=== PATIENT | male | born 1970 | race Caucasian/White ===

== ENCOUNTER 2020-09-20 12:38 | Outpatient (REF) | payer MEDICARE, MEDICAID, SELFPAY ==
[2020-09-20 13:06] LABS: MANUAL DIFF FLAG NO
[2020-09-20 13:14] LABS: Basophils Absolute Auto 0.1 X10*3/uL (0.0-0.2); Basophils Percent Auto 0.7 % (0-2); Eosinophils Absolute Auto 0.2 X10*3/uL (0.0-0.4); Eosinophils Percent Auto 1.8 % (0-4); Hematocrit 40.9 % (42-52); Hemoglobin 13.2 g/dl (14.0-18.0); Imm Gran Abs Auto 0.03 X10*3/uL (0.00-0.03); Imm Gran Pct Auto 0.3 % (0.0-0.4); Lymphocytes Absolute Auto 4.2 X10*3/uL (1.2-4.9); Lymphocytes Percent Auto 46.8 % (20-40); Mean Corpuscular HGB Conc 32.3 g/dl (31.0-36.0); Mean Corpuscular Hemoglobin 29.8 pg (27.0-33.0); Mean Corpuscular Volume 92.3 fL (80-98); Mean Platelet Volume 10.2 fL (9.4-12.4); Monocytes Absolute Auto 0.5 X10*3/uL (0.1-1.2); Monocytes Percent Auto 5.3 % (2-11); Neutrophils Percent Auto 45.1 % (45-73); Platelet Count 208 X10*3/uL (160-400); Red Blood Count 4.43 X10*6/uL (4.60-5.80); Red Cell Distribution Width 14.3 % (11.0-16.0); White Blood Count 8.9 X10*3/uL (4.8-10.8)
[2020-09-20 13:39] LABS: Alanine Aminotransferase 16 U/L (0-40); Albumin Level 4.3 g/dL (3.5-5.0); Alkaline Phosphatase 47 U/L (39-117); Anion Gap 13 (12-20); Aspartate Amino Transferase 15 U/L (5-37); Bilirubin Total 0.5 mg/dL (0.0-1.0); Blood Urea Nitrogen 11 mg/dL (9-16); Calcium 8.9 mg/dL (8.4-10.2); Carbon Dioxide 33 mmol/L (22-29); Chloride 98 mmol/L (96-108); Estimated Glomerular Filt Rate > 60; Glucose Random 124 mg/dL (60-115); Potassium 4.6 mmol/l (3.3-5.1); Sodium 139 mmol/L (135-145)
[2020-09-20 14:01] LABS: TSH reflex Free T4 2.51 mIU/mL (0.32-4.0)
[2020-09-20 14:24] LABS: Glucose Urine UA NEG (NEG); Leukocyte Esterase Urine TRACE (NEG); Nitrite Urine NEG (NEG); Specific Gravity - Urine 1.025 (1.005-1.025); Urine Blood NEG (NEG); Urine Ketones NEG (NEG); Urine Protein NEG (NEG-TRACE)
[2020-09-20 14:45] LABS: Appearance Urine CLEAR; Color Urine YELLOW
[2020-09-20 15:08] LABS: RBC Urine 0 /HPF (0)
[2020-09-20 15:09] LABS: Bacteria Urine TRACE /LPF; Mucus Urine TRACE /LPF; Squamous Epithelial Cell Urine TRACE /LPF
== END 2020-09-20 12:39 | disposition home or self-care (01) ==
LOC: HO.LAB 12:38
PROVIDERS: PCP Internal Medicine; Visit Provider Internal Medicine
DX: I89.0 Lymphedema, not elsewhere classified (principal)
CPT/HCPCS: 36415; 80053; 81001; 84443; 85025; 87086

== ENCOUNTER 2021-03-21 12:46 | Outpatient (REF) | payer MEDICARE, MEDICAID, SELFPAY ==
[2021-03-21 14:00] LABS: MANUAL DIFF FLAG NO
[2021-03-21 14:03] LABS: Basophils Absolute Auto 0.1 X10*3/uL (0.0-0.2); Basophils Percent Auto 0.5 % (0-2); Eosinophils Absolute Auto 0.2 X10*3/uL (0.0-0.4); Eosinophils Percent Auto 2.2 % (0-4); Hematocrit 40.6 % (42-52); Hemoglobin 13.3 g/dl (14.0-18.0); Imm Gran Abs Auto 0.03 X10*3/uL (0.00-0.03); Imm Gran Pct Auto 0.3 % (0.0-0.4); Lymphocytes Absolute Auto 4.3 X10*3/uL (1.2-4.9); Lymphocytes Percent Auto 47.4 % (20-40); Mean Corpuscular HGB Conc 32.8 g/dl (31.0-36.0); Mean Corpuscular Volume 91.4 fL (80-98); Mean Platelet Volume 10.1 fL (9.4-12.4); Monocytes Absolute Auto 0.6 X10*3/uL (0.1-1.2); Monocytes Percent Auto 6.2 % (2-11); Neutrophils Percent Auto 43.4 % (45-73); Platelet Count 222 X10*3/uL (160-400); Red Blood Count 4.44 X10*6/uL (4.60-5.80); Red Cell Distribution Width 14.2 % (11.0-16.0); White Blood Count 9.1 X10*3/uL (4.8-10.8)
[2021-03-21 14:29] LABS: Alanine Aminotransferase 13 U/L (0-40); Albumin Level 4.2 g/dL (3.5-5.0); Alkaline Phosphatase 45 U/L (39-117); Anion Gap 13 (12-20); Aspartate Amino Transferase 16 U/L (5-37); Bilirubin Total 0.5 mg/dL (0.0-1.0); Blood Urea Nitrogen 10 mg/dL (9-16); Calcium 9.4 mg/dL (8.4-10.2); Carbon Dioxide 30 mmol/L (22-29); Chloride 102 mmol/L (96-108); Cholesterol 190 mg/dL; Estimated Glomerular Filt Rate > 60; Glucose Fasting 124 mg/dL (60-99); HDL Cholesterol 33 mg/dL; LDL Cholesterol Calculated 111 mg/dl; Potassium 4.3 mmol/L (3.3-5.1); Sodium 141 mmol/L (135-145); Total Protein 6.9 g/dL (6.5-8.0); Triglycerides 232 mg/dL
[2021-03-21 14:52] LABS: TSH reflex Free T4 1.78 uIU/mL (0.32-4.0)
[2021-03-21 15:50] LABS: Microalbum/Creatinine Ratio Ur 17.6 ug/mg cr
[2021-03-21 15:54] LABS: Glucose Urine UA NEG (NEG); Leukocyte Esterase Urine NEG (NEG); Nitrite Urine NEG (NEG); PH 5.5 (5.0-8.0); Specific Gravity - Urine >= 1.030 (1.005-1.025); Urine Blood 1+ (NEG); Urine Ketones NEG (NEG); Urine Protein NEG (NEG-TRACE)
[2021-03-21 16:07] LABS: Appearance Urine CLEAR; Color Urine YELLOW
[2021-03-21 16:49] LABS: Squamous Epithelial Cell Urine 2+ /LPF; UACC CULT YES
== END 2021-03-21 12:47 | disposition home or self-care (01) ==
LOC: HO.LAB 12:46
PROVIDERS: PCP Internal Medicine; Visit Provider Internal Medicine
DX: E78.1 Pure hyperglyceridemia (principal); E11.9 Type 2 diabetes mellitus without complications; E66.01 Morbid (severe) obesity due to excess calories; Z68.42 Body mass index [BMI] 45.0-49.9, adult; I89.0 Lymphedema, not elsewhere classified; G47.33 Obstructive sleep apnea (adult) (pediatric)
CPT/HCPCS: 36415; 80053; 80061; 81001; 81003; 82043; 84443; 85025; 87086

== ENCOUNTER 2021-10-17 12:52 | Outpatient (REF) | payer MEDICARE, MEDICAID, SELFPAY ==
[2021-10-17 13:22] LABS: MANUAL DIFF FLAG NO
[2021-10-17 13:38] LABS: Basophils Percent Auto 0.3 % (0-2); Eosinophils Absolute Auto 0.1 X10*3/uL (0.0-0.4); Eosinophils Percent Auto 1.7 % (0-4); Hematocrit 41.8 % (42.0-52.0); Hemoglobin 13.8 g/dl (14.0-18.0); Imm Gran Abs Auto 0.02 X10*3/uL (0.00-0.03); Imm Gran Pct Auto 0.3 % (0.0-0.4); Lymphocytes Absolute Auto 3.8 X10*3/uL (1.2-4.9); Lymphocytes Percent Auto 47.6 % (20-40); Mean Corpuscular Hemoglobin 29.6 pg (27.0-33.0); Mean Corpuscular Volume 89.7 fL (80.0-98.0); Mean Platelet Volume 9.5 fL (9.4-12.4); Monocytes Absolute Auto 0.5 X10*3/uL (0.1-1.2); Monocytes Percent Auto 6.2 % (2-11); Neutrophils Absolute Auto 3.5 x10*3/uL (2.0-8.3); Neutrophils Percent Auto 43.9 % (45-73); Platelet Count 197 X10*3/uL (160-400); Red Blood Count 4.66 X10*6/uL (4.60-5.80); White Blood Count 7.9 X10*3/uL (4.8-10.8)
[2021-10-17 13:52] LABS: Alanine Aminotransferase 21 U/L (0-40); Albumin Level 4.2 g/dL (3.5-5.0); Alkaline Phosphatase 42 U/L (39-117); Anion Gap 16 (12-20); Aspartate Amino Transferase 17 U/L (5-37); Bilirubin Total 0.7 mg/dL (0.0-1.0); Blood Urea Nitrogen 8 mg/dL (9-16); Calcium 9.6 mg/dL (8.4-10.2); Carbon Dioxide 30 mmol/L (22-29); Chloride 98 mmol/L (96-108); Cholesterol 168 mg/dL; Estimated Glomerular Filt Rate > 60; Glucose Fasting 138 mg/dL (60-99); HDL Cholesterol 29 mg/dL; LDL Cholesterol Calculated 88 mg/dl; Sodium 140 mmol/L (135-145); Total Protein 7.1 g/dL (6.5-8.0); Triglycerides 256 mg/dL
[2021-10-17 14:04] LABS: Estimated Average Glucose 180 mg/dL; Hemoglobin A1c % 7.9 %
[2021-10-17 14:12] LABS: TSH reflex Free T4 2.28 uIU/mL (0.32-4.0)
[2021-10-17 14:43] LABS: Creatinine Urine 112.77 mg/dL; Microalbum/Creatinine Ratio Ur 17.7 ug/mg cr
[2021-10-17 18:01] LABS: Appearance Urine CLEAR; Color Urine YELLOW; Glucose Urine UA NEG (NEG); Leukocyte Esterase Urine TRACE (NEG); Nitrite Urine NEG (NEG); UACC Culture Trigger YES; Urine Blood NEG (NEG); Urine Ketones NEG (NEG); Urine Protein NEG (NEG-TRACE)
[2021-10-17 18:02] LABS: Bacteria Urine 1+ /LPF; Squamous Epithelial Cell Urine 3+ /LPF
== END 2021-10-17 12:53 | disposition home or self-care (01) ==
LOC: HO.LAB 12:52
PROVIDERS: PCP Internal Medicine; Visit Provider Internal Medicine
DX: E11.9 Type 2 diabetes mellitus without complications (principal); I89.0 Lymphedema, not elsewhere classified; E66.01 Morbid (severe) obesity due to excess calories; Z68.42 Body mass index [BMI] 45.0-49.9, adult; G47.33 Obstructive sleep apnea (adult) (pediatric); L03.115 Cellulitis of right lower limb; L03.116 Cellulitis of left lower limb; E78.1 Pure hyperglyceridemia
CPT/HCPCS: 36415; 80053; 80061; 81001; 81003; 82043; 83036; 84443; 85025; 87086

== ENCOUNTER 2022-01-06 11:40 | Outpatient (REF) | payer MEDICARE, MEDICAID, SELFPAY ==
[2022-01-06 11:54] LABS: MANUAL DIFF FLAG NO
[2022-01-06 12:17] LABS: Basophils Absolute Auto 0.1 X10*3/uL (0.0-0.2); Basophils Percent Auto 0.5 % (0-2); Eosinophils Absolute Auto 0.2 X10*3/uL (0.0-0.4); Eosinophils Percent Auto 1.9 % (0-4); Hematocrit 39.8 % (42.0-52.0); Hemoglobin 12.9 g/dl (14.0-18.0); Imm Gran Abs Auto 0.04 X10*3/uL (0.00-0.03); Imm Gran Pct Auto 0.4 % (0.0-0.4); Lymphocytes Absolute Auto 4.5 X10*3/uL (1.2-4.9); Lymphocytes Percent Auto 40.6 % (20-40); Mean Corpuscular HGB Conc 32.4 g/dl (31.0-36.0); Mean Corpuscular Hemoglobin 29.3 pg (27.0-33.0); Mean Corpuscular Volume 90.5 fL (80.0-98.0); Mean Platelet Volume 10.1 fL (9.4-12.4); Monocytes Absolute Auto 0.6 X10*3/uL (0.1-1.2); Monocytes Percent Auto 5.2 % (2-11); Neutrophils Absolute Auto 5.7 x10*3/uL (2.0-8.3); Neutrophils Percent Auto 51.4 % (45-73); Platelet Count 222 X10*3/uL (160-400); Red Cell Distribution Width 14.8 % (11.0-16.0)
[2022-01-06 12:30] LABS: Estimated Average Glucose 151 mg/dL; Hemoglobin A1c % 6.9 %
[2022-01-06 12:49] LABS: Alanine Aminotransferase 14 U/L (0-40); Alkaline Phosphatase 46 U/L (39-117); Anion Gap 13 (12-20); Aspartate Amino Transferase 14 U/L (5-37); Bilirubin Total 0.5 mg/dL (0.0-1.0); Blood Urea Nitrogen 9 mg/dL (9-16); Calcium 9.6 mg/dL (8.4-10.2); Carbon Dioxide 34 mmol/L (22-29); Chloride 94 mmol/L (96-108); Cholesterol 199 mg/dL; Estimated Glomerular Filt Rate > 60; Glucose Fasting 131 mg/dL (60-99); HDL Cholesterol 34 mg/dL; LDL Cholesterol Calculated 113 mg/dl; Potassium 4.1 mmol/L (3.3-5.1); Sodium 137 mmol/L (135-145); Total Protein 6.9 g/dL (6.5-8.0); Triglycerides 260 mg/dL
[2022-01-06 13:14] LABS: Appearance Urine CLOUDY; Color Urine YELLOW; Glucose Urine UA NEG (NEG); Leukocyte Esterase Urine 1+ (NEG); Nitrite Urine NEG (NEG); PH 6.5 (5.0-8.0); Specific Gravity - Urine 1.015 (1.005-1.025); TSH reflex Free T4 2.49 uIU/mL (0.32-4.0); UACC Culture Trigger YES; Urine Blood TRACE (NEG); Urine Ketones NEG (NEG); Urine Protein NEG (NEG-TRACE); Vitamin D 25-OH Total 37.7 ng/mL (>30)
[2022-01-06 13:31] LABS: Squamous Epithelial Cell Urine TRACE /LPF
[2022-01-06 13:32] LABS: Amorphous Sediment Urine 3+ /LPF; Bacteria Urine 2+ /LPF
[2022-01-06 13:33] LABS: Creatinine Urine 109.09 mg/dL; Microalbum/Creatinine Ratio Ur 17.4 ug/mg cr
== END 2022-01-06 11:41 | disposition home or self-care (01) ==
LOC: HO.LAB 11:40
PROVIDERS: PCP Internal Medicine; Visit Provider Internal Medicine
DX: E78.00 Pure hypercholesterolemia, unspecified (principal); E11.9 Type 2 diabetes mellitus without complications; E55.9 Vitamin D deficiency, unspecified; I10 Essential (primary) hypertension
CPT/HCPCS: 36415; 80053; 80061; 81001; 82043; 82306; 83036; 84443; 85025; 87086

== ENCOUNTER 2022-08-05 10:44 | Outpatient (REF) | payer MEDICARE, MEDICAID, SELFPAY ==
[2022-08-05 11:18] LABS: Appearance Urine Cloudy; Color Urine Yellow; Glucose Urine UA Negative (Negative); Leukocyte Esterase Urine Moderate (2+) (Negative); Nitrite Urine Positive (Negative); UMIC TRIGGER UACC YES; Urine Blood Negative (Negative); Urine Ketones Negative (Negative); Urine Protein Negative (Neg-Trace)
[2022-08-05 11:36] LABS: Bacteria Urine 4+ (None Seen); Hyaline Casts Urine 0-2 /LPF (0-2); RBC Urine 0-2 /HPF (0-2); Squamous Epithelial Cell Urine 0-2 /HPF (0-2); UACC Culture Trigger YES; WBC Urine >50 /HPF (0-5)
== END 2022-08-05 10:45 | disposition home or self-care (01) ==
LOC: HO.LAB 10:44
PROVIDERS: PCP Internal Medicine; Visit Provider Internal Medicine
DX: E11.9 Type 2 diabetes mellitus without complications (principal)
CPT/HCPCS: 81001; 87086

== ENCOUNTER 2022-08-08 12:17 | Outpatient (REF) | payer MEDICARE, MEDICAID, SELFPAY ==
[2022-08-08 12:36] LABS: MANUAL DIFF FLAG NO
[2022-08-08 13:29] LABS: Basophils Absolute Auto 0.1 X10*3/uL (0.0-0.2); Basophils Percent Auto 0.7 % (0-2); Eosinophils Absolute Auto 0.2 X10*3/uL (0.0-0.4); Eosinophils Percent Auto 2.2 % (0-4); Hematocrit 41.7 % (42.0-52.0); Hemoglobin 13.6 g/dl (14.0-18.0); Imm Gran Abs Auto 0.03 X10*3/uL (0.00-0.03); Imm Gran Pct Auto 0.3 % (0.0-0.4); Lymphocytes Absolute Auto 4.4 X10*3/uL (1.2-4.9); Lymphocytes Percent Auto 45.2 % (20-40); Mean Corpuscular HGB Conc 32.6 g/dl (31.0-36.0); Mean Corpuscular Hemoglobin 29.6 pg (27.0-33.0); Mean Corpuscular Volume 90.8 fL (80.0-98.0); Mean Platelet Volume 10.2 fL (9.4-12.4); Monocytes Absolute Auto 0.5 X10*3/uL (0.1-1.2); Monocytes Percent Auto 5.4 % (2-11); Neutrophils Absolute Auto 4.5 x10*3/uL (2.0-8.3); Neutrophils Percent Auto 46.2 % (45-73); Platelet Count 245 X10*3/uL (160-400); Red Blood Count 4.59 X10*6/uL (4.60-5.80); Red Cell Distribution Width 14.5 % (11.0-16.0); White Blood Count 9.7 X10*3/uL (4.8-10.8)
[2022-08-08 14:00] LABS: Estimated Average Glucose 143 mg/dL; Hemoglobin A1c % 6.6 %
[2022-08-08 14:22] LABS: Alanine Aminotransferase 15 U/L (0-40); Alkaline Phosphatase 47 U/L (39-117); Anion Gap 16 (12-20); Aspartate Amino Transferase 14 U/L (5-37); Bilirubin Total 0.6 mg/dL (0.0-1.0); Blood Urea Nitrogen 9 mg/dL (9-16); Calcium 9.4 mg/dL (8.4-10.2); Carbon Dioxide 32 mmol/L (22-29); Chloride 97 mmol/L (96-108); Cholesterol 194 mg/dL; Estimated Glomerular Filt Rate > 60; Glucose Fasting 119 mg/dL (60-99); HDL Cholesterol 34 mg/dL; LDL Cholesterol Calculated 113 mg/dl; Potassium 4.3 mmol/L (3.3-5.1); Sodium 141 mmol/L (135-145); TSH reflex Free T4 1.94 uIU/mL (0.32-4.0); Total Protein 6.8 g/dL (6.5-8.0); Triglycerides 235 mg/dL; Vitamin D 25-OH Total 40.5 ng/mL (>30)
== END 2022-08-08 12:18 | disposition home or self-care (01) ==
LOC: HO.LAB 12:17
PROVIDERS: PCP Internal Medicine; Visit Provider Internal Medicine
DX: E78.00 Pure hypercholesterolemia, unspecified (principal); E11.9 Type 2 diabetes mellitus without complications; E55.9 Vitamin D deficiency, unspecified; I10 Essential (primary) hypertension
CPT/HCPCS: 36415; 80053; 80061; 82306; 83036; 84443; 85025

== ENCOUNTER 2022-12-07 11:55 | Outpatient (REF) | payer MEDICARE, MEDICAID, SELFPAY ==
[2022-12-07 12:15] LABS: MANUAL DIFF FLAG NO
[2022-12-07 13:28] LABS: Basophils Absolute Auto 0.1 X10*3/uL (0.0-0.2); Basophils Percent Auto 0.6 % (0-2); Eosinophils Absolute Auto 0.2 X10*3/uL (0.0-0.4); Hematocrit 41.6 % (42.0-52.0); Hemoglobin 13.5 g/dl (14.0-18.0); Imm Gran Abs Auto 0.02 X10*3/uL (0.00-0.03); Imm Gran Pct Auto 0.2 % (0.0-0.4); Lymphocytes Absolute Auto 4.9 X10*3/uL (1.2-4.9); Lymphocytes Percent Auto 43.7 % (20-40); Mean Corpuscular HGB Conc 32.5 g/dl (31.0-36.0); Mean Corpuscular Hemoglobin 29.2 pg (27.0-33.0); Mean Corpuscular Volume 89.8 fL (80.0-98.0); Mean Platelet Volume 10.2 fL (9.4-12.4); Monocytes Absolute Auto 0.6 X10*3/uL (0.1-1.2); Monocytes Percent Auto 5.4 % (2-11); Neutrophils Absolute Auto 5.4 x10*3/uL (2.0-8.3); Neutrophils Percent Auto 48.1 % (45-73); Platelet Count 254 X10*3/uL (160-400); Red Blood Count 4.63 X10*6/uL (4.60-5.80); Red Cell Distribution Width 14.2 % (11.0-16.0); White Blood Count 11.3 X10*3/uL (4.8-10.8)
[2022-12-07 13:40] LABS: Appearance Urine Cloudy; Color Urine Yellow; Glucose Urine UA Negative (Negative); Leukocyte Esterase Urine Moderate (2+) (Negative); Nitrite Urine Negative (Negative); PH 5.5 (5.0-9.0); UMIC TRIGGER UACC YES; Urine Blood Negative (Negative); Urine Ketones Negative (Negative); Urine Protein Negative (Neg-Trace)
[2022-12-07 13:53] LABS: Estimated Average Glucose 128 mg/dL; Hemoglobin A1c % 6.1 %
[2022-12-07 14:02] LABS: Bacteria Urine 4+ (None Seen); Hyaline Casts Urine 0-2 /LPF (0-2); RBC Urine >20 /HPF (0-2); Squamous Epithelial Cell Urine 0-2 /HPF (0-2); UACC Culture Trigger YES; WBC Urine >50 /HPF (0-5)
[2022-12-07 14:17] LABS: Alanine Aminotransferase 14 U/L (0-40); Albumin Level 4.3 g/dL (3.5-5.0); Alkaline Phosphatase 53 U/L (39-117); Anion Gap 16 (12-20); Aspartate Amino Transferase 14 U/L (5-37); Bilirubin Total 0.8 mg/dL (0.0-1.0); Blood Urea Nitrogen 13 mg/dL (9-16); Calcium 9.3 mg/dL (8.4-10.2); Carbon Dioxide 31 mmol/L (22-29); Chloride 96 mmol/L (96-108); Cholesterol 206 mg/dL; Estimated Glomerular Filt Rate > 60; Glucose Fasting 120 mg/dL (60-99); HDL Cholesterol 36 mg/dL; LDL Cholesterol Calculated 121 mg/dl; Potassium 4.1 mmol/L (3.3-5.1); Sodium 139 mmol/L (135-145); Total Protein 7.3 g/dL (6.5-8.0); Triglycerides 247 mg/dL
[2022-12-07 14:30] LABS: Creatinine Urine 154.56 mg/dL; Microalbum/Creatinine Ratio Ur 15.5 ug/mg cr
[2022-12-07 14:33] LABS: TSH reflex Free T4 2.06 uIU/mL (0.32-4.0); Vitamin D 25-OH Total 41.8 ng/mL (>30)
== END 2022-12-07 11:56 | disposition home or self-care (01) ==
LOC: HO.LAB 11:55
PROVIDERS: PCP Internal Medicine; Visit Provider Internal Medicine
DX: E11.9 Type 2 diabetes mellitus without complications (principal); I10 Essential (primary) hypertension; E55.9 Vitamin D deficiency, unspecified; E78.00 Pure hypercholesterolemia, unspecified; R82.90 Unspecified abnormal findings in urine
CPT/HCPCS: 36415; 80053; 80061; 81001; 82043; 82306; 83036; 84443; 85025; 87086

== ENCOUNTER 2023-09-07 11:08 | Outpatient (REF) | payer MEDICARE, MEDICAID, SELFPAY ==
[2023-09-07 11:21] LABS: MANUAL DIFF FLAG NO
[2023-09-07 11:36] LABS: Basophils Absolute Auto 0.1 X10*3/uL (0.0-0.2); Basophils Percent Auto 0.7 % (0-2); Eosinophils Absolute Auto 0.2 X10*3/uL (0.0-0.4); Eosinophils Percent Auto 2.2 % (0-4); Hemoglobin 13.7 g/dl (14.0-18.0); Imm Gran Abs Auto 0.02 X10*3/uL (0.00-0.03); Imm Gran Pct Auto 0.2 % (0.0-0.4); Lymphocytes Absolute Auto 4.8 X10*3/uL (1.2-4.9); Lymphocytes Percent Auto 51.1 % (20-40); Mean Corpuscular HGB Conc 33.4 g/dl (31.0-36.0); Mean Corpuscular Hemoglobin 30.2 pg (27.0-33.0); Mean Corpuscular Volume 90.5 fL (80.0-98.0); Mean Platelet Volume 9.9 fL (9.4-12.4); Monocytes Absolute Auto 0.6 X10*3/uL (0.1-1.2); Neutrophils Absolute Auto 3.7 x10*3/uL (2.0-8.3); Neutrophils Percent Auto 39.8 % (45-73); Platelet Count 251 X10*3/uL (160-400); Red Blood Count 4.53 X10*6/uL (4.60-5.80); Red Cell Distribution Width 13.4 % (11.0-16.0); White Blood Count 9.4 X10*3/uL (4.8-10.8)
[2023-09-07 11:46] LABS: Estimated Average Glucose 114 mg/dL; Hemoglobin A1c % 5.6 % (<6.0)
[2023-09-07 12:29] LABS: Alanine Aminotransferase 10 U/L (0-40); Albumin Level 4.2 g/dL (3.5-5.0); Alkaline Phosphatase 52 U/L (39-117); Anion Gap 12 (12-20); Aspartate Amino Transferase 13 U/L (5-37); Bilirubin Total 0.5 mg/dL (0.0-1.0); Blood Urea Nitrogen 12 mg/dL (9-16); Calcium 9.5 mg/dL (8.4-10.2); Carbon Dioxide 31 mmol/L (22-29); Chloride 98 mmol/L (96-108); Cholesterol 188 mg/dL (<200); Estimated Glomerular Filt Rate > 60; Glucose Fasting 118 mg/dL (60-99); HDL Cholesterol 36 mg/dL (>40); LDL Cholesterol Calculated 109 mg/dL (<100); Sodium 137 mmol/L (135-145); Total Protein 7.7 g/dL (6.5-8.0); Triglycerides 218 mg/dL (<150)
[2023-09-07 12:44] LABS: TSH reflex Free T4 2.18 uIU/mL (0.32-4.0); Vitamin D 25-OH Total 44.7 ng/mL (>30)
[2023-09-07 14:48] LABS: Appearance Urine Cloudy; Color Urine Yellow; Glucose Urine UA Negative (Negative); Leukocyte Esterase Urine Moderate (2+) (Negative); Nitrite Urine Negative (Negative); PH 5.5 (5.0-9.0); UMIC TRIGGER UACC YES; Urine Blood Negative (Negative); Urine Ketones Negative (Negative); Urine Protein Negative (Neg-Trace)
[2023-09-07 14:59] LABS: Bacteria Urine 4+ (None Seen); Hyaline Casts Urine 0-2 /LPF (0-2); UACC Culture Trigger YES; WBC Urine >50 /HPF (0-5)
[2023-09-07 15:25] LABS: Creatinine Urine 138.17 mg/dL; Microalbum/Creatinine Ratio Ur 10.1 ug/mg cr (<30)
== END 2023-09-07 11:09 | disposition home or self-care (01) ==
LOC: HO.LAB 11:08
PROVIDERS: PCP Internal Medicine; Visit Provider Internal Medicine
DX: E11.9 Type 2 diabetes mellitus without complications (principal); R30.0 Dysuria; I10 Essential (primary) hypertension; E78.00 Pure hypercholesterolemia, unspecified; E55.9 Vitamin D deficiency, unspecified
CPT/HCPCS: 36415; 80053; 80061; 81001; 82043; 82306; 82570; 83036; 84443; 85025; 87086

== ENCOUNTER 2023-09-10 17:13 | Outpatient (AMB) | payer MEDICARE, MEDICAID, SELFPAY ==
[2023-09-10 17:16] VITALS: BP 138/80; PULSE 86; O2SAT 98; BMI 44.0
--- NOTE | 2023-09-10 17:16 | MHC.PC.OV ---
Vital Signs 09/10/23 17:16 Height 5 ft 7.5 in Weight 285 lb 6 oz BMI 44.0 BP 138/80 Blood Pressure Location Lt brachial Position Sitting Pulse 86 Pulse Source Pulse Oximeter Pulse Oximetry (%) 98 Oxygen Delivery Method Room Air Intake Visit Reasons: follow up [employer] Required: No Accompanied by: Self / Same As Patient Allergies No Known Allergies Allergy (Verified 09/10/23 17:37) Medication List - Last Reconciled 09/10/23 by Sree Padilla MD cholecalciferol (vitamin D3) 25 mcg PO DAILY furosemide 40 mg PO DAILY 90 days glimepiride 2 mg PO QAM 30 days metolazone 5 mg PO Q2D 90 days multivitamin 1 tab PO DAILY potassium chloride ER 60 mEq (3 x 20 mEq) PO TID spironolactone 50 mg PO BID Tobacco use date assessed: 09/10/23 Dental Screening Dental Screen Date: 09/10/23 Did you have a dental visit in the last 12 months?: No Did you have a dental problem in the last 6 months where you did not have access to dental care?: No Was dental information given to patient?: No HPI follow up HPI Details Patient comes in today for his follow up visit - is accompanied as usual by his sister today, who helps with his visit as patient has some cognitive issues Patient states that he feels okay He appears to have lost over 25 pounds since his last visit and his sister states that this is mostly from the fluid and swelling that they were able to help him get rid of lately as he has not been walking and on his feet as much lately due to the colder weather in the winter Patient denies any headaches or dizziness Denies any chest pains, no SOB No nausea/vomiting, no abdominal pain No change in bowel habits noted Had his follow up labs done a few days ago - to discuss his results Would also like to get his flu shot today [facility] Medical History Morbid obesity with BMI of 45.0-49.9, adult Mood disorder Obstructive sleep apnea Type 2 diabetes mellitus without complication, without long-term current use of insulin Hypertriglyceridemia Lymphedema of both lower extremities Lymphedema Surgical History History of myringotomy History of tonsillectomy Family History Father Medical history unknown Mother Diabetes Other Mental health problem Social History Housing: House Alcohol intake: never Patient Tobacco Use Status: Never used Tobacco e-Cigarette/Vaping Use: Never Used Second Hand Smoke Exposure: No service: No Current occupational status: disabled Cognitive needs: No Hearing needs: No Vision needs: No Questionnaire PHQ-9 Over the last 2 weeks, how often have you been bothered by any of the following problems? 1. Little interest or pleasure in doing things: several days 2. Feeling down, depressed, or hopeless: several days 3. Trouble falling or staying asleep, or sleeping too much: not at all 4. Feeling tired or having little energy: not at all 5. Poor appetite or overeating: not at all 6. Feeling bad about yourself - or that you are a failure or have let yourself or your family down: not at all 7. Trouble concentrating on things, such as reading the newspaper or watching television: not at all 8. Moving or speaking so slowly that other people could have noticed. Or the opposite - being so fidgety or restless that you have been moving around a lot more than usual: several days 9. Thoughts that you would be better off or of hurting yourself in some way: not at all Total score: 3 Depression Screening Interpretation: Negative Depression Screening Done: Yes [id number] - PHQ-9 Billing: Yes Source: Developed by Drs. Catrachito Blackwell, Lizbeth Levine, Eliot Rush and colleagues, with an educational ignacio from [employer]. Thrive Questionnaire Date Thrive assessed: 09/10/23 I am a: Patient What is your living situation today?: I have a steady place to live Within the past 12 months, did the food you bought not last and you didn't have the money to get more?: Never true Within the past 12 months, did you worry whether your food would run out before you got money to buy more?: Never true Do you have trouble paying for medicines?: No Do you have trouble getting transportation to medical appointments?: No Do you have trouble paying your heating and electricity bill?: No Do you have trouble taking care of your child, family member or friend?: No Do you have trouble with day-to-day activities such as bathing, preparing meals, shopping, managing finances, etc.?: No Are you currently unemployed and looking for a job?: No Are you interested in more education?: No Please select the resources that you would like help with: None Currently or been in a relationship where the following occur: no concerns reported AUDIT C Alcohol Use Questionnaire (AUDIT-C) 1. How often do you have a drink containing alcohol?: Never 3. How often do you have six or more drinks on one occasion?: Never Total Score: 0 Score Reviewed/Action Taken: Yes MADELINE-7 AMB Questionnaire MADELINE-7 Date MADELINE - 7 assessed: 12/28/22 Feeling nervous, anxious, or on edge: 0 = Not at all Not being able to stop or control worryin = Not at all Worrying too much about different things: 0 = Not at all Trouble relaxin = Not at all Being so restless that it is hard to sit still: 0 = Not at all Becoming easily annoyed or irritable: 0 = Not at all Feeling afraid as if something awful might happen: 0 = Not at all Total MADELINE-7 score (0-4 normal; 5-9 mild; 10-14 moderate; 15-21 severe): 0 Source: Developed by Drs. Catrachito Blackwell, Lizbeth Levine, Eliot Rush and colleagues, with an educational ignacio from [employer]. Review of Systems Const Denies chills, Denies fatigue, Denies fever(s) and Denies headache(s) ENT Denies dysphagia, Denies dizziness, Denies otalgia, Denies headache(s), Denies odynophagia, Denies sinus pain and Denies sore throat Card Denies chest pain, Denies palpitations and Denies dyspnea Resp Denies cough, Denies dyspnea and Denies wheezing GI Denies abdominal pain, Denies constipation, Denies dysphagia, Denies heartburn, Denies diarrhea, Denies nausea, Denies odynophagia and Denies vomiting Denies dysuria, Denies nocturia and Reports urinary frequency (is on diuretics) Skin/Breast Details: (+) chronic skin changes over both lower legs, ankles and feet Neuro Denies dizziness and Denies headache(s) Endo Denies fatigue and Denies palpitations Geraldo/Lymph Details: increased swelling (chronic) of both lower extremities, worse on the right side Aller/Immun Denies wheezing Physical exam (Primary Care) Vital Signs: Last Vital Signs Pulse 86 09/10/23 17:16 BP 138/80 09/10/23 17:16 Pulse Ox 98 09/10/23 17:16 Oxygen Delivery Method Room Air 09/10/23 17:16 BMI result Body Mass Index 44.0 Tobacco/Smoking Status: Tobacco use Status Tobacco use date assessed 09/10/23 09/10/23 17:22 Patient Tobacco Use Status Never used Tobacco 09/10/23 17:22 e-Cigarette/Vaping Use Never Used 09/10/23 17:22 PHQ-9: PHQ-9 Score PHQ-9: Total score 3 09/10/23 17:53 Depression Screening Interpretation: Negative Thrive Assessment: Date of Thrive Assessment Date Thrive assessed 09/10/23 09/10/23 17:22 Currently or been in a relationship where the following occur: no concerns reported Const General: no acute distress and alert HENMT Ears: TM's normal bilaterally and EAC's normal Throat: Yes posterior oropharynx normal and Yes tonsils normal (no TP congestion noted) Neck Neck: Yes no lymphadenopathy and Yes supple Resp Auscultation: clear to auscultation bilaterally, no rales and no wheezes Cardio Rate: regular rate Rhythm: regular rhythm Heart sounds: no murmurs GI Palpation (GI): Soft to palpation and nontender Auscultation: normal bowel sounds Skin Other: (+) chronic scaling and skin changes over the lower legs bilaterally, worse on the right leg Extrem Other: (+) chronic erythema and skin changes on the lower legs bilaterally, worse on the right side General: No clubbing, No cyanosis and Yes edema (3+ bipedal edema, with increased erythema & chronic skin changes bilat.) Office Procedures Flu Questionnaire Does the patient have a severe egg allergy?: No Does the patient have severe life threatening allergies?: No Does the patient have a fever or illness today?: No Has the patient ever had Guillain-[place] Syndrome?: No Has the patient ever had any past reaction to a flu shot?: No Immunizations flu vacc [id number] 6mos up(PF) 60 mcg(15 mcgx4)/0.5 mL IM syringe Performing Provider: Sree Padilla MD [facility] Administered by: JUAN Diaz on 09/10/23 17:54 Dose Route Admin Location Dispensed Lot Number Expiration Date NDC [employer] 0.5 mL IM Left Deltoid 0.5 mL [id number] 03/23/24 [id number] [employer] VIS Given Date VIS Provided VIS Publication Date 09/10/23 Single Vaccine 21 Eligibility Eligibility Date Funding Source Not VFC Eligible 09/10/23 Private Results Reviewed Results Reviewed: Laboratory Tests 09/07/23 09/07/23 09/07/23 11:19 11:19 11:20 WBC 9.4 Hgb 13.7 L Hct 41.0 L Plt Count 251 Sodium 137 Potassium 4.0 Creatinine 0.80 Estimated GFR > 60 Fasting Glucose 118 H Hemoglobin A1c % 5.6 Calcium 9.5 AST 13 ALT 10 Triglycerides 218 H Cholesterol 188 LDL Cholesterol, Calc 109 H HDL Cholesterol 36 L 25-OH Vitamin D Total 44.7 TSH 2.18 Ur Specific [place] 1.020 Urine Protein Negative Urine Glucose (UA) Negative Urine Blood Negative Microalb/Creat Ratio 10.1 Assessment and Plan Assessment & Plan (1) Lymphedema of both lower extremities: Code(s): I89.0 - Lymphedema, not elsewhere classified Plan: Continue Furosemide 40 mg QD, Aldactone 50 mg BID and Metolazone 5 mg QOD Continue KCl ER 20 meq 3 tablets 3 times a day Patient is encouraged again to continue to elevate his legs as often as he can and to wear support stockings to help manage his lower extremity swelling Was referred back to vascular surgery for further evaluation and management in the past but patient's sister did not keep his appointment - feels that his condition at this time is too far gone for vascular surgery to have any benefit; states that patient has seen vascular surgery a few times in the past but they have not been able to help him much back then (2) Hypertriglyceridemia: Code(s): E78.1 - Pure hyperglyceridemia Plan: Results of his labs done a few days ago reviewed and discussed with patient - advised that his cholesterol levels have improved slightly from previous Reinforced low cholesterol diet Will recheck his labs and fasting lipids in 4 months for follow up (3) Type 2 diabetes mellitus without complication, without long-term current use of insulin: Code(s): E11.9 - Type 2 diabetes mellitus without complications Plan: HgbA1c was at 5.6% on his labs done a few days ago (was at 6.1% a few months ago) - goal is < 7.0% Reinforced diabetic diet Continue Glimepiride 2 mg QD Will recheck his HgbA1c in 4 months for follow up (4) Obstructive sleep apnea: Code(s): G47.33 - Obstructive sleep apnea (adult) (pediatric) Plan: Patient's sister admits that he has not been using his CPAP device when sleeping at night for a while now as he finds it difficult to sleep with the mask on Discussed option of referring him back to sleep medicine to get this reassessed but patient declined referral at the time and still does not wish to address this issue at present - feels that he is doing well as things are at this time (5) Mood disorder: Code(s): F39 - Unspecified mood [affective] disorder Plan: Have recommended again that he should be seeing a psychiatrist for further evaluation and management but patient's sister (who is his HCP) declined, as she feels that patient has been doing well currently without any Rx or intervention (6) Morbid obesity with BMI of 45.0-49.9, adult: Code(s): E66.01 - Morbid (severe) obesity due to excess calories; Z68.42 - Body mass index [BMI] 45.0-49.9, adult Plan: Reinforced diet; exercise and weight loss are not realistic due to his comorbidiies and physical issues although he was able to lose a lot of weight since his last visit and his weight loss appear to be mostly due to a decrease in his lymphedema Patient is nonetheless encouraged to continue to stay as active as he can Plan Flu vaccine given today Follow up in 4 months Orders: Orders Complete Blood Count Auto Diff 4 Months I10 - Essential (primary) hypertension Comprehensive [place]. Panel Fast 4 Months E78.00 - Pure hypercholesterolemia, unspecified TSH reflex Free T4 4 Months E78.00 - Pure hypercholesterolemia, unspecified UA CC w/rflx Micro + Cult 4 Months R30.0 - Dysuria Microalbumin, Random (w Creat) 4 Months E11.9 - Type 2 diabetes mellitus without complications Lipid Panel 4 Months E78.00 - Pure hypercholesterolemia, unspecified Hemoglobin A1c 4 Months E11.9 - Type 2 diabetes mellitus without complications Vitamin D 25-OH Total 4 Months E55.9 - Vitamin D deficiency, unspecified Influenza [id number] Immunization 09/10/23 Z23 - Encounter for immunization Coding Level of Care Code Est Pt Level 4 (62896) Diagnoses Lymphedema of both lower extremities I89.0 Hypertriglyceridemia E78.1 Type 2 diabetes mellitus without complication, without long-term current use of insulin E11.9 Obstructive sleep apnea G47.33 Mood disorder F39 Morbid obesity with BMI of 45.0-49.9, adult E66.01; Z68.42
== END 2023-09-10 17:53 | disposition home or self-care (01) ==
LOC: HO.HMGH 17:13
PROVIDERS: PCP Internal Medicine; Visit Provider Internal Medicine
DX: Z23 Encounter for immunization (principal)
CPT/HCPCS: 90471; 90686; 99214

== ENCOUNTER 2024-01-12 10:35 | Outpatient (REF) | payer MEDICARE, MEDICAID, SELFPAY ==
[2024-01-12 11:47] LABS: Appearance Urine Clear; Color Urine Yellow; Glucose Urine UA Negative (Negative); Leukocyte Esterase Urine Moderate (2+) (Negative); Nitrite Urine Negative (Negative); UMIC TRIGGER UACC YES; Urine Blood Negative (Negative); Urine Ketones Negative (Negative); Urine Protein Negative (Neg-Trace)
[2024-01-12 11:51] LABS: Basophils Absolute Auto 0.1 X10*3/uL (0.0-0.2); Basophils Percent Auto 0.7 % (0-2); Eosinophils Absolute Auto 0.3 X10*3/uL (0.0-0.4); Eosinophils Percent Auto 2.4 % (0-4); Hematocrit 38.9 % (42.0-52.0); Hemoglobin 12.8 g/dl (14.0-18.0); Imm Gran Abs Auto 0.03 X10*3/uL (0.00-0.03); Imm Gran Pct Auto 0.3 % (0.0-0.4); Lymphocytes Absolute Auto 5.2 X10*3/uL (1.2-4.9); Lymphocytes Percent Auto 44.8 % (20-40); MANUAL DIFF FLAG SCAN; Mean Corpuscular HGB Conc 32.9 g/dl (31.0-36.0); Mean Corpuscular Hemoglobin 29.8 pg (27.0-33.0); Mean Corpuscular Volume 90.5 fL (80.0-98.0); Mean Platelet Volume 9.4 fL (9.4-12.4); Monocytes Absolute Auto 0.6 X10*3/uL (0.1-1.2); Neutrophils Absolute Auto 5.5 x10*3/uL (2.0-8.3); Neutrophils Percent Auto 46.8 % (45-73); Platelet Count 276 X10*3/uL (160-400); Red Cell Distribution Width 14.2 % (11.0-16.0); SCAN SMEAR FLAG 1; White Blood Count 11.6 X10*3/uL (4.8-10.8)
[2024-01-12 12:01] LABS: Bacteria Urine Trace (None Seen); Hyaline Casts Urine 0-2 /LPF (0-2); RBC Urine 0-2 /HPF (0-2); Squamous Epithelial Cell Urine 0-2 /HPF (0-2); UACC Culture Trigger YES; WBC Urine 21-50 /HPF (0-5)
[2024-01-12 12:10] LABS: SLIDE REVIEW VERIFIED
[2024-01-12 12:11] LABS: Estimated Average Glucose 117 mg/dL; Hemoglobin A1c % 5.7 % (<6.0)
[2024-01-12 12:46] LABS: Creatinine Urine 108.21 mg/dL
[2024-01-12 12:54] LABS: Alanine Aminotransferase 18 U/L (0-40); Albumin Level 4.1 g/dL (3.5-5.0); Alkaline Phosphatase 56 U/L (39-117); Anion Gap 14 (12-20); Aspartate Amino Transferase 16 U/L (5-37); Bilirubin Total 0.5 mg/dL (0.0-1.0); Blood Urea Nitrogen 10 mg/dL (9-16); Calcium 9.6 mg/dL (8.4-10.2); Carbon Dioxide 31 mmol/L (22-29); Chloride 98 mmol/L (96-108); Cholesterol 166 mg/dL (<200); Estimated Glomerular Filt Rate > 60; Glucose Fasting 103 mg/dL (60-99); HDL Cholesterol 33 mg/dL (>40); LDL Cholesterol Calculated 92 mg/dL (<100); Potassium 4.3 mmol/L (3.3-5.1); Sodium 139 mmol/L (135-145); Total Protein 7.5 g/dL (6.5-8.0); Triglycerides 206 mg/dL (<150)
[2024-01-12 13:10] LABS: TSH reflex Free T4 1.96 uIU/mL (0.32-4.0); Vitamin D 25-OH Total 44.2 ng/mL (>30)
== END 2024-01-12 10:36 | disposition home or self-care (01) ==
LOC: HO.LAB 10:35
PROVIDERS: PCP Internal Medicine; Visit Provider Internal Medicine
DX: E11.9 Type 2 diabetes mellitus without complications (principal); E55.9 Vitamin D deficiency, unspecified; E78.00 Pure hypercholesterolemia, unspecified; I10 Essential (primary) hypertension; R30.0 Dysuria
CPT/HCPCS: 36415; 80053; 80061; 81001; 82043; 82306; 82570; 83036; 84443; 85025; 87086

== ENCOUNTER 2024-01-14 16:41 | Outpatient (AMB) | payer MEDICARE, MEDICAID, SELFPAY ==
--- NOTE | 2024-01-14 16:44 | A.OFFPC_ITS ---
Vital Signs 01/14/24 16:46 Height 5 ft 7.5 in Weight 288 lb 2 oz BMI 44.5 BP 118/70 Blood Pressure Location Lt brachial Position Sitting Pulse 83 Pulse Source Pulse Oximeter Pulse Oximetry (%) 95 Oxygen Delivery Method Room Air Intake Visit Reasons: DM, hyperlipidemia, lymphedema Intake Note: Patient is here to follow up on DM, HLD, Lymphedema. 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 Accompanied by: Aunt Allergies No Known Allergies Allergy (Verified 01/14/24 17:05) Medication List - Last Reconciled 01/14/24 by Sree Padilla MD cholecalciferol (vitamin D3) 25 mcg PO DAILY furosemide 40 mg PO DAILY 90 days glimepiride 2 mg PO QAM 30 days metolazone 5 mg PO Q2D 90 days multivitamin 1 tab PO DAILY potassium chloride ER 60 mEq (3 x 20 mEq) PO TID spironolactone 50 mg PO BID Tobacco use date assessed: 01/14/24 Dental Screening Dental Screen Date: 01/14/24 Did you have a dental visit in the last 12 months?: No Did you have a dental problem in the last 6 months where you did not have access to dental care?: No Was dental information given to patient?: No HPI DM, hyperlipidemia, lymphedema HPI Details Patient comes in today for his follow up visit States that he feels okay He denies any headaches or dizziness Denies any chest pains, no SOB No nausea/vomiting, no abdominal pain No change in bowel habits noted He continues to have chronic swelling of his legs and feet but he appears to have it controlled better currently than previous Had his follow up labs done a couple of days ago - to discuss his results [facility] Medical History Morbid obesity with BMI of 45.0-49.9, adult Mood disorder Obstructive sleep apnea Type 2 diabetes mellitus without complication, without long-term current use of insulin Hypertriglyceridemia Lymphedema of both lower extremities Lymphedema Surgical History History of myringotomy History of tonsillectomy Family History Father Medical history unknown Mother Diabetes Other Mental health problem Social History Housing: House Alcohol intake: never Patient Tobacco Use Status: Never used Tobacco e-Cigarette/Vaping Use: Never Used Second Hand Smoke Exposure: No service: No Current occupational status: disabled Cognitive needs: No Hearing needs: No Vision needs: Yes (Glasses) Questionnaire PHQ-9 Over the last 2 weeks, how often have you been bothered by any of the following problems? 1. Little interest or pleasure in doing things: not at all 2. Feeling down, depressed, or hopeless: not at all 3. Trouble falling or staying asleep, or sleeping too much: not at all 4. Feeling tired or having little energy: not at all 5. Poor appetite or overeating: not at all 6. Feeling bad about yourself - or that you are a failure or have let yourself or your family down: not at all 7. Trouble concentrating on things, such as reading the newspaper or watching television: not at all 8. Moving or speaking so slowly that other people could have noticed. Or the opposite - being so fidgety or restless that you have been moving around a lot more than usual: not at all 9. Thoughts that you would be better off or of hurting yourself in some way: not at all Total score: 0 Depression Screening Interpretation: Negative Depression Screening Done: Yes 40476 - PHQ-9 Billing: Yes Source: Developed by Drs. Catrachito Blackwell, Lizbeth Levine, Eliot Rush and colleagues, with an educational ignacio from [employer]. Thrive Questionnaire Date Thrive assessed: 01/14/24 I am a: Patient What is your living situation today?: I have a steady place to live Within the past 12 months, did the food you bought not last and you didn't have the money to get more?: Never true Within the past 12 months, did you worry whether your food would run out before you got money to buy more?: Never true Do you have trouble paying for medicines?: No Do you have trouble getting transportation to medical appointments?: No Do you have trouble paying your heating and electricity bill?: No Do you have trouble taking care of your child, family member or friend?: No Do you have trouble with day-to-day activities such as bathing, preparing meals, shopping, managing finances, etc.?: No Are you currently unemployed and looking for a job?: No Are you interested in more education?: No Currently or been in a relationship where the following occur: no concerns reported THRIVE Score: 0 AUDIT C Alcohol Use Questionnaire (AUDIT-C) 1. How often do you have a drink containing alcohol?: Never 3. How often do you have six or more drinks on one occasion?: Never Total Score: 0 Score Reviewed/Action Taken: Yes MADELINE-7 AMB Questionnaire MADELINE-7 Date MADELINE - 7 assessed: 01/14/24 Feeling nervous, anxious, or on edge: 0 = Not at all Not being able to stop or control worryin = Not at all Worrying too much about different things: 0 = Not at all Trouble relaxin = Not at all Being so restless that it is hard to sit still: 0 = Not at all Becoming easily annoyed or irritable: 0 = Not at all Feeling afraid as if something awful might happen: 0 = Not at all Total MADELINE-7 score (0-4 normal; 5-9 mild; 10-14 moderate; 15-21 severe): 0 Source: Developed by Drs. Catrachito Blackwell, Lizbeth Levine, Eliot Rush and colleagues, with an educational ignacio from [employer]. Review of Systems Const Denies chills, Denies fatigue, Denies fever(s) and Denies headache(s) ENT Denies dysphagia, Denies dizziness, Denies otalgia, Denies headache(s), Denies odynophagia and Denies sore throat Card Denies chest pain, Denies palpitations and Denies dyspnea Resp Denies cough, Denies dyspnea and Denies wheezing GI Denies abdominal pain, Denies constipation, Denies dysphagia, Denies heartburn, Denies diarrhea, Denies nausea, Denies odynophagia and Denies vomiting Denies dysuria, Denies nocturia and Reports urinary frequency (is on diuretics) Skin/Breast Details: (+) chronic skin changes over both lower legs, ankles and feet Neuro Denies dizziness and Denies headache(s) Endo Denies fatigue and Denies palpitations Geraldo/Lymph Details: (+) swelling (chronic) of both lower extremities, worse on the right side Aller/Immun Denies wheezing Physical exam (Primary Care) Vital Signs: Last Vital Signs Pulse 83 01/14/24 16:46 BP 118/70 01/14/24 16:46 Pulse Ox 95 01/14/24 16:46 Oxygen Delivery Method Room Air 01/14/24 16:46 BMI result Body Mass Index 44.5 Tobacco/Smoking Status: Tobacco use Status Tobacco use date assessed 01/14/24 01/14/24 16:51 Patient Tobacco Use Status Never used Tobacco 01/14/24 16:51 e-Cigarette/Vaping Use Never Used 01/14/24 16:51 PHQ-9: PHQ-9 Score PHQ-9: Total score 0 01/14/24 16:51 Depression Screening Interpretation: Negative Thrive Assessment: Date of Thrive Assessment Date Thrive assessed 01/14/24 01/14/24 16:51 Currently or been in a relationship where the following occur: no concerns reported Const General: no acute distress and alert HENMT Ears: TM's normal bilaterally and EAC's normal Throat: Yes posterior oropharynx normal and Yes tonsils normal (no TP congestion noted) Neck Neck: Yes no lymphadenopathy and Yes supple Resp Auscultation: clear to auscultation bilaterally, no rales and no wheezes Cardio Rate: regular rate Rhythm: regular rhythm Heart sounds: no murmurs GI Palpation (GI): Soft to palpation and nontender Auscultation: normal bowel sounds Skin Other: (+) chronic scaling and skin changes over the lower legs bilaterally, worse on the right leg Extrem Other: (+) chronic erythema and skin changes on the lower legs bilaterally, worse on the right side General: No clubbing, No cyanosis and Yes edema (3+ bipedal edema, with increased erythema & chronic skin changes bilat.) Results Reviewed Results Reviewed: Laboratory Tests 01/12/24 01/12/24 10:45 10:46 WBC 11.6 H Hgb 12.8 L Hct 38.9 L Plt Count 276 Sodium 139 Potassium 4.3 Creatinine 0.71 Estimated GFR > 60 Fasting Glucose 103 H Hemoglobin A1c % 5.7 Calcium 9.6 AST 16 ALT 18 Triglycerides 206 H Cholesterol 166 LDL Cholesterol, Calc 92 HDL Cholesterol 33 L 25-OH Vitamin D Total 44.2 TSH 1.96 Ur Specific [place] 1.020 Urine Protein Negative Urine Glucose (UA) Negative Urine Blood Negative Urine Nitrite Negative Ur Leukocyte Esterase Moderate (2+) H Microalb/Creat Ratio 11.0 Assessment and Plan Assessment & Plan (1) Lymphedema of both lower extremities: Code(s): I89.0 - Lymphedema, not elsewhere classified Plan: Continue Furosemide 40 mg QD, Aldactone 50 mg BID and Metolazone 5 mg QOD Continue KCl ER 20 meq 3 tablets 3 times a day Patient is encouraged again to continue to elevate his legs as often as he can and to wear support stockings to help manage his lower extremity swelling He was referred back to vascular surgery for further evaluation and management in the past but patient's sister did not keep his appointment as she felt that his condition at this time is too far gone for vascular surgery to be able to help; states that patient has seen vascular surgery a few times in the past but they have not been able to help him much back then (2) Hypertriglyceridemia: Code(s): E78.1 - Pure hyperglyceridemia Plan: Results of his labs done a few days ago reviewed and discussed with patient Reinforced low cholesterol diet Will recheck his labs and fasting lipids in 4 months for follow up (3) Type 2 diabetes mellitus without complication, without long-term current use of insulin: Code(s): E11.9 - Type 2 diabetes mellitus without complications Plan: HgbA1c was at 5.7% on his labs done a few days ago (was at 5.7% a few months ago) - goal is < 7.0% Reinforced diabetic diet Continue Glimepiride 2 mg QD Will recheck his HgbA1c in 4 months for follow up (4) Obstructive sleep apnea: Code(s): G47.33 - Obstructive sleep apnea (adult) (pediatric) Plan: Patient's sister admits that he has not been using his CPAP device when sleeping at night for a while now as he finds it difficult to sleep with the mask on Have discussed with them the option of referring him back to sleep medicine to get this reassessed but patient declined referral and still does not wish to add ress this issue at present - feels that he is doing well as things are at this time (5) Mood disorder: Code(s): F39 - Unspecified mood [affective] disorder Plan: Have recommended again that he should be seeing a psychiatrist for further evaluation and management but patient's sister (who is his HCP) declined, as she feels that patient has been doing well currently without any Rx or intervention (6) Morbid obesity with BMI of 45.0-49.9, adult: Code(s): E66.01 - Morbid (severe) obesity due to excess calories; Z68.42 - Body mass index [BMI] 45.0-49.9, adult Plan: Reinforced diet; exercise and weight loss are not realistic due to his comorbidiies and physical issues Patient is nonetheless encouraged to continue to stay as active as he can Plan Follow up in 4 months Orders: Orders Complete Blood Count Auto Diff 4 Months D64.9 - Anemia, unspecified Comprehensive [place]. Panel Fast 4 Months E78.00 - Pure hypercholesterolemia, unspecified Lipid Panel 4 Months E78.00 - Pure hypercholesterolemia, unspecified Hemoglobin A1c 4 Months E11.9 - Type 2 diabetes mellitus without complications TSH reflex Free T4 4 Months E78.00 - Pure hypercholesterolemia, unspecified Microalbumin, Random (w Creat) 4 Months E11.9 - Type 2 diabetes mellitus without complications UA CC w/rflx Micro + Cult 4 Months R30.0 - Dysuria Vitamin D 25-OH Total 4 Months E55.9 - Vitamin D deficiency, unspecified Coding Level of Care Code Est Pt Level 4 (38197) Diagnoses Lymphedema of both lower extremities I89.0 Hypertriglyceridemia E78.1 Type 2 diabetes mellitus without complication, without long-term current use of insulin E11.9 Obstructive sleep apnea G47.33 Mood disorder F39 Morbid obesity with BMI of 45.0-49.9, adult E66.01; Z68.42
[2024-01-14 16:46] VITALS: BP 118/70; PULSE 83; O2SAT 95; BMI 44.5
== END 2024-01-14 17:23 | disposition home or self-care (01) ==
PROVIDERS: PCP Internal Medicine; Visit Provider Internal Medicine
DX: E11.9 Type 2 diabetes mellitus without complications (principal); F39 Unspecified mood [affective] disorder; E66.01 Morbid (severe) obesity due to excess calories; Z68.42 Body mass index [BMI] 45.0-49.9, adult; I89.0 Lymphedema, not elsewhere classified; E78.1 Pure hyperglyceridemia; G47.33 Obstructive sleep apnea (adult) (pediatric)
CPT/HCPCS: 99214

== ENCOUNTER 2024-12-15 12:28 | Outpatient (REF) | payer MEDICARE, MEDICAID, SELFPAY ==
[2024-12-15 12:41] LABS: MANUAL DIFF FLAG NO
[2024-12-15 14:31] LABS: Basophils Absolute Auto 0.1 X10*3/uL (0.0-0.2); Basophils Percent Auto 0.8 % (0-2); Eosinophils Absolute Auto 0.3 X10*3/uL (0.0-0.4); Eosinophils Percent Auto 2.7 % (0-4); Hematocrit 40.2 % (42.0-52.0); Hemoglobin 13.2 g/dl (14.0-18.0); Imm Gran Abs Auto 0.02 X10*3/uL (0.00-0.03); Imm Gran Pct Auto 0.2 % (0.0-0.4); Lymphocytes Absolute Auto 4.3 X10*3/uL (1.2-4.9); Lymphocytes Percent Auto 44.6 % (20-40); Mean Corpuscular HGB Conc 32.8 g/dl (31.0-36.0); Mean Corpuscular Volume 91.4 fL (80.0-98.0); Monocytes Absolute Auto 0.6 X10*3/uL (0.1-1.2); Monocytes Percent Auto 6.1 % (2-11); Neutrophils Absolute Auto 4.4 x10*3/uL (2.0-8.3); Neutrophils Percent Auto 45.6 % (45-73); Platelet Count 249 X10*3/uL (160-400); Red Cell Distribution Width 13.9 % (11.0-16.0); White Blood Count 9.7 X10*3/uL (4.8-10.8)
[2024-12-15 14:41] LABS: Estimated Average Glucose 108 mg/dL; Hemoglobin A1c % 5.4 % (<6.0); Total Hemoglobin (HGBA1C) 3479.3648 umol/L
[2024-12-15 14:55] LABS: Appearance Urine Turbid; Color Urine Yellow; Glucose Urine UA Negative (Negative); Leukocyte Esterase Urine Large (3+) (Negative); Nitrite Urine Positive (Negative); PH 7.5 (5.0-9.0); Specific Gravity - Urine 1.015 (1.005-1.025); UMIC TRIGGER UACC YES; Urine Blood Small (1+) (Negative); Urine Ketones Negative (Negative); Urine Protein Trace mg/dL (Neg-Trace)
[2024-12-15 15:02] LABS: Bacteria Urine 4+ (None Seen); Hyaline Casts Urine 0-2 /LPF (0-2); Squamous Epithelial Cell Urine 0-2 /HPF (0-2); UACC Culture Trigger YES; WBC Urine >50 /HPF (0-5)
[2024-12-15 15:19] LABS: Creatinine Urine 120.97 mg/dL; Microalbum/Creatinine Ratio Ur 15.7 ug/mg cr (<30)
[2024-12-15 15:21] LABS: Alanine Aminotransferase 11 U/L (0-40); Alkaline Phosphatase 51 U/L (39-117); Anion Gap 12 (12-20); Aspartate Amino Transferase 17 U/L (5-37); Bilirubin Total 0.6 mg/dL (0.0-1.0); Blood Urea Nitrogen 10 mg/dL (9-16); Calcium 9.1 mg/dL (8.4-10.2); Carbon Dioxide 30 mmol/L (22-29); Chloride 103 mmol/L (96-108); Cholesterol 180 mg/dL (<200); Estimated Glomerular Filt Rate > 60; Glucose Fasting 100 mg/dL (60-99); HDL Cholesterol 39 mg/dL (>40); LDL Cholesterol Calculated 106 mg/dL (<100); Potassium 4.1 mmol/L (3.3-5.1); Sodium 141 mmol/L (135-145); Total Protein 7.1 g/dL (6.5-8.0); Triglycerides 175 mg/dL (<150)
[2024-12-15 15:39] LABS: TSH reflex Free T4 1.82 uIU/mL (0.32-4.0); Vitamin D 25-OH Total 45.8 ng/mL (>30)
== END 2024-12-15 12:29 | disposition home or self-care (01) ==
LOC: HO.LAB 12:28
PROVIDERS: PCP Internal Medicine; Visit Provider Internal Medicine
DX: D64.9 Anemia, unspecified (principal); E78.00 Pure hypercholesterolemia, unspecified; E11.9 Type 2 diabetes mellitus without complications; E55.9 Vitamin D deficiency, unspecified; R30.0 Dysuria
CPT/HCPCS: 36415; 80053; 80061; 81001; 82043; 82306; 82570; 83036; 84443; 85025; 87086; 87088

== ENCOUNTER 2024-12-16 16:37 | Outpatient (AMB) | payer MEDICARE, MEDICAID, SELFPAY ==
[2024-12-16 16:41] VITALS: BP 110/72; PULSE 80; O2SAT 96; BMI 42.2
--- NOTE | 2024-12-16 16:41 | A.OFFVIS_ITS ---
Intake Vital Signs 12/16/24 16:41 Height 5 ft 7.5 in Weight 273 lb 4 oz BMI 42.2 BP 110/72 Blood Pressure Location Lt brachial Position Sitting Pulse 80 Pulse Source Pulse Oximeter Pulse Oximetry (%) 96 Oxygen Delivery Method Room Air Intake Visit Reasons: AWV Well Logger Required: No Accompanied by: Self / Same As Patient Allergies No Known Allergies Allergy (Verified 12/16/24 17:22) Medication List - Last Reconciled 12/16/24 by Sree Padilla MD cholecalciferol (vitamin D3) 25 mcg PO DAILY furosemide 40 mg PO DAILY glimepiride 2 mg PO QAM 30 days metolazone 5 mg PO Q2D 90 days multivitamin 1 tab PO DAILY potassium chloride ER 60 mEq (3 x 20 mEq) PO TID spironolactone 50 mg PO BID Do you need a note to return to daycare/school/sports/work: No HPI AWV HPI Details Patient comes in today for his Annual Medicare Wellness Exam AND follow up visit - he has not been back for his follow up visit since 12/2023 States that he feels okay He denies any headaches or dizziness Denies any chest pains, no increased SOB No nausea/vomiting, no abdominal pain No change in bowel habits noted His sister, who is with him today, states that he is still often wetting his pants without being aware of it and is wondering if cutting back on some of his diuretics will help keep this from occurring Patient denies any dysuria and appears to be completely unaware that he is incontinent He had his follow up labs done yesterday - to discuss his results --------- [place] of care was reviewed and updated today Patient does NOT have a healthcare proxy in place As he is developmentally handicapped and his sister has been the one who has take charge of his care over the years, have discussed with his sister that he should have these papers, particularly his HCP and MOLST forms, in the event that something unexpected were to happen His sister states that she will keep this in mind but does not feel that they are ready yet to be talking about things like this with patient although she thinks that he has an HCP form at home as she is listed as his HCP - states that she is going to check into this Have advised them that they can call and ask for the forms any time they are ready to start getting these done IPPE/AWV: c/o of Annual Wellness Visit, subsequent visit. Medical / Social History Reviewed Past Medical History Yes . [place] of Care / Care Team list updated Yes . Surgical/Hospitalization History Yes . Current Medications (including OTC and supplements) Yes . Family History Yes . Tobacco Control form Yes . AUDIT-C (Alcohol use) form Yes . Illicit drug use in Social History Yes - has NO Hx of illicit drug use. Current diagnosis of depression? Yes - mood disorder Appropriate PHQ2/PHQ9 completed Yes . Data entered by Asset Availability Leader and reviewed by provider Home Safety Throw rugs? No Grab bars? No Raised toilet seats? No Working smoke detectors? Yes Working carbon monoxide detectors? Yes Data entered by Asset Availability Leader and reviewed by provider Activities of Daily Living (ADLs) Difficulty bathing or showering? Yes Difficulty dressing? No Difficulty using the toilet? No Difficulty getting in and out of bed? No Difficulty walking? Yes Receives help from another person with any of the above tasks? Yes Instrumental Activities of Daily Living (IADLs) Uses the telephone with help Gets to places out of walking distance with help Goes shopping for groceries with help Prepares own meals with help Does own minor home maintenance with help Does own laundry with help Does own housework with help Manages own money with help Currently takes medications? Yes Takes medication with help End-of-Life Planning Discussed advance directive Yes Advance directive not on file Discussed wishes expressed in advance directive agreed to following patient's wishes - N/A at this time Fall Risk: Fall History Have you had any falls with injury in the past year? No . Have you had two or more falls in the past year? No . Fall Risk Assessment: No falls in the past year . HRA filled out by the patient, reviewed by Provider and scanned. [facility] Medical History (Updated 12/17/24 @ 03:03 by Sree Padilla MD) Morbid obesity with BMI of 40.0-44.9, adult Morbid obesity with BMI of 45.0-49.9, adult Mood disorder Obstructive sleep apnea Type 2 diabetes mellitus without complication, without long-term current use of insulin Hypertriglyceridemia Lymphedema of both lower extremities Lymphedema Surgical History History of myringotomy History of tonsillectomy Family History Father Medical history unknown Mother Diabetes Other Mental health problem Social History Housing: House Alcohol intake: never Patient Tobacco Use Status: Never used Tobacco e-Cigarette/Vaping Use: Never Used Second Hand Smoke Exposure: No service: No Current occupational status: disabled Cognitive needs: No Hearing needs: No Vision needs: Yes (Glasses) Questionnaire Medicare Wellness Checkup What gender do you identify with?: male During the past 4 weeks, how much have you been bothered by emotional problems such as feeling anxious, depressed, irritable, sad or downhearted, and blue?: moderately During the past 4 weeks, has your physical & emotional health limited your social activities with family, friends, neighbors, or groups?: slightly During the past 4 weeks, how much bodily pain have you generally had?: no pain During the past 4 weeks, was someone available to help you if you needed & wanted help?: yes, as much as I wanted During the past 4 weeks, what was the hardest physical activity you could do for at least 2 minutes?: very light Can you get to places out of walking distance without help? (For eg., can you travel alone on buses, taxis or drive your car?): No Can you go shopping for groceries or clothes without someone's help?: No Can you prepare your own meals?: No Can you do your housework without help?: No Because of any health problems, do you need the help of another person with your personal care needs such as eating, bathing, dressing or getting around the house?: No Can you handle your own money without help?: No During the past 4 weeks, how would you rate your health in general?: fair During the past 4 weeks how have things been going for you?: pretty well Are you having difficulties driving your car?: not applicable, I don't use a car Do you always fasten your seat belt when you are in a car?: yes, usually During past 4 weeks, have you been bothered by the following: never: Sexual problems?, Trouble eating well?, Teeth or denture problems? and Problems using the telephone?, seldom: Falling or dizzy when standing up and sometimes: Tiredness or fatigue? Have you fallen 2 or more times in the past year?: No Are you afraid of falling?: No Are you a smoker?: no During the past 4 weeks, how many drinks of wine, beer, or other alcoholic beverages did you have?: no alcohol at all Do you exercise for about 20 minutes 3 or more times a week?: no, I usually do not exercise this much How often do you have trouble taking medicines the way you have been told to take them?: I always take medicine as prescribed How confident are you that you can control & manage most of your health problems?: very confident (with help from sister) What is your race?: White Mini Mental State Exam (MMSE) Orientation What is the (year) (season) (date) (day) (month)?: year, season, date, day and month Where are we (state) (county) (town or city) (hospital) (floor)?: state, county, town or city, hospital/clinic and floor Score Score: 10 Activity of Daily Living Bathing - sponge bath, tub bath or shower: receives help in bathing more than one body part (or not bathed) Dressing - getting clothes from closets & drawers, including inner/outer garments & fasteners.: gets clothes & gets completely dressed without help Toileting - going to the 'toilet room' for urine/bowel elimination & cleaning self/arranging clothes: goes to toilet room, cleans self, arranges clothes without help Transfer: moves in & out of bed and chair without help (may use support object) Continence: has occasional 'accidents' Feeding: feeds self without help Total Score: 1 Information obtained from: patient Using telephone: needs assistance Traveling: needs assistance Shopping: dependent Preparing meals: dependent Housework: dependent Taking medicine: needs assistance Managing money: dependent PHQ-9 Over the last 2 weeks, how often have you been bothered by any of the following problems? 1. Little interest or pleasure in doing things: not at all 2. Feeling down, depressed, or hopeless: not at all 3. Trouble falling or staying asleep, or sleeping too much: not at all 4. Feeling tired or having little energy: not at all 5. Poor appetite or overeating: not at all 6. Feeling bad about yourself - or that you are a failure or have let yourself or your family down: not at all 7. Trouble concentrating on things, such as reading the newspaper or watching television: not at all 8. Moving or speaking so slowly that other people could have noticed. Or the opposite - being so fidgety or restless that you have been moving around a lot more than usual: not at all 9. Thoughts that you would be better off or of hurting yourself in some way: not at all Total score: 0 Depression Screening Interpretation: Negative Depression Screening Done: Yes [id number] - PHQ-9 Billing: Yes Source: Developed by Drs. Catrachito Blackwell, Lizbeth Levine, Eliot Rush and colleagues, with an educational ignacio from [employer]. PHQ-2/PHQ-9 PHQ-2 Over the last 2 weeks, how often have you been bothered by any of the following problems? 1. Little interest or pleasure in doing things: not at all 2. Feeling down, depressed, or hopeless: not at all Total score: 0 If score is 3 or greater, continue 3. Trouble falling or staying asleep, or sleeping too much: not at all 4. Feeling tired or having little energy: not at all 5. Poor appetite or overeating: not at all 6. Feeling bad about yourself - or that you are a failure or have let yourself or your family down: not at all 7. Trouble concentrating on things, such as reading the newspaper or watching television: not at all 8. Moving or speaking so slowly that other people could have noticed. Or the opposite - being so fidgety or restless that you have been moving around a lot more than usual: not at all 9. Thoughts that you would be better off or of hurting yourself in some way: not at all Total score: 0 0-4 None-Minimal, 5-9 Mild, 10-14 Moderate, 15-19 Moderately Severe, 20-27 S evere Source: Developed by Drs. Catrachito Blackwell, Lizbeth Levine, Eliot Rush and colleagues, with an educational ignacio from [employer]. Thrive Questionnaire Date Thrive assessed: 12/16/24 I am a: Patient What is your living situation today?: I have a steady place to live Within the past 12 months, did the food you bought not last and you didn't have the money to get more?: Never true Within the past 12 months, did you worry whether your food would run out before you got money to buy more?: Never true Do you have trouble paying for medicines?: No Do you have trouble getting transportation to medical appointments?: No Do you have trouble paying your heating and electricity bill?: No Do you have trouble taking care of your child, family member or friend?: No Do you have trouble with day-to-day activities such as bathing, preparing meals, shopping, managing finances, etc.?: No Are you currently unemployed and looking for a job?: No Are you interested in more education?: No Please select the resources that you would like help with: None Currently or been in a relationship where the following occur: No concerns reported THRIVE Score: 0 MADELINE-7 AMB Questionnaire MADELINE-7 Date MADELINE - 7 assessed: 12/16/24 Feeling nervous, anxious, or on edge: 0 = Not at all Not being able to stop or control worryin = Not at all Worrying too much about different things: 0 = Not at all Trouble relaxin = Not at all Being so restless that it is hard to sit still: 0 = Not at all Becoming easily annoyed or irritable: 0 = Not at all Feeling afraid as if something awful might happen: 0 = Not at all Total MADELINE-7 score (0-4 normal; 5-9 mild; 10-14 moderate; 15-21 severe): 0 Source: Developed by Drs. Catrachito Blackwell, Lizbeth Levine, Eliot Rush and colleagues, with an educational ignacio from [employer]. Review of Systems Const Denies chills, Denies fatigue, Denies fever(s) and Denies headache(s) ENT Denies dysphagia, Denies dizziness, Denies otalgia, Denies headache(s), Denies neck pain, Denies odynophagia and Denies sore throat Card Denies chest pain, Denies palpitations and Denies dyspnea Resp Denies chest congestion, Denies cough and Denies dyspnea GI Denies abdominal pain, Denies constipation, Denies dysphagia, Denies heartburn, Denies diarrhea, Denies nausea, Denies odynophagia and Denies vomiting Denies dysuria, Denies nocturia, Reports urinary frequency (is on diuretics) and Reports urinary incontinence Musc Denies neck pain Skin/Breast Details: (+) chronic skin changes over both lower legs, ankles and feet Neuro Denies dizziness and Denies headache(s) Endo Denies fatigue and Denies palpitations Geraldo/Lymph Details: (+) swelling (chronic) of both lower extremities, worse on the right side Physical Exam Vital Signs: Last Vital Signs Pulse 80 12/16/24 16:41 BP 110/72 12/16/24 16:41 Pulse Ox 96 12/16/24 16:41 Oxygen Delivery Method Room Air 12/16/24 16:41 BMI result Body Mass Index 42.2 IPPE/AWV: Balance Romberg Yes . Tandem walk Yes . Walk and Turn Yes . Rise from sit to stand Yes . Vision Corrective lens Yes Vision screen pass Hearing Whisper test pass . Urinary incont. Yes EKG Not clinically necessary. Const General: no acute distress and alert Orientation/consciousness: patient oriented x3 HEENT Ears: TM's normal bilaterally and EAC's normal Throat: Yes posterior oropharynx normal and Yes tonsils normal (no TP congestion) Neck Neck: Yes supple and No lymphadenopathy Thyroid: Thyroid normal Resp Auscultation: clear to auscultation bilaterally, no rales and no wheezes Cardio Rate: regular rate Rhythm: regular rhythm Heart sounds: no murmurs GI Palpation (GI): Soft to palpation and nontender Auscultation: normal bowel sounds General: Yes no CVA tenderness Back/Spine/Pelvis Back: no CVA tenderness Thoracic/Lumbar Spine: No lumbar spinal tenderness Skin Other: (+) chronic skin changes/scaling rash over both lower legs, ankles and feet Neuro General: patient oriented x3 Extrem General: Yes pedal edema (3+ bilateral lower extremity edema - chronic) Psych Thought process: Normal thought process present Results Reviewed Results Reviewed: Laboratory Tests 12/15/24 12/15/24 12:33 12:35 WBC 9.7 Hgb 13.2 L Hct 40.2 L Plt Count 249 Sodium 141 Potassium 4.1 Creatinine 0.75 Estimated GFR > 60 Fasting Glucose 100 H Hemoglobin A1c % 5.4 Calcium 9.1 AST 17 ALT 11 Triglycerides 175 H Cholesterol 180 LDL Cholesterol, Calc 106 H HDL Cholesterol 39 L 25-OH Vitamin D Total 45.8 TSH 1.82 Ur Specific [place] 1.015 Urine Protein Trace Urine Glucose (UA) Negative Urine Blood Small (1+) H Urine Nitrite Positive H Ur Leukocyte Esterase Large (3+) H Microalb/Creat Ratio 15.7 Assessment & Plan Assessment & Plan (1) Medicare annual wellness visit, subsequent: Code(s): Z00.00 - Encounter for general adult medical examination without abnormal findings Plan: HRA form discussed with patient and his sister and completed; forms will be scanned into patient's chart DC updated and medication list reviewed (2) Lymphedema of both lower extremities: Code(s): I89.0 - Lymphedema, not elsewhere classified Plan: Continue Furosemide 40 mg QD, Aldactone 50 mg BID and Metolazone 5 mg QOD Continue KCl ER 20 meq 3 tablets 3 times a day Patient is again encouraged to continue to keep his legs elevated as often as he can and to wear his support stockings to help manage his lower extremity swelling but his sister states that she has not been able to get his compression stockings on due to his severe edema He was referred back to vascular surgery for further evaluation and management in the past but patient's sister did not keep his appointment as she felt that his condition at this time is too far gone for vascular surgery to be able to help - states that patient has seen vascular surgery a few times in the past but they have not been able to help him much back then (3) Hypertriglyceridemia: Code(s): E78.1 - Pure hyperglyceridemia Plan: Results of his labs done yesterday reviewed and discussed with patient and his sister - they are advised that his cholesterol levels have improved slightly from previous Reinforced low cholesterol diet Will have him recheck his labs and fasting lipids in 4 months for follow up (4) Type 2 diabetes mellitus without complication, without long-term current use of insulin: Code(s): E11.9 - Type 2 diabetes mellitus without complications Plan: His HgbA1c was at 5.4% on his labs done yesterday (was previously at 5.7% back in December 2023) - goal is <6.5% Reinforced diabetic diet Continue Glimepiride 2 mg Q AM for now but can consider discontinuing this if patient starts experiencing any hypoglycemic symptoms at any time Will recheck his FBS and HgbA1c in 4 months for follow up (5) Obstructive sleep apnea: Code(s): G47.33 - Obstructive sleep apnea (adult) (pediatric) Plan: Patient's sister states that he has not been using his CPAP device when sleeping at night for a while now as he finds it difficult to sleep with the mask on Have discussed with them the option of referring him back to sleep medicine to get this reassessed but patient declined referral and still does not wish to address this issue at present - feels that he is doing well as things are at this time (6) Urinary incontinence: Code(s): R32 - Unspecified urinary incontinence Qualifiers: Urinary Incontinence type: urinary incontinence without sensory awareness Qualified Code(s): N39.42 - Incontinence without sensory awareness Plan: Have advised patient's sister that at this time, cutting back on his oral diuretics, as she was proposing that we try, is not going to likely help patient with his wetting as he seems to be completely unaware that he is incontinent Will refer him to urology for further evaluation and management (7) Mood disorder: Code(s): F39 - Unspecified mood [affective] disorder Plan: Have again recommended that he should be seeing a psychiatrist for further evaluation and management but patient's sister (who is his HCP) declined, as she feels that patient has been doing well currently without any Rx or intervention States that he just gets ferreira at times but is otherwise doing okay mostly (8) Morbid obesity with BMI of 40.0-44.9, adult: Code(s): E66.01 - Morbid (severe) obesity due to excess calories; Z68.41 - Body mass index [BMI] 40.0-44.9, adult Plan: Reinforced diet; exercise and weight loss are not realistic due to his comorbidiies and physical and cognitive issues Patient is nonetheless encouraged to continue to stay as active as he can Plan Follow up in 4 months Orders: Orders Microalbumin, Random (w Creat) 4 Months E11.9 - Type 2 diabetes mellitus without complications UA CC w/rflx Micro + Cult 4 Months R30.0 - Dysuria Hemoglobin A1c 4 Months E11.9 - Type 2 diabetes mellitus without complications B Type Natriuretic Peptide 4 Months I50.9 - Heart failure, unspecified Complete Blood Count Auto Diff 4 Months D64.9 - Anemia, unspecified Comprehensive [place]. Panel Fast 4 Months E78.00 - Pure hypercholesterolemia, unspecified Lipid Panel 4 Months E78.00 - Pure hypercholesterolemia, unspecified TSH reflex Free T4 4 Months E78.00 - Pure hypercholesterolemia, unspecified Vitamin D 25-OH Total 4 Months E55.9 - Vitamin D deficiency, unspecified Referrals Urology Referral R32 - Unspecified urinary incontinence Quality Reporting (2019) Depression/Bipolar (159/160/161/177) PHQ-9: Total score: 0 Coding Level of Care Code Medicare Subsequent (G0439) Est Pt Level 4 (27616) Diagnoses Medicare annual wellness visit, subsequent Z00.00 Lymphedema of both lower extremities I89.0 Hypertriglyceridemia E78.1 Type 2 diabetes mellitus without complication, without long-term current use of insulin E11.9 Obstructive sleep apnea G47.33 Urinary incontinence without sensory awareness N39.42 Urinary Incontinence type: urinary incontinence without sensory awareness Mood disorder F39 Morbid obesity with BMI of 40.0-44.9, adult E66.01; Z68.41 CPT Codes Advance Care Planning - Time spent: 1-15 minutes, not on file ([id number]) Additional Codes PHQ-9 - 50321 - PHQ-9 Billing: Yes ([id number]) Advance Care Planning Advance Care Planning discussion: Exists, not on file (sister states that she will look into this and call for forms otherwise 'when they are ready') Date of discussion: 12/16/24 Who was present: patient, sister, PCP Time spent: 1-15 minutes, not on file
== END 2024-12-16 17:39 | disposition home or self-care (01) ==
LOC: HO.HMCH 16:38
PROVIDERS: PCP Internal Medicine; Visit Provider Internal Medicine
DX: Z00.00 Encounter for general adult medical examination without abnormal findings (principal); E11.9 Type 2 diabetes mellitus without complications; F39 Unspecified mood [affective] disorder; E66.01 Morbid (severe) obesity due to excess calories; Z68.41 Body mass index [BMI] 40.0-44.9, adult; I89.0 Lymphedema, not elsewhere classified; N39.42 Incontinence without sensory awareness; E78.1 Pure hyperglyceridemia; G47.33 Obstructive sleep apnea (adult) (pediatric)

== ENCOUNTER → 2024-12-16 16:37 | Outpatient (BNVA) | payer MEDICARE, MEDICAID, SELFPAY | PROVIDERS: PCP Internal Medicine; Visit Provider Internal Medicine | DX: Z00.00 Encounter for general adult medical examination without abnormal findings (principal); I89.0 Lymphedema, not elsewhere classified; E78.1 Pure hyperglyceridemia; E11.9 Type 2 diabetes mellitus without complications; G47.33 Obstructive sleep apnea (adult) (pediatric); N39.42 Incontinence without sensory awareness; F39 Unspecified mood [affective] disorder; E66.01 Morbid (severe) obesity due to excess calories; Z68.41 Body mass index [BMI] 40.0-44.9, adult; Z71.3 Dietary counseling and surveillance | CPT/HCPCS: 96127; 99212 ==

== ENCOUNTER 2025-06-02 10:25 | Inpatient (IN) | payer MEDICARE, MEDICAID, SELFPAY ==
--- NOTE | ~2025-06-02 | US_ITS ---
CLINICAL HISTORY: leg swelling Venous duplex ultrasound bilateral lower extremity Comparison: None provided Findings: The visualized deep veins are fully compressible with normal Doppler color flow and spectral tracings. No popliteal cyst. IMPRESSION: 1. Negative for bilateral lower extremity deep vein thrombosis. This document has been electronically signed by: Oswaldo Ko MD on 06/02/2025 21:47:19
[2025-06-02 10:50] VITALS: BP 199/86; PULSE 93; RESP 18; TEMP 36.7; O2SAT 98; BMI 42.6
--- NOTE | 2025-06-02 10:52 | ED.GENADULT ---
HPI - General Adult General Chief complaint: General Medical Stated complaint: Abnormal labs? Sent by Time Seen by Provider: 06/02/25 18:00 Related Data Home Medications ?Medication ?Instructions ?Recorded ?Confirmed cholecalciferol (vitamin D3) 25 25 mcg PO DAILY 09/21/20 12/16/24 mcg (1,000 unit) tablet multivitamin 1 tab PO DAILY 09/21/20 12/16/24 Previous Rx's ?Medication ?Instructions ?Recorded potassium chloride 20 mEq 60 meq (3 x 20 mEq) PO TID #810 12/19/24 tablet,extended release(part/cryst) tabs furosemide 40 mg tablet 40 mg PO DAILY #90 tabs 02/14/25 glimepiride 2 mg tablet 2 mg PO QAM 30 days #30 tabs 02/22/25 metolazone 5 mg tablet 5 mg PO Q2D 90 days #45 tabs 03/28/25 spironolactone 50 mg tablet 50 mg PO BID #180 tabs 05/23/25 Allergies Allergy/AdvReac Type Severity Reaction Status Date / Time No Known Allergies Allergy Verified 06/02/25 10:52 [facility] Past Medical History Medical History Morbid obesity with BMI of 40.0-44.9, adult Morbid obesity with BMI of 45.0-49.9, adult Mood disorder Obstructive sleep apnea Type 2 diabetes mellitus without complication, without long-term current use of insulin Hypertriglyceridemia Lymphedema of both lower extremities Lymphedema Surgical History History of myringotomy History of tonsillectomy Family History Family History Father Medical history unknown Mother Diabetes Other Mental health problem Social History Social History Housing: House Alcohol intake: never Patient Tobacco Use Status: Never used Tobacco e-Cigarette/Vaping Use: Never Used Second Hand Smoke Exposure: No Advance Directives: No Advance Directives Information Provided: No service: No Current occupational status: disabled Cognitive needs: No Hearing needs: No Vision needs: Yes (Glasses) Physical Exam ED Vital Signs: Vital Signs - 24 hr 06/02/25 10:50 06/02/25 19:53 Temperature 98.0 F 98.1 F Pulse Rate 93 82 Respiratory Rate 18 16 Blood Pressure 199/86 H 130/66 Pulse Oximetry 98 98 Oxygen Delivery Method Room Air Room Air BMI result Body Mass Index 42.6 Course Course Course Narrative: This is an RME: Additional HPI, ROS, PE not included below will be deferred to primary provider. RME assessment and note performed by: Fide Edge PA-C This is a 55-year-old male, with a past medical history of diabetes, lymphedema, hyperglyceridemia, ASHLEY, he is accompanied by his aunt, who presents emergency department with not feeling well . Reporting leaking urine. Family member reports that he is freaking out and not acting his normal self. Pt is a poor historian. Plan: Labs, UA, Medications Administered Discontinued Medications Generic Name Dose Route Start Last Admin Trade Name Freq PRN Reason Stop Dose Admin Ceftriaxone Sodium 1 gm 06/02/25 19:02 06/02/25 19:27 Ceftriaxone Sodium 1 Gm Vial IVPUSH 06/02/25 19:03 1 gm ONCE ONE Administration Cefuroxime Axetil 500 mg 06/02/25 15:57 06/02/25 18:54 Cefuroxime Axetil 500 Mg Tablet PO 06/02/25 15:58 500 mg ONCE ONE Administration Sodium Chloride 1,000 mls @ 999 mls/hr 06/02/25 19:00 06/02/25 19:28 Ns IV 06/02/25 20:00 999 mls/hr .Q1H1M EMILEE Administration Medical Decision Making Lab Data 06/02/25 11:13 06/02/25 11:13 Labs: Lab Results 06/02/25 06/02/25 Range/Units 11:13 19:19 WBC 10.1 (4.8-10.8) X10*3/uL RBC 4.64 (4.60-5.80) X10*6/uL Hgb 14.1 (14.0-18.0) g/dl Hct 40.7 L (42.0-52.0) % MCV 87.7 (80.0-98.0) fL MCH 30.4 (27.0-33.0) pg MCHC 34.6 (31.0-36.0) g/dl RDW 13.9 (11.0-16.0) % Plt Count 242 (160-400) X10*3/uL MPV 9.3 L (9.4-12.4) fL Immature Gran % (Auto) 0.1 (0.0-0.4) % Neut % (Auto) 59.1 (45-73) % Lymph % (Auto) 34.0 (20-40) % [place] % (Auto) 5.2 (2-11) % Eos % (Auto) 1.1 (0-4) % Baso % (Auto) 0.5 (0-2) % Lymph # (Auto) 3.5 (1.2-4.9) X10*3/uL [place] # (Auto) 0.5 (0.1-1.2) X10*3/uL Eos # (Auto) 0.1 (0.0-0.4) X10*3/uL Baso # (Auto) 0.1 (0.0-0.2) X10*3/uL Abs Immat Gran (auto) 0.01 (0.00-0.03) X10*3/uL Absolute Neuts (auto) 6.0 (2.0-8.3) x10*3/uL Absolute Nucleated RBC 0.000 (0.0-0.012) X10*3/uL Nucleated RBC % (auto) 0.0 (0.0-0.2) /100WBC Sodium 139 (135-145) mmol/L Potassium 3.7 (3.3-5.1) mmol/L Chloride 103 (96-108) mmol/L Carbon Dioxide 27 (22-29) mmol/L Anion Gap 13 (12-20) BUN 9 (9-16) mg/dL Creatinine 0.68 (0.5-1.4) mg/dL Estim Creat Clear Calc 139.9 Estimated GFR > 60 Random Glucose 109 (60-115) mg/dL Lactic Acid 1.1 (0.5-2.0) mmol/L Calcium 9.3 (8.4-10.2) mg/dL Magnesium 2.0 (1.6-2.6) mg/dL Total Bilirubin 0.6 (0.0-1.0) mg/dL Direct Bilirubin 0.1 (0.0-0.5) mg/dL AST 17 (5-37) U/L ALT 14 (0-40) U/L Alkaline Phosphatase 54 (39-117) U/L Troponin I High Sens 10.0 10.7 (<3.5-35.0) ng/L B-Natriuretic Peptide 45 (<100) pg/mL Total Protein 7.3 (6.5-8.0) g/dL Albumin 4.4 (3.5-5.0) g/dL Lipase 27 (8-78) U/L TSH 1.59 (0.32-4.0) uIU/mL Urine Color Yellow Urine Appearance Clear Urine pH 5.0 (5.0-9.0) Ur Specific [place] 1.010 (1.005-1.025) Urine Protein Negative (Neg-Trace) mg/dL Urine Glucose (UA) Negative (Negative) mg/dL Urine Ketones Negative (Negative) mg/dL Urine Blood Negative (Negative) Urine Nitrite Negative (Negative) Ur Leukocyte Esterase Moderate (2+) H (Negative) Urine RBC 0-2 (0-2) /HPF Urine WBC 6-10 H (0-5) /HPF Ur Squamous Epith Cells 0-2 (0-2) /HPF Urine Bacteria 2+ (None Seen) Hyaline Casts 0-2 (0-2) /LPF COVID-19 (JEREL) Negative (Negative) COVID-19 Clin Com See Note Influenza Type A (DEVIN) Negative (Negative) Influenza Type B (DEVIN) Negative (Negative) Influenza A & B Note See Note Discharge Plan Discharge Clinical Impression: Acute electrocardiogram changes, Lymphedema, Urinary incontinence, Urinary tract infection Patient Disposition: Admitted As Inpatient Print Language: Algerian
--- NOTE | 2025-06-02 10:59 | ECG_ITS ---
Test Reason : AMS Blood Pressure : */* mmHG Vent. Rate : 90 BPM Atrial Rate : 90 BPM P-R Int : 208 ms QRS Dur : 122 ms QT Int : 360 ms P-R-T Axes : -9 119 18 degrees QTcB Int : 440 ms Normal sinus rhythm Right bundle branch block Left posterior fascicular block Bifascicular block Abnormal ECG When compared with ECG of 05-May-2004 06:38, (RBBB and left posterior fascicular block) is now Present Referred By: Fide Edge Electronically Signed By: JANIE CRUMP MD
[2025-06-02 11:19] LABS: MANUAL DIFF FLAG NO
[2025-06-02 11:21] LABS: Hematocrit 40.7 % (42.0-52.0); Hemoglobin 14.1 g/dl (14.0-18.0); Imm Gran Abs Auto 0.01 X10*3/uL (0.00-0.03); Imm Gran Pct Auto 0.1 % (0.0-0.4); Lymphocytes Absolute Auto 3.5 X10*3/uL (1.2-4.9); Mean Corpuscular HGB Conc 34.6 g/dl (31.0-36.0); Mean Corpuscular Hemoglobin 30.4 pg (27.0-33.0); Mean Corpuscular Volume 87.7 fL (80.0-98.0); NRBC Abs Auto 0.000 X10*3/uL (0.0-0.012); NRBC Pct Auto 0.0 /100WBC (0.0-0.2); Platelet Count 242 X10*3/uL (160-400); Red Blood Count 4.64 X10*6/uL (4.60-5.80); White Blood Count 10.1 X10*3/uL (4.8-10.8)
[2025-06-02 11:34] LABS: Appearance Urine Clear; Glucose Urine UA Negative (Negative); PH 5.0 (5.0-9.0); Specific Gravity - Urine 1.010 (1.005-1.025); UMIC TRIGGER UACC YES
[2025-06-02 11:35] LABS: Alanine Aminotransferase 14 U/L (0-40); Albumin Level 4.4 g/dL (3.5-5.0); Alkaline Phosphatase 54 U/L (39-117); Anion Gap 13 (12-20); Aspartate Amino Transferase 17 U/L (5-37); Blood Urea Nitrogen 9 mg/dL (9-16); Calcium 9.3 mg/dL (8.4-10.2); Carbon Dioxide 27 mmol/L (22-29); Chloride 103 mmol/L (96-108); Creatinine Clr Calc Pharmacy 139.9; Estimated Glomerular Filt Rate > 60; Lipase 27 U/L (8-78); Magnesium 2.0 mg/dL (1.6-2.6); Potassium 3.7 mmol/L (3.3-5.1); Sodium 139 mmol/L (135-145); Total Protein 7.3 g/dL (6.5-8.0)
[2025-06-02 11:38] LABS: COVID-19 Test Negative (Negative); IDNOW Serial# 55D5AD1C; IDNOW Serial# 58CA691E; Influenza B2 Negative (Negative)
[2025-06-02 11:39] LABS: UACC Culture Trigger YES
[2025-06-02 11:40] LABS: B Type Natriuretic Peptide 45 pg/mL (<100)
[2025-06-02 11:43] LABS: Troponin-I High Sensitivity 10.0 ng/L (<3.5-35.0)
--- NOTE | 2025-06-02 18:48 | ED.GENADULT ---
HPI - General Adult General Chief complaint: General Medical Stated complaint: Abnormal labs? Sent by Time Seen by Provider: 06/02/25 18:00 History of Present Illness HPI narrative: Patient is a 55-year-old male morbidly obese. History of urinary incontinence. History of diabetes currently not on insulin. History of hypercholesterolemia. History of lymphedema. Lost to the system. Presents today with total body ache generalized malaise. Patient is from home. Lives with family. Patient is sent in for further evaluation. Has a history of lymphedema but it seems like it has actually improved. Positive decreased appetite Related Data Home Medications ?Medication ?Instructions ?Recorded ?Confirmed cholecalciferol (vitamin D3) 25 25 mcg PO DAILY 09/21/20 12/16/24 mcg (1,000 unit) tablet multivitamin 1 tab PO DAILY 09/21/20 12/16/24 Previous Rx's ?Medication ?Instructions ?Recorded potassium chloride 20 mEq 60 meq (3 x 20 mEq) PO TID #810 12/19/24 tablet,extended release(part/cryst) tabs furosemide 40 mg tablet 40 mg PO DAILY #90 tabs 02/14/25 glimepiride 2 mg tablet 2 mg PO QAM 30 days #30 tabs 02/22/25 metolazone 5 mg tablet 5 mg PO Q2D 90 days #45 tabs 03/28/25 spironolactone 50 mg tablet 50 mg PO BID #180 tabs 05/23/25 Allergies Allergy/AdvReac Type Severity Reaction Status Date / Time No Known Allergies Allergy Verified 06/02/25 10:52 Review of Systems Review of Systems: No chest pain no diaphoresis positive malaise PMFSH Past Medical History Attestation statement: The following information was validated with the patient. Medical History Morbid obesity with BMI of 40.0-44.9, adult Morbid obesity with BMI of 45.0-49.9, adult Mood disorder Obstructive sleep apnea Type 2 diabetes mellitus without complication, without long-term current use of insulin Hypertriglyceridemia Lymphedema of both lower extremities Lymphedema Surgical History History of myringotomy History of tonsillectomy Family History Family History Father Medical history unknown Mother Diabetes Other Mental health problem Social History Social History Housing: House Alcohol intake: never Patient Tobacco Use Status: Never used Tobacco e-Cigarette/Vaping Use: Never Used Second Hand Smoke Exposure: No Advance Directives: No Advance Directives Information Provided: No service: No Current occupational status: disabled Cognitive needs: No Hearing needs: No Vision needs: Yes (Glasses) Physical Exam ED Exam Exam: Appearance: Alert. Oriented X3. No acute distress. Eyes: Pupils equal, round and reactive to light. ENT: Pharynx normal. Neck: Normal inspection. Neck supple. No lymph nodes noted. No crepitus CVS: Normal heart rate and rhythm. Pulses normal. Normal S1 and S2 Respiratory: No respiratory distress. Breath sounds normal. No Wheezing. No rales Abdomen: Soft and nontender. No rigidity. No distention. good BS x4 Skin: Skin warm and dry. Normal skin color. Normal skin turgor. Extremities: Bilateral lower extremity lymphedema. Positive chronic venous stasis noted there is good distal pulses. The right lower extremity seems larger than the left. Neuro: Oriented X 3. No motor deficit. No sensory deficit. Moving all extermities. No slurred speech Vital Signs: Vital Signs - 24 hr 06/02/25 10:50 06/02/25 19:53 Temperature 98.0 F 98.1 F Pulse Rate 93 82 Respiratory Rate 18 16 Blood Pressure 199/86 H 130/66 Pulse Oximetry 98 98 Oxygen Delivery Method Room Air Room Air BMI result Body Mass Index 42.6 Medications Administered Discontinued Medications Generic Name Dose Route Start Last Admin Trade Name Oscarq PRN Reason Stop Dose Admin Ceftriaxone Sodium 1 gm 06/02/25 19:02 06/02/25 19:27 Ceftriaxone Sodium 1 Gm Vial IVPUSH 06/02/25 19:03 1 gm ONCE ONE Administration Cefuroxime Axetil 500 mg 06/02/25 15:57 06/02/25 18:54 Cefuroxime Axetil 500 Mg Tablet PO 06/02/25 15:58 500 mg ONCE ONE Administration Sodium Chloride 1,000 mls @ 999 mls/hr 06/02/25 19:00 06/02/25 19:28 Ns IV 06/02/25 20:00 999 mls/hr .Q1H1M EMILEE Administration Medical Decision Making Medical Decision Making MDM Narrative: Positive generalized malaise weakness. Has a history of diabetes. Patient's white count is 10. Electrolytes showed a normal creatinine. Patient's urine did show evidence for urinary tract infection. My interpretation patient's EKG showed a sinus rhythm heart rate was approximately 80 there is a right bundle-branch block and a left anterior fascicular block noted. Both of these are new. Patient's COVID flu RSV are negative. Will get Doppler of the lower extremity ruled out the possibility of DVT. Doppler ultrasound of the lower extremity was negative for DVT. Patient has a UTI. Larger in size. White count was 10. There is no significant signs of sepsis patient's lactate is normal given IV fluids. Antibiotics started after previous culture was reviewed. BNP is 45 there is no signs of congestive heart failure TSH is 1.59 is no evidence of hypo or hyperthyroid. Hospitalist team was contacted. Will admit for IV antibiotics. Monitoring. Patient's COVID flu RSV these were all negative. Differential Diagnosis Differential Diagnoses: The differential diagnosis associated with the presentation includes EKG changes, urinary tract infection, hypothyroid, electrolyte disturbance, anemia Admission/Observation Consideration of admission/observation: Escalation of care including admission/observation considered Consult Healthcare Provider Management of the patient was discussed with: Hospitalist Lab Data [facility] Lab Attestation statement: I reviewed the patient's lab results. 06/02/25 11:13 06/02/25 11:13 Labs: Lab Results 06/02/25 06/02/25 Range/Units 11:13 19:19 WBC 10.1 (4.8-10.8) X10*3/uL RBC 4.64 (4.60-5.80) X10*6/uL Hgb 14.1 (14.0-18.0) g/dl Hct 40.7 L (42.0-52.0) % MCV 87.7 (80.0-98.0) fL MCH 30.4 (27.0-33.0) pg MCHC 34.6 (31.0-36.0) g/dl RDW 13.9 (11.0-16.0) % Plt Count 242 (160-400) X10*3/uL MPV 9.3 L (9.4-12.4) fL Immature Gran % (Auto) 0.1 (0.0-0.4) % Neut % (Auto) 59.1 (45-73) % Lymph % (Auto) 34.0 (20-40) % [place] % (Auto) 5.2 (2-11) % Eos % (Auto) 1.1 (0-4) % Baso % (Auto) 0.5 (0-2) % Lymph # (Auto) 3.5 (1.2-4.9) X10*3/uL [place] # (Auto) 0.5 (0.1-1.2) X10*3/uL Eos # (Auto) 0.1 (0.0-0.4) X10*3/uL Baso # (Auto) 0.1 (0.0-0.2) X10*3/uL Abs Immat Gran (auto) 0.01 (0.00-0.03) X10*3/uL Absolute Neuts (auto) 6.0 (2.0-8.3) x10*3/uL Absolute Nucleated RBC 0.000 (0.0-0.012) X10*3/uL Nucleated RBC % (auto) 0.0 (0.0-0.2) /100WBC Sodium 139 (135-145) mmol/L Potassium 3.7 (3.3-5.1) mmol/L Chloride 103 (96-108) mmol/L Carbon Dioxide 27 (22-29) mmol/L Anion Gap 13 (12-20) BUN 9 (9-16) mg/dL Creatinine 0.68 (0.5-1.4) mg/dL Estim Creat Clear Calc 139.9 Estimated GFR > 60 Random Glucose 109 (60-115) mg/dL Lactic Acid 1.1 (0.5-2.0) mmol/L Calcium 9.3 (8.4-10.2) mg/dL Magnesium 2.0 (1.6-2.6) mg/dL Total Bilirubin 0.6 (0.0-1.0) mg/dL Direct Bilirubin 0.1 (0.0-0.5) mg/dL AST 17 (5-37) U/L ALT 14 (0-40) U/L Alkaline Phosphatase 54 (39-117) U/L Troponin I High Sens 10.0 10.7 (<3.5-35.0) ng/L B-Natriuretic Peptide 45 (<100) pg/mL Total Protein 7.3 (6.5-8.0) g/dL Albumin 4.4 (3.5-5.0) g/dL Lipase 27 (8-78) U/L TSH 1.59 (0.32-4.0) uIU/mL Urine Color Yellow Urine Appearance Clear Urine pH 5.0 (5.0-9.0) Ur Specific [place] 1.010 (1.005-1.025) Urine Protein Negative (Neg-Trace) mg/dL Urine Glucose (UA) Negative (Negative) mg/dL Urine Ketones Negative (Negative) mg/dL Urine Blood Negative (Negative) Urine Nitrite Negative (Negative) Ur Leukocyte Esterase Moderate (2+) H (Negative) Urine RBC 0-2 (0-2) /HPF Urine WBC 6-10 H (0-5) /HPF Ur Squamous Epith Cells 0-2 (0-2) /HPF Urine Bacteria 2+ (None Seen) Hyaline Casts 0-2 (0-2) /LPF COVID-19 (JEREL) Negative (Negative) COVID-19 Clin Com See Note Influenza Type A (DEVIN) Negative (Negative) Influenza Type B (DEVIN) Negative (Negative) Influenza A & B Note See Note Independent Interpretation I performed an independent interpretation of an: EKG (Sinus heart rate is 75 there is a right bundle-branch block along with a left anterior fascicular block.) Radiology Impression Discussion of test interpretation with radiology: I have reviewed the radiologist's reading. Independent Historian Clinical information obtained from an independent historian. History obtained from or confirmed by: Other (Additional history obtained through patient's aunt.) External Record Review External record reviewed: Inpatient record Chronic Conditions Patient?s care impacted by: Diabetes and Hypertension Social Determinants Patient?s care significantly limited by Social Determinants of Health including: Problems related to primary support group and Other Social Determinant of Health Discharge Plan Discharge Clinical Impression: Acute electrocardiogram changes, Lymphedema, Urinary incontinence, Urinary tract infection Patient Disposition: Admitted As Inpatient Print Language: Vietnamese
[2025-06-02 19:40] LABS: Thyroid Stimulating Hormone 1.59 uIU/mL (0.32-4.0)
[2025-06-02 19:46] LABS: Troponin-I High Sensitivity 10.7 ng/L (<3.5-35.0)
[2025-06-02 19:53] VITALS: BP 130/66; PULSE 82; RESP 16; TEMP 36.7; O2SAT 98
--- NOTE | 2025-06-02 20:35 | PC.NURSE ---
pt IV started. medicated per MAR, friend at bedside, pt sitting at edge of bed, used urinal with no help.
--- NOTE | 2025-06-02 21:52 | PHA.MEDREC ---
Pharmacy Consult ? Medication Reconciliation Pharmacy has completed the medication reconciliation.Med rec complete, spoke to patient and compared with pharmacy claim history
--- NOTE | 2025-06-02 22:12 | PC.NURSE ---
pt fluids still running, pt reminded to open his arm to allow fluids to flush in. Pt medicated per NOV, lights dimmed, turkey sandwich and sugar free maida brigette given to pt.
--- NOTE | 2025-06-02 23:33 | PC.NURSE ---
pt unable to keep R arm straight delaying infusion of fluids. New IV started on L forearm. fluids running in now. pt tolerated well.
[2025-06-03 00:24] VITALS: BP 131/68; PULSE 91; RESP 13; TEMP 36.8; O2SAT 99
--- NOTE | 2025-06-03 01:03 | PC.NURSE ---
pt got up and pushed passed his certified caregiver to exit the room, pt made his way to main ED, RN and security behind him, we were able to redirect into the room. Pt made comments about wanting to leave and wanting to go to skilled nursing. provider advised, awaiting new orders.
--- NOTE | 2025-06-03 01:22 | PC.NURSE ---
pt medicated per MAR, aunt/ research intern at bedside.
--- NOTE | 2025-06-03 03:15 | PC.NURSE ---
pt increasingly agitated, this RN and RN Jessica at bedside with security. Pt redirected into bed, Advised provider of behavior and awaited new orders. Pt ripped out IV in L forearm. Site wrapped.
--- NOTE | 2025-06-03 03:31 | PM.IMHP ---
History of Present Illness Date of Service: 06/03/25 Chief Complaint: Gen weaKNESS 55-year-old male with a past medical history of morbid obesity, urinary incontinence, diabetes, hyperlipidemia, bilateral leg lymphedema; cognitive delay; presented to the hospital with a chief complaint of generalized weakness. Denies any chest pain palpitations. Denies any numbness tingling or focal weakness. Denies any neck pain or back pain. Review of all other systems is negative. ER course: Per ER team, patient reportedly generally weak and tired; has had decreased appetite; within normal limits; urinalysis abnormal consistent with UTI. Respiratory viral panel negative. EKG showed sinus rhythm with right bundle branch block and left anterior fascicular block which is new compared to prior EKG of 2003. Venous duplex for the bilateral legs were negative. Given ceftriaxone.1 [facility] Medical History Morbid obesity with BMI of 40.0-44.9, adult Morbid obesity with BMI of 45.0-49.9, adult Mood disorder Obstructive sleep apnea Type 2 diabetes mellitus without complication, without long-term current use of insulin Hypertriglyceridemia Lymphedema of both lower extremities Lymphedema Family History Father Medical history unknown Mother Diabetes Other Mental health problem Surgical History History of myringotomy History of tonsillectomy Social History Housing: House Alcohol intake: never Patient Tobacco Use Status: Never used Tobacco e-Cigarette/Vaping Use: Never Used Second Hand Smoke Exposure: No Advance Directives: No Advance Directives Information Provided: No Nutrition Risks: No Nutritional Risk service: No Current occupational status: disabled Cognitive needs: No Hearing needs: No Vision needs: Yes (Glasses) Meds Allergies Allergy/AdvReac Type Severity Reaction Status Date / Time No Known Allergies Allergy Verified 06/02/25 10:52 Active Medications: Current Medications Acetaminophen (Acetaminophen 325 Mg Tablet) 650 mg PO Q6H PRN PRN Reason: Pain, Mild 1-3,fever,headache Calcium Carbonate (Calcium Carbonate 750 Mg Tab.Chew) 750 mg PO Q4H PRN PRN Reason: Heartburn Ceftriaxone Sodium (Ceftriaxone Sodium 1 Gm Vial) 1 gm IVPUSH Q24H [facility] Diphenhydramine HCl (Diphenhydramine Hcl 50 Mg/Ml Vial) 25 mg IM ONCE ONE Stop: 06/03/25 03:31 Enoxaparin Sodium (Enoxaparin Sodium 40 Mg/0.4 Ml Syringe) 40 mg SUBCUT Q24H [facility] Last Admin: 06/02/25 22:09 Dose: 40 mg Magnesium Hydroxide (Milk Of Magnesia 30 Ml Oral.Susp) 30 ml PO DAILY PRN PRN Reason: Constipation Melatonin (Melatonin 3 Mg Tablet) 6 mg PO BEDTIME PRN PRN Reason: Insomnia Sodium Chloride (0.9 % Sodium Chloride Flush 3 Ml Syringe) 3 ml IVFLUSH QSHIFT [facility] Last Admin: 06/03/25 00:30 Dose: Not Given Home Medications ?Medication ?Instructions ?Recorded ?Confirmed ?Last Taken ?Type cholecalciferol (vitamin D3) 25 25 mcg PO DAILY 09/21/20 06/02/25 06/02/25 History mcg (1,000 unit) tablet multivitamin 1 tab PO DAILY 09/21/20 06/02/25 06/02/25 History Physical Exam Vital Signs and Narrative: Vital Signs: Last Vital Signs Temp 98.2 F 06/03/25 00:24 Pulse 91 06/03/25 00:24 Resp 13 06/03/25 00:24 BP 131/68 06/03/25 00:24 Pulse Ox 99 06/03/25 00:24 O2 Del Method Room Air 06/03/25 00:24 BMI result Body Mass Index 42.6 Gen: Appears be in no acute distress HEENT: NCAT, Moist mucosa. Pulmonary: Vesicular breath sounds, fair air entry CVS: Normal S1-S2 Abdomen: BS+, Soft, Nontender Extremities: Warm well perfused; bilateral leg lymphedema; no erythema or tenderness. Neuro: Alert and awake. Results Labs 06/02/25 11:13 06/02/25 11:13 Labs: Laboratory Results - last 24 hr 06/02/25 06/02/25 11:13 19:19 MCV 87.7 MCH 30.4 MCHC 34.6 RDW 13.9 Plt Count 242 MPV 9.3 L Immature Gran % (Auto) 0.1 Neut % (Auto) 59.1 Lymph % (Auto) 34.0 [place] % (Auto) 5.2 Eos % (Auto) 1.1 Baso % (Auto) 0.5 Lymph # (Auto) 3.5 [place] # (Auto) 0.5 Eos # (Auto) 0.1 Baso # (Auto) 0.1 Abs Immat Gran (auto) 0.01 Absolute Neuts (auto) 6.0 Absolute Nucleated RBC 0.000 Nucleated RBC % (auto) 0.0 Anion Gap 13 Estim Creat Clear Calc 139.9 Estimated GFR > 60 Random Glucose 109 Lactic Acid 1.1 Calcium 9.3 Magnesium 2.0 Total Bilirubin 0.6 Direct Bilirubin 0.1 AST 17 ALT 14 Alkaline Phosphatase 54 B-Natriuretic Peptide 45 Total Protein 7.3 Albumin 4.4 Lipase 27 TSH 1.59 Urine Color Yellow Urine Appearance Clear Urine pH 5.0 Ur Specific [place] 1.010 Urine Protein Negative Urine Glucose (UA) Negative Urine Ketones Negative Urine Blood Negative Urine Nitrite Negative Ur Leukocyte Esterase Moderate (2+) H Urine RBC 0-2 Urine WBC 6-10 H Ur Squamous Epith Cells 0-2 Urine Bacteria 2+ Hyaline Casts 0-2 COVID-19 (JEREL) Negative COVID-19 Clin Com See Note Influenza Type A (DEVIN) Negative Influenza Type B (DEVIN) Negative Influenza A & B Note See Note Assessment and Plan (1) Urinary tract infection: Qualifiers: Hematuria presence: without hematuria Urinary tract infection type: site unspecified Qualified Code(s): N39.0 - Urinary tract infection, site not specified Status: Acute Plan 55-year-old male with a past medical history of morbid obesity, urinary incontinence, diabetes, hyperlipidemia, bilateral leg lymphedema; cognitive delay; presented to the hospital with a chief complaint of generalized weakness. Admitted for following UTI: Continue ceftriaxone Follow-up cultures Generalized weakness: Fall precautions. PT/OT when ready for discharge Cognitive delay: Patient is sundowning. Confused and mentioning to the nurse that he wants to leave the hospital. Patient received Benadryl for sleep. Frequent reorientation. Delirium precautions. Diabetes: Insulin sliding scale Abnormal EKG: Patient denies chest pain. Troponin negative. EKG showed RBBB, left anterior fascicular block. Cardiology follow-up. Bilateral leg lymphedema: Patient on diuretics. Will continue. Venous duplex negative. DVT prophylaxis: Lovenox Code status: Full code Quality Stroke Does the patient have a stroke diagnosis?: No VTE Prior VTE?: No VTE Risk Level:: Medical - moderate - high VTE Device Contraindication: Treatment Not Indicated VTE Drug Contraindication: N/A - Med Ordered
--- NOTE | 2025-06-03 03:55 | PC.NURSE ---
Addendum entered by Wendy Hernandez RN 06/03/25 03:55: medicat was taken prior to verification as pt was very agitated, Benadryl override in Pyxus. Original Note: pt medicated per NOV.
[2025-06-03 05:06] LABS: MANUAL DIFF FLAG NO
[2025-06-03 05:14] LABS: Hematocrit 40.5 % (42.0-52.0); Hemoglobin 13.5 g/dl (14.0-18.0); Imm Gran Abs Auto 0.03 X10*3/uL (0.00-0.03); Imm Gran Pct Auto 0.3 % (0.0-0.4); Lymphocytes Absolute Auto 4.3 X10*3/uL (1.2-4.9); Mean Corpuscular HGB Conc 33.3 g/dl (31.0-36.0); Mean Corpuscular Hemoglobin 29.6 pg (27.0-33.0); Mean Corpuscular Volume 88.8 fL (80.0-98.0); NRBC Abs Auto 0.000 X10*3/uL (0.0-0.012); NRBC Pct Auto 0.0 /100WBC (0.0-0.2); Platelet Count 225 X10*3/uL (160-400); Red Blood Count 4.56 X10*6/uL (4.60-5.80); White Blood Count 12.0 X10*3/uL (4.8-10.8)
[2025-06-03 05:30] LABS: Alanine Aminotransferase 8 U/L (0-40); Albumin Level 4.0 g/dL (3.5-5.0); Alkaline Phosphatase 47 U/L (39-117); Anion Gap 16 (12-20); Aspartate Amino Transferase 16 U/L (5-37); Blood Urea Nitrogen 10 mg/dL (9-16); Calcium 8.8 mg/dL (8.4-10.2); Carbon Dioxide 24 mmol/L (22-29); Chloride 102 mmol/L (96-108); Creatinine Clr Calc Pharmacy 137.9; Estimated Glomerular Filt Rate > 60; Potassium 3.3 mmol/L (3.3-5.1); Sodium 139 mmol/L (135-145); Total Protein 6.7 g/dL (6.5-8.0)
[2025-06-03 06:20] VITALS: BP 139/70; PULSE 79; RESP 18; TEMP 36.4; O2SAT 98
[2025-06-03 07:07] LABS: Glucose, Whole Blood 126 mg/dL (60-115)
[2025-06-03 07:19] VITALS: BP 133/75; PULSE 102; RESP 16; O2SAT 98
[2025-06-03] MEDS: Potassium Chloride ER 20 MEQ TAB.ER.PRT 60 MEQ PO (08:57)
[2025-06-03 08:58] VITALS: BP 133/75
[2025-06-03] MEDS: 0.9 % Sodium Chloride Flush 3 ML SYRINGE IVFLUSH (09:01)
--- NOTE | 2025-06-03 10:18 | P.DS_ITS ---
DS: Providers Provider Date of Service: 06/03/25 Date of admission: 06/02/25 21:39 Date of discharge: 06/03/25 Primary care physician: Sree Padilla MD Consults: 06/03/25 03:36 Consult to Cardiology Routine Consulting Provider: [facility] Reason for consultation: Abnormal EKG DS: Diagnosis Discharge Diagnosis (1) Urinary tract infection: Status: Acute DS: Summary Hospital Course Hospital Course: 55-year-old male with a past medical history of morbid obesity, urinary incontinence, diabetes, hyperlipidemia, bilateral leg lymphedema; cognitive delay; presented to the hospital with a chief complaint of generalized weakness. Initial urine in ED consistent with active sediment suggestive of UTI. Patient received 1 dose of ceftriaxone; when visited this morning his mother is requesting his discharge home on oral antibiotics. At this point in time this is medically acceptable and he will be discharge to complete course of Ceftin pending cultures Time Attestation Discharge Coordination Time (in mins): 35 Quality: Safe Use of Opioids Does Pt have an Active Cancer Diagnosis on the Problem List?: No Quality: Stroke Does the patient have a stroke diagnosis?: No Physical Exam Vital Signs: Vital Signs: Last Vital Signs Temp 97.6 F 06/03/25 06:20 Pulse 102 H 06/03/25 07:19 Resp 16 06/03/25 07:19 BP 133/75 06/03/25 08:58 Pulse Ox 98 06/03/25 07:19 O2 Del Method Room Air 06/03/25 07:19 BMI result Body Mass Index 42.6 Const: Other: Awake alert no acute distress Resp: Other: Clear to auscultation bilaterally no rales rhonchi or wheezes Cardio: Other: No S4; positive S1-S2; no S3 murmurs rubs or gallops GI: Other: Obese positive bowel sounds Extrem: Other: Bilateral lower extremity lymphedema DS: Data Data Completed and Pending Labs on day of discharge: Laboratory Results - last 24 hr 06/02/25 06/02/25 06/03/25 11:13 19:19 03:42 WBC 10.1 12.0 H RBC 4.64 4.56 L Hgb 14.1 13.5 L Hct 40.7 L 40.5 L MCV 87.7 88.8 MCH 30.4 29.6 MCHC 34.6 33.3 RDW 13.9 13.7 Plt Count 242 225 MPV 9.3 L 9.8 Immature Gran % (Auto) 0.1 0.3 Neut % (Auto) 59.1 55.8 Lymph % (Auto) 34.0 36.3 Woodson % (Auto) 5.2 5.6 Eos % (Auto) 1.1 1.4 Baso % (Auto) 0.5 0.6 Lymph # (Auto) 3.5 4.3 Woodson # (Auto) 0.5 0.7 Eos # (Auto) 0.1 0.2 Baso # (Auto) 0.1 0.1 Abs Immat Gran (auto) 0.01 0.03 Absolute Neuts (auto) 6.0 6.7 Absolute Nucleated RBC 0.000 0.000 Nucleated RBC % (auto) 0.0 0.0 Sodium 139 139 Potassium 3.7 3.3 Chloride 103 102 Carbon Dioxide 27 24 Anion Gap 13 16 BUN 9 10 Creatinine 0.68 0.69 Estim Creat Clear Calc 139.9 137.9 Estimated GFR > 60 > 60 POC Glucose Random Glucose 109 91 Lactic Acid 1.1 Calcium 9.3 8.8 Magnesium 2.0 Total Bilirubin 0.6 0.7 Direct Bilirubin 0.1 AST 17 16 ALT 14 8 Alkaline Phosphatase 54 47 Troponin I High Sens 10.0 10.7 B-Natriuretic Peptide 45 Total Protein 7.3 6.7 Albumin 4.4 4.0 Lipase 27 TSH 1.59 Urine Color Yellow Urine Appearance Clear Urine pH 5.0 Ur Specific [place] 1.010 Urine Protein Negative Urine Glucose (UA) Negative Urine Ketones Negative Urine Blood Negative Urine Nitrite Negative Ur Leukocyte Esterase Moderate (2+) H Urine RBC 0-2 Urine WBC 6-10 H Ur Squamous Epith Cells 0-2 Urine Bacteria 2+ Hyaline Casts 0-2 COVID-19 (JEREL) Negative COVID-19 Clin Com See Note Influenza Type A (DEVIN) Negative Influenza Type B (DEVIN) Negative Influenza A & B Note See Note 06/03/25 07:02 WBC RBC Hgb Hct MCV MCH MCHC RDW Plt Count MPV Immature Gran % (Auto) Neut % (Auto) Lymph % (Auto) Woodson % (Auto) Eos % (Auto) Baso % (Auto) Lymph # (Auto) Woodson # (Auto) Eos # (Auto) Baso # (Auto) Abs Immat Gran (auto) Absolute Neuts (auto) Absolute Nucleated RBC Nucleated RBC % (auto) Sodium Potassium Chloride Carbon Dioxide Anion Gap BUN Creatinine Estim Creat Clear Calc Estimated GFR POC Glucose 126 H Random Glucose Lactic Acid Calcium Magnesium Total Bilirubin Direct Bilirubin AST ALT Alkaline Phosphatase Troponin I High Sens B-Natriuretic Peptide Total Protein Albumin Lipase TSH Urine Color Urine Appearance Urine pH Ur Specific [place] Urine Protein Urine Glucose (UA) Urine Ketones Urine Blood Urine Nitrite Ur Leukocyte Esterase Urine RBC Urine WBC Ur Squamous Epith Cells Urine Bacteria Hyaline Casts COVID-19 (JEREL) COVID-19 Clin Com Influenza Type A (DEVIN) Influenza Type B (DEVIN) Influenza A & B Note Discharge Plan Discharge Anticipated Discharge Date/Time: 06/03/25 10:12 Patient Disposition: Home, Self-Care Discharge Diagnosis: UTI Referrals: Sree Padilla MD [Primary Care Provider, Internal Medicine] - 1 Week Discharge Medications: New cefuroxime axetil 500 mg tablet 500 mg PO BID 7 Days Qty: 14 0RF Continued potassium chloride 20 mEq tablet,ER particles/crystals 60 meq PO TID Qty: 810 1RF furosemide 40 mg tablet 40 mg PO DAILY Qty: 90 0RF glimepiride 2 mg tablet 2 mg PO QAM 30 Days Qty: 30 3RF Rx Instructions: administer with breakfast metolazone 5 mg tablet 5 mg PO Q2D 90 Days Qty: 45 1RF spironolactone 50 mg tablet 50 mg PO BID Qty: 180 1RF multivitamin Tablet 1 tab PO DAILY cholecalciferol (vitamin D3) 25 mcg (1,000 unit) tablet 25 mcg PO DAILY Discharge Orders: Discharge Order (Routine); Ordered 06/03/25 Ordered By: Diego Drake Diet: Advance to usual diet Activity on Discharge: As tolerated Stand Alone Forms: Patient Portal Discharge page Print Language: German Care Plan Goals: Resume all medicines as taken prior to hospital Health Concerns: Ceftin 500 mg twice daily for 7 days has been added to your regimen Plan of Treatment: Follow up with your PCP next available Assessment: See discharge summary
--- NOTE | 2025-06-03 10:33 | PC.NURSE ---
Pt A&O X4 became belligerant and wanted to be DC's, hospitalist saw pt and agreed he could go home on PO abx. Caregiver (aunt) concurred with plan for DC on oral abx. Pt VSS, Dary Po bkfts well. ambulates independently- just before DC pt roamed vela trying to get out locked doors. Pt reassured and redirected by ED provider. DC papers written and reviewed with aunt. IV removed. Pt DC stable with family. Aunt verbalizes understanding of instructions and has no questions.
--- NOTE | 2025-06-03 10:43 | PM.EVENT ---
Event Note Date of Service: 06/03/25 Event Note: Patient was discharged prior to me able to consult for him Time Spent With Patient Time: Total time managing care of this patient today ____ minutes.
--- NOTE | 2025-06-03 10:48 | MHC.CM.PN ---
Met with patient, mother Brandi and father Mitul in regards to discharge planning. Patient has a developmental delay. Per Brandi, patient is 55 but has the mentally/ability of a child. Attempted to address patient. Patient declined to engage with T/W. Patient lives with parents, ambulates independently and had no services prior to coming to the hospital. PCP verified. Brandi states patient was active with [facility] during school years but no longer. Patient is also not active with [facility]. 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 Since Covid, patient has been scared to go into the community. IMM explained and signed. Brandi is hoping to get patient d/c'd home. Dr Drake made aware and will meet with patient and parents. Continue to monitor for d/c needs.
== END 2025-06-03 16:45 | disposition home or self-care (01) | DRG 690 ==
LOC: HO.ED 21:23 → HO.EDOVER 21:45
PROVIDERS: Physician Assistant Medical; Admitting Provider Hospitalist; Emergency Provider Emergency Medicine Emergency Medical Services; PCP Internal Medicine; Visit Provider Hospitalist
DX: N39.0 Urinary tract infection, site not specified (principal); Z68.41 Body mass index [BMI] 40.0-44.9, adult; F05 Delirium due to known physiological condition; I45.2 Bifascicular block; R53.81 Other malaise; E66.01 Morbid (severe) obesity due to excess calories; I89.0 Lymphedema, not elsewhere classified; Z20.822 Contact with and (suspected) exposure to COVID-19; Z71.3 Dietary counseling and surveillance; Z79.84 Long term (current) use of oral hypoglycemic drugs; Z79.899 Other long term (current) drug therapy
CPT/HCPCS: 36415; 80048; 80053; 80076; 81001; 82947; 83605; 83690; 83735; 83880; 84443; 84484; 85025; 87040; 87086; 87502; 87635; 93005; 93970; 99285; J0696; J1200; J1650

== ENCOUNTER → 2025-06-02 10:59 | Outpatient (BNV) | payer MEDICARE, MEDICAID, SELFPAY | PROVIDERS: PCP Internal Medicine; Visit Provider Internal Medicine Cardiovascular Disease | DX: I45.10 Unspecified right bundle-branch block (principal) | CPT/HCPCS: 93010 ==

== ENCOUNTER → 2025-06-02 20:03 | Outpatient (BNV) | payer MEDICARE, MEDICAID, SELFPAY | PROVIDERS: Admitting Provider Hospitalist; Emergency Provider Emergency Medicine Emergency Medical Services; PCP Internal Medicine; Visit Provider Radiology Diagnostic Radiology | DX: R22.43 Localized swelling, mass and lump, lower limb, bilateral (principal) | CPT/HCPCS: 93970 ==

== ENCOUNTER → 2025-06-02 21:39 | Outpatient (BNV) | payer MEDICARE, MEDICAID, SELFPAY | PROVIDERS: Admitting Provider Hospitalist; Emergency Provider Emergency Medicine Emergency Medical Services; PCP Internal Medicine; Visit Provider Hospitalist | DX: N39.0 Urinary tract infection, site not specified (principal) | CPT/HCPCS: 99222; 99499 ==

== ENCOUNTER 2025-06-11 15:52 | Outpatient (AMB) | payer MEDICARE, MEDICAID, SELFPAY ==
[2025-06-11 16:07] VITALS: BP 120/60; PULSE 79; O2SAT 97; BMI 41.7
--- NOTE | 2025-06-11 16:07 | MHC.PC.OV ---
Vital Signs 06/11/25 16:07 Height 5 ft 4 in Weight 243 lb BMI 41.7 BP 120/60 Blood Pressure Location Lt brachial Position Sitting Pulse 79 Pulse Oximetry (%) 97 Oxygen Delivery Method Room Air Intake Visit Reasons: [place] [facility] [place]inary tract infection Humid System Operator Required: No Accompanied by: Uncle Allergies No Known Allergies Allergy (Verified 06/11/25 16:12) Medication List - Last Reconciled 06/11/25 by Kike Mora MD cefuroxime axetil 500 mg PO BID 7 days cholecalciferol (vitamin D3) 25 mcg PO DAILY furosemide 40 mg PO DAILY glimepiride 2 mg PO QAM 30 days metolazone 5 mg PO Q2D 90 days multivitamin 1 tab PO DAILY potassium chloride ER 60 mEq (3 x 20 mEq) PO TID spironolactone 50 mg PO BID Tobacco use date assessed: 01/14/24 Dental Screening Dental Screen Date: 06/11/25 Did you have a dental visit in the last 12 months?: No Did you have a dental problem in the last 6 months where you did not have access to dental care?: No Was dental information given to patient?: No HPI TCM TCM Information Date of Discharge 06/07/25 Discharged From [facility] Interactive Contact Date (Reference documentation from this date) 06/11/25 HPI Comments History of Present Illness Details The patient is a 55-year-old male presenting for TCM. He was admitted to the hospital for agitaiton and was treated with Abx for suspected UTI. Patient was discharged on PO ABx that he completed. His urinary symptoms resolved but his caregiver reported the patient continues to be agitated and has insomnia. He developed severe itching since his admission that OTC cream has been helping. Date of admission: 06/02/25 21:39 Date of discharge: 06/03/25 [facility] Medical History Urinary incontinence Morbid obesity with BMI of 40.0-44.9, adult Morbid obesity with BMI of 45.0-49.9, adult Mood disorder Obstructive sleep apnea Type 2 diabetes mellitus without complication, without long-term current use of insulin Hypertriglyceridemia Lymphedema of both lower extremities Lymphedema Surgical History History of myringotomy History of tonsillectomy Family History Father Medical history unknown Mother Diabetes Other Mental health problem Social History Housing: House Alcohol intake: never Patient Tobacco Use Status: Never used Tobacco e-Cigarette/Vaping Use: Never Used Second Hand Smoke Exposure: No service: No Current occupational status: disabled Cognitive needs: No Hearing needs: No Vision needs: Yes (Glasses) Questionnaire Thrive Questionnaire Date Thrive assessed: 06/03/25 MADELINE-7 AMB Questionnaire MADELINE-7 Date MADELINE - 7 assessed: 12/16/24 Source: Developed by Drs. Catrachito Blackwell, Lizbeth Levine, Eliot Rush and colleagues, with an educational ignacio from [employer]. Review of Systems Const Details: Positives besides what was mentioned in HPI are in BOLD Constitutional: No Weight Change, No Fever, No Chills, No Night Sweats, No Fatigue, No Malaise ENT/Mouth: No Hearing Changes, No Ear Pain, No Nasal Congestion, No Sinus Pain, No Hoarseness, No sore throat, No Rhinorrhea, No Swallowing Difficulty Eyes: No Eye Pain, No Swelling, No Redness, No Foreign Body, No Discharge, No Vision Changes Cardiovascular: No Chest Pain, No SOB, No PND, No Dyspnea on Exertion, No Orthopnea, No Claudication, No Edema, No Palpitations Respiratory: No Cough, No Sputum, No Wheezing, No Smoke Exposure, No Dyspnea Gastrointestinal: No Nausea, No Vomiting, No Diarrhea, No Constipation, No Pain, No Heartburn, No Anorexia, No Dysphagia, No Hematochezia, No Melena, No Flatulence, No Jaundice Genitourinary: No Dysmenorrhea, No DUB, No Dyspareunia, No Dysuria, No Urinary Frequency, No Hematuria, No Urinary Incontinence, No Urgency, No Flank Pain, No Urinary Flow Changes, No Hesitancy Musculoskeletal: No Arthralgias, No Myalgias, No Joint Swelling, No Joint Stiffness, No Back Pain, No Neck Pain, No Injury History Skin: No Skin Lesions, No Pruritis, No Hair Changes, No Breast/Skin Changes, No Nipple Discharge Neuro: No Weakness, No Numbness, No Paresthesias, No Loss of Consciousness, No Syncope, No Dizziness, No Headache, No Coordination Changes, No Recent Falls Psych: No Anxiety/Panic, No Depression, No Insomnia, No Personality Changes, No Delusions, No Rumination, No SI/HI/AH/VH, No Social Issues, No Memory Changes, No Violence/Abuse Hx., No Eating Concerns Heme/Lymph: No Bruising, No Bleeding, No Transfusions History, No Lymphadenopathy Endocrine: No Polyuria, No Polydipsia, No Temperature Intolerance Physical exam (Primary Care) Vital Signs: Last Vital Signs Pulse 79 06/11/25 16:07 BP 120/60 06/11/25 16:07 Pulse Ox 97 06/11/25 16:07 Oxygen Delivery Method Room Air 06/11/25 16:07 BMI result Body Mass Index 41.7 Tobacco/Smoking Status: Tobacco use Status Tobacco use date assessed 01/14/24 06/11/25 16:13 Patient Tobacco Use Status Never used Tobacco 06/11/25 16:13 e-Cigarette/Vaping Use Never Used 06/11/25 16:13 Thrive Assessment: Date of Thrive Assessment Date Thrive assessed 06/03/25 06/11/25 16:13 Const Other: Pertinent findings are in BOLD GENERAL APPEARANCE NAD, activity normal for age, well developed/ well nourished, no cyanosis, pallor, or diaphoresis. EYES lids/conjunctiva normal. EARS/NOSE/THROAT Mucous membranes moist, nares normal, lips/teeth normal uvula midline without oral pharyngeal erythema, exudate or swelling TMs normal bilaterally. No lymphangitis/lymphedema. HEAD/NECK normocephalic atraumatic, no facial trauma, neck is supple. RESPIRATORY respiratory effort normal, speaks in full sentences, no tripod position, no accessory muscle use. Lungs clear to auscultation without rhonchi, wheezes, rales CARDIAC Regular rate and rhythm, no edema. ABDOMINAL Soft, ND/NT. No evidence of fluid wave. No pulsatile masses on exam, rebound tenderness, Radford sign or pain over Mcburney's point. MUSCLES/EXTREMITIES No abnormal range of motion, no swelling. SKIN Severe bilateral lymphedema with no signs of infection. NEUROLOGICAL Speech is clear and appropriate. Normal level of consciousness. Gait and coordination are normal. 5/5 strength in all extremities. PSYCH Normal mood and affect. Judgement/competence is appropriate Coding Level of Care Code TCM Mod MDM <= 14 Days Diagnoses Primary insomnia F51.01 Insomnia type: primary Urinary tract infection without hematuria, site unspecified N39.0 Hematuria presence: without hematuria Urinary tract infection type: site unspecified Itching L29.9 Time Spent (min) 30 Assessment & Plan Assessment & Plan (1) Insomnia: Code(s): G47.00 - Insomnia, unspecified Category: Medical Qualifiers: Insomnia type: primary Qualified Code(s): F51.01 - Primary insomnia Plan: Hydroxyzine at night to help with itching and insomnia. (2) Urinary tract infection: Code(s): N39.0 - Urinary tract infection, site not specified Category: Medical Qualifiers: Hematuria presence: without hematuria Urinary tract infection type: site unspecified Qualified Code(s): N39.0 - Urinary tract infection, site not specified Plan: Completed course of Abx. Patient has [facility] refrral but never went there. Told patient's caregiver to call [facility] in case they need further assesment of Urinary incontinence. (3) Itching: Code(s): L29.9 - Pruritus, unspecified Category: Medical Plan: Hydroxyzine to help with itching. Plan I discussed with the patient the use of hydroxyzine to manage insomnia and anxiety, explaining its benefits in improving sleep and reducing daytime agitation. We also talked about the potential need for a behavioral health referral if anxiety symptoms persist. The importance of continuing diuretic therapy for leg edema was emphasized, with a plan to adjust as needed. Medications: New hydroxyzine HCl 10 mg PO BEDTIME PRN 30 tabs 2RF itching 30 days
== END 2025-06-11 16:43 | disposition home or self-care (01) ==
LOC: HO.HMCH 15:52
PROVIDERS: PCP Internal Medicine; Visit Provider Internal Medicine
DX: N39.0 Urinary tract infection, site not specified (principal); F51.01 Primary insomnia; L29.9 Pruritus, unspecified

== ENCOUNTER → 2025-06-11 15:52 | Outpatient (BNVA) | payer MEDICARE, MEDICAID, SELFPAY | PROVIDERS: PCP Internal Medicine; Visit Provider Internal Medicine | DX: F51.01 Primary insomnia (principal); N39.0 Urinary tract infection, site not specified; L29.9 Pruritus, unspecified | CPT/HCPCS: 99495 ==

== ENCOUNTER 2025-07-01 16:17 | Inpatient (IN) | payer MEDICARE, MEDICAID, SELFPAY ==
--- NOTE | ~2025-07-01 | XR_ITS ---
CLINICAL HISTORY: sob 1 view chest x-ray Comparison: None provided Findings: The lungs are clear. Heart size at the upper limits. No acute fracture. IMPRESSION: 1. No acute findings. This document has been electronically signed by: Jazmyne Ronquillo MD on 07/03/2025 03:07:44
--- NOTE | ~2025-07-01 | CT_ITS ---
CLINICAL HISTORY: Change in mental status, off balance, incontinence --- Additional Notes or Special Instructions: R O mass effect, hydrocephalus, stroke, intracranial bleed CT head without contrast Comparison: None provided Findings: BRAIN: No acute infarct, hemorrhage, or mass effect. No abnormal atrophy. CSF SPACES: No hydrocephalus or effacement of basal cisterns. SKULL: No calvarial fracture. SINUSES: Moderate left maxillary sinus mucosal thickening. ORBITS: Limited views are unremarkable. OTHER: Negative. IMPRESSION: 1. No acute intracranial findings. This document has been electronically signed by: Elaine Davis MD on 07/01/2025 23:17:01
--- NOTE | ~2025-07-01 | US_ITS ---
CLINICAL HISTORY: swelling Venous duplex ultrasound right lower extremity Comparison: US - US VENOUS DUPLEX LE - 06/02/25 20:43 EDT Findings: The visualized deep veins are fully compressible with normal Doppler color flow and spectral tracings. Peroneal vein is not visualized. No popliteal cyst. Two right inguinal lymph nodes measuring up to 1 cm in the short axis, favored to be reactive. IMPRESSION: 1. Negative for right lower extremity deep vein thrombosis in the visualized veins. This document has been electronically signed by: Tatiana Finney MD on 07/06/2025 18:23:00
[2025-07-01 16:21] VITALS: BP 134/65; PULSE 90; RESP 16; TEMP 36.4; O2SAT 95; BMI 37.2
--- NOTE | 2025-07-01 16:25 | ED_ITS ---
HPI - Psych General Chief Complaint: Psychiatric Symptoms Stated Complaint: SI Time Seen by Provider: 07/01/25 17:32 Source: patient and family (Aunt) Mode of arrival: ambulatory Limitations: altered mental status History of Present Illness ED Provider: Dr. Flakito Varela HPI Narrative: 55-year-old male with a past medical history of morbid obesity, urinary incontinence, diabetes, hyperlipidemia, bilateral leg lymphedema; cognitive delay who was brought to the emergency department for evaluation of multiple falls, weakness, change in behavior. According to his aunt, since the patient was treated for urinary tract infection and discharged from the hospital on 06/03/2025 he has not been acting normally. He has had episodes where he becomes upset and irritable. She states that he he has had episodes where he has been off balance and he has fallen several times. Over the last 2-3 days the patient has been confused, irritable and not acting normally. His aunt states that he has a prostate problem and has problems with incontinence. He has been more incontinent over the last several days as well. Prior to coming to the emergency department, he was acting erratically, stating that ?the world is ending?. He was also making statements that things were ?fading away?. He also ran out into the street and was on a control. He has been picking at the skin on his arms and on his legs. Related Data Home Medications ?Medication ?Instructions ?Recorded ?Confirmed cholecalciferol (vitamin D3) 25 25 mcg PO DAILY 06/11/25 mcg (1,000 unit) tablet multivitamin 1 tab PO DAILY 09/21/2005/25 Previous Rx's ?Medication ?Instructions ?Recorded metolazone 5 mg tablet 5 mg PO Q2D 90 days #45 tabs 03/28/25 hydroxyzine HCl 10 mg tablet 10 mg PO BEDTIME PRN itch ing 30 06/11/25 days #30 tabs furosemide 40 mg tablet 40 mg PO DAILY #90 tabs 05/25 06/18 spironolactone 50 mg tablet 50 mg PO BID #180 tabs potassium chloride 20 mEq 60 meq (3 x 20 mEq) PO TID # 810 06/19/25 tablet,extended release(part/cryst) tabs glimepiride 2 mg tablet 2 mg PO QAM 30 days #30 tabs 06/22/25 Allergies Allergy/AdvReac Type Severity Reaction Status Date / Time No Known Allergies Allergy Verified 07/01/25 16:25 Review of Systems 2 Review of Systems: Yes Unobtainable due to mental status PMFSH Past Medical History Medical History Urinary incontinence Morbid obesity with BMI of 40.0-44.9, adult Morbid obesity with BMI of 45.0-49.9, adult Mood disorder Obstructive sleep apnea Type 2 diabetes mellitus without complication, without long-term current use of insulin Hypertriglyceridemia Lymphedema of both lower extremities Lymphedema Surgical History History of myringotomy History of tonsillectomy Family History Family History Father Medical history unknown Mother Diabetes Other Mental health problem Social History Social History Housing: House Alcohol intake: never Patient Tobacco Use Status: Never used Tobacco Smoked in Last 30 Days: No e-Cigarette/Vaping Use: Never Used Second Hand Smoke Exposure: No Use of substances other than those prescribed or required for medical reasons: No Advance Directives: No Advance Directives Information Provided: Yes Do you have a plan to hurt others: No Plan service: No Current occupational status: disabled Cognitive needs: No Hearing needs: No Vision needs: Yes (Glasses) Physical Exam 2 Vital Signs: Vital Signs: Last Vital Signs Temp 97.6 F 07/02/25 08:08 Pulse 99 07/02/25 08:08 Resp 18 07/02/25 08:08 BP 134/51 L 07/02/25 08:08 Pulse Ox 95 07/02/25 08:08 O2 Del Method Room Air 07/02/25 08:08 BMI result Body Mass Index 37.2 Vital signs were normal Exam: General: Awake, agitated, yelling, not answering questions appropriately, keeps repeating that the world is ending Head: Normocephalic, atraumatic EENT: PERRL, sclera and conjunctiva are normal, mouth with no erythema or exudates Neck: Supple, no adenopathy Lung: breath sounds symmetric, no wheezing, no rales and no rhonchi Chest: symmetric movement, nontender Heart: regular rate and rhythm, normal S1, S2 no murmurs or rubs Abdomen: soft, mild to moderate diffuse abdominal tenderness, moderate suprapubic tenderness, nondistended, normal bowel sounds Back: no vertebral tenderness, no CVAT Extremities: no deformities, moves all extremities symmetrically, right lower extremities large in the left lower extremity secondary to lymphedema Skin: Excoriated lesions on both upper and lower extremities consistent with skin picking Neuro: Awake, alert, oriented to person, cranial nerves appear to be intact Course Course Course Narrative: This is a rapid medical exam performed by Andrew Yung NP: Additional HPI, ROS, PE not included below will be deferred to primary provider. Patient is a 55y/o male with pmhx T2DM, ASHLEY, mood disorder presenting to the ED with aunt who he lives with. She reports that since his last ED visit he has been having erratic behavior, multiple falls, urine incontinence. She notes that he is covered and scabs which he compulsively scratches and picks out and is bleeding from these areas. She reports having difficulty managing his care at home. Patient reporting SI, stating I'm not ok. Aunt reports developmental delay. Plan: labs, UA, 1:1 observation, care team eval Medications Administered Generic Name Dose Route Start Last Admin Trade Name Freq PRN Reason Stop Dose Admin Ceftriaxone Sodium 1 gm 07/01/25 23:45 07/02/25 00:09 Ceftriaxone Sodium 1 Gm Vial IVPUSH 1 gm DAILY@2200 EMILEE Administration Enoxaparin Sodium 40 mg 07/02/25 00:00 07/02/25 00:12 Enoxaparin Sodium 40 Mg/0.4 Ml Syringe SUBCUT Not Given Q24H EMILEE Sodium Chloride 3 ml 07/02/25 00:00 07/02/25 07:02 0.9 % Sodium Chloride Flush 3 Ml Syringe IVFLUSH Not Given QSHIFT EMILEE Discontinued Medications Generic Name Dose Route Start Last Admin Trade Name Freq PRN Reason Stop Dose Admin Diphenhydramine HCl 50 mg 07/01/25 17:43 07/01/25 17:53 Diphenhydramine Hcl 50 Mg/Ml Vial IM 07/01/25 17:44 50 mg ONCE ONE Administration Diphenhydramine HCl 25 mg 07/02/25 07:10 07/02/25 07:23 Diphenhydramine Hcl 50 Mg/Ml Vial IVPUSH 07/02/25 07:11 Not Given ONCE ONE Haloperidol 10 mg 07/01/25 19:29 07/01/25 19:44 Haloperidol 5 Mg Tablet PO 07/01/25 19:30 10 mg ONCE ONE Administration Haloperidol 10 mg 07/01/25 20:43 07/01/25 21:07 Haloperidol 5 Mg Tablet PO 07/01/25 20:44 10 mg ONCE ONE Administration Haloperidol Lactate 10 mg 07/01/25 17:43 07/01/25 17:53 Haloperidol Lactate 5 Mg/Ml Vial IM 07/01/25 17:44 10 mg ONCE ONE Administration Lactated Ringer's 1,000 mls @ 999 mls/hr 07/01/25 23:45 07/02/25 00:46 Lr IV 07/02/25 00:45 Infused .Q1H1M EMILEE Infusion Lorazepam 2 mg 07/01/25 19:29 07/01/25 19:44 Lorazepam 1 Mg Tablet PO 07/01/25 19:30 2 mg ONCE STA Administration Midazolam HCl 2 mg 07/01/25 17:47 07/01/25 17:53 Midazolam Hcl 2 Mg/2 Ml Vial IM 07/01/25 17:48 2 mg ONCE ONE Administration Olanzapine 10 mg 07/02/25 07:10 07/02/25 07:20 Olanzapine 10 Mg Vial IM 07/02/25 07:11 10 mg ONCE ONE Administration Medical Decision Making Medical Decision Making MDM Narrative: 55-year-old male with a past medical history of morbid obesity, urinary incontinence, diabetes, hyperlipidemia, bilateral leg lymphedema; cognitive delay who was brought to the emergency department for evaluation of multiple falls, weakness, change in behavior. Information was obtained from the patient's aunt. According to his aunt, since the patient was treated for urinary tract infection and discharged from the hospital on 06/03/2025 he has not been acting normally. He has had episodes where he becomes upset and irritable. She states that he he has had episodes where he has been off balance and he has fallen several times. Over the last 2-3 days the patient has been confused, irritable and not acting normally. His aunt states that he has a prostate problem and has problems with incontinence. He has been more incontinent over the last several days as well. Prior to coming to the emergency department, he was acting erratically, stating that ?the world is ending?. He was also making statements that things were ?fading away?. He also ran out into the street and was out of control. He has been picking at the skin on his arms and on his legs. Vital signs were normal. Exam revealed that the patient was agitated, repeating that the world is ending, Skin did reveal excoriated lesions consistent with skin picking and the patient does have lymphedema in his lower extremities which is chronic. Differential diagnosis: ?Includes but is not limited to acute delirium, acute psychosis, normal pressure hydrocephalus, skull fracture, intracranial bleed, tumor with mass effect, urinary tract infection, anemia, electrolyte abnormalities Course: 21:22 My interpretation patient's laboratory evaluation is as follows: WBC normal 9600. Normocytic anemia with an H&H of 10.6 and 31.5. Platelet count was normal 281,000. Glucose elevated 181. Lactic acid normal 1.6. AST elevated 53. TSH normal 1.28. Urinalysis was positive for protein, blood, nitrates, leukocyte esterase. Microscopic revealed 3-5 RBCs, greater than 50 WBCs, 6-10 squamous cells, 4+ bacteria. Ethanol was below detectable limits. Urine tox screen was negative. COVID-19 was negative. Patient's laboratory urinalysis is concerning for possible urinary tract infection therefore he was treated with ceftriaxone 1 g IV. The patient was extremely agitated on presentation and order to do a medical workup and get a CT scan of the head, the patient was medicated with Haldol 50 mg IM, Benadryl 50 mg IM and Versed 2 mg IM. Patient did calm down after receiving this medication however we are unable to get CT scan of the brain due to continued agitation. Patient was given Haldol 10 mg orally x2 and lorazepam 2 mg orally x1. 23:35 CT scan of the patient's brain revealed no acute findings. I did discuss the patient's presentation over tiger text with the covering hospitalist, Dr. Sanches the patient was admitted to the hospital service for further treatment. Differential Diagnosis Differential Diagnoses: The differential diagnosis associated with the presentation includes ( See above) Admission/Observation Consideration of admission/observation: Escalation of care including admission/observation considered ( yes) Consult Healthcare Provider Management of the patient was discussed with: Hospitalist Lab Data MDM Lab Attestation statement: I reviewed the patient's lab results. 07/02/25 04:16 07/02/25 04:16 Labs: Lab Results 07/01/25 07/01/25 07/01/25 Range/Units 16:40 17:09 18:28 WBC 9.6 (4.8-10.8) X10*3/uL RBC 3.48 L D (4.60-5.80) X10*6/uL Hgb 10.6 L D (14.0-18.0) g/dl Hct 31.5 L D (42.0-52.0) % MCV 90.5 (80.0-98.0) fL MCH 30.5 (27.0-33.0) pg MCHC 33.7 (31.0-36.0) g/dl RDW 14.8 (11.0-16.0) % Plt Count 281 (160-400) X10*3/uL MPV 8.9 L (9.4-12.4) fL Immature Gran % (Auto) 0.2 (0.0-0.4) % Neut % (Auto) 53.8 (45-73) % Lymph % (Auto) 36.2 (20-40) % [place] % (Auto) 7.9 (2-11) % Eos % (Auto) 1.2 (0-4) % Baso % (Auto) 0.7 (0-2) % Lymph # (Auto) 3.5 (1.2-4.9) X10*3/uL [place] # (Auto) 0.8 (0.1-1.2) X10*3/uL Eos # (Auto) 0.1 (0.0-0.4) X10*3/uL Baso # (Auto) 0.1 (0.0-0.2) X10*3/uL Abs Immat Gran (auto) 0.02 (0.00-0.03) X10*3/uL Absolute Neuts (auto) 5.1 (2.0-8.3) x10*3/uL Absolute Nucleated RBC 0.000 (0.0-0.012) X10*3/uL Nucleated RBC % (auto) 0.0 (0.0-0.2) /100WBC PT 11.7 (10.9-12.4) SEC INR 1.0 (0.9-1.1) Sodium 136 (135-145) mmol/L Potassium 4.4 D (3.3-5.1) mmol/L Chloride 108 (96-108) mmol/L Carbon Dioxide 23 (22-29) mmol/L Anion Gap 9 L (12-20) BUN 9 (9-16) mg/dL Creatinine 0.70 (0.5-1.4) mg/dL Estim Creat Clear Calc 144.0 Estimated GFR > 60 Random Glucose 181 H (60-115) mg/dL Lactic Acid 1.6 (0.5-2.0) mmol/L Calcium 8.5 (8.4-10.2) mg/dL Total Bilirubin 0.4 (0.0-1.0) mg/dL AST 53 H (5-37) U/L ALT 37 (0-40) U/L Alkaline Phosphatase 51 (39-117) U/L Total Protein 6.2 L (6.5-8.0) g/dL Albumin 3.7 (3.5-5.0) g/dL TSH 1.28 (0.32-4.0) uIU/mL Urine Color Yellow Urine Appearance Turbid Urine pH 5.0 (5.0-9.0) Ur Specific [place] 1.015 (1.005-1.025) Urine Protein 30 (1+) H (Neg-Trace) mg/dL Urine Glucose (UA) Negative (Negative) mg/dL Urine Ketones Negative (Negative) mg/dL Urine Blood Moderate (2+) H (Negative) Urine Nitrite Positive H (Negative) Ur Leukocyte Esterase Large (3+) H (Negative) Urine RBC 3-5 H (0-2) /HPF Urine WBC >50 H (0-5) /HPF Ur Squamous Epith Cells 6-10 (0-2) /HPF Urine Bacteria 4+ (None Seen) Hyaline Casts 0-2 (0-2) /LPF Urine Opiates Screen Not Detected (Not Detect) Ur Buprenorphine Scrn Not Detected (Not Detect) ng/mL Ur Oxycodone Screen Not Detected (Not Detect) ng/mL Urine Methadone Screen Not Detected (Not Detect) ng/mL Urine Fentanyl Screen Not Detected (Not Detect) Ur Barbiturates Screen Not Detected (Not Detect) Ur Phencyclidine Scrn Not Detected (Not Detect) Ur Amphetamines Screen Not Detected (Not Detect) U Benzodiazepines Scrn Not Detected (Not Detect) Urine Cocaine Screen Not Detected (Not Detect) U Marijuana (THC) Screen Not Detected (Not Detect) Ethyl Alcohol < 10 mg/dL COVID-19 (JEREL) Negative (Negative) COVID-19 Clin Com See Note Independent Interpretation I performed an independent interpretation of an: EKG Interpretation: my independent interpretation patient's 12 EKG done on 07/01/2025 at 18:07 hours is as follows: Normal sinus rhythm with rate of 89, normal AR interval, QRS duration QTC interval, no ST segment elevation, no ST segment depression, no significant T-wave abnormalities, no PACs, no PVCs my independent interpretation patient's CT scan of the brain without IV contrast is as follows: No acute fracture, intracranial bleed or large stroke seen by me. No significant hydrocephalus Radiology Impression Radiologist Impression: CT head without contrast Comparison: None provided Findings: BRAIN: No acute infarct, hemorrhage, or mass effect. No abnormal atrophy. CSF SPACES: No hydrocephalus or effacement of basal cisterns. SKULL: No calvarial fracture. SINUSES: Moderate left maxillary sinus mucosal thickening. ORBITS: Limited views are unremarkable. OTHER: Negative. IMPRESSION: 1. No acute intracranial findings. This document has been electronically signed by: Elaine Davis MD on 07/01/2025 23:17:01 Independent Historian Clinical information obtained from an independent historian. History obtained from or confirmed by: Other ( aunt) External Record Review External record reviewed: Inpatient record Chronic Conditions Patient?s care impacted by: Diabetes and Other ( hyperlipidemia) Critical Care Time Critical Care Time Critical Care Time: Yes Total Critical Care Time: 60 Attestation: Critical Care: The patient was critically ill with a high probability of imminent or life threatening deterioration. I spent greater than 30 minutes of discontinuous time evaluating the patient,delivering critical care at the bedside, discussing and evaluating pertinent data with consultants. Critical care time does not include time spent performing separately billable procedures or teaching. Total time spent performing critical care was 60 minutes. Discharge Plan Discharge Clinical Impression: Altered mental status, Urinary tract infection Patient Disposition: Admitted As Inpatient [facility] Last Done: 07/01/25 18:25
[2025-07-01 16:53] LABS: MANUAL DIFF FLAG NO
[2025-07-01 16:54] LABS: Hematocrit 31.5 % (42.0-52.0); Hemoglobin 10.6 g/dl (14.0-18.0); Imm Gran Abs Auto 0.02 X10*3/uL (0.00-0.03); Imm Gran Pct Auto 0.2 % (0.0-0.4); Lymphocytes Absolute Auto 3.5 X10*3/uL (1.2-4.9); Mean Corpuscular HGB Conc 33.7 g/dl (31.0-36.0); Mean Corpuscular Hemoglobin 30.5 pg (27.0-33.0); Mean Corpuscular Volume 90.5 fL (80.0-98.0); NRBC Abs Auto 0.000 X10*3/uL (0.0-0.012); NRBC Pct Auto 0.0 /100WBC (0.0-0.2); Platelet Count 281 X10*3/uL (160-400); Red Blood Count 3.48 X10*6/uL (4.60-5.80); White Blood Count 9.6 X10*3/uL (4.8-10.8)
[2025-07-01 17:05] VITALS: BP 152/79; PULSE 93; RESP 16; TEMP 36.8; O2SAT 94
[2025-07-01 17:08] LABS: Alanine Aminotransferase 37 U/L (0-40); Albumin Level 3.7 g/dL (3.5-5.0); Alkaline Phosphatase 51 U/L (39-117); Anion Gap 9 (12-20); Aspartate Amino Transferase 53 U/L (5-37); Blood Urea Nitrogen 9 mg/dL (9-16); Calcium 8.5 mg/dL (8.4-10.2); Carbon Dioxide 23 mmol/L (22-29); Chloride 108 mmol/L (96-108); Creatinine Clr Calc Pharmacy 144.0; Estimated Glomerular Filt Rate > 60; INTERNATIONAL NORM RATIO 1.0 (0.9-1.1); Potassium 4.4 mmol/L (3.3-5.1); Prothrombin Time 11.7 SEC (10.9-12.4); Sodium 136 mmol/L (135-145); Total Protein 6.2 g/dL (6.5-8.0)
--- NOTE | 2025-07-01 17:11 | PC.NURSE ---
Pt came from , resistive but agreeable to let staff clean and pt and barrier cream applied per tech Aruna. Overall general rash/itchy. Scabs noted. Pt picking at them.
--- NOTE | 2025-07-01 17:13 | ECG_ITS ---
Test Reason : CP Blood Pressure : */* mmHG Vent. Rate : 89 BPM Atrial Rate : 89 BPM P-R Int : 188 ms QRS Dur : 92 ms QT Int : 362 ms P-R-T Axes : * 69 38 degrees QTcB Int : 440 ms Poor data quality, interpretation may be adversely affected Normal sinus rhythm Low voltage QRS Incomplete right bundle branch block Borderline ECG When compared with ECG of 02-Jun-2025 11:07, Incomplete right bundle branch block has replaced (RBBB and left posterior fascicular block) Referred By: Generic ED Physician Electronically Signed By: JANIE CRUMP MD
--- NOTE | 2025-07-01 17:13 | PC.NURSE ---
Pt aunt at bedside, reports pt is developmentally delayed. She reports he has been having difficulty urinating and forcing himself to pee. He has been urinating in his bed and refusing to get cleaned. Pt does have a red, itchy rash all over body.
[2025-07-01 17:16] LABS: Appearance Urine Turbid; Glucose Urine UA Negative (Negative); PH 5.0 (5.0-9.0); Specific Gravity - Urine 1.015 (1.005-1.025); UMIC TRIGGER UACC YES
[2025-07-01 17:19] LABS: COVID-19 Test Negative (Negative); IDNOW Serial# 55D5AD1C
[2025-07-01 17:25] LABS: Cannabinoid Screen Urine Not Detected (Not Detect)
[2025-07-01 17:28] LABS: UACC Culture Trigger YES
--- NOTE | 2025-07-01 18:00 | PC.NURSE ---
Pt removed walking boot, lateral ankle skin noted to be macerated. Pt reports not removing prior dressing or boot very often since placed. Pt is more cooperative and no longer with aggressive speech. Needs redirection with volume but easily redirected.
--- NOTE | 2025-07-01 18:04 | PC.NURSE ---
Pt becoming agitated intermittently, yelling and swearing. Impulsive behaviors, sat up and got OOB and grabbed sandwich on counter, continued to eat sandwich with wrapper still on despite attempting to remove from pts hands and verbally redirect. Pt also noted biting at wrist band and fall risk band. Bands removed and all other items mobile removed from room for safety. 1:1 also placed. Aunt remains at bedside. IM medications given as reflected on EMAR.
[2025-07-01 18:24] VITALS: BP 111/47; PULSE 86; RESP 20; O2SAT 98
--- NOTE | 2025-07-01 19:16 | PC.NURSE ---
this rn assumed care of pt, pt resting in stretcher, family at bedside, no acute distress noted.
[2025-07-01 19:32] VITALS: BP 126/56; PULSE 91; TEMP 36.8; O2SAT 98
--- NOTE | 2025-07-01 19:44 | PC.NURSE ---
per CT, pt refused ct, MD Varela aware and pt medicated per mar
[2025-07-01 22:08] VITALS: BP 93/54; PULSE 81; RESP 16; TEMP 36.8; O2SAT 97
--- NOTE | 2025-07-01 23:38 | PM.IMHP ---
History of Present Illness Date of Service: 07/01/25 Attending physician on admission: Chris Sanches Chief Complaint: AMS Patient is a 55-year-old male with a past medical history significant for class 3 obesity, urinary incontinence, type 2 diabetes, hyperlipidemia, bilateral lower extremity edema and cognitive delay, who presented to the ED due to multiple recent falls with weakness and altered mental status. The patient's caregiver noticed erratic behavior including skin picking and running in the road for the past 2-3 days. She reports 3 recent falls, unsure if head strike. His caregiver is 77 years old and states that she is having a very hard time helping him at home due to his size and behavior. She reports he has been urinating all over the house and she is afraid that he is going to get seriously hurt. Recently he was admitted for urinary tract infection last month. The patient is unable to provide history at this time due to medication sedation for acute delirium. UA positive again. Head CT negative. Patient to be admitted for acute delirium in the setting of UTI. Review of Systems Review of Systems: Yes Unobtainable due to mental condition and Unobtainable due to mental status [facility] Medical History Urinary incontinence Morbid obesity with BMI of 40.0-44.9, adult Morbid obesity with BMI of 45.0-49.9, adult Mood disorder Obstructive sleep apnea Type 2 diabetes mellitus without complication, without long-term current use of insulin Hypertriglyceridemia Lymphedema of both lower extremities Lymphedema Family History Father Medical history unknown Mother Diabetes Other Mental health problem Surgical History History of myringotomy History of tonsillectomy Social History Housing: House Alcohol intake: never Patient Tobacco Use Status: Never used Tobacco Smoked in Last 30 Days: No e-Cigarette/Vaping Use: Never Used Second Hand Smoke Exposure: No Use of substances other than those prescribed or required for medical reasons: No Advance Directives: No Advance Directives Information Provided: Yes Do you have a plan to hurt others: No Plan service: No Current occupational status: disabled Cognitive needs: No Hearing needs: No Vision needs: Yes (Glasses) Meds Allergies Allergy/AdvReac Type Severity Reaction Status Date / Time No Known Allergies Allergy Verified 07/01/25 16:25 Active Medications: Current Medications Acetaminophen (Acetaminophen 325 Mg Tablet) 975 mg PO Q6H PRN PRN Reason: Pain, Mild 1-3,fever,headache Calcium Carbonate (Calcium Carbonate 750 Mg Tab.Chew) 750 mg PO Q4H PRN PRN Reason: Heartburn Enoxaparin Sodium (Enoxaparin Sodium 40 Mg/0.4 Ml Syringe) 40 mg SUBCUT Q24H [facility] Lactated Ringer's (Lr) 1,000 mls @ 999 mls/hr IV .Q1H1M [facility] Stop: 07/02/25 00:45 Magnesium Hydroxide (Milk Of Magnesia 30 Ml Oral.Susp) 30 ml PO DAILY PRN PRN Reason: Constipation Melatonin (Melatonin 3 Mg Tablet) 6 mg PO BEDTIME PRN PRN Reason: Insomnia Ondansetron HCl (Ondansetron Hcl 4 Mg/2 Ml Vial) 4 mg IVPUSH Q8H PRN PRN Reason: Nausea and Vomiting Sodium Chloride (0.9 % Sodium Chloride Flush 3 Ml Syringe) 3 ml IVFLUSH QSHIFT [facility] Home Medications ?Medication ?Instructions ?Recorded ?Confirmed ?Last Taken ?Type cholecalciferol (vitamin D3) 25 25 mcg PO DAILY 09/21/20 06/11/25 06/02/25 History mcg (1,000 unit) tablet multivitamin 1 tab PO DAILY 09/21/20 06/11/25 06/02/25 History Physical Exam Vital Signs and Narrative: Vital Signs: Last Vital Signs Temp 98.3 F 07/01/25 22:08 Pulse 81 07/01/25 22:08 Resp 16 07/01/25 22:08 BP 93/54 L 07/01/25 22:08 Pulse Ox 97 07/01/25 22:08 O2 Del Method Room Air 07/01/25 22:08 BMI result Body Mass Index 37.2 General: somnolent, no acute distress. History given by patient's sister Resp: CTA bilaterally CVS: S1, S2, RRR GI: +BS, NT, no distention Skin: Warm, dry, evidence on the skin picking on extremities, no active cellulitis Neuro: Motor grossly intact bilaterally Extremities: No pitting edema Psych: somnolent Results Labs 07/01/25 16:40 07/01/25 16:40 Labs: Laboratory Results - last 24 hr 07/01/25 07/01/25 07/01/25 16:40 17:09 18:28 MCV 90.5 MCH 30.5 MCHC 33.7 RDW 14.8 Plt Count 281 MPV 8.9 L Immature Gran % (Auto) 0.2 Neut % (Auto) 53.8 Lymph % (Auto) 36.2 [place] % (Auto) 7.9 Eos % (Auto) 1.2 Baso % (Auto) 0.7 Lymph # (Auto) 3.5 [place] # (Auto) 0.8 Eos # (Auto) 0.1 Baso # (Auto) 0.1 Abs Immat Gran (auto) 0.02 Absolute Neuts (auto) 5.1 Absolute Nucleated RBC 0.000 Nucleated RBC % (auto) 0.0 PT 11.7 INR 1.0 Anion Gap 9 L Estim Creat Clear Calc 144.0 Estimated GFR > 60 Random Glucose 181 H Lactic Acid 1.6 Calcium 8.5 Total Bilirubin 0.4 AST 53 H ALT 37 Alkaline Phosphatase 51 Total Protein 6.2 L Albumin 3.7 TSH 1.28 Urine Color Yellow Urine Appearance Turbid Urine pH 5.0 Ur Specific [place] 1.015 Urine Protein 30 (1+) H Urine Glucose (UA) Negative Urine Ketones Negative Urine Blood Moderate (2+) H Urine Nitrite Positive H Ur Leukocyte Esterase Large (3+) H Urine RBC 3-5 H Urine WBC >50 H Ur Squamous Epith Cells 6-10 Urine Bacteria 4+ Hyaline Casts 0-2 Urine Opiates Screen Not Detected Ur Buprenorphine Scrn Not Detected Ur Oxycodone Screen Not Detected Urine Methadone Screen Not Detected Urine Fentanyl Screen Not Detected Ur Barbiturates Screen Not Detected Ur Phencyclidine Scrn Not Detected Ur Amphetamines Screen Not Detected U Benzodiazepines Scrn Not Detected Urine Cocaine Screen Not Detected U Marijuana (THC) Screen Not Detected Ethyl Alcohol < 10 COVID-19 ([facility]EREL) Negative COVID-19 Clin Com See Note Assessment and Plan (1) Acute delirium: Status: Acute (2) Urinary tract infection: Qualifiers: Hematuria presence: without hematuria Urinary tract infection type: site unspecified Qualified Code(s): N39.0 - Urinary tract infection, site not specified Status: Acute (3) Class 3 obesity: Status: Acute Plan Patient is a 55-year-old male with a past medical history significant for class 3 obesity, urinary incontinence, type 2 diabetes, hyperlipidemia, bilateral lower extremity edema and cognitive delay, who presented to the ED due to multiple recent falls with weakness and altered mental status. UA + for UTI Acute delirium in the setting of urinary tract infection - ceftriaxone pending culture - zyprexa 5mg Q8H PRN agitation - IVF - monitor CBC and BMP - case management T2DM - sliding scale insulin cognitive delay - zyprexa as above - frequent reorientation HLD - statin BLE edema at baseline - continue diuretics class 3 obesity - weight loss encouraged med rec pending full code VTE prophy: lovenox Patient with acute delirium in the setting of UTI, requiring admission for at least 2 midnight stay for IV antibiotics and monitoring. Quality Stroke Does the patient have a stroke diagnosis?: No VTE Prior VTE?: No VTE Risk Level:: Medical - moderate - high VTE Device Contraindication: Treatment Not Indicated VTE Drug Contraindication: N/A - Med Ordered
[2025-07-01] MEDS: Lactated Ringers 1,000 ML 999 ML IV (23:45)
[2025-07-02] VITALS (9 sets, daily range): BP systolic 121–169; BP diastolic 51–77; PULSE 92–123; RESP 16–24; TEMP 35.8–37.1; O2SAT 93–98; BMI 37.2
[2025-07-02] MEDS: 0.9 % Sodium Chloride Flush 3 ML SYRINGE IVFLUSH ×2 (00:10→16:31)
--- NOTE | 2025-07-02 00:18 | HE.NUR.EV ---
Pt brought into ED for multiple falls and behavior changes. Pt lives with aunt and uncle. Pt recently treated for UTI and discharged on 06/03/25 however has not been acting himself according to family. Over the last 2-3 days the patient has been confused and irritable. His aunt has noticed increase in incontinence over the last several days. Pt has prostrate issues. Pt ran out into street earlier and was making statements about the world ending. He has been picking at the skin on his arms and on his legs. AST elevated at 53. Tox screen negative. Labwork shows +UTI. RH IV, pt received IVF bolus and IV abx PMH: morbid obesity, urinary incontinence, diabetes, hyperlipidemia, bilateral leg lymphedema; cognitive delay
[2025-07-02 05:18] LABS: MANUAL DIFF FLAG NO
[2025-07-02 05:21] LABS: Hematocrit 32.0 % (42.0-52.0); Hemoglobin 10.7 g/dl (14.0-18.0); Imm Gran Abs Auto 0.03 X10*3/uL (0.00-0.03); Imm Gran Pct Auto 0.4 % (0.0-0.4); Lymphocytes Absolute Auto 2.8 X10*3/uL (1.2-4.9); Mean Corpuscular HGB Conc 33.4 g/dl (31.0-36.0); Mean Corpuscular Hemoglobin 30.7 pg (27.0-33.0); Mean Corpuscular Volume 91.7 fL (80.0-98.0); NRBC Abs Auto 0.000 X10*3/uL (0.0-0.012); NRBC Pct Auto 0.0 /100WBC (0.0-0.2); Platelet Count 264 X10*3/uL (160-400); Red Blood Count 3.49 X10*6/uL (4.60-5.80); White Blood Count 8.4 X10*3/uL (4.8-10.8)
[2025-07-02 06:26] LABS: Anion Gap 12 (12-20); Blood Urea Nitrogen 8 mg/dL (9-16); Calcium 8.5 mg/dL (8.4-10.2); Carbon Dioxide 23 mmol/L (22-29); Chloride 108 mmol/L (96-108); Creatinine Clr Calc Pharmacy 157.5; Estimated Glomerular Filt Rate > 60; Potassium 4.1 mmol/L (3.3-5.1); Sodium 139 mmol/L (135-145)
--- NOTE | 2025-07-02 07:14 | PC.NURSE ---
Addendum entered by Gabriela East RN 07/02/25 07:34: Pt removed IV- aware. Original Note: Assumed care of pt approx 0700, pt up OOB and attempting to take breakfast trays from others. Pt agitated and throwing food. Pt assisted back to bed with security, MD Salas notified and new orders in pace.
[2025-07-02] MEDS: OLANZapine 10 MG VIAL IM ×2 (07:20→11:10)
--- NOTE | 2025-07-02 10:20 | P.PNIM_ITS ---
Subjective Subjective Date of Service: 07/02/25 Interval History: Itchy Physical Exam 2 Exam: Exam: alert, oriented to place and name, diffuse picking lesions on skin, lungs clear abdomen soft and nontender Vital Signs: Vital Signs: Last Vital Signs Temp 97.6 F 07/02/25 08:08 Pulse 99 07/02/25 08:08 Resp 18 07/02/25 08:08 BP 134/51 L 07/02/25 08:08 Pulse Ox 95 07/02/25 08:08 O2 Del Method Room Air 07/02/25 08:08 BMI result Body Mass Index 37.2 Objective Data Active Medications Acetaminophen (Acetaminophen 325 Mg Tablet) 975 mg PO Q6H PRN PRN Reason: Pain, Mild 1-3,fever,headache Calcium Carbonate (Calcium Carbonate 750 Mg Tab.Chew) 750 mg PO Q4H PRN PRN Reason: Heartburn Ceftriaxone Sodium (Ceftriaxone Sodium 1 Gm Vial) 1 gm IVPUSH DAILY@2200 [facility] Last Admin: 07/02/25 00:09 Dose: 1 gm Documented By: ROD Enoxaparin Sodium (Enoxaparin Sodium 40 Mg/0.4 Ml Syringe) 40 mg SUBCUT Q24H [facility] Last Admin: 07/02/25 00:12 Dose: Not Given Documented By: ROD Non-Admin Reason: Patient Asleep Magnesium Hydroxide (Milk Of Magnesia 30 Ml Oral.Susp) 30 ml PO DAILY PRN PRN Reason: Constipation Melatonin (Melatonin 3 Mg Tablet) 6 mg PO BEDTIME PRN PRN Reason: Insomnia Olanzapine (Olanzapine 5 Mg Tablet) 5 mg PO Q8H PRN PRN Reason: agitation Ondansetron HCl (Ondansetron Hcl 4 Mg/2 Ml Vial) 4 mg IVPUSH Q8H PRN PRN Reason: Nausea and Vomiting Sodium Chloride (0.9 % Sodium Chloride Flush 3 Ml Syringe) 3 ml IVFLUSH QSHIFT [facility] Last Admin: 07/02/25 07:02 Dose: Not Given Documented By: ROSANA Non-Admin Reason: Patient Refused Labs 07/02/25 04:16 07/02/25 04:16 Labs: Laboratory Results - last 24 hr 07/01/25 07/01/25 07/01/25 16:40 17:09 18:28 MCV 90.5 MCH 30.5 MCHC 33.7 RDW 14.8 Plt Count 281 MPV 8.9 L Immature Gran % (Auto) 0.2 Neut % (Auto) 53.8 Lymph % (Auto) 36.2 [place] % (Auto) 7.9 Eos % (Auto) 1.2 Baso % (Auto) 0.7 Lymph # (Auto) 3.5 [place] # (Auto) 0.8 Eos # (Auto) 0.1 Baso # (Auto) 0.1 Abs Immat Gran (auto) 0.02 Absolute Neuts (auto) 5.1 Absolute Nucleated RBC 0.000 Nucleated RBC % (auto) 0.0 PT 11.7 INR 1.0 Anion Gap 9 L Estim Creat Clear Calc 144.0 Estimated GFR > 60 Random Glucose 181 H Lactic Acid 1.6 Calcium 8.5 Total Bilirubin 0.4 AST 53 H ALT 37 Alkaline Phosphatase 51 Total Protein 6.2 L Albumin 3.7 TSH 1.28 Urine Color Yellow Urine Appearance Turbid Urine pH 5.0 Ur Specific [place] 1.015 Urine Protein 30 (1+) H Urine Glucose (UA) Negative Urine Ketones Negative Urine Blood Moderate (2+) H Urine Nitrite Positive H Ur Leukocyte Esterase Large (3+) H Urine RBC 3-5 H Urine WBC >50 H Ur Squamous Epith Cells 6-10 Urine Bacteria 4+ Hyaline Casts 0-2 Urine Opiates Screen Not Detected Ur Buprenorphine Scrn Not Detected Ur Oxycodone Screen Not Detected Urine Methadone Screen Not Detected Urine Fentanyl Screen Not Detected Ur Barbiturates Screen Not Detected Ur Phencyclidine Scrn Not Detected Ur Amphetamines Screen Not Detected U Benzodiazepines Scrn Not Detected Urine Cocaine Screen Not Detected U Marijuana (THC) Screen Not Detected Ethyl Alcohol < 10 COVID-19 ([facility]EREL) Negative COVID-19 Clin Com See Note 07/02/25 04:16 MCV 91.7 MCH 30.7 MCHC 33.4 RDW 14.9 Plt Count 264 MPV 9.1 L Immature Gran % (Auto) 0.4 Neut % (Auto) 55.5 Lymph % (Auto) 33.5 [place] % (Auto) 7.4 Eos % (Auto) 2.6 Baso % (Auto) 0.6 Lymph # (Auto) 2.8 [place] # (Auto) 0.6 Eos # (Auto) 0.2 Baso # (Auto) 0.1 Abs Immat Gran (auto) 0.03 Absolute Neuts (auto) 4.7 Absolute Nucleated RBC 0.000 Nucleated RBC % (auto) 0.0 PT INR Anion Gap 12 Estim Creat Clear Calc 157.5 Estimated GFR > 60 Random Glucose 90 Lactic Acid Calcium 8.5 Total Bilirubin AST ALT Alkaline Phosphatase Total Protein Albumin TSH Urine Color Urine Appearance Urine pH Ur Specific [place] Urine Protein Urine Glucose (UA) Urine Ketones Urine Blood Urine Nitrite Ur Leukocyte Esterase Urine RBC Urine WBC Ur Squamous Epith Cells Urine Bacteria Hyaline Casts Urine Opiates Screen Ur Buprenorphine Scrn Ur Oxycodone Screen Urine Methadone Screen Urine Fentanyl Screen Ur Barbiturates Screen Ur Phencyclidine Scrn Ur Amphetamines Screen U Benzodiazepines Scrn Urine Cocaine Screen U Marijuana (THC) Screen Ethyl Alcohol COVID-19 ([facility]ER[facility]) COVID-19 Clin Com Assessment and Plan (1) Mood disorder: Status: Acute Plan 55F PMH obesity, urinary incontinence, diabetes type 2, hyperlipidemia, cognitive delay presented with altered mental status Acute delirium due to urinary tract infection Continue ceftriaxone, follow up cultures Atypical antipsychotics as needed Diabetes Insulin sliding scale Obesity Weight loss recommended DVT prophylaxis with Lovenox Full code reason for continued hospitalization: Awaiting cultures Quality Stroke Does the patient have a stroke diagnosis?: No VTE Prior VTE?: No VTE Risk Level:: Medical - moderate - high VTE Device Contraindication: Treatment Not Indicated VTE Drug Contraindication: N/A - Med Ordered
--- NOTE | 2025-07-02 10:52 | PC.NURSE ---
Addendum entered by Gabriela East RN 07/02/25 12:13: + pulses and CMS to extremities x 4 Original Note: Pt became very agitated, 1:1 sitter calling for help as pt up OOB attempting to put self on floor and striking out at staff. Security present and assist pt back to stretcher. Pt continues to hit/kick staff, MD Salas notified and pt medicated per NOV. Pt continues to be aggressive despite medication admins. Security continues to be needed bedside and restraints applied per MD order.
[2025-07-02] MEDS: diazePAM 10 MG/2 ML CARTRIDGE IM (10:56)
--- NOTE | 2025-07-02 11:43 | PC.NURSE ---
Pt becoming increasingly agitated this morning, placed in mechanical 4 pt restraints by security, requiring additional dose of IM Zyprexa, Valium. Finger able to be placed under each restraint as per protocol, +distal pulses, skin intact. pt continuing to resist restraints, continues to be unable to be redirected, soothed or distracted.
--- NOTE | 2025-07-02 12:17 | PHA.MEDREC ---
Addendum entered by Rashid Masterson PharmD 07/02/25 12:25: reviewed Original Note: Pharmacy Consult ? Medication Reconciliation Pharmacy has completed the medication reconciliation. Pt unable to speak to and tried contacting family multiples times this Am with no luck. Pt discharged with us 06/03 and confirmed med list with that; Hydroxyzine 10mg no on 06/03 DC but filled 06/11 for 90. Looking in previous visits, pt was seen 06/11 by provider and provider started pt on Hydroxyzine 10mg as needed for itching/sleep.
--- NOTE | 2025-07-02 12:36 | MHC.CM.PN ---
Addendum entered by Ann Marie Dixon 07/02/25 14:06: CM met with Patient and his Aunt/Caregiver/Brandi at bedside, in the ED, and addressed IMM with them (original was given to Patient and a copy will be placed on the chart). Patient lives in a house with his Aunt/Caregiver/Brandi, who will transport to home at dc. Patient may benefit from a PT Eval to assist with disposition.CM has initiated and will follow for dc planning. PCP is Dr. Sree Padilla. Original Note: CM met with Patient at bedside, in the ED, at 10:39 AM. Patient appeared anxious and said that he did not want to answer questions. CM obtained Patient's permission to reach out to his Contacts, Brandi and Alisha. CM awaits a return call from one of Patient's contacts.
--- NOTE | 2025-07-02 13:26 | PC.NURSE ---
Restraints removed at 1305, family at bedside. Pt offered lunch and fluids, good appetite. Pt agreeable to be cooperative with care.
--- NOTE | 2025-07-02 13:43 | HO.NURTONUR ---
Pt brought into ED for multiple falls and behavior changes. Pt lives with aunt and uncle. Pt recently treated for UTI and discharged on 06/03/25 however has not been acting himself according to family. Over the last 2-3 days the patient has been confused and irritable. His aunt has noticed increase in incontinence over the last several days. Pt has prostrate issues. Pt ran out into street earlier and was making statements about the world ending. He has been picking at the skin on his arms and on his legs. AST elevated at 53. Tox screen negative. Labwork shows +UTI. RH IV, pt received IVF bolus and IV abx. #18 replaced to RAC, pt conintually attempts to remove wires/lines. A/O x 1-2, confused and agitated at times. Pt calm/cooperative with family bedside. PMH: morbid obesity, urinary incontinence, diabetes, hyperlipidemia, bilateral leg lymphedema; cognitive delay
--- NOTE | 2025-07-02 13:57 | P.CNPS_ITS ---
History of Present Illness Date of Service: 07/02/25 Chief Complaint: AMS, UTI Reason for Consult: agitation despite multiple antipsychotics and benzo Requesting physician: Ronnie Salas Discussed with referring provider: Yes Sources of Information: patient interviewed and chart reviewed HPI Narrative: Patient is a 55-year-old male with history of urinary incontinence, type 2 diabetes, hyperlipidemia, bilateral lower extremity edema and cognitive delay, who presented to the ED due to multiple recent falls with weakness and altered mental status. Patient to be admitted for acute delirium in the setting of UTI. Psychiatric consult placed for: agitation despite multiple antipsychotics and benzo During psychiatric assessment, pt oriented to self. Pt was in mechanical restraints when T/W arrived d/t agitation. Patient unable to provide history at this time due to acute delirium. Home medication hx does not show hx of psychiatric medications. Past Psychiatric History: Unable to obtain d/t patient mental status. Medical Evaluation Reviewed: Yes [facility] Medical History Urinary incontinence Morbid obesity with BMI of 40.0-44.9, adult Morbid obesity with BMI of 45.0-49.9, adult Mood disorder Obstructive sleep apnea Type 2 diabetes mellitus without complication, without long-term current use of insulin Hypertriglyceridemia Lymphedema of both lower extremities Lymphedema Surgical History History of myringotomy History of tonsillectomy Diagnostics Vital Signs (24Hr): Vital Signs - 24 hr 07/01/25 16:21 07/01/25 17:05 07/01/25 18:24 Temperature 97.5 F 98.3 F Pulse Rate 90 93 86 Respiratory Rate 16 16 20 Blood Pressure 134/65 152/79 H 111/47 L Pulse Oximetry 95 94 98 Oxygen Delivery Method Room Air Room Air Room Air 07/01/25 19:32 07/01/25 22:08 07/02/25 05:10 Temperature 98.2 F 98.3 F Pulse Rate 91 81 95 Respiratory Rate 16 18 Blood Pressure 126/56 L 93/54 L 128/58 L Pulse Oximetry 98 97 98 Oxygen Delivery Method Room Air Room Air Room Air 07/02/25 08:08 07/02/25 11:31 07/02/25 11:47 Temperature 97.6 F Pulse Rate 99 123 H 110 H Respiratory Rate 18 24 H 16 Blood Pressure 134/51 L 139/54 L 140/77 H Pulse Oximetry 95 93 96 Oxygen Delivery Method Room Air Room Air 07/02/25 12:55 Temperature Pulse Rate 119 H Respiratory Rate 18 Blood Pressure 121/51 L Pulse Oximetry 96 Oxygen Delivery Method Room Air BMI result Body Mass Index 37.2 Labs 07/02/25 04:16 07/02/25 04:16 Labs: Laboratory Results - last 48 hr 07/01/25 07/01/25 07/01/25 16:40 17:09 18:28 WBC 9.6 RBC 3.48 L D Hgb 10.6 L D Hct 31.5 L D MCV 90.5 MCH 30.5 MCHC 33.7 RDW 14.8 Plt Count 281 MPV 8.9 L Immature Gran % (Auto) 0.2 Neut % (Auto) 53.8 Lymph % (Auto) 36.2 [place] % (Auto) 7.9 Eos % (Auto) 1.2 Baso % (Auto) 0.7 Lymph # (Auto) 3.5 [place] # (Auto) 0.8 Eos # (Auto) 0.1 Baso # (Auto) 0.1 Abs Immat Gran (auto) 0.02 Absolute Neuts (auto) 5.1 Absolute Nucleated RBC 0.000 Nucleated RBC % (auto) 0.0 PT 11.7 INR 1.0 Sodium 136 Potassium 4.4 D Chloride 108 Carbon Dioxide 23 Anion Gap 9 L BUN 9 Creatinine 0.70 Estim Creat Clear Calc 144.0 Estimated GFR > 60 Random Glucose 181 H Lactic Acid 1.6 Calcium 8.5 Total Bilirubin 0.4 AST 53 H ALT 37 Alkaline Phosphatase 51 Total Protein 6.2 L Albumin 3.7 TSH 1.28 Urine Color Yellow Urine Appearance Turbid Urine pH 5.0 Ur Specific [place] 1.015 Urine Protein 30 (1+) H Urine Glucose (UA) Negative Urine Ketones Negative Urine Blood Moderate (2+) H Urine Nitrite Positive H Ur Leukocyte Esterase Large (3+) H Urine RBC 3-5 H Urine WBC >50 H Ur Squamous Epith Cells 6-10 Urine Bacteria 4+ Hyaline Casts 0-2 Urine Opiates Screen Not Detected Ur Buprenorphine Scrn Not Detected Ur Oxycodone Screen Not Detected Urine Methadone Screen Not Detected Urine Fentanyl Screen Not Detected Ur Barbiturates Screen Not Detected Ur Phencyclidine Scrn Not Detected Ur Amphetamines Screen Not Detected U Benzodiazepines Scrn Not Detected Urine Cocaine Screen Not Detected U Marijuana (THC) Screen Not Detected Ethyl Alcohol < 10 COVID-19 (JEREL) Negative COVID-19 Clin Com See Note 07/02/25 04:16 WBC 8.4 RBC 3.49 L Hgb 10.7 L Hct 32.0 L MCV 91.7 MCH 30.7 MCHC 33.4 RDW 14.9 Plt Count 264 MPV 9.1 L Immature Gran % (Auto) 0.4 Neut % (Auto) 55.5 Lymph % (Auto) 33.5 [place] % (Auto) 7.4 Eos % (Auto) 2.6 Baso % (Auto) 0.6 Lymph # (Auto) 2.8 [place] # (Auto) 0.6 Eos # (Auto) 0.2 Baso # (Auto) 0.1 Abs Immat Gran (auto) 0.03 Absolute Neuts (auto) 4.7 Absolute Nucleated RBC 0.000 Nucleated RBC % (auto) 0.0 PT INR Sodium 139 Potassium 4.1 Chloride 108 Carbon Dioxide 23 Anion Gap 12 BUN 8 L Creatinine 0.64 Estim Creat Clear Calc 157.5 Estimated GFR > 60 Random Glucose 90 Lactic Acid Calcium 8.5 Total Bilirubin AST ALT Alkaline Phosphatase Total Protein Albumin TSH Urine Color Urine Appearance Urine pH Ur Specific [place] Urine Protein Urine Glucose (UA) Urine Ketones Urine Blood Urine Nitrite Ur Leukocyte Esterase Urine RBC Urine WBC Ur Squamous Epith Cells Urine Bacteria Hyaline Casts Urine Opiates Screen Ur Buprenorphine Scrn Ur Oxycodone Screen Urine Methadone Screen Urine Fentanyl Screen Ur Barbiturates Screen Ur Phencyclidine Scrn Ur Amphetamines Screen U Benzodiazepines Scrn Urine Cocaine Screen U Marijuana (THC) Screen Ethyl Alcohol COVID-19 (JEREL) COVID-19 Clin Com Mental Status Exam Mental Status Exam Narrative: Unable to obtain full mental status. Patient Appearance: Disheveled Patient Orientation: Person Level of Consciousness: Drowsy Patient Behavior: Aggressive and Restless Mood Description: Angry Ability to Follow Directions: Poor Speech Pattern: Mumbled Medications Medications Current Medications Acetaminophen (Acetaminophen 325 Mg Tablet) 975 mg PO Q6H PRN PRN Reason: Pain, Mild 1-3,fever,headache Calcium Carbonate (Calcium Carbonate 750 Mg Tab.Chew) 750 mg PO Q4H PRN PRN Reason: Heartburn Ceftriaxone Sodium (Ceftriaxone Sodium 1 Gm Vial) 1 gm IVPUSH DAILY@2200 [facility] Last Admin: 07/02/25 00:09 Dose: 1 gm Chlorpromazine HCl (Chlorpromazine Hcl 25 Mg/Ml Ampul) 50 mg IM Q6H PRN PRN Reason: severe agitation Diazepam (Diazepam 10 Mg/2 Ml Cartridge) 10 mg IVPUSH Q8H PRN PRN Reason: agitation Diphenhydramine HCl (Diphenhydramine Hcl 50 Mg/Ml Vial) 25 mg IM Q6H PRN PRN Reason: agitation Enoxaparin Sodium (Enoxaparin Sodium 40 Mg/0.4 Ml Syringe) 40 mg SUBCUT Q24H [facility] Last Admin: 07/02/25 00:12 Dose: Not Given Magnesium Hydroxide (Milk Of Magnesia 30 Ml Oral.Susp) 30 ml PO DAILY PRN PRN Reason: Constipation Melatonin (Melatonin 3 Mg Tablet) 6 mg PO BEDTIME PRN PRN Reason: Insomnia Olanzapine (Olanzapine 5 Mg Tablet) 5 mg PO Q8H PRN PRN Reason: agitation Ondansetron HCl (Ondansetron Hcl 4 Mg/2 Ml Vial) 4 mg IVPUSH Q8H PRN PRN Reason: Nausea and Vomiting Sodium Chloride (0.9 % Sodium Chloride Flush 3 Ml Syringe) 3 ml IVFLUSH QSHIFT [facility] Last Admin: 07/02/25 07:02 Dose: Not Given Allergies Allergies Allergy/AdvReac Type Severity Reaction Status Date / Time No Known Allergies Allergy Verified 07/01/25 16:25 Assessment & Plan Assessment & Plan (1) Altered mental status: Status: Acute Code(s): R41.82 - Altered mental status, unspecified Plan Recommendations: -Treat underlying medical conditions -If pt becomes agitated can be offered: Zyprexa 10mg PO BID PRN and Ativan 1mg PO BID PRN. -If IM's are required, consider Zyprexa 10mg IM once, or Thorazine 50mg IM once, given with Valium 10mg IM once and Benadryl 50mg IM once. Montior EKG. Total time managing care of this patient today _30___ minutes. Patient educated on: other (Unable d/t patient mental status. )
--- NOTE | 2025-07-02 17:18 | P.CNUR_ITS ---
History of Present Illness Consult details Consult date: 07/02/25 Narrative: 55-year-old male with history of urinary incontinence, type 2 diabetes, hyperlipidemia, bilateral lower extremity edema and cognitive delay, who presented to the ED due to multiple recent falls with weakness and altered mental status. Patient to be admitted for acute delirium in the setting of UTI. Review of Systems 2 Review of Systems: Yes Unobtainable due to mental status PMFSH Past Medical History Medical History Urinary incontinence Morbid obesity with BMI of 40.0-44.9, adult Morbid obesity with BMI of 45.0-49.9, adult Mood disorder Obstructive sleep apnea Type 2 diabetes mellitus without complication, without long-term current use of insulin Hypertriglyceridemia Lymphedema of both lower extremities Lymphedema Family History Family History Father Medical history unknown Mother Diabetes Other Mental health problem Surgical History Surgical History History of myringotomy History of tonsillectomy Social History Social History Household Members: Family and Caregiver Household Members Other:: aunt/uncle Housing: House Do you presently have visiting nurse or other home services: No Alcohol intake: never Comment: 1:1 at bedside Patient Tobacco Use Status: Never used Tobacco e-Cigarette/Vaping Use: Never Used Second Hand Smoke Exposure: No service: No Current occupational status: disabled Cognitive needs: No Hearing needs: No Vision needs: Yes (Glasses) Meds Allergies Allergy/AdvReac Type Severity Reaction Status Date / Time No Known Allergies Allergy Verified 07/01/25 16:25 Active Medications: Current Medications Acetaminophen (Acetaminophen 325 Mg Tablet) 975 mg PO Q6H PRN PRN Reason: Pain, Mild 1-3,fever,headache Calcium Carbonate (Calcium Carbonate 750 Mg Tab.Chew) 750 mg PO Q4H PRN PRN Reason: Heartburn Ceftriaxone Sodium (Ceftriaxone Sodium 1 Gm Vial) 1 gm IVPUSH DAILY@2200 [facility] Last Admin: 07/02/25 00:09 Dose: 1 gm Chlorpromazine HCl (Chlorpromazine Hcl 25 Mg/Ml Ampul) 50 mg IM Q6H PRN PRN Reason: severe agitation Last Admin: 07/02/25 15:45 Dose: 50 mg Diazepam (Diazepam 10 Mg/2 Ml Cartridge) 10 mg IVPUSH Q8H PRN PRN Reason: agitation Diphenhydramine HCl (Diphenhydramine Hcl 50 Mg/Ml Vial) 25 mg IM Q6H PRN PRN Reason: agitation Last Admin: 07/02/25 16:56 Dose: 25 mg Enoxaparin Sodium (Enoxaparin Sodium 40 Mg/0.4 Ml Syringe) 40 mg SUBCUT Q24H [facility] Last Admin: 07/02/25 00:12 Dose: Not Given Magnesium Hydroxide (Milk Of Magnesia 30 Ml Oral.Susp) 30 ml PO DAILY PRN PRN Reason: Constipation Melatonin (Melatonin 3 Mg Tablet) 6 mg PO BEDTIME PRN PRN Reason: Insomnia Olanzapine (Olanzapine 5 Mg Tablet) 5 mg PO Q8H PRN PRN Reason: agitation Ondansetron HCl (Ondansetron Hcl 4 Mg/2 Ml Vial) 4 mg IVPUSH Q8H PRN PRN Reason: Nausea and Vomiting Sodium Chloride (0.9 % Sodium Chloride Flush 3 Ml Syringe) 3 ml IVFLUSH QSHIFT [facility] Last Admin: 07/02/25 16:31 Dose: 3 ml Spironolactone (Spironolactone 25 Mg Tablet) 50 mg PO BID [facility]; Protocol Vitamin D (Cholecalciferol (Vitamin D3) 25 Mcg Tablet) 25 mcg PO DAILY [facility] Home Medications ?Medication ?Instructions ?Recorded ?Confirmed ?Last Taken ?Type cholecalciferol (vitamin D3) 25 25 mcg PO DAILY 07/02/25 06/02/25 History mcg (1,000 unit) tablet multivitamin 1 tab PO DAILY 09/21/20 100 06/1806/02/25 History Physical Exam 2 Vital Signs: Vital Signs: Last Vital Signs Temp 97.7 F 07/02/25 14:59 Pulse 92 07/02/25 14:59 Resp 16 07/02/25 14:59 BP 140/63 H 07/02/25 14:59 Pulse Ox 96 07/02/25 14:59 O2 Del Method Room Air 07/02/25 14:59 BMI result Body Mass Index 37.2 Results Labs 07/03/25 05:20 07/03/25 05:20 Labs: Abnormal lab results 07/01/25 07/02/25 Range/Units 17:09 04:16 RBC 3.49 L (4.60-5.80) X10*6/uL Hgb 10.7 L (14.0-18.0) g/dl Hct 32.0 L (42.0-52.0) % MPV 9.1 L (9.4-12.4) fL BUN 8 L (9-16) mg/dL Urine Protein 30 (1+) H (Neg-Trace) mg/dL Urine Blood Moderate (2+) H (Negative) Urine Nitrite Positive H (Negative) Ur Leukocyte Esterase Large (3+) H (Negative) Urine RBC 3-5 H (0-2) /HPF Urine WBC >50 H (0-5) /HPF Short CBC 07/02/25 Range/Units 04:16 WBC 8.4 (4.8-10.8) X10*3/uL Hgb 10.7 L (14.0-18.0) g/dl Hct 32.0 L (42.0-52.0) % Plt Count 264 (160-400) X10*3/uL BMP 07/02/25 04:16 Sodium 139 Potassium 4.1 Chloride 108 Carbon Dioxide 23 BUN 8 L Creatinine 0.64 Calcium 8.5 Urine 07/01/25 Range/Units 17:09 Urine Color Yellow Urine Appearance Turbid Urine pH 5.0 (5.0-9.0) Ur Specific [place] 1.015 (1.005-1.025) Urine Protein 30 (1+) H (Neg-Trace) mg/dL Urine Glucose (UA) Negative (Negative) mg/dL Assessment and Plan (1) Urinary retention: Status: Acute (2) Acute UTI: Status: Acute Plan Bedside cystoscopy and urethral dialation at bedside unsuccessful, not able to get catheter in the bladder during manipulation of urethra the patient spontaneously voided 150 mL and 300 mL on two separate times but bladder scan still elevated. Monitor overnight for spontaneous voids NPO If remains in retention will add on to OR for tomorrow Procedures Date of Service Date of Service: 07/02/25 Catheter Insertion (Urinary) Reason for placing: Urinary obstruction Bladder scan/ultrasound used before catheterization: Yes Estimated amount of urine (mLs): 777 Antiseptic solution prep: Povidone-Iodine Topical anesthesia used: Yes Results: consulted Comment: unable to get catheter Additional comments: Claire sounds used, to dilate meatal stricture, 12 fr to 18 fr, attempted villafuerte, met with resistance, flexible cystoscopy at bedside, dense urethral stricture, attempted to place guide wire and dilate without success. During procedure, patient spontaneously voided some urine.
[2025-07-02] MEDS: Lidocaine HCl 2 % Urojet 10 ML JEL.PF.APP TOPICAL ×2 (17:20→17:54)
--- NOTE | 2025-07-02 19:40 | PC.NURSE ---
Pt arrived to unit AMS/ confused from baseline cognitive delay. Pt agitated/ restless attempting to get up oob to leave and push through sitter in room. Got pt back to bed and moved from room 487 to 479 to be away from elevator as elpoement risk. Pt bladder scanned due to restlessness noted 770cc. Notified Dr. Salas who ordered st cath for pt- unable to st cath due to urethral stricture. Uro consult- Dr. Ac to bedside- attempted urethral dilation without success, attempted bedside cystoscopy without success. Pt requiring bilateral soft wrist restraints in order to perform procedure and care for pt safely due to agitation/ combativeness/ impulsivity and restlessness. Required 7 staff members to help during procedure to safely care for pt including security. Pt to be NPO after midnight to go to OR with Urologist in am. Will continue to monitor closely. 1:1 sitter remains at bedside.
[2025-07-02] MEDS: diazePAM 10 MG/2 ML CARTRIDGE IVPUSH (20:07)
[2025-07-03] VITALS (43 sets, daily range): BP systolic 70–139; BP diastolic 40–72; PULSE 54–134; RESP 12–26; TEMP 35–36.9; O2SAT 88–100; BMI 35.2
--- NOTE | 2025-07-03 01:01 | ECG_ITS ---
Test Reason : CP Blood Pressure : */* mmHG Vent. Rate : 131 BPM Atrial Rate : 78 BPM P-R Int : * ms QRS Dur : 126 ms QT Int : 304 ms P-R-T Axes : * 111 22 degrees QTcB Int : 448 ms Normal sinus rhythm with burst of SVE Right bundle branch block Left posterior fascicular block Bifascicular block Abnormal ECG When compared with ECG of 01-Jul-2025 18:07, Vent. rate has increased SVEs are now present (RBBB and left posterior fascicular block) has replaced Incomplete right bundle branch block Referred By: Fabienne Henry Electronically Signed By: JANIE CRUMP MD
--- NOTE | 2025-07-03 01:17 | PM.EVENT ---
Event Note Date of Service: 07/03/25 Event Note: Acute hypoxic respiratory failure: Tachycardia: Patient became acutely hypoxic, saturating in 70s; placed on OxyMask at 15 L and subsequently transitioned to CPAP with improvement in oxygenation. Patient was also tachycardic as high as 160s. Patient is lethargic-status post sedatives for delirium. Unclear if patient aspirated Bladder scan showed 100 cc of urine (patient was planned for procedure for urethral stricture in a.m. by Urology) Ordered for stat labs, ABG, troponin, BNP, TSH. Echocardiogram Cardiology consult in a.m. Spoke to ICU attending Dr. Henry-accepted to the ICU. Call the patient's family over the phone-not reachable Time Spent With Patient Time: Total time managing care of this patient today ____ minutes.
[2025-07-03 01:28] LABS: Venous Blood Gas Refer to POC result
[2025-07-03 01:35] LABS: ABG HCO3 29 mmol/L (22-26); ABG O2 % Saturation 97.0 %
[2025-07-03 01:36] LABS: ABG Refer to POC result
[2025-07-03 01:39] LABS: Anion Gap 14 (12-20); Blood Urea Nitrogen 8 mg/dL (9-16); Calcium 8.8 mg/dL (8.4-10.2); Carbon Dioxide 25 mmol/L (22-29); Chloride 106 mmol/L (96-108); Creatinine Clr Calc Pharmacy 141.9; Estimated Glomerular Filt Rate > 60; Magnesium 2.0 mg/dL (1.6-2.6); Potassium 3.7 mmol/L (3.3-5.1); Sodium 141 mmol/L (135-145)
[2025-07-03 01:46] LABS: NT Pro B Type Natriuretic Pept 444.3 pg/mL (<300); Troponin-I High Sensitivity 18.9 ng/L (<3.5-35.0)
[2025-07-03] MEDS: Furosemide 20 MG/2 ML VIAL IVPUSH ×3 (02:08→18:24)
[2025-07-03] MEDS: 0.9 % Sodium Chloride Flush 3 ML SYRINGE IVFLUSH ×4 (02:09→19:21)
[2025-07-03 02:26] LABS: ABG HCO3 25 mmol/L (22-26); ABG O2 % Saturation 99.0 %
[2025-07-03] MEDS: dexmedeTOMIDine HCL/NS 400 MCG/100 ML PLAST..BAG 27.73 MCG IVCONT (02:45)
[2025-07-03 02:55] LABS: ABG Refer to POC result
--- NOTE | 2025-07-03 03:20 | PM.EVENT ---
Documented by User: Davina Lau NP 07/03/25 03:34 Event Note Date of Service: 07/03/25 Event Note: Patient evaluated for level of care secondary to hypoxia, tachycardia, obtunded d/t sedatives for delirium. Unclear if the pt aspirated. He was placed on CPAP/BIPAP while on the medical floor prior to transfer to ICU for respiratory acidosis/hypercapnia with improvement to O2 sat. On arrival to the ICU, Pt became arousable, moving extremities, responding to voice. Repeat ABG 7.41 39 109 25. HR 69. Time Spent With Patient Time: Total time managing care of this patient today ____ minutes. Documented by User: Fabienne Henry MD 07/03/25 06:25 Event Note Date of Service: 07/03/25
--- NOTE | 2025-07-03 03:29 | PC.NURSE ---
assumed care of patient at 1900, patient restless, yelling out, pulling at lines, severely agitated, sitter at bedside - medicated per NOV, ~0000 patient became lethargic O2 85% on RA applied oxymask 2L with improvement to 95%, ~0030 patient became more hypoxic RT to bedside, MD to bedside, patient placed on BIPAP, ICU POWER LINEWORKER to bedside for evaluation, see MD note - patient accepted and transferred to ICU
[2025-07-03 05:24] LABS: VBG HCO3 28 mmol/L (22-26); VBG O2 % Saturation 82.0 %; Venous Blood Gas Refer to POC result
[2025-07-03 05:31] LABS: MANUAL DIFF FLAG NO
[2025-07-03 05:32] LABS: Hematocrit 35.9 % (42.0-52.0); Hemoglobin 11.5 g/dl (14.0-18.0); Imm Gran Abs Auto 0.05 X10*3/uL (0.00-0.03); Imm Gran Pct Auto 0.4 % (0.0-0.4); Lymphocytes Absolute Auto 1.8 X10*3/uL (1.2-4.9); Mean Corpuscular HGB Conc 32.0 g/dl (31.0-36.0); Mean Corpuscular Hemoglobin 29.6 pg (27.0-33.0); Mean Corpuscular Volume 92.5 fL (80.0-98.0); NRBC Abs Auto 0.000 X10*3/uL (0.0-0.012); NRBC Pct Auto 0.0 /100WBC (0.0-0.2); Platelet Count 313 X10*3/uL (160-400); Red Blood Count 3.88 X10*6/uL (4.60-5.80); White Blood Count 12.5 X10*3/uL (4.8-10.8)
--- NOTE | 2025-07-03 05:35 | PC.NURSE ---
Patient transferred to ICU for higher level of care. Previously medicated for delirium , becoming hypoxic, tachycardic , and unresponsive. Patient currently increasingly awake. VANG. ABG's redrawn and have improved. VSS. LS coarse, resting at present with 1:1 sitter at bedside.
[2025-07-03 05:44] LABS: Ammonia 32 umol/L (13-55)
[2025-07-03 05:51] LABS: Albumin Level 3.8 g/dL (3.5-5.0); Anion Gap 15 (12-20); Blood Urea Nitrogen 8 mg/dL (9-16); Calcium 9.0 mg/dL (8.4-10.2); Carbon Dioxide 25 mmol/L (22-29); Chloride 104 mmol/L (96-108); Creatinine Clr Calc Pharmacy 138.1; Estimated Glomerular Filt Rate > 60; Magnesium 2.0 mg/dL (1.6-2.6); Potassium 4.4 mmol/L (3.3-5.1); Sodium 140 mmol/L (135-145)
[2025-07-03] MEDS: dexmedeTOMIDine HCL/NS 400 MCG/100 ML PLAST..BAG 24.95 MCG IVCONT (06:30)
--- NOTE | 2025-07-03 07:52 | PM.CCPN ---
Subjective Subjective Date of Service: 07/03/25 Interval History: admitted 07/02 PM d/t obtundation in setting of antipsychotic medications c/b acute hypercarbic respiratory failure, placed on BiPAP w/ interval improvement Critical Care Time (minutes): 60 Physical Exam Vital Signs: Vital Signs: Last Vital Signs Temp 98.5 F 07/03/25 04:00 Pulse 72 07/03/25 07:00 Resp 20 07/03/25 07:00 BP 98/50 L 07/03/25 07:00 Pulse Ox 93 07/03/25 07:00 O2 Del Method High Flow Nasal C annula, Oxymask 07/03/25 07:00 O2 Flow Rate 6 07/03/25 07:00 FiO2 24 07/03/25 05:00 BMI result Body Mass Index 35.2 Const: General: comfortable, no acute distress and well developed HEENT: Head: Yes normal to inspection, Yes normocephalic and Yes atraumatic Eyes: General: appearance normal, both eyes and all related structures Neck: Neck: Yes normal visual inspection, Yes full ROM, Yes no meningeal signs, Yes trachea midline and Yes supple Chest: Chest palpation & inspection: normal inspection of the chest Resp: Other: diminished breath sounds throughout; no appreciable overt rales, rhonchi, wheezing Effort & Inspection: normal respiratory effort Cardio: Rate: regular rate Rhythm: regular rhythm GI: Inspection: Yes normal to inspection, No Abdominal wall edema and No distended Palpation (GI): Soft to palpation, not firm, nontender, no guarding and not rigid Skin: Other: appreciable excoriations throughout Neuro: General: tone normal, moves all extremities and no meningeal signs Extrem: Other: appreciable non-pitting edema throughout General: Yes normal to inspection, Yes full ROM and Yes capillary refill normal Psych: Other: intermittent agitation Objective Data Labs 07/03/25 05:20 07/03/25 05:20 Labs: Laboratory Results - last 24 hr 07/03/25 07/03/25 07/03/25 01:21 01:30 02:22 WBC RBC Hgb Hct MCV MCH MCHC RDW Plt Count MPV Immature Gran % (Auto) Neut % (Auto) Lymph % (Auto) [place] % (Auto) Eos % (Auto) Baso % (Auto) Lymph # (Auto) [place] # (Auto) Eos # (Auto) Baso # (Auto) Abs Immat Gran (auto) Absolute Neuts (auto) Absolute Nucleated RBC Nucleated RBC % (auto) O2 Saturation 97.0 99.0 ABG pH at Pt Temp 7.19 L* 7.41 ABG pCO2 at Pt Temp 75 H* 39 ABG pO2 at Pt Temp 116 H 109 H ABG HCO3 29 H 25 ABG Base Excess (Actual) -0.6 1.0 VBG pH VBG pCO2 VBG pO2 VBG HCO3 VBG O2 Saturation VBG Base Excess Sodium 141 Potassium 3.7 Chloride 106 Carbon Dioxide 25 Anion Gap 14 BUN 8 L Creatinine 0.71 Estim Creat Clear Calc 141.9 Estimated GFR > 60 Random Glucose 231 H Lactic Acid 0.7 Calcium 8.8 Phosphorus 5.8 H Magnesium 2.0 Ammonia Troponin I High Sens 18.9 D NT-Pro-B Natriuret Pep 444.3 H Albumin 07/03/25 05:20 WBC 12.5 H RBC 3.88 L Hgb 11.5 L Hct 35.9 L MCV 92.5 MCH 29.6 MCHC 32.0 RDW 14.7 Plt Count 313 MPV 8.9 L Immature Gran % (Auto) 0.4 Neut % (Auto) 76.3 H Lymph % (Auto) 14.1 L [place] % (Auto) 7.9 Eos % (Auto) 0.7 Baso % (Auto) 0.6 Lymph # (Auto) 1.8 [place] # (Auto) 1.0 Eos # (Auto) 0.1 Baso # (Auto) 0.1 Abs Immat Gran (auto) 0.05 H Absolute Neuts (auto) 9.5 H Absolute Nucleated RBC 0.000 Nucleated RBC % (auto) 0.0 O2 Saturation ABG pH at Pt Temp ABG pCO2 at Pt Temp ABG pO2 at Pt Temp ABG HCO3 ABG Base Excess (Actual) VBG pH 7.38 VBG pCO2 47 VBG pO2 55 VBG HCO3 28 H VBG O2 Saturation 82.0 VBG Base Excess 2.4 Sodium 140 Potassium 4.4 Chloride 104 Carbon Dioxide 25 Anion Gap 15 BUN 8 L Creatinine 0.73 Estim Creat Clear Calc 138.1 Estimated GFR > 60 Random Glucose 186 H Lactic Acid Calcium 9.0 Phosphorus 4.9 H Magnesium 2.0 Ammonia 32 Troponin I High Sens NT-Pro-B Natriuret Pep Albumin 3.8 Microbiology Microbiology Results: Microbiology 07/01/25 18:33 Blood - Venous Blood Culture - Preliminary No growth after 24 hours. 07/01/25 18:28 Blood - Venous Blood Culture - Preliminary No growth after 24 hours. 07/01/25 Unknown Urine clean catch - Clean Catch Midstream Urine Culture - Preliminary Culture in progress. Progress Note: A&P Assessment and plan (1) Encephalopathy: Status: Acute (2) Urinary tract infection: Status: Acute Plan Patient is a 55 Y M w/ developmental delay, hyperlipidemia, diabetes mellitus, c/b morbid obesity, w/ prior urinary tract infections, presenting to ED on 07/01 w/ encephalopathy; ED work-up suggestive of urinary tract infection, admitted medicine; hospital course c/b persistent encephalopathy, necessitating sedating medications; on 07/02, patient obtunded c/b acute hypercarbic respiratory failure in setting of sedating medications, initiated on non-invasive ventilation N: encephalopathy, likely toxic-metabolic, to continue to monitor; encephalopathy, dexmedetomidine gtt, wean as tolerated, judicious use of sedating medications; developmental delay CV: hypotension w/o overt signs of shock, norepinephrine gtt, wean as tolerated R: acute hypercarbic respiratory failure d/t sedating medications, s/p non-invasive ventilation, improved; likely ASHLEY, non-invasive ventilation PM and naps GI: NPO while encephalopathic, otherwise advance as tolerated : urinary tract infection; to monitor renal indices/electrolytes H: no acute issues; chemical DVT prophylaxis ID: urinary tract infection, ceftriaxone E: diabetes mellitus, insulin sliding scale P: encephalopathy/agitation as described above Quality Stroke Does the patient have a stroke diagnosis?: No VTE Prior VTE?: No VTE Risk Level:: Medical - moderate - high VTE Device Contraindication: N/A - Device Ordered VTE Drug Contraindication: N/A - Med Ordered
--- NOTE | 2025-07-03 08:58 | HO.ANESPROP2 ---
Documented by User: Shanta Acharya NP 07/03/25 09:03 HPI - Anesthesia Eval Consult details Narrative: 55 yr old male with developmental delay for cystoscopy/urethral dilation, suprapubic tube exchange Admitted to ICU 2/2 patient obtunded c/b acute hypercarbic respiratory failure in setting of sedating medications No cardiac hx On Bipap, sats are low 90s, chest xray without acute findings PMFSH Active Problems Active Problems: All Active Problems Encephalopathy (Acute) Acute UTI (Acute) Urinary retention (Acute) Urinary tract infection (Acute) Altered mental status (Acute) Class 3 obesity (Acute) Acute delirium (Acute) Itching (Acute) Insomnia (Acute) Urinary tract infection (Acute) Morbid obesity with BMI of 40.0-44.9, adult (Acute) Medicare annual wellness visit, subsequent (Acute) Cellulitis of both lower extremities (Acute) Morbid obesity with BMI of 45.0-49.9, adult (Acute) Mood disorder (Acute) Obstructive sleep apnea (Acute) Type 2 diabetes mellitus without complication, without long-term current use of insulin (Acute) Hypertriglyceridemia (Acute) Lymphedema of both lower extremities (Acute) Past Medical History Medical History Urinary incontinence Morbid obesity with BMI of 40.0-44.9, adult Morbid obesity with BMI of 45.0-49.9, adult Mood disorder Obstructive sleep apnea Type 2 diabetes mellitus without complication, without long-term current use of insulin Hypertriglyceridemia Lymphedema of both lower extremities Lymphedema Family History Family History Father Medical history unknown Mother Diabetes Other Mental health problem Surgical History Surgical History History of myringotomy History of tonsillectomy Social History Social History Household Members: Family and Caregiver Household Members Other:: aunt/uncle Housing: House Do you presently have visiting nurse or other home services: No Alcohol intake: never Comment: 1:1 at bedside Patient Tobacco Use Status: Never used Tobacco e-Cigarette/Vaping Use: Never Used Second Hand Smoke Exposure: No service: No Current occupational status: disabled Cognitive needs: No Hearing needs: No Vision needs: Yes (Glasses) Meds Allergies Allergy/AdvReac Type Severity Reaction Status Date / Time No Known Allergies Allergy Verified 07/01/25 16:25 Active Medications: Current Medications Albuterol/Ipratropium (Albuterol/Iprat 2.5/0.5mg 3 Ml Ampul.Neb) 3 ml INHALE RQ4H WHILE AWAKE [facility] Ceftriaxone Sodium (Ceftriaxone Sodium 1 Gm Vial) 1 gm IVPUSH DAILY@2200 [facility] Last Admin: 07/02/25 21:40 Dose: 1 gm Dextrose (Dextrose 50 % 25 Gm/50 Ml Syringe) 25 gm IVPUSH Q15M PRN; Protocol PRN Reason: per Hypoglycemia Standing Ord. Diazepam (Diazepam 10 Mg/2 Ml Cartridge) 10 mg IVPUSH Q8H PRN PRN Reason: agitation Last Admin: 07/02/25 20:07 Dose: 10 mg Enoxaparin Sodium (Enoxaparin Sodium 40 Mg/0.4 Ml Syringe) 40 mg SUBCUT Q24H [facility] Last Admin: 07/03/25 02:09 Dose: 40 mg Furosemide (Furosemide 20 Mg/2 Ml Vial) 20 mg IVPUSH BID@0900,1800 [facility]; Protocol Glucose (Glucose Gel 15 Gm Gel..Gram.) 15 gm PO Q15M PRN; Protocol PRN Reason: per Hypoglycemia Standing Ord. Dexmedetomidine HCl (Precedex) 400 mcg in 100 mls @ 0 mls/hr IVCONT .Q0M [facility]; Protocol Last Admin: 07/03/25 06:30 Dose: 0.9 mcg/kg/hr, 24.95 mls/hr Norepinephrine Bitartrate (Levophed) 8 mg in 250 mls @ 0 mls/hr IVCONT .Q0M [facility]; Protocol Last Titration: 07/03/25 04:19 Dose: 0.07 mcg/kg/min, 14.56 mls/hr Insulin Human Lispro (Insulin Lispro 100 Unit/Ml 3 Ml Vial) 0 unit SUBCUT Q6H [facility]; Protocol Sodium Chloride (0.9 % Sodium Chloride Flush 3 Ml Syringe) 3 ml IVFLUSH QSHIFT [facility] Last Admin: 07/03/25 08:57 Dose: 3 ml Spironolactone (Spironolactone 25 Mg Tablet) 50 mg PO BID [facility]; Protocol Last Admin: 07/03/25 08:30 Dose: Not Given Vitamin D (Cholecalciferol (Vitamin D3) 25 Mcg Tablet) 25 mcg PO DAILY [facility] Last Admin: 07/03/25 08:30 Dose: Not Given Home Medications ?Medication ?Instructions ?Recorded ?Confirmed ?Last Taken ?Type cholecalciferol (vitamin D3) 25 25 mcg PO DAILY 09/21/20 07/02/25 06/02/25 History mcg (1,000 unit) tablet multivitamin 1 tab PO DAILY 09/21/20 07/02/25 06/02/25 History Exam Height,Weight and Vital Signs: Height 5 ft 8 in Weight 105 kg Last Vital Signs Temp 98.2 F 07/03/25 08:00 Pulse 65 07/03/25 08:00 Resp 19 07/03/25 08:00 BP 91/53 L 07/03/25 08:00 Pulse Ox 93 07/03/25 08:00 O2 Del Method Nasal Cannula, Oxymask 07/03/25 08:00 O2 Flow Rate 6 07/03/25 08:00 FiO2 24 07/03/25 05:00 Pertinent Lab Results Pertinent Lab Results: Laboratory Tests 07/01/25 07/01/25 07/01/25 16:40 17:09 18:28 WBC 9.6 RBC 3.48 L D Hgb 10.6 L D Hct 31.5 L D MCV 90.5 MCH 30.5 MCHC 33.7 RDW 14.8 Plt Count 281 MPV 8.9 L Immature Gran % (Auto) 0.2 Neut % (Auto) 53.8 Lymph % (Auto) 36.2 [place] % (Auto) 7.9 Eos % (Auto) 1.2 Baso % (Auto) 0.7 Lymph # (Auto) 3.5 [place] # (Auto) 0.8 Eos # (Auto) 0.1 Baso # (Auto) 0.1 Abs Immat Gran (auto) 0.02 Absolute Neuts (auto) 5.1 Absolute Nucleated RBC 0.000 Nucleated RBC % (auto) 0.0 PT 11.7 INR 1.0 O2 Saturation ABG pH at Pt Temp ABG pCO2 at Pt Temp ABG pO2 at Pt Temp ABG HCO3 ABG Base Excess (Actual) VBG pH VBG pCO2 VBG pO2 VBG HCO3 VBG O2 Saturation VBG Base Excess Sodium 136 Potassium 4.4 D Chloride 108 Carbon Dioxide 23 Anion Gap 9 L BUN 9 Creatinine 0.70 Estim Creat Clear Calc 144.0 Estimated GFR > 60 Random Glucose 181 H Lactic Acid 1.6 Calcium 8.5 Phosphorus Magnesium Total Bilirubin 0.4 AST 53 H ALT 37 Alkaline Phosphatase 51 Ammonia Troponin I High Sens NT-Pro-B Natriuret Pep Total Protein 6.2 L Albumin 3.7 TSH 1.28 Urine Color Yellow Urine Appearance Turbid Urine pH 5.0 Ur Specific [place] 1.015 Urine Protein 30 (1+) H Urine Glucose (UA) Negative Urine Ketones Negative Urine Blood Moderate (2+) H Urine Nitrite Positive H Ur Leukocyte Esterase Large (3+) H Urine RBC 3-5 H Urine WBC >50 H Ur Squamous Epith Cells 6-10 Urine Bacteria 4+ Hyaline Casts 0-2 Urine Opiates Screen Not Detected Ur Buprenorphine Scrn Not Detected Ur Oxycodone Screen Not Detected Urine Methadone Screen Not Detected Urine Fentanyl Screen Not Detected Ur Barbiturates Screen Not Detected Ur Phencyclidine Scrn Not Detected Ur Amphetamines Screen Not Detected U Benzodiazepines Scrn Not Detected Urine Cocaine Screen Not Detected U Marijuana (THC) Screen Not Detected Ethyl Alcohol < 10 COVID-19 (JEREL) Negative COVID-19 Clin Com See Note 07/02/25 07/03/25 07/03/25 04:16 01:21 01:30 WBC 8.4 RBC 3.49 L Hgb 10.7 L Hct 32.0 L MCV 91.7 MCH 30.7 MCHC 33.4 RDW 14.9 Plt Count 264 MPV 9.1 L Immature Gran % (Auto) 0.4 Neut % (Auto) 55.5 Lymph % (Auto) 33.5 [place] % (Auto) 7.4 Eos % (Auto) 2.6 Baso % (Auto) 0.6 Lymph # (Auto) 2.8 [place] # (Auto) 0.6 Eos # (Auto) 0.2 Baso # (Auto) 0.1 Abs Immat Gran (auto) 0.03 Absolute Neuts (auto) 4.7 Absolute Nucleated RBC 0.000 Nucleated RBC % (auto) 0.0 PT INR O2 Saturation 97.0 ABG pH at Pt Temp 7.19 L* ABG pCO2 at Pt Temp 75 H* ABG pO2 at Pt Temp 116 H ABG HCO3 29 H ABG Base Excess (Actual) -0.6 VBG pH VBG pCO2 VBG pO2 VBG HCO3 VBG O2 Saturation VBG Base Excess Sodium 139 141 Potassium 4.1 3.7 Chloride 108 106 Carbon Dioxide 23 25 Anion Gap 12 14 BUN 8 L 8 L Creatinine 0.64 0.71 Estim Creat Clear Calc 157.5 141.9 Estimated GFR > 60 > 60 Random Glucose 90 231 H Lactic Acid 0.7 Calcium 8.5 8.8 Phosphorus 5.8 H Magnesium 2.0 Total Bilirubin AST ALT Alkaline Phosphatase Ammonia Troponin I High Sens 18.9 D NT-Pro-B Natriuret Pep 444.3 H Total Protein Albumin TSH Urine Color Urine Appearance Urine pH Ur Specific [place] Urine Protein Urine Glucose (UA) Urine Ketones Urine Blood Urine Nitrite Ur Leukocyte Esterase Urine RBC Urine WBC Ur Squamous Epith Cells Urine Bacteria Hyaline Casts Urine Opiates Screen Ur Buprenorphine Scrn Ur Oxycodone Screen Urine Methadone Screen Urine Fentanyl Screen Ur Barbiturates Screen Ur Phencyclidine Scrn Ur Amphetamines Screen U Benzodiazepines Scrn Urine Cocaine Screen U Marijuana (THC) Screen Ethyl Alcohol COVID-19 ([facility]EL) COVID-19 Clin Com 07/03/25 07/03/25 02:22 05:20 WBC 12.5 H RBC 3.88 L Hgb 11.5 L Hct 35.9 L MCV 92.5 MCH 29.6 MCHC 32.0 RDW 14.7 Plt Count 313 MPV 8.9 L Immature Gran % (Auto) 0.4 Neut % (Auto) 76.3 H Lymph % (Auto) 14.1 L [place] % (Auto) 7.9 Eos % (Auto) 0.7 Baso % (Auto) 0.6 Lymph # (Auto) 1.8 [place] # (Auto) 1.0 Eos # (Auto) 0.1 Baso # (Auto) 0.1 Abs Immat Gran (auto) 0.05 H Absolute Neuts (auto) 9.5 H Absolute Nucleated RBC 0.000 Nucleated RBC % (auto) 0.0 PT INR O2 Saturation 99.0 ABG pH at Pt Temp 7.41 ABG pCO2 at Pt Temp 39 ABG pO2 at Pt Temp 109 H ABG HCO3 25 ABG Base Excess (Actual) 1.0 VBG pH 7.38 VBG pCO2 47 VBG pO2 55 VBG HCO3 28 H VBG O2 Saturation 82.0 VBG Base Excess 2.4 Sodium 140 Potassium 4.4 Chloride 104 Carbon Dioxide 25 Anion Gap 15 BUN 8 L Creatinine 0.73 Estim Creat Clear Calc 138.1 Estimated GFR > 60 Random Glucose 186 H Lactic Acid Calcium 9.0 Phosphorus 4.9 H Magnesium 2.0 Total Bilirubin AST ALT Alkaline Phosphatase Ammonia 32 Troponin I High Sens NT-Pro-B Natriuret Pep Total Protein Albumin 3.8 TSH Urine Color Urine Appearance Urine pH Ur Specific [place] Urine Protein Urine Glucose (UA) Urine Ketones Urine Blood Urine Nitrite Ur Leukocyte Esterase Urine RBC Urine WBC Ur Squamous Epith Cells Urine Bacteria Hyaline Casts Urine Opiates Screen Ur Buprenorphine Scrn Ur Oxycodone Screen Urine Methadone Screen Urine Fentanyl Screen Ur Barbiturates Screen Ur Phencyclidine Scrn Ur Amphetamines Screen U Benzodiazepines Scrn Urine Cocaine Screen U Marijuana (THC) Screen Ethyl Alcohol COVID-19 ([facility]) COVID-19 Clin Com Documented by User: Sarah Lopez MD 07/03/25 09:12 [facility] Past Medical History Medical History Urinary incontinence Morbid obesity with BMI of 40.0-44.9, adult Morbid obesity with BMI of 45.0-49.9, adult Mood disorder Obstructive sleep apnea Type 2 diabetes mellitus without complication, without long-term current use of insulin Hypertriglyceridemia Lymphedema of both lower extremities Lymphedema Family History Family History Father Medical history unknown Mother Diabetes Other Mental health problem Family history of problems with anesthesia: No Surgical History Surgical History History of myringotomy History of tonsillectomy History of Problems with Anesthesia: No Social History Social History Household Members: Family and Caregiver Household Members Other:: aunt/uncle Housing: House Do you presently have visiting nurse or other home services: No Alcohol intake: never Comment: 1:1 at bedside Patient Tobacco Use Status: Never used Tobacco e-Cigarette/Vaping Use: Never Used Second Hand Smoke Exposure: No service: No Current occupational status: disabled Cognitive needs: No Hearing needs: No Vision needs: Yes (Glasses) Meds Allergies Allergy/AdvReac Type Severity Reaction Status Date / Time No Known Allergies Allergy Verified 07/01/25 16:25 Home Medications ?Medication ?Instructions ?Recorded ?Confirmed ?Last Taken ?Type cholecalciferol (vitamin D3) 25 25 mcg PO DAILY 09/21/20 07/02/25 06/02/25 History mcg (1,000 unit) tablet multivitamin 1 tab PO DAILY 09/21/20 07/02/25 06/02/25 History Exam Airway Mallampati Class: III (not cooperative, difficult to access) Heart: rrr Lungs: clear shallow breaths, diminished at base Assessment and Plan Assessment Anesthesia Assessment: Anesthesia Plan Discussed and Chart Reviewed Final Anesthetic Review Family History of Problems with Anesthesia: No History of Problems with Anesthesia: No NPO: Yes ASA Class: III and Emergency Final Preanesthetic Review: No Changes in Pt Med Stat, Meds/Allgs Chart Reviewed and Consent Obtained/Reviewed Patient Risk: Intermediate Procedure Risk: Low Anesthetic Plan Anesthetic Plan: GA (plan to intubate, necessaty to secure airway concern for aspiration) Disposition: Standard PACU
--- NOTE | 2025-07-03 09:04 | MHC.SHP ---
Pre-Procedural Eval Section A - 24 Hr Update-Section A only Date of Service: 07/03/25 The patient is an INPATIENT: Yes The patient has been examined within 24 hours of the surgical procedure. The History & Physical has been completed within 30 days and I have reviewed it.: Yes Section B - Complete if H&P > 30 days Chief Complaint: AMS, UTI Details of Present Illness: Shawn is in the ICU on pressor support, unable to catheterize or cystoscopy, due to long tight ureteral stricture, urinary retention, greater than 650 mL. Allergies: Allergies Allergy/AdvReac Type Severity Reaction Status Date / Time No Known Allergies Allergy Verified 07/01/25 16:25 Plan I have reviewed the history and physical and performed a pertinent physical examination on my patient. No changes have occurred unless specified. Unable to reach Brandi Rahman, pt's proxy, tried several times, reached out to risk management. In discussion with ICU Attending, patient needs adequate urinary drainage, in UTI Sepsis. Pt is Obese. Plan Emergent Suprapubic tube. Time Spent With Patient Time: Total time managing care of this patient today ____ minutes.
[2025-07-03] MEDS: Gentamicin Sulfate 160 MG in 0.9 % Sodium Chloride 100 ML 100 MG IV (09:45)
--- NOTE | 2025-07-03 10:18 | P.OP_ITS ---
Operative Note Operative Note Date of Service: 07/03/25 Narrative: PREOP DIAGNOSIS: UTI Sepsis, Urethra Stricture POSTOP DIAGNOSIS: UTI Sepsis, Urethra Stricture PROCEDURE: Cystotomy, Suprapubic tube insertion, Bladder ultrasound SURGEON: Maurisio Mccormack MD ANESTHESIA: General Details of procedure: The patient was brought into the operating room placed on the OR table in supine position. 2 g of Ancef IV. Gentamicin 160 mg IV General anesthesia was administered. The patient was prepped and draped in the usual sterile fashion. Time-out was done. Attention was taken to the abdomen. Bladder Ultrasound was done, measuring greater than 400 mL. A spinal needle was placed 2 finger breaths above the pubic bone in the midline, and urine was verified, followed by a small incision was made through the skin, the Subcutaneous tissue was with Mets bluntly to the fascia the SP tube trochar was placed through the incision into the bladder the Villafuerte was placed into the bladder 10 cc in the balloon urine return was seen immediately. 3-0 chromic was used to secure the Villafuerte and approximate the subcutaneous tissue, 2- 0 nylon was used on the skin to secure the Villafuerte catheter. Complications: None EBL: minimal (<5 mL) Drains:16 fr villafuerte catheter
--- NOTE | 2025-07-03 10:38 | PC.RT ---
Pt returned to ICU from OR intubated w/ 8.0 ETT 25cm @lip. Pt placed on mechanical ventilation as documented and lm well. Will continue to monitor and wean as tolerated.
[2025-07-03] MEDS: Albuterol/Iprat 2.5/0.5MG 3 ML AMPUL.NEB INHALE ×3 (10:40→18:45)
--- NOTE | 2025-07-03 12:16 | HO.WOUND ---
Wound Consult: Initial 55yr [place] [facility] [place] - See progress notes and H&P for detailed history. Wound consult placed for arms, perineum. Patient agreeable to assessment and photo documentation. Patient seen in the ICU, intubated at sedated. left arm right arm left leg right leg Etiology: multiple intact dry stable scabs to bilateral arms and legs, likely due to picking Wound Bed: dry scabs Drainage / Odor: none [place] wound: ? No Induration, Fluctuance or Warmth noted - mild localized redness Pain: none Goals of Treatment: ? leave open to air Groin Etiology: MASD/IAD Wound Bed: intact moist pink Drainage / Odor: none [place] wound: ? No Induration, Fluctuance or Warmth noted Pain: none Goals of Treatment: ? moisture barrier Lip - appears herptic in nature, now crusted lesion. surrounding skin blanching not pressure related Recommendations: 1. Turn and Reposition every 2 hours and as needed for patient comfort. Use pillows or wedges to support off loading positions. 2. Off Load all bony prominences with use of pillows and heel boots if needed. Apply Preventative foams where needed. 3. Monitor for incontinence and moisture control, use barrier creams when needed for prevention and treatment. 4. Provide adequate and supplemental nutrition. 5. Order or Continue low air loss mattress. 6. When applicable maintain blood glucose levels per Providers order. Perineum/groin: Off Load Pressure with Q2 hr turns and use of pillows - Cleanse with PH balance spray or wipes, pat dry. ?Apply thin layer of barrier cream to affected area. Apply twice daily and Reapply thin layer PRN after each episode of incontinence. Bilateral arms/legs: routine hygiene, leave open to air Re-consult wound care Nurse for wound deterioration or wound changes.
--- NOTE | 2025-07-03 12:44 | MHC.CM.PN ---
Pt transferred to ICU for pressor and high flow O2 support: pt from home w/family: d/c planning ongoing and dependent on pt's functional ability following acute care. CM to follow
[2025-07-03] MEDS: dexmedeTOMIDine HCL/NS 400 MCG/100 ML PLAST..BAG 41.59 MCG IVCONT ×5 (13:20→23:19)
[2025-07-03 18:30] LABS: Glucose, Whole Blood 156 mg/dL (60-115)
--- NOTE | 2025-07-03 19:24 | PC.NURSE ---
Addendum entered by Elayne Pollock RN 07/04/25 06:24: Correction Pt. transported to OR at approx 0900 07/03 for suprapubic cath placement with Dr. Solomon in OR- see operative notes. Original Note: Assumed care at 0700- pt. on precedex initally. Urology at bedside, pt. transported to OR at approx 0900 for bedside cystoscopy. Pt. arrived back to ICU intubated at approx. 1030- precedex paused and propofol hung per NOV. pt. placed on PSV vent settings (see vent assessment) tracking and following commands. Propofol paused at 1200, pt. extubated per MD order at 1215. pt. with increasing agitation, precedex titrated back on per NOV. Currently pt. A&O to self and place, agitated and anxious, continues to pull at tubes/lines, occasionally responds to redirections. 1:1 sitter at bedside, avasys camera in place, B/L soft wrist restraints per MD order. SR/SB on tele, HR 50s-70s with 1st degree AVB. Levophed titrated per NOV. 6L oxymask to maintain O2 sat >88%. NPO pending nursing swallow, unable to perform this shift d/t drowsiness/labile behavior. Wound at bedside to assess skin- see wound note. Q2 repositioning performed. Family at bedside, updated by MD. Plan of care ongoing.
[2025-07-03 23:35] LABS: Glucose, Whole Blood 147 mg/dL (60-115)
[2025-07-04] VITALS (39 sets, daily range): BP systolic 89–137; BP diastolic 27–89; PULSE 51–82; RESP 12–28; TEMP 35.9–36.6; O2SAT 90–96; BMI 35.4
[2025-07-04] MEDS: dexmedeTOMIDine HCL/NS 400 MCG/100 ML PLAST..BAG 41.59 MCG IVCONT ×4 (01:26→16:12)
[2025-07-04 05:07] LABS: Venous Blood Gas Refer to POC result
[2025-07-04 05:09] LABS: VBG HCO3 31 mmol/L (22-26); VBG O2 % Saturation 91.0 %
[2025-07-04 05:33] LABS: Hematocrit 35.1 % (42.0-52.0); Hemoglobin 11.3 g/dl (14.0-18.0); Imm Gran Abs Auto 0.03 X10*3/uL (0.00-0.03); Imm Gran Pct Auto 0.3 % (0.0-0.4); Lymphocytes Absolute Auto 1.6 X10*3/uL (1.2-4.9); MANUAL DIFF FLAG NO; Mean Corpuscular HGB Conc 32.2 g/dl (31.0-36.0); Mean Corpuscular Hemoglobin 29.5 pg (27.0-33.0); Mean Corpuscular Volume 91.6 fL (80.0-98.0); NRBC Abs Auto 0.000 X10*3/uL (0.0-0.012); NRBC Pct Auto 0.0 /100WBC (0.0-0.2); Platelet Count 284 X10*3/uL (160-400); Red Blood Count 3.83 X10*6/uL (4.60-5.80); White Blood Count 9.4 X10*3/uL (4.8-10.8)
[2025-07-04 05:48] LABS: Albumin Level 3.6 g/dL (3.5-5.0); Anion Gap 12 (12-20); Blood Urea Nitrogen 8 mg/dL (9-16); Calcium 8.5 mg/dL (8.4-10.2); Carbon Dioxide 28 mmol/L (22-29); Chloride 105 mmol/L (96-108); Creatinine Clr Calc Pharmacy 178.7; Estimated Glomerular Filt Rate > 60; Magnesium 2.1 mg/dL (1.6-2.6); Potassium 3.8 mmol/L (3.3-5.1); Sodium 141 mmol/L (135-145)
[2025-07-04] MEDS: dexmedeTOMIDine HCL/NS 400 MCG/100 ML PLAST..BAG 30.5 MCG IVCONT ×2 (06:19→22:08)
--- NOTE | 2025-07-04 06:40 | PC.NURSE ---
Assumed care of this patient at ~19:00. Patient remains in the ICU on a precedex gtt and levophed, both titrated per MAR/LOCKSTITCH WAISTBAND SETTER verbal orders. Patient remains in bilateral soft wrist restraints for line/IV/medical record transcriber including oxymask integrity and patient safety, as unable to redirect. Patient attempting to quickly grab at tubes, lines, and suprapubic catheter when releasing restraints for ROM and care. 1:[address] 19:00-23:00; replaced 05:00 when patient was placed on bipap by RT for increased work of breathing per LOCKSTITCH WAISTBAND SETTER Sid verbal request. In-room VMT camera in place and confirmed functional on assuming care, continued overnight. +Effect, work of breathing improved.? Spo2 maintained per orders. Patient sinus celeste to NSR 50's to 60's on tele. Pt remains NPO per LOCKSTITCH WAISTBAND SETTER verbal orders due to drowsiness/difficulty following commands/ anticipated bipap needs. Suprapubic catheter remains in place, intact and patent of odorless clear yellow urine. Catheter care provided. Dressing remains c/d/i. Patient appears comfortable and in no distress. Assisted with q2hr turning and repositioning. Bed low/locked, safety measures and aspiration precautions in place. Please see shift assessments, tasks in worklist, and MAR for full details. Plan of care ongoing.?
[2025-07-04] MEDS: Albuterol/Iprat 2.5/0.5MG 3 ML AMPUL.NEB INHALE ×4 (07:51→18:38)
[2025-07-04] MEDS: 0.9 % Sodium Chloride Flush 3 ML SYRINGE IVFLUSH ×3 (07:55→23:59)
--- NOTE | 2025-07-04 08:34 | P.PNCC_ITS ---
Subjective Subjective Date of Service: 07/04/25 Interval History: no significant overnight events; persistent encephalopathy Critical Care Time (minutes): 60 Physical Exam 2 Vital Signs: Vital Signs: Last Vital Signs Temp 96.7 F L 07/04/25 08:00 Pulse 71 07/04/25 08:00 Resp 18 07/04/25 08:00 BP 124/62 07/04/25 08:00 Pulse Ox 91 L 07/04/25 08:00 O2 Del Method BiPAP 07/04/25 08:00 O2 Flow Rate 6 07/04/25 04:00 FiO2 21 07/04/25 08:00 BMI result Body Mass Index 35.4 Const: General: comfortable, no acute distress and well developed HEENT: Head: Yes normal to inspection, Yes normocephalic and Yes atraumatic Eyes: General: appearance normal, both eyes and all related structures Neck: Neck: Yes normal visual inspection, Yes full ROM, Yes no meningeal signs, Yes trachea midline and Yes supple Chest: Chest palpation & inspection: normal inspection of the chest Resp: Other: diminished breath sounds throughout; no appreciable overt rales, rhonchi, wheezing Effort & Inspection: normal respiratory effort Cardio: Rate: regular rate Rhythm: regular rhythm GI: Inspection: Yes normal to inspection, No Abdominal wall edema and No distended Palpation (GI): Soft to palpation, not firm, nontender, no guarding and not rigid : Other: appreciable suprapubic catheter; bandage clean, dry, intact Skin: Other: appreciable chronic venous stasis changes and ecchymoses bilateral lower extremities Neuro: General: tone normal, moves all extremities and no meningeal signs Extrem: Other: appreciable 1+ pitting edema to bilateral shins General: Yes normal to inspection, Yes full ROM and Yes capillary refill normal Psych: Other: intermittent agitation Objective Data Labs 07/04/25 05:00 07/04/25 05:00 Labs: Laboratory Results - last 24 hr 07/03/25 07/03/25 07/04/25 18:21 23:17 05:00 WBC 9.4 RBC 3.83 L Hgb 11.3 L Hct 35.1 L MCV 91.6 MCH 29.5 MCHC 32.2 RDW 14.4 Plt Count 284 MPV 9.0 L Immature Gran % (Auto) 0.3 Neut % (Auto) 71.5 Lymph % (Auto) 17.5 L [place] % (Auto) 7.2 Eos % (Auto) 2.9 Baso % (Auto) 0.6 Lymph # (Auto) 1.6 [place] # (Auto) 0.7 Eos # (Auto) 0.3 Baso # (Auto) 0.1 Abs Immat Gran (auto) 0.03 Absolute Neuts (auto) 6.7 Absolute Nucleated RBC 0.000 Nucleated RBC % (auto) 0.0 VBG pH VBG pCO2 VBG pO2 VBG HCO3 VBG O2 Saturation VBG Base Excess Sodium 141 Potassium 3.8 Chloride 105 Carbon Dioxide 28 Anion Gap 12 BUN 8 L Creatinine 0.55 Estim Creat Clear Calc 178.7 Estimated GFR > 60 POC Glucose 156 H 147 H Random Glucose 161 H Calcium 8.5 Phosphorus 3.1 Magnesium 2.1 Albumin 3.6 07/04/25 05:06 WBC RBC Hgb Hct MCV MCH MCHC RDW Plt Count MPV Immature Gran % (Auto) Neut % (Auto) Lymph % (Auto) [place] % (Auto) Eos % (Auto) Baso % (Auto) Lymph # (Auto) [place] # (Auto) Eos # (Auto) Baso # (Auto) Abs Immat Gran (auto) Absolute Neuts (auto) Absolute Nucleated RBC Nucleated RBC % (auto) VBG pH 7.49 H VBG pCO2 40 VBG pO2 63 VBG HCO3 31 H VBG O2 Saturation 91.0 VBG Base Excess 7.7 Sodium Potassium Chloride Carbon Dioxide Anion Gap BUN Creatinine Estim Creat Clear Calc Estimated GFR POC Glucose Random Glucose Calcium Phosphorus Magnesium Albumin Microbiology Microbiology Results: Microbiology 07/01/25 18:33 Blood - Venous Blood Culture - Preliminary No growth after 48 hours. 07/01/25 18:28 Blood - Venous Blood Culture - Preliminary No growth after 48 hours. 07/01/25 Unknown Urine clean catch - Clean Catch Midstream Urine Culture - Final Progress Note: A&P Assessment and plan (1) Encephalopathy: Status: Acute (2) Urinary tract infection: Status: Acute (3) Urinary retention: Status: Acute Plan Patient is a 55 Y M w/ developmental delay, hyperlipidemia, diabetes mellitus, c/b morbid obesity, w/ prior urinary tract infections, presenting to ED on 07/01 w/ encephalopathy; ED work-up suggestive of urinary tract infection, admitted medicine; hospital course c/b persistent encephalopathy, necessitating sedating medications; on 07/02, patient obtunded c/b acute hypercarbic respiratory failure in setting of sedating medications, initiated on non-invasive ventilation N: encephalopathy, likely toxic-metabolic, to continue to monitor; dexmedetomidine gtt, wean as tolerated, judicious use of sedating medications; developmental delay CV: hypotension w/o overt signs of shock, norepinephrine gtt, wean as tolerated R: acute hypercarbic respiratory failure d/t sedating medications, s/p non- invasive ventilation, improved; likely ASHLEY, non-invasive ventilation PM and naps GI: NPO while encephalopathic, otherwise advance as tolerated : urinary tract infection likely d/t urinary obstruction, s/p suprapubic catheter 07/03; to monitor renal indices/electrolytes H: no acute issues; chemical DVT prophylaxis ID: urinary tract infection, ceftriaxone E: diabetes mellitus, insulin sliding scale P: encephalopathy/agitation as described above Quality Stroke Does the patient have a stroke diagnosis?: No VTE Prior VTE?: No VTE Risk Level:: Medical - moderate - high VTE Device Contraindication: N/A - Device Ordered VTE Drug Contraindication: N/A - Med Ordered
[2025-07-04] MEDS: Furosemide 20 MG/2 ML VIAL IVPUSH ×2 (08:50→17:13)
[2025-07-04] MEDS: dexmedeTOMIDine HCL/NS 400 MCG/100 ML PLAST..BAG 19.41 MCG IVCONT (10:29)
[2025-07-04 11:08] LABS: Glucose, Whole Blood 151 mg/dL (60-115)
--- NOTE | 2025-07-04 12:19 | ECG_ITS ---
Test Reason : ekg changes Blood Pressure : */* mmHG Vent. Rate : 121 BPM Atrial Rate : 174 BPM P-R Int : * ms QRS Dur : 116 ms QT Int : 364 ms P-R-T Axes : * 103 17 degrees QTcB Int : 516 ms Poor data quality Undetermined rhythm Low voltage QRS Right bundle branch block Abnormal ECG When compared with ECG of 03-Jul-2025 01:01, Poor data quality in current ECG precludes serial comparison Referred By: Fabienne Henry Electronically Signed By: JANIE CRUMP MD
[2025-07-04 16:21] LABS: Glucose, Whole Blood 145 mg/dL (60-115)
--- NOTE | 2025-07-04 18:04 | PC.NURSE ---
Assumed care at 0700- pt. sedated with precedex, titrated per MAR. 1:[address], pt. restrained per paper documentation. At approx. 1030 pt. awake, A&O to self and place, calm and cooperative. pt. intermittently anxious but responding well to redirection. restraints released- see paper charting. Pt. requesting food- nursing bedside swallow eval performed, pt. passed. MD aware, diabetic diet ordered. lunch to bedside- pt. eating lunch extremely fast, excessively large bites, continuing to put food in mouth without swallowing previous bites- 1:1 feed recommended with sips of water in between. At approx. 1330, pt with increased agitation, pulling at tubes/lines, not responsive to redirection. Precedex gtt titrated per MAR with slight effect effect. at 1430 pt continues to pull at lines, attempting to get out of bed, pushing staff members- PRN versed given per MAR with good effect. at 1530 pt. again with increased agitation, pulling at lines- B/L wrist restrains reapplied per MD order. Currently- pt. resting comfortable with precedex gtt-arousable to vocal stimuli. SR/SB on tele with PVCs, HR 50s-70s. At approx. 1230 ECG changed noted on monitor, 12 lead obtained- see report. Levophed gtt continues per NOV. pt. on bipap 14/7 28% while resting, RA to 4L NC while awake. Suprapubic cath draining cyu. Q2 repositioning performed. Family at bedside and updated. Plan of care ongoing.
[2025-07-04] MEDS: dexmedeTOMIDine HCL/NS 400 MCG/100 ML PLAST..BAG 24.95 MCG IVCONT (18:45)
[2025-07-04 20:07] LABS: Glucose, Whole Blood 166 mg/dL (60-115)
[2025-07-05] VITALS (43 sets, daily range): BP systolic 72–153; BP diastolic 38–87; PULSE 47–141; RESP 11–40; TEMP 36.1–40; O2SAT 90–99; BMI 35.4
[2025-07-05] MEDS: dexmedeTOMIDine HCL/NS 400 MCG/100 ML PLAST..BAG 30.5 MCG IVCONT (01:02)
[2025-07-05] MEDS: dexmedeTOMIDine HCL/NS 400 MCG/100 ML PLAST..BAG 36.04 MCG IVCONT ×2 (04:01→06:00)
[2025-07-05 05:25] LABS: VBG HCO3 32 mmol/L (22-26); VBG O2 % Saturation 82.0 %
[2025-07-05 05:26] LABS: Venous Blood Gas Refer to POC result
[2025-07-05 05:31] LABS: MANUAL DIFF FLAG NO
[2025-07-05 05:34] LABS: Hematocrit 35.2 % (42.0-52.0); Hemoglobin 11.3 g/dl (14.0-18.0); Imm Gran Abs Auto 0.02 X10*3/uL (0.00-0.03); Imm Gran Pct Auto 0.2 % (0.0-0.4); Lymphocytes Absolute Auto 2.6 X10*3/uL (1.2-4.9); Mean Corpuscular HGB Conc 32.1 g/dl (31.0-36.0); Mean Corpuscular Hemoglobin 29.8 pg (27.0-33.0); Mean Corpuscular Volume 92.9 fL (80.0-98.0); NRBC Abs Auto 0.000 X10*3/uL (0.0-0.012); NRBC Pct Auto 0.0 /100WBC (0.0-0.2); Platelet Count 300 X10*3/uL (160-400); Red Blood Count 3.79 X10*6/uL (4.60-5.80); White Blood Count 8.3 X10*3/uL (4.8-10.8)
--- NOTE | 2025-07-05 05:41 | PC.NURSE ---
0540 Patient alert oriented x [address] Restless and agitated during night despite being on Precedix drip titrated, Versed prn and Hydroxyzine PO as documented in eMar. Medications providing short term effects of rest for approx 2-3 hours. Pt disregarding safety of Bipap, IV lines and SPT as restlessly moving in bed pulling at tubes in bed and pulling off Bipap intermittently . Patient speaking calmly but is confused to situation and time. Frequent redirection provied, minimize noise and lights dim to patient's preference and offering patient snack overnight in attempts to calm patient. Pt VS stable with Norepinephrine drip infusing per eMar. Bedbath and linens changed overnight. Davina Lau [employer]ING ENGINE[employer] updated throughout the night and care is ongoing.
[2025-07-05 05:44] LABS: Albumin Level 3.6 g/dL (3.5-5.0)
[2025-07-05 05:52] LABS: Anion Gap 13 (12-20); Blood Urea Nitrogen 11 mg/dL (9-16); Calcium 8.7 mg/dL (8.4-10.2); Carbon Dioxide 28 mmol/L (22-29); Chloride 101 mmol/L (96-108); Creatinine Clr Calc Pharmacy 153.6; Estimated Glomerular Filt Rate > 60; Magnesium 2.0 mg/dL (1.6-2.6); Potassium 3.3 mmol/L (3.3-5.1); Sodium 139 mmol/L (135-145)
[2025-07-05 07:38] LABS: Glucose, Whole Blood 161 mg/dL (60-115)
[2025-07-05] MEDS: Albuterol/Iprat 2.5/0.5MG 3 ML AMPUL.NEB INHALE ×4 (07:47→19:38)
[2025-07-05] MEDS: Furosemide 20 MG/2 ML VIAL IVPUSH ×2 (07:55→17:04)
[2025-07-05] MEDS: Potassium Chloride Packet 20 MEQ PACKET 40 MEQ PO (07:55)
[2025-07-05] MEDS: 0.9 % Sodium Chloride Flush 3 ML SYRINGE IVFLUSH ×3 (07:56→23:20)
--- NOTE | 2025-07-05 08:19 | PM.CCPN ---
Subjective Subjective Date of Service: 07/05/25 Interval History: no significant overnight events; intermittent agitation Critical Care Time (minutes): 60 Physical Exam Vital Signs: Vital Signs: Last Vital Signs Temp 97.3 F 07/05/25 05:00 Pulse 65 07/05/25 07:44 Resp 19 07/05/25 07:44 BP 125/54 L 07/05/25 07:14 Pulse Ox 92 07/05/25 07:00 O2 Del Method BiPAP 07/05/25 07:00 O2 Flow Rate 21 07/05/25 06:00 FiO2 21 07/05/25 07:36 BMI result Body Mass Index 35.4 Const: General: cooperative, healthy appearing, comfortable, no acute distress, well developed, alert, awake and Physically active Orientation/consciousness: oriented to person and oriented to place HEENT: Head: Yes normal to inspection, Yes normocephalic and Yes atraumatic Eyes: General: appearance normal, both eyes and all related structures Neck: Neck: Yes normal visual inspection, Yes full ROM, Yes no meningeal signs, Yes trachea midline and Yes supple Chest: Chest palpation & inspection: normal inspection of the chest Resp: Other: no appreciable overt rales, rhonchi, wheezing Effort & Inspection: normal respiratory effort Cardio: Rate: regular rate Rhythm: regular rhythm GI: Other: suprapubic catheter in place, bandage clean/dry/intact Inspection: Yes normal to inspection, No Abdominal wall edema and No distended Palpation (GI): Soft to palpation, not firm, nontender, no guarding and not rigid Skin: Other: appreciable bilateral chronic venous stasis changes; appreciable ecchymoses Neuro: General: oriented to person, oriented to place, tone normal, moves all extremities, no meningeal signs and no focal motor deficits Extrem: Other: appreciable 1+ pitting edema to bilateral shins General: Yes full ROM and Yes capillary refill normal Psych: Appearance: grossly normal Objective Data Labs 07/05/25 05:14 07/05/25 05:14 Labs: Laboratory Results - last 24 hr 07/04/25 07/04/25 07/04/25 11:04 16:18 20:02 WBC RBC Hgb Hct MCV MCH MCHC RDW Plt Count MPV Immature Gran % (Auto) Neut % (Auto) Lymph % (Auto) [place] % (Auto) Eos % (Auto) Baso % (Auto) Lymph # (Auto) [place] # (Auto) Eos # (Auto) Baso # (Auto) Abs Immat Gran (auto) Absolute Neuts (auto) Absolute Nucleated RBC Nucleated RBC % (auto) VBG pH VBG pCO2 VBG pO2 VBG HCO3 VBG O2 Saturation VBG Base Excess Sodium Potassium Chloride Carbon Dioxide Anion Gap BUN Creatinine Estim Creat Clear Calc Estimated GFR POC Glucose 151 H 145 H 166 H Random Glucose Calcium Phosphorus Magnesium Albumin 07/05/25 07/05/25 07/05/25 05:14 05:21 07:35 WBC 8.3 RBC 3.79 L Hgb 11.3 L Hct 35.2 L MCV 92.9 MCH 29.8 MCHC 32.1 RDW 14.3 Plt Count 300 MPV 9.0 L Immature Gran % (Auto) 0.2 Neut % (Auto) 51.9 Lymph % (Auto) 31.1 [place] % (Auto) 8.7 Eos % (Auto) 7.1 H Baso % (Auto) 1.0 Lymph # (Auto) 2.6 [place] # (Auto) 0.7 Eos # (Auto) 0.6 H Baso # (Auto) 0.1 Abs Immat Gran (auto) 0.02 Absolute Neuts (auto) 4.3 Absolute Nucleated RBC 0.000 Nucleated RBC % (auto) 0.0 VBG pH 7.51 H VBG pCO2 41 VBG pO2 53 VBG HCO3 32 H VBG O2 Saturation 82.0 VBG Base Excess 9.0 Sodium 139 Potassium 3.3 Chloride 101 Carbon Dioxide 28 Anion Gap 13 BUN 11 Creatinine 0.64 Estim Creat Clear Calc 153.6 Estimated GFR > 60 POC Glucose 161 H Random Glucose 193 H Calcium 8.7 Phosphorus 2.6 L Magnesium 2.0 Albumin 3.6 Microbiology Microbiology Results: Microbiology 07/01/25 18:33 Blood - Venous Blood Culture - Preliminary No growth after 48 hours. 07/01/25 18:28 Blood - Venous Blood Culture - Preliminary No growth after 48 hours. 07/01/25 Unknown Urine clean catch - Clean Catch Midstream Urine Culture - Final Progress Note: A&P Assessment and plan (1) Encephalopathy: Status: Acute (2) Urinary tract infection: Status: Acute (3) Urinary retention: Status: Acute Plan Patient is a 55 Y M w/ developmental delay, hyperlipidemia, diabetes mellitus, c/b morbid obesity, w/ prior urinary tract infections, presenting to ED on 07/01 w/ encephalopathy; ED work-up suggestive of urinary tract infection, admitted medicine; hospital course c/b persistent encephalopathy, necessitating sedating medications; on 07/02, patient obtunded c/b acute hypercarbic respiratory failure in setting of sedating medications, initiated on non-invasive ventilation N: encephalopathy, likely toxic-metabolic, improving; judicious use of sedating medications, olanzapine, midazolam as needed; developmental delay CV: hypotension w/o overt signs of shock, norepinephrine gtt, wean as tolerated R: acute hypercarbic respiratory failure d/t sedating medications, s/p non-invasive ventilation, improved; likely ASHLEY, non-invasive ventilation PM and naps GI: NPO while encephalopathic, otherwise advance as tolerated : urinary tract infection likely d/t urinary obstruction, s/p suprapubic catheter 07/03; to monitor renal indices/electrolytes H: no acute issues; chemical DVT prophylaxis ID: urinary tract infection, ceftriaxone E: diabetes mellitus, insulin sliding scale P: encephalopathy/agitation as described above Quality Stroke Does the patient have a stroke diagnosis?: No VTE Prior VTE?: No VTE Risk Level:: Medical - moderate - high VTE Device Contraindication: N/A - Device Ordered VTE Drug Contraindication: N/A - Med Ordered
[2025-07-05 11:32] LABS: Glucose, Whole Blood 133 mg/dL (60-115)
[2025-07-05 16:04] LABS: Glucose, Whole Blood 146 mg/dL (60-115)
--- NOTE | 2025-07-05 19:11 | PC.NURSE ---
Assumed care at 0700- levophed gtt weaned off per NOV. pt. remains restrained with 1:1 sitter, A&O to self and place, anxious and not redirectable. Pt pulling at tubes/line, attempting to get out of bed. At approx. 1230 HR sustaining 120s-130s, notified, no new orders at this time. At 1730 pt with increased agitation, HR 130s-140s, precedex gtt restarted per NOV. with good effect. Pt. with multiple incontinent episodes of loose stool. SPC in place draining CYU. Q2 repositioning performed. PLan of care ongoing.
[2025-07-05 20:36] LABS: Glucose, Whole Blood 164 mg/dL (60-115)
[2025-07-05] MEDS: dexmedeTOMIDine HCL/NS 400 MCG/100 ML PLAST..BAG 22.18 MCG IVCONT (20:52)
[2025-07-06] VITALS (22 sets, daily range): BP systolic 102–148; BP diastolic 39–85; PULSE 86–118; RESP 18–33; TEMP 36.1–37.1; O2SAT 93–99; BMI 35.4
--- NOTE | 2025-07-06 02:19 | PC.NURSE ---
This RN assumed care for pt at 1845. Pt remains in restraints with 1:1 sitter at bedside. A&O to self and place, anxious and nonredirectable. Pt attempted to get up out of bed. Precedex gtt weaned off. Levophed gtt restarted for low MAP at 2130, weaned down and off at 0118. Medicated for agitation per NOV. Lungs diminished. Skin assesment noted in chart. Suprapubic catheter patent and draining. RN continues to montior pt.
[2025-07-06 05:08] LABS: VBG HCO3 27 mmol/L (22-26); VBG O2 % Saturation 100.0 %
[2025-07-06 05:11] LABS: Venous Blood Gas Refer to POC result
[2025-07-06 05:50] LABS: MANUAL DIFF FLAG NO
[2025-07-06 06:01] LABS: Hematocrit 32.9 % (42.0-52.0); Hemoglobin 10.7 g/dl (14.0-18.0); Imm Gran Abs Auto 0.02 X10*3/uL (0.00-0.03); Imm Gran Pct Auto 0.2 % (0.0-0.4); Lymphocytes Absolute Auto 3.0 X10*3/uL (1.2-4.9); Mean Corpuscular HGB Conc 32.5 g/dl (31.0-36.0); Mean Corpuscular Hemoglobin 29.7 pg (27.0-33.0); Mean Corpuscular Volume 91.4 fL (80.0-98.0); NRBC Abs Auto 0.000 X10*3/uL (0.0-0.012); NRBC Pct Auto 0.0 /100WBC (0.0-0.2); Platelet Count 296 X10*3/uL (160-400); Red Blood Count 3.60 X10*6/uL (4.60-5.80); White Blood Count 8.8 X10*3/uL (4.8-10.8)
[2025-07-06 06:08] LABS: Albumin Level 3.5 g/dL (3.5-5.0); Anion Gap 13 (12-20); Blood Urea Nitrogen 13 mg/dL (9-16); Calcium 8.6 mg/dL (8.4-10.2); Carbon Dioxide 27 mmol/L (22-29); Chloride 102 mmol/L (96-108); Creatinine Clr Calc Pharmacy 151.2; Estimated Glomerular Filt Rate > 60; Magnesium 1.8 mg/dL (1.6-2.6); Potassium 3.1 mmol/L (3.3-5.1); Sodium 139 mmol/L (135-145)
[2025-07-06 07:30] LABS: Glucose, Whole Blood 130 mg/dL (60-115)
[2025-07-06] MEDS: Albuterol/Iprat 2.5/0.5MG 3 ML AMPUL.NEB INHALE ×3 (07:30→15:35)
[2025-07-06] MEDS: Potassium Chloride Packet 20 MEQ PACKET 40 MEQ PO (08:46)
[2025-07-06] MEDS: 0.9 % Sodium Chloride Flush 3 ML SYRINGE IVFLUSH ×3 (08:47→21:08)
--- NOTE | 2025-07-06 10:07 | P.PNCC_ITS ---
Subjective Subjective Date of Service: 07/06/25 Interval History: 55-year-old gentleman with underlying obesity, diabetes mellitus, cognitive Xolair, urinary incontinence hospitalized on 07/01/2025 with UTI and septic encephalopathy with hospital course further complicated by acute hypercapnic respiratory failure on a background of hi sedating medication requirement briefly requiring BiPAP support, transferred to intensive care unit and titrated off BiPAP support. Also, required Precedex drip for agitation, titrated off for the last 24 hours. No events overnight Critical Care Time (minutes): 0 Physical Exam 2 Vital Signs: Vital Signs: Last Vital Signs Temp 97.2 F 07/06/25 08:00 Pulse 106 H 07/06/25 10:00 Resp 18 07/06/25 10:00 BP 123/50 L 07/06/25 10:00 Pulse Ox 97 07/06/25 09:00 O2 Del Method Room Air 07/06/25 10:00 O2 Flow Rate 21 07/05/25 06:00 FiO2 21 07/05/25 07:36 BMI result Body Mass Index 35.4 Const: General: no acute distress, alert and awake Eyes: Sclerae: sclerae normal EOM: EOMs intact bilaterally Neck: Neck: Yes no lymphadenopathy, Yes trachea midline and Yes supple Resp: Effort & Inspection: normal respiratory effort and no respiratory distress Auscultation: clear to auscultation bilaterally Cardio: Rate: tachycardic Rhythm: regular rhythm Heart sounds: no gallops, no murmurs and no rubs GI: Palpation (GI): Soft to palpation and Other GI palpation findings present ( Nontender) Auscultation: normal bowel sounds Extrem: General: No clubbing, No cyanosis and Yes edema (Trace bilateral) Objective Data Labs 07/06/25 05:01 07/06/25 05:01 Labs: Laboratory Results - last 24 hr 07/05/25 07/05/25 07/05/25 11:22 16:00 20:31 WBC RBC Hgb Hct MCV MCH MCHC RDW Plt Count MPV Immature Gran % (Auto) Neut % (Auto) Lymph % (Auto) [place] % (Auto) Eos % (Auto) Baso % (Auto) Lymph # (Auto) [place] # (Auto) Eos # (Auto) Baso # (Auto) Abs Immat Gran (auto) Absolute Neuts (auto) Absolute Nucleated RBC Nucleated RBC % (auto) VBG pH VBG pCO2 VBG pO2 VBG HCO3 VBG O2 Saturation VBG Base Excess Sodium Potassium Chloride Carbon Dioxide Anion Gap BUN Creatinine Estim Creat Clear Calc Estimated GFR POC Glucose 133 H 146 H 164 H Random Glucose Calcium Phosphorus Magnesium Albumin 07/06/25 07/06/25 07/06/25 05:01 05:05 07:25 WBC 8.8 RBC 3.60 L Hgb 10.7 L Hct 32.9 L MCV 91.4 MCH 29.7 MCHC 32.5 RDW 14.1 Plt Count 296 MPV 9.1 L Immature Gran % (Auto) 0.2 Neut % (Auto) 52.1 Lymph % (Auto) 34.2 [place] % (Auto) 8.7 Eos % (Auto) 4.0 Baso % (Auto) 0.8 Lymph # (Auto) 3.0 [place] # (Auto) 0.8 Eos # (Auto) 0.4 Baso # (Auto) 0.1 Abs Immat Gran (auto) 0.02 Absolute Neuts (auto) 4.6 Absolute Nucleated RBC 0.000 Nucleated RBC % (auto) 0.0 VBG pH 7.52 H VBG pCO2 33 VBG pO2 108 VBG HCO3 27 H VBG O2 Saturation 100.0 VBG Base Excess 5.4 Sodium 139 Potassium 3.1 L Chloride 102 Carbon Dioxide 27 Anion Gap 13 BUN 13 Creatinine 0.65 Estim Creat Clear Calc 151.2 Estimated GFR > 60 POC Glucose 130 H Random Glucose 110 Calcium 8.6 Phosphorus 3.4 Magnesium 1.8 Albumin 3.5 Microbiology Microbiology Results: Microbiology 07/01/25 18:33 Blood - Venous Blood Culture - Preliminary No growth after 48 hours. 07/01/25 18:28 Blood - Venous Blood Culture - Preliminary No growth after 48 hours. 07/01/25 Unknown Urine clean catch - Clean Catch Midstream Urine Culture - Final Progress Note: A&P Assessment and plan (1) Morbid obesity with BMI of 40.0-44.9, adult: Status: Acute (2) Urinary tract infection: Status: Acute (3) Encephalopathy: Status: Acute (4) Obstructive sleep apnea: Status: Acute Plan Assessment: 55-year-old gentleman with underlying cognitive Xolair, obesity, urinary incontinence hospitalized on 07/01/2025 with UTI and encephalopathy with hospital course further complicated by over-sedation and hypercapnic respiratory failure briefly requiring BiPAP support, now titrated off. Plan: Neuro: Developmental delay with agitation, continue Zyprexa and p.r.n. Versed. Cardiac: No acute issues. Pulmonary: No acute issues. Renal: No acute issues. Endo: No acute issues. Underlying diabetes mellitus, continue subcutaneous insulin. GI: No acute issues. ID: Acute UTI, cultures negative to date, continue empiric ceftriaxone day 5/. Heme/Onc: No acute issues. Psych: No acute issues. Miscellaneous: No acute issues. Prophylaxis: Lovenox Diet: Regular Quality Stroke Does the patient have a stroke diagnosis?: No VTE Prior VTE?: No VTE Risk Level:: Medical - moderate - high VTE Device Contraindication: N/A - Device Ordered VTE Drug Contraindication: N/A - Med Ordered
--- NOTE | 2025-07-06 11:36 | PC.NURSE ---
Assumed care at 0700- pt. off precedex and levophed gtt. R leg noted to be significantly more swollen than L- MD notified. 1:1 sitter remains at bedside. B/L wrist restraints removed. Med Tele downgrade orders place, telephone report given to MT RN, pt. transported to [facility] at approx. 1100.
[2025-07-06 12:05] LABS: Glucose, Whole Blood 118 mg/dL (60-115)
[2025-07-06 16:03] LABS: Glucose, Whole Blood 128 mg/dL (60-115)
[2025-07-06 20:50] LABS: Glucose, Whole Blood 128 mg/dL (60-115)
[2025-07-07] VITALS (10 sets, daily range): BP systolic 116–136; BP diastolic 56–62; PULSE 78–100; RESP 16–20; TEMP 36.3–36.9; O2SAT 93–97
[2025-07-07 06:17] LABS: MANUAL DIFF FLAG NO
[2025-07-07 06:22] LABS: Hematocrit 34.1 % (42.0-52.0); Hemoglobin 11.2 g/dl (14.0-18.0); Imm Gran Abs Auto 0.03 X10*3/uL (0.00-0.03); Imm Gran Pct Auto 0.3 % (0.0-0.4); Lymphocytes Absolute Auto 1.9 X10*3/uL (1.2-4.9); Mean Corpuscular HGB Conc 32.8 g/dl (31.0-36.0); Mean Corpuscular Hemoglobin 29.9 pg (27.0-33.0); Mean Corpuscular Volume 90.9 fL (80.0-98.0); NRBC Abs Auto 0.000 X10*3/uL (0.0-0.012); NRBC Pct Auto 0.0 /100WBC (0.0-0.2); Platelet Count 294 X10*3/uL (160-400); Red Blood Count 3.75 X10*6/uL (4.60-5.80); White Blood Count 9.4 X10*3/uL (4.8-10.8)
[2025-07-07 06:44] LABS: Albumin Level 3.5 g/dL (3.5-5.0); Anion Gap 14 (12-20); Blood Urea Nitrogen 12 mg/dL (9-16); Calcium 8.8 mg/dL (8.4-10.2); Carbon Dioxide 25 mmol/L (22-29); Chloride 105 mmol/L (96-108); Creatinine Clr Calc Pharmacy 156.0; Estimated Glomerular Filt Rate > 60; Magnesium 1.9 mg/dL (1.6-2.6); Potassium 3.7 mmol/L (3.3-5.1); Sodium 140 mmol/L (135-145)
[2025-07-07] MEDS: Albuterol/Iprat 2.5/0.5MG 3 ML AMPUL.NEB INHALE ×4 (07:29→20:19)
[2025-07-07 08:17] LABS: Glucose, Whole Blood 175 mg/dL (60-115)
[2025-07-07] MEDS: 0.9 % Sodium Chloride Flush 3 ML SYRINGE IVFLUSH ×3 (08:25→21:04)
--- NOTE | 2025-07-07 09:41 | HO.PM.IMPN ---
Subjective Subjective Date of Service: 07/07/25 Interval History: no complaints Physical Exam Exam: Exam: Patient is alert but minimally verbal today, answering yes or no but otherwise non participatory, appears calm, bilateral lower extremity edema right greater than left, Multiple self-inflicted scabs on bilateral arms, lungs clear, abdomen soft and nontender Vital Signs: Vital Signs: Last Vital Signs Temp 98.5 F 07/07/25 08:00 Pulse 97 07/07/25 08:00 Resp 20 07/07/25 08:00 BP 123/56 L 07/07/25 08:00 Pulse Ox 94 07/07/25 08:00 O2 Del Method Room Air 07/07/25 08:00 O2 Flow Rate 21 07/05/25 06:00 FiO2 21 07/05/25 07:36 BMI result Body Mass Index 35.4 Objective Data Active Medications Albuterol/Ipratropium (Albuterol/Iprat 2.5/0.5mg 3 Ml Ampul.Neb) 3 ml INHALE RQ4H WHILE AWAKE [facility] Last Admin: 07/07/25 07:29 Dose: 3 ml Documented By: TERESA Ceftriaxone Sodium (Ceftriaxone Sodium 1 Gm Vial) 1 gm IVPUSH DAILY@2200 [facility] Last Admin: 07/06/25 21:07 Dose: 1 gm Documented By: ZOË Dextrose (Dextrose 50 % 25 Gm/50 Ml Syringe) 25 gm IVPUSH Q15M PRN; Protocol PRN Reason: per Hypoglycemia Standing Ord. Enoxaparin Sodium (Enoxaparin Sodium 40 Mg/0.4 Ml Syringe) 40 mg SUBCUT Q24H [facility] Last Admin: 07/07/25 00:30 Dose: 40 mg Documented By: ZOË Furosemide (Furosemide 40 Mg Tablet) 40 mg PO DAILY [facility]; Protocol Last Admin: 07/07/25 08:25 Dose: 40 mg Documented By: VONNIE Glucose (Glucose Gel 15 Gm Gel..Gram.) 15 gm PO Q15M PRN; Protocol PRN Reason: per Hypoglycemia Standing Ord. Hydromorphone HCl (Hydromorphone Hcl 0.5 Mg/0.5 Ml Syringe) 0.5 mg IVPUSH Q3H PRN; Protocol PRN Reason: Pain, Severe (Pain Scale 7-10) Last Admin: 07/06/25 17:53 Dose: 0.5 mg Documented By: SCOTT Hydroxyzine HCl (Hydroxyzine Hcl 10 Mg Tablet) 10 mg PO Q8H PRN PRN Reason: Itching Last Admin: 07/06/25 12:21 Dose: 10 mg Documented By: SCOTT Insulin Human Lispro (Insulin Lispro 100 Unit/Ml 3 Ml Vial) 0 unit SUBCUT QIDACHS [facility]; Protocol Last Admin: 07/07/25 08:25 Dose: Not Given Documented By: VONNIE Non-Admin Reason: Patient Refused Midazolam HCl (Midazolam Hcl 2 Mg/2 Ml Vial) 1 mg IVPUSH Q4H PRN PRN Reason: Agitation Multivitamins/Vitamin C (Multivitamin Tablet) 1 tab PO DAILY [facility] Last Admin: 07/07/25 08:25 Dose: 1 tab Documented By: VONNIE Olanzapine (Olanzapine 2.5 Mg Tablet) 2.5 mg PO Q4H [facility] Last Admin: 07/07/25 08:25 Dose: 2.5 mg Documented By: VONNIE Sodium Chloride (0.9 % Sodium Chloride Flush 3 Ml Syringe) 3 ml IVFLUSH QSHIFT [facility] Last Admin: 07/07/25 08:25 Dose: 3 ml Documented By: VONNIE Spironolactone (Spironolactone 25 Mg Tablet) 50 mg PO BID [facility]; Protocol Last Admin: 07/07/25 08:25 Dose: 50 mg Documented By: VONNIE Labs 07/07/25 05:48 07/07/25 05:48 Labs: Laboratory Results - last 24 hr 07/06/25 07/06/25 07/06/25 11:58 15:57 20:37 MCV MCH MCHC RDW Plt Count MPV Immature Gran % (Auto) Neut % (Auto) Lymph % (Auto) [place] % (Auto) Eos % (Auto) Baso % (Auto) Lymph # (Auto) [place] # (Auto) Eos # (Auto) Baso # (Auto) Abs Immat Gran (auto) Absolute Neuts (auto) Absolute Nucleated RBC Nucleated RBC % (auto) Anion Gap Estim Creat Clear Calc Estimated GFR POC Glucose 118 H 128 H 128 H Random Glucose Calcium Phosphorus Magnesium Albumin 07/07/25 07/07/25 05:48 08:13 MCV 90.9 MCH 29.9 MCHC 32.8 RDW 14.4 Plt Count 294 MPV 8.9 L Immature Gran % (Auto) 0.3 Neut % (Auto) 64.7 Lymph % (Auto) 20.2 [place] % (Auto) 8.5 Eos % (Auto) 5.4 H Baso % (Auto) 0.9 Lymph # (Auto) 1.9 [place] # (Auto) 0.8 Eos # (Auto) 0.5 H Baso # (Auto) 0.1 Abs Immat Gran (auto) 0.03 Absolute Neuts (auto) 6.1 Absolute Nucleated RBC 0.000 Nucleated RBC % (auto) 0.0 Anion Gap 14 Estim Creat Clear Calc 156.0 Estimated GFR > 60 POC Glucose 175 H Random Glucose 123 H Calcium 8.8 Phosphorus 3.6 Magnesium 1.9 Albumin 3.5 Microbiology Microbiology Results: Microbiology 07/01/25 18:33 Blood Culture - Final Blood - Venous No growth after 5 days. 07/01/25 18:28 Blood Culture - Final Blood - Venous No growth after 5 days. Assessment and Plan (1) Acute UTI: Status: Acute (2) Mood disorder: Status: Acute Plan 55F PMH obesity, urinary incontinence, diabetes type 2, hyperlipidemia, cognitive delay presented 07/01/25 with altered mental status/agitation, required multiple doses of antipsychotics and benzos for patient safety, course was then complicated by acute metabolic encephalopathy due to acute hypercapneic respiratory failure and transferred to ICU on 07/03/25 for bipap. in ICU resp status and lethargy improved but became increasingly combative requiring precedex, behaviours improved and was downgraded to medical floor 07/06/25 Acute delirium due to urinary tract infection due to urinary retention Completed course ceftriaxone, cultures negative s/p suprapubic 07/03/25 delerium improving, continue po zyprexa Acute metabolic encephalopathy due to acute hypercapnic respiratory failure Resolved Diabetes Insulin sliding scale Obesity Weight loss recommended DVT prophylaxis with Lovenox Full code reason for continued hospitalization: Monitoring for behavioral stability off Precedex Quality Stroke Does the patient have a stroke diagnosis?: No VTE Prior VTE?: No VTE Risk Level:: Medical - moderate - high VTE Device Contraindication: N/A - Device Ordered VTE Drug Contraindication: N/A - Med Ordered
--- NOTE | 2025-07-07 10:26 | MHC.CM.PN ---
Per ROUNDS discussion, Patient is not yet medically cleared for dc (recently downgraded from ICU); Patient may benefit from a PT Eval to assiast with disposition. CM will continue to follow.
[2025-07-07 10:47] LABS: Glucose, Whole Blood 134 mg/dL (60-115)
[2025-07-07 12:29] LABS: Glucose, Whole Blood 171 mg/dL (60-115)
--- NOTE | 2025-07-07 15:35 | MHC.CM.PN ---
CM met with Patient at bedside and, with Patient's permission, spoke with Aunt/Brandi @ listed # regarding PT's recommendation for STR. Patient and Aunt are in agreement to STR and the initiation of a SNF search. CM will follow.
[2025-07-07 16:18] LABS: Glucose, Whole Blood 170 mg/dL (60-115)
[2025-07-07 20:19] LABS: Glucose, Whole Blood 155 mg/dL (60-115)
[2025-07-08] VITALS (7 sets, daily range): BP systolic 119–144; BP diastolic 58–71; PULSE 90–98; RESP 16–20; TEMP 36.2–36.7; O2SAT 92–99; BMI 36.3
[2025-07-08 07:29] LABS: Glucose, Whole Blood 108 mg/dL (60-115)
[2025-07-08] MEDS: 0.9 % Sodium Chloride Flush 3 ML SYRINGE IVFLUSH ×3 (08:29→22:32)
--- NOTE | 2025-07-08 09:40 | MHC.CM.PN ---
CM assisted Patient with the completion of a HCP; he has named his Aunt Brandi as his Agent.
--- NOTE | 2025-07-08 10:32 | MHC.CM.PN ---
Per ROUNDS discussion, [facility] will be dc'd today. PT is recommending STR and Patient has SNF bed offers. CM will continue to follow.
[2025-07-08 11:30] LABS: Glucose, Whole Blood 147 mg/dL (60-115)
--- NOTE | 2025-07-08 12:22 | MHC.CM.PN ---
Per loss prevention guard, [facility] has been re-started.
--- NOTE | 2025-07-08 12:57 | P.CNPS_ITS ---
History of Present Illness Date of Service: 07/08/2025 Chief Complaint: AMS, UTI Reason for Consult: Management of agitation Requesting physician: Simón Beavers Discussed with referring provider: Yes Sources of Information: patient interviewed and chart reviewed HPI Narrative: 55F PMH obesity, urinary incontinence, diabetes type 2, hyperlipidemia, cognitive delay presented 07/01/25 with altered mental status/agitation, required multiple doses of antipsychotics and benzos for patient safety, course was then complicated by acute metabolic encephalopathy due to acute hypercapneic respiratory failure and transferred to ICU on 07/03/25 for bipap. in ICU resp status and lethargy improved but became increasingly combative requiring precedex, behaviours improved and was downgraded to medical floor 07/06/25. Patient was evaluated for agitation. According to nursing, patient was irritable and impulsive earlier today; he was reaching out to grab things. He received Versed and scheduled olanzapine which was increased to 5 mg twice daily and has been calm since taking the medication. This provided found the patient lying in his bed with sitter on the side. Patient states that he feels terrible. He notes that I'm freaking out. It's the end of the world. He does not know what is making him freaking out. He denies anxiety and depression. He denies SI/HI/AH/VH. He is calm and cooperative. Past Psychiatric History: Unable to obtain d/t patient mental status. [facility] Medical History Urinary incontinence Morbid obesity with BMI of 40.0-44.9, adult Morbid obesity with BMI of 45.0-49.9, adult Mood disorder Obstructive sleep apnea Type 2 diabetes mellitus without complication, without long-term current use of insulin Hypertriglyceridemia Lymphedema of both lower extremities Lymphedema Surgical History History of myringotomy History of tonsillectomy Diagnostics Vital Signs (24Hr): Vital Signs - 24 hr 07/07/25 15:04 07/07/25 16:00 07/07/25 19:12 Temperature 97.9 F 97.9 F Pulse Rate 82 91 93 Respiratory Rate 16 20 18 Blood Pressure 128/60 136/61 Pulse Oximetry 93 95 Oxygen Delivery Method Room Air Room Air 07/07/25 20:20 07/07/25 23:33 07/08/25 02:48 Temperature 97.9 F 98.1 F Pulse Rate 93 90 94 Respiratory Rate 18 20 16 Blood Pressure 120/60 119/60 Pulse Oximetry 94 92 Oxygen Delivery Method Room Air Room Air 07/08/25 07:20 07/08/25 11:13 Temperature 97.6 F 97.6 F Pulse Rate 97 92 Respiratory Rate 18 18 Blood Pressure 119/58 L 132/62 Pulse Oximetry 92 94 Oxygen Delivery Method Room Air Room Air BMI result Body Mass Index 36.3 Labs 07/07/25 05:48 07/07/25 05:48 Labs: Laboratory Results - last 48 hr 07/03/25 07/06/25 07/06/25 12:27 15:57 20:37 WBC RBC Hgb Hct MCV MCH MCHC RDW Plt Count MPV Immature Gran % (Auto) Neut % (Auto) Lymph % (Auto) [place] % (Auto) Eos % (Auto) Baso % (Auto) Lymph # (Auto) [place] # (Auto) Eos # (Auto) Baso # (Auto) Abs Immat Gran (auto) Absolute Neuts (auto) Absolute Nucleated RBC Nucleated RBC % (auto) Sodium Potassium Chloride Carbon Dioxide Anion Gap BUN Creatinine Estim Creat Clear Calc Estimated GFR POC Glucose 171 H 128 H 128 H Random Glucose Calcium Phosphorus Magnesium Albumin 07/07/25 07/07/25 07/07/25 05:48 08:13 10:40 WBC 9.4 RBC 3.75 L Hgb 11.2 L Hct 34.1 L MCV 90.9 MCH 29.9 MCHC 32.8 RDW 14.4 Plt Count 294 MPV 8.9 L Immature Gran % (Auto) 0.3 Neut % (Auto) 64.7 Lymph % (Auto) 20.2 [place] % (Auto) 8.5 Eos % (Auto) 5.4 H Baso % (Auto) 0.9 Lymph # (Auto) 1.9 [place] # (Auto) 0.8 Eos # (Auto) 0.5 H Baso # (Auto) 0.1 Abs Immat Gran (auto) 0.03 Absolute Neuts (auto) 6.1 Absolute Nucleated RBC 0.000 Nucleated RBC % (auto) 0.0 Sodium 140 Potassium 3.7 Chloride 105 Carbon Dioxide 25 Anion Gap 14 BUN 12 Creatinine 0.63 Estim Creat Clear Calc 156.0 Estimated GFR > 60 POC Glucose 175 H 134 H Random Glucose 123 H Calcium 8.8 Phosphorus 3.6 Magnesium 1.9 Albumin 3.5 07/07/25 07/07/25 07/08/25 16:14 20:08 07:19 WBC RBC Hgb Hct MCV MCH MCHC RDW Plt Count MPV Immature Gran % (Auto) Neut % (Auto) Lymph % (Auto) [place] % (Auto) Eos % (Auto) Baso % (Auto) Lymph # (Auto) [place] # (Auto) Eos # (Auto) Baso # (Auto) Abs Immat Gran (auto) Absolute Neuts (auto) Absolute Nucleated RBC Nucleated RBC % (auto) Sodium Potassium Chloride Carbon Dioxide Anion Gap BUN Creatinine Estim Creat Clear Calc Estimated GFR POC Glucose 170 H 155 H 108 Random Glucose Calcium Phosphorus Magnesium Albumin 07/08/25 11:10 WBC RBC Hgb Hct MCV MCH MCHC RDW Plt Count MPV Immature Gran % (Auto) Neut % (Auto) Lymph % (Auto) [place] % (Auto) Eos % (Auto) Baso % (Auto) Lymph # (Auto) [place] # (Auto) Eos # (Auto) Baso # (Auto) Abs Immat Gran (auto) Absolute Neuts (auto) Absolute Nucleated RBC Nucleated RBC % (auto) Sodium Potassium Chloride Carbon Dioxide Anion Gap BUN Creatinine Estim Creat Clear Calc Estimated GFR POC Glucose 147 H Random Glucose Calcium Phosphorus Magnesium Albumin Mental Status Exam Mental Status Exam Narrative: Appearance: Casually dressed, adequate hygiene Behavior: Calm and cooperative throughout the interview. Eye contact is appropriate, and there are no signs of psychomotor agitation or retardation Speech: Normal volume and prosody Thought process: Logical and goal-directed Thought content: Future oriented no self-harming thoughts Mood: terrible Affect: blunted SI:denies HI:denies VH/AH:none Delusions: None Insight/judgment: Fair insight and judgment Memory/cog: Alert and oriented to person, place, and time, grossly intact to conversational testing Medications Medications Current Medications Dextrose (Dextrose 50 % 25 Gm/50 Ml Syringe) 25 gm IVPUSH Q15M PRN; Protocol PRN Reason: per Hypoglycemia Standing Ord. Enoxaparin Sodium (Enoxaparin Sodium 40 Mg/0.4 Ml Syringe) 40 mg SUBCUT Q24H [facility] Last Admin: 07/08/25 01:01 Dose: 40 mg Furosemide (Furosemide 40 Mg Tablet) 40 mg PO DAILY [facility]; Protocol Last Admin: 07/08/25 08:29 Dose: 40 mg Glucose (Glucose Gel 15 Gm Gel..Gram.) 15 gm PO Q15M PRN; Protocol PRN Reason: per Hypoglycemia Standing Ord. Hydromorphone HCl (Hydromorphone Hcl 0.5 Mg/0.5 Ml Syringe) 0.5 mg IVPUSH Q3H PRN; Protocol PRN Reason: Pain, Severe (Pain Scale 7-10) Last Admin: 07/07/25 14:43 Dose: 0.5 mg Hydroxyzine HCl (Hydroxyzine Hcl 10 Mg Tablet) 10 mg PO Q8H PRN PRN Reason: Itching Last Admin: 07/08/25 11:59 Dose: 10 mg Insulin Human Lispro (Insulin Lispro 100 Unit/Ml 3 Ml Vial) 0 unit SUBCUT QIDACHS [facility]; Protocol Last Admin: 07/08/25 11:52 Dose: Not Given Midazolam HCl (Midazolam Hcl 2 Mg/2 Ml Vial) 1 mg IVPUSH Q4H PRN PRN Reason: Agitation Multivitamins/Vitamin C (Multivitamin Tablet) 1 tab PO DAILY [facility] Last Admin: 07/08/25 08:29 Dose: 1 tab Olanzapine (Olanzapine 5 Mg Tablet) 5 mg PO BID [facility] Sodium Chloride (0.9 % Sodium Chloride Flush 3 Ml Syringe) 3 ml IVFLUSH QSHIFT [facility] Last Admin: 07/08/25 08:29 Dose: 3 ml Spironolactone (Spironolactone 25 Mg Tablet) 50 mg PO BID [facility]; Protocol Last Admin: 07/08/25 08:29 Dose: 50 mg Allergies Allergies Allergy/AdvReac Type Severity Reaction Status Date / Time No Known Allergies Allergy Verified 07/01/25 16:25 Assessment & Plan Assessment & Plan (1) Mood disorder: Status: Acute Code(s): F39 - Unspecified mood [affective] disorder Plan HPI Patient was evaluated for agitation. According to nursing, patient was irritable and impulsive earlier today; he was reaching out to grab things. He received Versed and scheduled olanzapine which was increased to 5 mg twice daily and has been calm since taking the medication. This provided found the patient lying in his bed with sitter on the side. Patient states that he feels terrible. He notes that I'm freaking out. It's the end of the world. He does not know what is making him freaking out. He denies anxiety and depression. He denies SI/HI/AH/VH. He is calm and cooperative. Plan Recommended current treatment regiment with PRN versed and olanzapine 5mg BID (may increase to 10mg BID). Also recommended consideration of treatment options on 07/02 psych consult. Total time managing care of this patient today ____ minutes. Patient educated on: therapeutic strategies
[2025-07-08] MEDS: OLANZapine 10 MG VIAL IM (14:23)
[2025-07-08 16:47] LABS: Glucose, Whole Blood 151 mg/dL (60-115)
--- NOTE | 2025-07-08 17:06 | P.PNIM_ITS ---
Subjective Subjective Date of Service: 07/08/25 Interval History: uti Review of Systems delirum-intermitent very agiatated no fever or sob orchills Review of Systems: Yes all other systems are reviewed and are negative Physical Exam 2 Exam: Exam: Appearance appears agitated. Somewhat delirious cvs: rrr, [id number] , no murmur res: clear to auscultation ,no rhonchii or wheezing abd: no rebound or guarding ,nt, bs present. ext pulses present , no cyanosis. neuro: Moves all extremities bilateral lower extremity edema right greater than left, Multiple self-inflicted scabs on bilateral arms. Vital Signs: Vital Signs: Last Vital Signs Temp 97.1 F 07/08/25 15:31 Pulse 96 07/08/25 15:31 Resp 20 07/08/25 15:31 BP 136/60 07/08/25 15:31 Pulse Ox 95 07/08/25 15:31 O2 Del Method Room Air 07/08/25 15:31 O2 Flow Rate 21 07/05/25 06:00 FiO2 21 07/05/25 07:36 BMI result Body Mass Index 36.3 Objective Data Active Medications Dextrose (Dextrose 50 % 25 Gm/50 Ml Syringe) 25 gm IVPUSH Q15M PRN; Protocol PRN Reason: per Hypoglycemia Standing Ord. Enoxaparin Sodium (Enoxaparin Sodium 40 Mg/0.4 Ml Syringe) 40 mg SUBCUT Q24H [facility] Last Admin: 07/08/25 01:01 Dose: 40 mg Documented By: ZOË Furosemide (Furosemide 40 Mg Tablet) 40 mg PO DAILY [facility]; Protocol Last Admin: 07/08/25 08:29 Dose: 40 mg Documented By: VONNIE Glucose (Glucose Gel 15 Gm Gel..Gram.) 15 gm PO Q15M PRN; Protocol PRN Reason: per Hypoglycemia Standing Ord. Hydromorphone HCl (Hydromorphone Hcl 0.5 Mg/0.5 Ml Syringe) 0.5 mg IVPUSH Q3H PRN; Protocol PRN Reason: Pain, Severe (Pain Scale 7-10) Last Admin: 07/07/25 14:43 Dose: 0.5 mg Documented By: VONNIE Hydroxyzine HCl (Hydroxyzine Hcl 10 Mg Tablet) 10 mg PO Q8H PRN PRN Reason: Itching Last Admin: 07/08/25 11:59 Dose: 10 mg Documented By: VONNIE Insulin Human Lispro (Insulin Lispro 100 Unit/Ml 3 Ml Vial) 0 unit SUBCUT QIDACHS [facility]; Protocol Last Admin: 07/08/25 11:52 Dose: Not Given Documented By: VONNIE Non-Admin Reason: No Insulin Coverage Midazolam HCl (Midazolam Hcl 2 Mg/2 Ml Vial) 1 mg IVPUSH Q4H PRN PRN Reason: Agitation Last Admin: 07/08/25 13:40 Dose: 1 mg Documented By: VONNIE Multivitamins/Vitamin C (Multivitamin Tablet) 1 tab PO DAILY [facility] Last Admin: 07/08/25 08:29 Dose: 1 tab Documented By: VONNIE Olanzapine (Olanzapine 10 Mg Tablet) 10 mg PO BID [facility] Sodium Chloride (0.9 % Sodium Chloride Flush 3 Ml Syringe) 3 ml IVFLUSH QSHIFT [facility] Last Admin: 07/08/25 15:15 Dose: 3 ml Documented By: VONNIE Spironolactone (Spironolactone 25 Mg Tablet) 50 mg PO BID [facility]; Protocol Last Admin: 07/08/25 08:29 Dose: 50 mg Documented By: VONNIE Valproic Acid (Valproic Acid 250 Mg Capsule) 500 mg PO TID [facility] Last Admin: 07/08/25 15:14 Dose: 500 mg Documented By: VONNIE Labs 07/07/25 05:48 07/07/25 05:48 Labs: Laboratory Results - last 24 hr 07/07/25 07/08/25 07/08/25 20:08 07:19 11:10 POC Glucose 155 H 108 147 H 07/08/25 16:42 POC Glucose 151 H Assessment and Plan (1) Mood disorder: Status: Acute Plan 55F PMH obesity, urinary incontinence, diabetes type 2, hyperlipidemia, cognitive delay presented 07/01/25 with altered mental status/agitation, required multiple doses of antipsychotics and benzos for patient safety, course was then complicated by acute metabolic encephalopathy due to acute hypercapneic respiratory failure and transferred to ICU on 07/03/25 for bipap. in ICU resp status and lethargy improved but became increasingly combative requiring precedex, behaviours improved and was downgraded to medical floor 07/06/25 Acute delirium due to urinary tract infection due to urinary retention Completed course ceftriaxone, cultures negative s/p suprapubic 07/03/25 Continued to be delirious Discussed with the ICU, psych: Zyprexa dosing adjusted to 10 b.i.d., also added valproic acid in addition to IV diazepam, soft restrain applied Acute metabolic encephalopathy due to acute hypercapnic respiratory failure Resolved Diabetes Insulin sliding scale Obesity Weight loss recommended DVT prophylaxis with Lovenox Full code reason for continued hospitalization: Monitoring for behavioral stability off Precedex, continuous delirious: Need psych medication to control delirium, soft restraints Quality Stroke Does the patient have a stroke diagnosis?: No VTE Prior VTE?: No VTE Risk Level:: Medical - moderate - high VTE Device Contraindication: N/A - Device Ordered VTE Drug Contraindication: N/A - Med Ordered
[2025-07-08 20:43] LABS: Glucose, Whole Blood 110 mg/dL (60-115)
[2025-07-09] VITALS (13 sets, daily range): BP systolic 120–152; BP diastolic 58–87; PULSE 83–107; RESP 16–20; TEMP 36.1–37.1; O2SAT 94–99; BMI 35.5
[2025-07-09 07:36] LABS: Glucose, Whole Blood 140 mg/dL (60-115)
[2025-07-09 11:10] LABS: Glucose, Whole Blood 175 mg/dL (60-115)
[2025-07-09] MEDS: 0.9 % Sodium Chloride Flush 3 ML SYRINGE IVFLUSH ×2 (11:18→22:52)
--- NOTE | 2025-07-09 14:49 | HO.PM.IMPN ---
Subjective Subjective Date of Service: 07/09/25 Interval History: uti Review of Systems Intermittent agitation No new symptoms. no fevers Review of Systems: Yes all other systems are reviewed and are negative Physical Exam Exam: Exam: Appearance appears agitated. Somewhat delirious cvs: [id number], [id number] , no murmur res: clear to auscultation ,no rhonchii or wheezing abd: no rebound or guarding ,nt, bs present. ext pulses present , no cyanosis. neuro: Moves all extremities bilateral lower extremity edema right greater than left, Multiple self-inflicted scabs on bilateral arms. Vital Signs: Vital Signs: Last Vital Signs Temp 97.5 F 07/09/25 12:31 Pulse 102 H 07/09/25 12:31 Resp 18 07/09/25 12:31 BP 124/58 L 07/09/25 12:31 Pulse Ox 94 07/09/25 12:31 O2 Del Method Room Air 07/09/25 12:31 O2 Flow Rate 1 07/09/25 12:31 FiO2 21 07/05/25 07:36 BMI result Body Mass Index 35.5 Objective Data Active Medications Dextrose (Dextrose 50 % 25 Gm/50 Ml Syringe) 25 gm IVPUSH Q15M PRN; Protocol PRN Reason: per Hypoglycemia Standing Ord. Enoxaparin Sodium (Enoxaparin Sodium 40 Mg/0.4 Ml Syringe) 40 mg SUBCUT Q24H [facility] Last Admin: 07/08/25 22:31 Dose: 40 mg Documented By: ROCKY Furosemide (Furosemide 40 Mg Tablet) 40 mg PO DAILY [facility]; Protocol Last Admin: 07/09/25 11:18 Dose: 40 mg Documented By: MILES Glucose (Glucose Gel 15 Gm Gel..Gram.) 15 gm PO Q15M PRN; Protocol PRN Reason: per Hypoglycemia Standing Ord. Hydromorphone HCl (Hydromorphone Hcl 0.5 Mg/0.5 Ml Syringe) 0.5 mg IVPUSH Q3H PRN; Protocol PRN Reason: Pain, Severe (Pain Scale 7-10) Last Admin: 07/07/25 14:43 Dose: 0.5 mg Documented By: VONNIE Hydroxyzine HCl (Hydroxyzine Hcl 10 Mg Tablet) 10 mg PO Q8H PRN PRN Reason: Itching Last Admin: 07/08/25 11:59 Dose: 10 mg Documented By: VONNIE Insulin Human Lispro (Insulin Lispro 100 Unit/Ml 3 Ml Vial) 0 unit SUBCUT QIDACHS [facility]; Protocol Last Admin: 07/09/25 11:21 Dose: 2 unit Documented By: MILES Midazolam HCl (Midazolam Hcl 2 Mg/2 Ml Vial) 1 mg IVPUSH Q4H PRN PRN Reason: Agitation Last Admin: 07/09/25 12:26 Dose: 1 mg Documented By: HARJEET Multivitamins/Vitamin C (Multivitamin Tablet) 1 tab PO DAILY [facility] Last Admin: 07/09/25 11:19 Dose: 1 tab Documented By: MILES Nystatin (Nystatin Powder 15 Gm Bottle) 1 appl TOPICAL BID [facility]; Protocol Last Admin: 07/09/25 11:32 Dose: Not Given Documented By: MILES Non-Admin Reason: Med Not Available Olanzapine (Olanzapine 10 Mg Tablet) 10 mg PO BID [facility] Last Admin: 07/09/25 11:18 Dose: 10 mg Documented By: MILES Sodium Chloride (0.9 % Sodium Chloride Flush 3 Ml Syringe) 3 ml IVFLUSH QSHIFT [facility] Last Admin: 07/09/25 11:18 Dose: 3 ml Documented By: MILES Spironolactone (Spironolactone 25 Mg Tablet) 50 mg PO BID [facility]; Protocol Last Admin: 07/09/25 11:18 Dose: 50 mg Documented By: MILES Valproic Acid (Valproic Acid 250 Mg Capsule) 500 mg PO TID [facility] Last Admin: 07/09/25 11:18 Dose: 500 mg Documented By: MILES Labs 07/07/25 05:48 07/07/25 05:48 Labs: Laboratory Results - last 24 hr 07/08/25 07/08/25 07/09/25 16:42 20:37 07:26 POC Glucose 151 H 110 140 H 07/09/25 11:05 POC Glucose 175 H Assessment and Plan (1) Mood disorder: Status: Acute Plan 55F PMH obesity, urinary incontinence, diabetes type 2, hyperlipidemia, cognitive delay presented 07/01/25 with altered mental status/agitation, required multiple doses of antipsychotics and benzos for patient safety, course was then complicated by acute metabolic encephalopathy due to acute hypercapneic respiratory failure and transferred to ICU on 07/03/25 for bipap. in ICU resp status and lethargy improved but became increasingly combative requiring precedex, behaviours improved and was downgraded to medical floor 07/06/25 Acute delirium due to urinary tract infection due to urinary retention Completed course ceftriaxone, cultures negative s/p suprapubic 07/03/25 Continued to be delirious Discussed with the ICU, psych: Zyprexa dosing adjusted to 10 b.i.d., also added valproic acid in addition to IV diazepam, soft restrain as needed Acute metabolic encephalopathy due to acute hypercapnic respiratory failure Resolved Diabetes Insulin sliding scale Obesity Weight loss recommended DVT prophylaxis with Lovenox Full code reason for continued hospitalization: Monitoring for behavioral stability off Precedex, continuous delirious: Need psych medication to control delirium, soft restraints Quality Stroke Does the patient have a stroke diagnosis?: No VTE Prior VTE?: No VTE Risk Level:: Medical - moderate - high VTE Device Contraindication: N/A - Device Ordered VTE Drug Contraindication: N/A - Med Ordered
[2025-07-09 16:08] LABS: Glucose, Whole Blood 126 mg/dL (60-115)
[2025-07-09 21:24] LABS: Glucose, Whole Blood 136 mg/dL (60-115)
[2025-07-10] VITALS (12 sets, daily range): BP systolic 119–148; BP diastolic 56–78; PULSE 90–101; RESP 12–20; TEMP 36.4–36.9; O2SAT 93–98; BMI 38.0
[2025-07-10 07:38] LABS: Glucose, Whole Blood 123 mg/dL (60-115)
--- NOTE | 2025-07-10 08:27 | HO.PM.IMPN ---
Subjective Subjective Date of Service: 07/10/25 Interval History: Intermittent agitation No new symptoms. Review of Systems seems improving -somewhat more calmer than yesterday Review of Systems: Yes all other systems are reviewed and are negative Physical Exam Exam: Exam: Appearance appears agitated.less delirious cvs: rrr, [id number] , no murmur res: clear to auscultation ,no rhonchii or wheezing abd: no rebound or guarding ,nt, bs present. ext pulses present , no cyanosis. neuro: Moves all extremities bilateral lower extremity edema right greater than left, Multiple self-inflicted scabs on bilateral arms. Vital Signs: Vital Signs: Last Vital Signs Temp 97.6 F 07/10/25 06:50 Pulse 101 H 07/10/25 06:50 Resp 20 07/10/25 06:50 BP 148/78 H 07/10/25 06:50 Pulse Ox 98 07/10/25 06:50 O2 Del Method Oxymask 07/10/25 06:50 O2 Flow Rate 4 07/10/25 06:50 FiO2 21 07/05/25 07:36 BMI result Body Mass Index 38.0 Objective Data Active Medications Dextrose (Dextrose 50 % 25 Gm/50 Ml Syringe) 25 gm IVPUSH Q15M PRN; Protocol PRN Reason: per Hypoglycemia Standing Ord. Enoxaparin Sodium (Enoxaparin Sodium 40 Mg/0.4 Ml Syringe) 40 mg SUBCUT Q24H [facility] Last Admin: 07/09/25 22:52 Dose: 40 mg Documented By: BESSY Furosemide (Furosemide 40 Mg Tablet) 40 mg PO DAILY [facility]; Protocol Last Admin: 07/09/25 11:18 Dose: 40 mg Documented By: MILES Glucose (Glucose Gel 15 Gm Gel..Gram.) 15 gm PO Q15M PRN; Protocol PRN Reason: per Hypoglycemia Standing Ord. Hydromorphone HCl (Hydromorphone Hcl 0.5 Mg/0.5 Ml Syringe) 0.5 mg IVPUSH Q3H PRN; Protocol PRN Reason: Pain, Severe (Pain Scale 7-10) Last Admin: 07/07/25 14:43 Dose: 0.5 mg Documented By: VONNIE Hydroxyzine HCl (Hydroxyzine Hcl 10 Mg Tablet) 10 mg PO Q8H PRN PRN Reason: Itching Last Admin: 07/08/25 11:59 Dose: 10 mg Documented By: VONNIE Insulin Human Lispro (Insulin Lispro 100 Unit/Ml 3 Ml Vial) 0 unit SUBCUT QIDACHS [facility]; Protocol Last Admin: 07/10/25 07:40 Dose: Not Given Documented By: MILES Non-Admin Reason: No Insulin Coverage Midazolam HCl (Midazolam Hcl 2 Mg/2 Ml Vial) 1 mg IVPUSH Q4H PRN PRN Reason: Agitation Last Admin: 07/09/25 12:26 Dose: 1 mg Documented By: HARJEET Multivitamins/Vitamin C (Multivitamin Tablet) 1 tab PO DAILY [facility] Last Admin: 07/09/25 11:19 Dose: 1 tab Documented By: MILES Nystatin (Nystatin Powder 15 Gm Bottle) 1 appl TOPICAL BID [facility]; Protocol Last Admin: 07/09/25 22:17 Dose: Not Given Documented By: BESSY Non-Admin Reason: Med Not Available Olanzapine (Olanzapine 10 Mg Tablet) 10 mg PO BID [facility] Last Admin: 07/09/25 22:51 Dose: 10 mg Documented By: BESSY Sodium Chloride (0.9 % Sodium Chloride Flush 3 Ml Syringe) [address] [facility] Last Admin: 07/09/25 22:52 Dose: 3 ml Documented By: BESSY Spironolactone (Spironolactone 25 Mg Tablet) 50 mg PO BID [facility]; Protocol Last Admin: 07/09/25 22:51 Dose: 50 mg Documented By: BESSY Valproic Acid (Valproic Acid 250 Mg Capsule) 500 mg PO TID [facility] Last Admin: 07/09/25 22:51 Dose: 500 mg Documented By: BESSY Labs 07/07/25 05:48 07/10/25 09:21 Labs: Laboratory Results - last 24 hr 07/09/25 07/09/25 07/09/25 11:05 16:04 21:13 POC Glucose 175 H 126 H 136 H 07/10/25 06:56 POC Glucose 123 H Assessment and Plan (1) Mood disorder: Status: Acute Plan 55F PMH obesity, urinary incontinence, diabetes type 2, hyperlipidemia, cognitive delay presented 07/01/25 with altered mental status/agitation, required multiple doses of antipsychotics and benzos for patient safety, course was then complicated by acute metabolic encephalopathy due to acute hypercapneic respiratory failure and transferred to ICU on 07/03/25 for bipap. in ICU resp status and lethargy improved but became increasingly combative requiring precedex, behaviours improved and was downgraded to medical floor 07/06/25 Acute delirium due to urinary tract infection due to urinary retention Completed course ceftriaxone, cultures negative s/p suprapubic 07/03/25 Continued to be delirious Discussed with the ICU, psych: Zyprexa dosing adjusted to 10 b.i.d., also added valproic acid in addition to IV diazepam, soft restrain as needed Acute metabolic encephalopathy due to acute hypercapnic respiratory failure Resolved Diabetes Insulin sliding scale Obesity Weight loss recommended DVT prophylaxis with Lovenox Full code reason for continued hospitalization: Monitoring for behavioral stability off Precedex, continuous delirious: Need psych medication to control delirium, soft restraints,sitter Quality Stroke Does the patient have a stroke diagnosis?: No VTE Prior VTE?: No VTE Risk Level:: Medical - moderate - high VTE Device Contraindication: N/A - Device Ordered VTE Drug Contraindication: N/A - Med Ordered
[2025-07-10] MEDS: 0.9 % Sodium Chloride Flush 3 ML SYRINGE IVFLUSH (08:40)
[2025-07-10 09:35] LABS: VBG HCO3 31 mmol/L (22-26); VBG O2 % Saturation 99.0 %
[2025-07-10 09:47] LABS: Venous Blood Gas Refer to POC result
[2025-07-10 09:55] LABS: Anion Gap 12 (12-20); Blood Urea Nitrogen 11 mg/dL (9-16); Calcium 8.8 mg/dL (8.4-10.2); Carbon Dioxide 30 mmol/L (22-29); Chloride 103 mmol/L (96-108); Creatinine Clr Calc Pharmacy 167.1; Estimated Glomerular Filt Rate > 60; Potassium 3.9 mmol/L (3.3-5.1); Sodium 141 mmol/L (135-145)
--- NOTE | 2025-07-10 10:27 | MHC.CM.PN ---
Per ROUNDS discussion, Patient has a Sitter and is still behavioral/not medically cleared for dc. CM will continue to follow.
[2025-07-10 11:26] LABS: Glucose, Whole Blood 164 mg/dL (60-115)
[2025-07-10] MEDS: OLANZapine 10 MG VIAL 5 MG IM (11:28)
--- NOTE | 2025-07-10 12:49 | PC.NURSE ---
Addendum entered by Kylah Gill RN 07/10/25 16:22: around 1330, pt was incontinent of stool while in recliner chair. pt was able to stand and ambulate to bathroom with walker with 1 assist. pt was not able to be redirected and was walking into staff and leaving behind walker, which villafuerte bag was attached too. This RN attempted to redirect pt to use walker and inquired what pt needed. pt did not respond and walked from bathroom to recliner chair. pt then stated he wanted to get back into bed. pt has apears to be have been resting comfortably, RR even and unlabored. 1:1 sitter at bedside, camera in place. bed in lowest locked position. fall risk precautions in place. Original Note: Took pt off restraints at 0910. Pt out of bed up to chair, sitter at bedside. Pt trying to stand up out of chair multiple times, unable to be redirected. Given 1 dose of IM zyprexa per NOV around 1130.
--- NOTE | 2025-07-10 14:30 | HO.WOUND ---
Wound Consult: Follow up 55yr old admitted to [facility] on 07/01/25 - See progress notes and H&P for detailed history. Wound follow up for arms. Patient agreeable to assessment and photo documentation. Patient with sitter at bedside, patient is unrestrained and is actively picking at arms. Some areas have healed, while others area open with moist red bases. Recommend covering with hydrocolloid to promote healing and deter picking. left arm 07/03/25 Left arm 07/10/25 right arm07/03/25 Right arm 07/10/25 left leg 07/03/25 Left leg 07/10/25 right leg 07/03/25 Right leg 07/10/25 Etiology: Bilatearl arms with muliple areas due to picking, now open moist red bases would cover with hydrocolloid. multiple intact dry stable scabs to bilateral legs, likely due to picking - stable and would leave KARSTEN. Wound Bed: dry scabs to legs, moist red to arms Drainage / Odor: scant serous to arms [place] wound: ? No Induration, Fluctuance or Warmth noted - mild localized redness Pain: none Goals of Treatment: ?arms cover with hydrocolloid for drainage absorption, moist healing, detering picking, legs leave open to air Recommendations: 1. Turn and Reposition every 2 hours and as needed for patient comfort. Use pillows or wedges to support off loading positions. 2. Off Load all bony prominences with use of pillows and heel boots if needed. Apply Preventative foams where needed. 3. Monitor for incontinence and moisture control, use barrier creams when needed for prevention and treatment. 4. Provide adequate and supplemental nutrition. 5. Order or Continue low air loss mattress. 6. When applicable maintain blood glucose levels per Providers order. Perineum/groin: Off Load Pressure with Q2 hr turns and use of pillows - Cleanse with PH balance spray or wipes, pat dry. ?Apply thin layer of barrier cream to affected area. Apply twice daily and Reapply thin layer PRN after each episode of incontinence. Bilateral arms/legs: cleanse with saline, pat dry, apply hydrocolloid to open areas, change every other day and PRN. Re-consult wound care Nurse for wound deterioration or wound changes.
[2025-07-10 16:25] LABS: Glucose, Whole Blood 114 mg/dL (60-115)
[2025-07-10 21:26] LABS: Glucose, Whole Blood 119 mg/dL (60-115)
[2025-07-11] VITALS (7 sets, daily range): BP systolic 112–151; BP diastolic 56–68; PULSE 75–95; RESP 16–23; TEMP 36.3–37.1; O2SAT 93–98; BMI 38.2
--- NOTE | 2025-07-11 | ECG_ITS ---
Test Reason : Rule out prolong QTc, on anitpyschotic medications Blood Pressure : */* mmHG Vent. Rate : 92 BPM Atrial Rate : 92 BPM P-R Int : 180 ms QRS Dur : 118 ms QT Int : 372 ms P-R-T Axes : 81 101 51 degrees QTcB Int : 460 ms Normal sinus rhythm Low voltage QRS Right bundle branch block Abnormal ECG When compared with ECG of 04-Jul-2025 12:34, Previous ECG has undetermined rhythm, needs review Referred By: Kenya Malhotra Electronically Signed By: Zane Crane
[2025-07-11 07:34] LABS: Glucose, Whole Blood 111 mg/dL (60-115)
--- NOTE | 2025-07-11 07:45 | P.PNIM_ITS ---
Subjective Subjective Date of Service: 07/12/25 Interval History: Intermittent agitation No new symptoms. Review of Systems as above. Review of Systems: Yes all other systems are reviewed and are negative Physical Exam 2 Exam: Exam: Appearance : agitated.less delirious cvs: rrr, [id number] , no murmur res: clear to auscultation ,no rhonchii or wheezing abd: no rebound or guarding ,nt, bs present. ext pulses present , no cyanosis. neuro: Moves all extremities bilateral lower extremity edema right greater than left, Multiple self-inflicted scabs on bilateral arms. Vital Signs: Vital Signs: Last Vital Signs Temp 97.3 F 07/11/25 07:01 Pulse 82 07/11/25 07:01 Resp 20 07/11/25 07:01 BP 132/60 07/11/25 07:01 Pulse Ox 97 07/11/25 07:01 O2 Del Method Aerosol Mask 07/11/25 07:01 O2 Flow Rate 2 07/11/25 07:01 FiO2 21 07/05/25 07:36 BMI result Body Mass Index 38.0 Objective Data Active Medications Dextrose (Dextrose 50 % 25 Gm/50 Ml Syringe) 25 gm IVPUSH Q15M PRN; Protocol PRN Reason: per Hypoglycemia Standing Ord. Enoxaparin Sodium (Enoxaparin Sodium 40 Mg/0.4 Ml Syringe) 40 mg SUBCUT Q24H [facility] Last Admin: 07/11/25 00:33 Dose: 40 mg Documented By: ALEXANDRO Furosemide (Furosemide 40 Mg Tablet) 40 mg PO DAILY [facility]; Protocol Last Admin: 07/10/25 08:40 Dose: 40 mg Documented By: ELENAOPECHARLOTTE Glucose (Glucose Gel 15 Gm Gel..Gram.) 15 gm PO Q15M PRN; Protocol PRN Reason: per Hypoglycemia Standing Ord. Hydroxyzine HCl (Hydroxyzine Hcl 10 Mg Tablet) 10 mg PO Q8H PRN PRN Reason: Itching Last Admin: 07/11/25 01:52 Dose: 10 mg Documented By: ALEXANDRO Insulin Human Lispro (Insulin Lispro 100 Unit/Ml 3 Ml Vial) 0 unit SUBCUT QIDACHS [facility]; Protocol Last Admin: 07/10/25 22:18 Dose: Not Given Documented By: ALEXANDRO Non-Admin Reason: poc 119 Multivitamins/Vitamin C (Multivitamin Tablet) 1 tab PO DAILY [facility] Last Admin: 07/10/25 08:40 Dose: 1 tab Documented By: MILES Nystatin (Nystatin Powder 15 Gm Bottle) 1 appl TOPICAL BID [facility]; Protocol Last Admin: 07/11/25 00:42 Dose: Not Given Documented By: ALEXANDRO Non-Admin Reason: Patient Refused Olanzapine (Olanzapine 10 Mg Tablet) 10 mg PO BID [facility] Last Admin: 07/11/25 00:33 Dose: 10 mg Documented By: ALEXANDRO Sodium Chloride (0.9 % Sodium Chloride Flush 3 Ml Syringe) 3 ml IVFLUSH QSHIFT [facility] Last Admin: 07/11/25 04:56 Dose: Not Given Documented By: ALEXANDRO Non-Admin Reason: Patient Asleep Spironolactone (Spironolactone 25 Mg Tablet) 50 mg PO BID [facility]; Protocol Last Admin: 07/11/25 00:32 Dose: 50 mg Documented By: ALEXANDRO Valproic Acid (Valproic Acid 250 Mg Capsule) 500 mg PO TID [facility] Last Admin: 07/11/25 00:32 Dose: 500 mg Documented By: ALEXANDRO Labs 07/07/25 05:48 07/11/25 13:05 Labs: Laboratory Results - last 24 hr 07/10/25 07/10/25 07/10/25 09:21 09:28 11:16 VBG pH 7.40 VBG pCO2 50 VBG pO2 105 VBG HCO3 31 H VBG O2 Saturation 99.0 VBG Base Excess 6.0 Anion Gap 12 Estim Creat Clear Calc 167.1 Estimated GFR > 60 POC Glucose 164 H Random Glucose 161 H Calcium 8.8 07/10/25 07/10/25 07/11/25 16:21 21:23 07:09 VBG pH VBG pCO2 VBG pO2 VBG HCO3 VBG O2 Saturation VBG Base Excess Anion Gap Estim Creat Clear Calc Estimated GFR POC Glucose 114 119 H 111 Random Glucose Calcium Assessment and Plan (1) Mood disorder: Status: Acute Plan 55F PMH obesity, urinary incontinence, diabetes type 2, hyperlipidemia, cognitive delay presented 07/01/25 with altered mental status/agitation, required multiple doses of antipsychotics and benzos for patient safety, course was then complicated by acute metabolic encephalopathy due to acute hypercapneic respiratory failure and transferred to ICU on 07/03/25 for bipap. in ICU resp status and lethargy improved but became increasingly combative requiring precedex, behaviours improved and was downgraded to medical floor 07/06/25 Acute delirium due to urinary tract infection due to urinary retention Completed course ceftriaxone, cultures negative s/p suprapubic 07/03/25 Continued to be delirious Discussed with the ICU, psych: Zyprexa dosing adjusted to 10 b.i.d., valproic acid in addition to IV diazepam, will use soft restrain as needed psych follwoing Diarrhae difficult to evaluate due to impulsivity had loose stool x2 today -seems more likely due to impulsivity -quick eating and defecating,does not listen to go to bathroom will check stool testing Acute metabolic encephalopathy due to acute hypercapnic respiratory failure Resolved Diabetes Insulin sliding scale Obesity Weight loss recommended DVT prophylaxis with Lovenox Full code reason for continued hospitalization: Monitoring for behavioral stability off Precedex, continuous delirious: Need psych medication to control delirium, soft restraints,sitter Quality Stroke Does the patient have a stroke diagnosis?: No VTE Prior VTE?: No VTE Risk Level:: Medical - moderate - high VTE Device Contraindication: N/A - Device Ordered VTE Drug Contraindication: N/A - Med Ordered
[2025-07-11] MEDS: 0.9 % Sodium Chloride Flush 3 ML SYRINGE IVFLUSH ×3 (08:00→23:50)
[2025-07-11 11:44] LABS: Glucose, Whole Blood 120 mg/dL (60-115)
[2025-07-11] MEDS: diazePAM 10 MG/2 ML CARTRIDGE 2.5 MG IVPUSH (12:26)
[2025-07-11 13:27] LABS: Ammonia 48 umol/L (13-55)
[2025-07-11 13:34] LABS: Anion Gap 14 (12-20); Blood Urea Nitrogen 12 mg/dL (9-16); Calcium 9.0 mg/dL (8.4-10.2); Carbon Dioxide 26 mmol/L (22-29); Chloride 101 mmol/L (96-108); Creatinine Clr Calc Pharmacy 159.3; Estimated Glomerular Filt Rate > 60; Magnesium 2.2 mg/dL (1.6-2.6); Potassium 4.2 mmol/L (3.3-5.1); Sodium 137 mmol/L (135-145)
--- NOTE | 2025-07-11 13:49 | PC.NURSE ---
code assist called 12:20 : pt getting out of his room , removed his hospital gown , refusing to keep cloths on, getting out of his room naked , nursing staff not able to redirect pt to his room. Diazepam 2.5 mg IV administered per DR Beavers order . Pt siitting on the recliner
--- NOTE | 2025-07-11 16:28 | PC.NURSE ---
restless, anxious , pulling on tubes , medicated with Lorazepam PRN, OOB with assist
[2025-07-11 16:44] LABS: Glucose, Whole Blood 137 mg/dL (60-115)
--- NOTE | 2025-07-11 20:50 | P.CNPS_ITS ---
History of Present Illness Date of Service: 07/11/25 @1025 Chief Complaint: AMS, UTI Reason for Consult: Mood management Requesting physician: Simón Beavers Discussed with referring provider: Yes Sources of Information: patient interviewed, chart reviewed and crisis/core team assessment reviewed HPI Narrative: Per previous HPI note: 55F PMH obesity, urinary incontinence, diabetes type 2, hyperlipidemia, cognitive delay presented 07/01/25 with altered mental status/agitation, required multiple doses of antipsychotics and benzos for patient safety, course was then complicated by acute metabolic encephalopathy due to acute hypercapneic respiratory failure and transferred to ICU on 07/03/25 for bipap. in ICU resp status and lethargy improved but became increasingly combative requiring precedex, behaviours improved and was downgraded to medical floor 07/06/25. Patient assessed today for mood managment. Was combative with cares and not able to redirectable, tried to get out of bed, naked in the vela, wanted to leave, had incontince of feces in the vela. Code assisted was call prior to being seen by this provider. Report anxiety and depression but denies SI/SIB/HI/AVH. Do not know if he has any psychiatric dx but appear to have some source of delayed development. Report he lives with parents. When asked what happened early when he needs extra medication and code was called, he stated they get stuopid . He has poor insight and poor judgment Past Psychiatric History: Unable to obtain d/t patient mental status. [facility]ies [facility]. Cannot recall medication trials Medical Evaluation Reviewed: Yes Defer to medical treatment team Personal & Social History: Single, never , no children, live with parents at home Review of Systems Review of Systems No SOB/wheezing. No cough. No N/V. report pain all over his body. Observed scars on bilateral arms from skin picking. [facility] Medical History Urinary incontinence Morbid obesity with BMI of 40.0-44.9, adult Morbid obesity with BMI of 45.0-49.9, adult Mood disorder Obstructive sleep apnea Type 2 diabetes mellitus without complication, without long-term current use of insulin Hypertriglyceridemia Lymphedema of both lower extremities Lymphedema Surgical History History of myringotomy History of tonsillectomy Family History: report he lives with parents at home. Social History: He is single, never , no children. Substance History: Denies Trauma History: Denies Diagnostics Vital Signs (24Hr): Vital Signs - 24 hr 07/10/25 23:04 07/10/25 23:28 07/11/25 00:32 Temperature 97.9 F Pulse Rate 93 Respiratory Rate 16 18 Blood Pressure 131/60 131/60 Pulse Oximetry 96 Oxygen Delivery Method Oxymask Oxygen Flow Rate 2 07/11/25 03:16 07/11/25 07:01 07/11/25 11:14 Temperature 98.8 F 97.3 F 98.2 F Pulse Rate 80 82 75 Respiratory Rate 16 20 20 Blood Pressure 135/68 132/60 151/68 H Pulse Oximetry 93 97 93 Oxygen Delivery Method CPAP Aerosol Mask Room Air Oxygen Flow Rate 2 07/11/25 15:19 07/11/25 20:00 Temperature 98.1 F 98.0 F Pulse Rate 95 90 Respiratory Rate 20 16 Blood Pressure 131/60 112/56 L Pulse Oximetry 94 98 Oxygen Delivery Method Room Air Oxymask Oxygen Flow Rate 3 BMI result Body Mass Index 38.2 Labs 07/12/25 12:50 07/12/25 12:50 Labs: Laboratory Results - last 48 hr 07/09/25 07/10/25 07/10/25 21:13 06:56 09:21 Hold Purple Top VBG pH VBG pCO2 VBG pO2 VBG HCO3 VBG O2 Saturation VBG Base Excess Sodium 141 Potassium 3.9 Chloride 103 Carbon Dioxide 30 H Anion Gap 12 BUN 11 Creatinine 0.61 Estim Creat Clear Calc 167.1 Estimated GFR > 60 POC Glucose 136 H 123 H Random Glucose 161 H Calcium 8.8 Magnesium Ammonia 07/10/25 07/10/25 07/10/25 09:28 11:16 16:21 Hold Purple Top VBG pH 7.40 VBG pCO2 50 VBG pO2 105 VBG HCO3 31 H VBG O2 Saturation 99.0 VBG Base Excess 6.0 Sodium Potassium Chloride Carbon Dioxide Anion Gap BUN Creatinine Estim Creat Clear Calc Estimated GFR POC Glucose 164 H 114 Random Glucose Calcium Magnesium Ammonia 07/10/25 07/11/25 07/11/25 21:23 07:09 11:37 Hold Purple Top VBG pH VBG pCO2 VBG pO2 VBG HCO3 VBG O2 Saturation VBG Base Excess Sodium Potassium Chloride Carbon Dioxide Anion Gap BUN Creatinine Estim Creat Clear Calc Estimated GFR POC Glucose 119 H 111 120 H Random Glucose Calcium Magnesium Ammonia 07/11/25 07/11/25 07/11/25 13:05 13:11 16:39 Hold Purple Top SEE NOTE VBG pH VBG pCO2 VBG pO2 VBG HCO3 VBG O2 Saturation VBG Base Excess Sodium 137 Potassium 4.2 Chloride 101 Carbon Dioxide 26 Anion Gap 14 BUN 12 Creatinine 0.64 Estim Creat Clear Calc 159.3 Estimated GFR > 60 POC Glucose 137 H Random Glucose 133 H Calcium 9.0 Magnesium 2.2 Ammonia 48 Mental Status Exam Mental Status Exam Narrative: Patient is A+O x3. Wearing hosptial attire. Mood is calm, pleasant and cooperative. Speech is within limit and normal rate. Poor insight and judgment from delayed developmental. Thought content is disorganized, denies SI/SIB/HI/AVH. Medications Medications Current Medications Dextrose (Dextrose 50 % 25 Gm/50 Ml Syringe) 25 gm IVPUSH Q15M PRN; Protocol PRN Reason: per Hypoglycemia Standing Ord. Divalproex Sodium (Divalproex Sodium 500 Mg Tablet.) 1,000 mg PO BEDTIME [facility] Enoxaparin Sodium (Enoxaparin Sodium 40 Mg/0.4 Ml Syringe) 40 mg SUBCUT Q24H [facility] Last Admin: 07/11/25 00:33 Dose: 40 mg Furosemide (Furosemide 40 Mg Tablet) 40 mg PO DAILY [facility]; Protocol On Hold: 07/11/25 13:13 Last Admin: 07/11/25 07:59 Dose: 40 mg Glucose (Glucose Gel 15 Gm Gel..Gram.) 15 gm PO Q15M PRN; Protocol PRN Reason: per Hypoglycemia Standing Ord. Hydroxyzine HCl (Hydroxyzine Hcl 10 Mg Tablet) 10 mg PO Q8H PRN PRN Reason: Itching Last Admin: 07/11/25 20:14 Dose: 10 mg Insulin Human Lispro (Insulin Lispro 100 Unit/Ml 3 Ml Vial) 0 unit SUBCUT QIDACHS [facility]; Protocol Last Admin: 07/11/25 17:21 Dose: Not Given Lorazepam (Lorazepam 1 Mg Tablet) 1 mg PO Q6H PRN PRN Reason: severe anxiety Last Admin: 07/11/25 15:52 Dose: 1 mg Multivitamins/Vitamin C (Multivitamin Tablet) 1 tab PO DAILY [facility] Last Admin: 07/11/25 08:00 Dose: 1 tab Nystatin (Nystatin Powder 15 Gm Bottle) 1 appl TOPICAL BID [facility]; Protocol Last Admin: 07/11/25 08:00 Dose: 1 appl Olanzapine (Olanzapine 10 Mg Tablet) 10 mg PO BID [facility] Last Admin: 07/11/25 20:15 Dose: 10 mg Sodium Chloride (0.9 % Sodium Chloride Flush 3 Ml Syringe) 3 ml IVFLUSH QSHIFT [facility] Last Admin: 07/11/25 15:52 Dose: 3 ml Spironolactone (Spironolactone 25 Mg Tablet) 50 mg PO BID [facility]; Protocol On Hold: 07/11/25 13:12 Last Admin: 07/11/25 08:00 Dose: 50 mg Valproic Acid (Valproic Acid 250 Mg Capsule) 500 mg PO DAILY [facility] Allergies Allergies Allergy/AdvReac Type Severity Reaction Status Date / Time No Known Allergies Allergy Verified 07/01/25 16:25 Assessment & Plan Assessment & Plan (1) Mood disorder: Status: Acute Code(s): F39 - Unspecified mood [affective] disorder Plan Plan: Continue with current treatment plan Add Ativan 1mg q6 hours PRN for severe anxiety. Add Zyprexa 5mg BID PRN for agitation. Continue with 10mg BID scheduled for impulsive/mood. change Depakote TID to BID with total dose of 1,500mg. Will check level in a couple of days. Order EKG, and Ammonia level. Continue Atarax 10mg PRN for skin itching- from skin picking. Need more collateral with family regarding baseline and mental health dx. Total time managing care of this patient today ____ minutes. Patient educated on: diagnosis, medication risk/benefits and therapeutic strategies Informed Consent: further education needed
[2025-07-11 21:18] LABS: Glucose, Whole Blood 142 mg/dL (60-115)
[2025-07-11 21:39] LABS: CDiff Gene PCR POSITIVE (Negative)
[2025-07-11 22:59] LABS: CDiff Toxin Positive (Negative)
[2025-07-11 23:00] LABS: CDIFF Internal ctrl Dots and bkg OK (V)
[2025-07-12] VITALS (8 sets, daily range): BP systolic 119–147; BP diastolic 56–72; PULSE 60–109; RESP 16–20; TEMP 36.1–37; O2SAT 92–100; BMI 38.0
--- NOTE | 2025-07-12 08:19 | HO.PM.IMPN ---
Subjective Subjective Date of Service: 07/12/25 Interval History: cdiff diarrhae Review of Systems Seems more calm, sleeping Review of Systems: Yes all other systems are reviewed and are negative Physical Exam Exam: Exam: Appearance : Less agitated, more calm cvs: rrr, [id number] , no murmur res: clear to auscultation ,no rhonchii or wheezing abd: no rebound or guarding ,nt, bs present. ext pulses present , no cyanosis. neuro: Moves all extremities bilateral lower extremity edema right greater than left, Multiple self-inflicted scabs on bilateral arms. Vital Signs: Vital Signs: Last Vital Signs Temp 98.3 F 07/12/25 07:47 Pulse 69 07/12/25 07:47 Resp 20 07/12/25 07:47 BP 147/67 H 07/12/25 07:47 Pulse Ox 100 07/12/25 07:47 O2 Del Method CPAP 07/12/25 07:47 O2 Flow Rate 2 07/12/25 07:47 FiO2 21 07/05/25 07:36 BMI result Body Mass Index 38.0 Objective Data Active Medications Dextrose (Dextrose 50 % 25 Gm/50 Ml Syringe) 25 gm IVPUSH Q15M PRN; Protocol PRN Reason: per Hypoglycemia Standing Ord. Divalproex Sodium (Divalproex Sodium 500 Mg Tablet.) 1,000 mg PO BEDTIME [facility] Last Admin: 07/11/25 23:49 Dose: 1,000 mg Documented By: ALEXANDRO Comments: verified w/ pharmacy renetta bolanos to give as valproic dose given this evening prior to it being d/c'd./ Enoxaparin Sodium (Enoxaparin Sodium 40 Mg/0.4 Ml Syringe) 40 mg SUBCUT Q24H [facility] Last Admin: 07/12/25 02:11 Dose: Not Given Documented By: ALEXANDRO Non-Admin Reason: pt. refused-prev. documented. Furosemide (Furosemide 40 Mg Tablet) 40 mg PO DAILY [facility]; Protocol On Hold: 07/11/25 13:13 Last Admin: 07/11/25 07:59 Dose: 40 mg Documented By: ARNIE Glucose (Glucose Gel 15 Gm Gel..Gram.) 15 gm PO Q15M PRN; Protocol PRN Reason: per Hypoglycemia Standing Ord. Hydroxyzine HCl (Hydroxyzine Hcl 10 Mg Tablet) 10 mg PO Q8H PRN PRN Reason: Itching Last Admin: 07/11/25 20:14 Dose: 10 mg Documented By: ALEXANDRO Insulin Human Lispro (Insulin Lispro 100 Unit/Ml 3 Ml Vial) 0 unit SUBCUT QIDACHS [facility]; Protocol Last Admin: 07/11/25 23:17 Dose: Not Given Documented By: ALEXANDRO Non-Admin Reason: poc 142 Lorazepam (Lorazepam 1 Mg Tablet) 1 mg PO Q6H PRN PRN Reason: severe anxiety Last Admin: 07/11/25 23:51 Dose: 1 mg Documented By: ALEXANDRO Multivitamins/Vitamin C (Multivitamin Tablet) 1 tab PO DAILY [facility] Last Admin: 07/11/25 08:00 Dose: 1 tab Documented By: ARNIE Nystatin (Nystatin Powder 15 Gm Bottle) 1 appl TOPICAL BID [facility]; Protocol Last Admin: 07/11/25 23:23 Dose: 1 appl Documented By: ALEXANDRO Olanzapine (Olanzapine 10 Mg Tablet) 10 mg PO BID [facility] Last Admin: 07/11/25 20:15 Dose: 10 mg Documented By: ALEXANDRO Olanzapine (Olanzapine 5 Mg Tablet) 5 mg PO BID PRN PRN Reason: agitation Sodium Chloride (0.9 % Sodium Chloride Flush 3 Ml Syringe) 3 ml IVFLUSH QSHIFT [facility] Last Admin: 07/11/25 23:50 Dose: 3 ml Documented By: ALEXANDRO Spironolactone (Spironolactone 25 Mg Tablet) 50 mg PO BID [facility]; Protocol On Hold: 07/11/25 13:12 Last Admin: 07/11/25 08:00 Dose: 50 mg Documented By: ARNIE Valproic Acid (Valproic Acid 250 Mg Capsule) 500 mg PO DAILY [facility] Vancomycin HCl (Vancomycin Hcl 125 Mg Capsule) 125 mg PO Q6H [facility] Stop: 07/21/25 00:00 Last Admin: 07/12/25 06:06 Dose: Not Given Documented By: ALEXANDRO Non-Admin Reason: somnolent Labs 07/12/25 12:50 07/12/25 12:50 Labs: Laboratory Results - last 24 hr 07/11/25 07/11/25 07/11/25 11:37 13:05 13:11 Hold Purple Top SEE NOTE Anion Gap 14 Estim Creat Clear Calc 159.3 Estimated GFR > 60 POC Glucose 120 H Random Glucose 133 H Calcium 9.0 Magnesium 2.2 Ammonia 48 C. difficile Tox B Gene C. difficile Toxin A&B C. difficile Interpret 07/11/25 07/11/25 07/11/25 16:39 20:30 21:14 Hold Purple Top Anion Gap Estim Creat Clear Calc Estimated GFR POC Glucose 137 H 142 H Random Glucose Calcium Magnesium Ammonia C. difficile Tox B Gene POSITIVE A* C. difficile Toxin A&B Positive A* C. difficile Interpret SEE NOTE Assessment and Plan (1) Mood disorder: Status: Acute Plan 55F PMH obesity, urinary incontinence, diabetes type 2, hyperlipidemia, cognitive delay presented 07/01/25 with altered mental status/agitation, required multiple doses of antipsychotics and benzos for patient safety, course was then complicated by acute metabolic encephalopathy due to acute hypercapneic respiratory failure and transferred to ICU on 07/03/25 for bipap. in ICU resp status and lethargy improved but became increasingly combative requiring precedex, behaviours improved and was downgraded to medical floor 07/06/25 Acute delirium due to urinary tract infection due to urinary retention Completed course ceftriaxone, cultures negative s/p suprapubic 07/03/25 Continued to be delirious Discussed with the ICU, psych: Zyprexa dosing adjusted to 10 b.i.d., valproic acid in addition to IV diazepam, will use soft restrain as needed psych follwoing c diff Diarrhae difficult to evaluate due to impulsivity had loose stool x yesterday added po vanco Acute metabolic encephalopathy due to acute hypercapnic respiratory failure Resolved Diabetes Insulin sliding scale Obesity Weight loss recommended DVT prophylaxis with Lovenox Full code reason for continued hospitalization: C diff diarrhea: Needs p.o. vanco, continuous delirious: Need psych medication to control delirium, soft restraints,sitter , still need p.r.n. IV medication to control agitation. Quality Stroke Does the patient have a stroke diagnosis?: No VTE Prior VTE?: No VTE Risk Level:: Medical - moderate - high VTE Device Contraindication: N/A - Device Ordered VTE Drug Contraindication: N/A - Med Ordered
[2025-07-12 08:21] LABS: Glucose, Whole Blood 84 mg/dL (60-115)
[2025-07-12 11:49] LABS: Glucose, Whole Blood 103 mg/dL (60-115)
[2025-07-12] MEDS: 0.9 % Sodium Chloride Flush 3 ML SYRINGE IVFLUSH ×2 (12:08→23:01)
[2025-07-12 12:51] LABS: E. coli EAEC Not Detected (Not Detect.); E. coli EPEC Not Detected (Not Detect.); E. coli ETEC Not Detected (Not Detect.); E. coli STEC Not Detected (Not Detect.); Shigella sp./EIEC Not Detected (Not Detect.)
[2025-07-12 12:56] LABS: Hematocrit 35.0 % (42.0-52.0); Hemoglobin 11.4 g/dl (14.0-18.0); Mean Corpuscular HGB Conc 32.6 g/dl (31.0-36.0); Mean Corpuscular Hemoglobin 29.4 pg (27.0-33.0); Mean Corpuscular Volume 90.2 fL (80.0-98.0); NRBC Abs Auto 0.000 X10*3/uL (0.0-0.012); NRBC Pct Auto 0.0 /100WBC (0.0-0.2); Platelet Count 268 X10*3/uL (160-400); Red Blood Count 3.88 X10*6/uL (4.60-5.80); White Blood Count 9.5 X10*3/uL (4.8-10.8)
[2025-07-12 13:15] LABS: Anion Gap 13 (12-20); Blood Urea Nitrogen 13 mg/dL (9-16); Calcium 8.8 mg/dL (8.4-10.2); Carbon Dioxide 28 mmol/L (22-29); Chloride 104 mmol/L (96-108); Creatinine Clr Calc Pharmacy 164.5; Estimated Glomerular Filt Rate > 60; Potassium 4.4 mmol/L (3.3-5.1); Sodium 141 mmol/L (135-145)
[2025-07-12 15:42] LABS: Glucose, Whole Blood 168 mg/dL (60-115)
--- NOTE | 2025-07-12 17:38 | PC.NURSE ---
Patient with increasing agitation and impulsiveness. Removing O2 mask, finger probe, telemetry leads and attempting to remove name band. MD notified. One time IM dose of vailum ordered and to be used if he continues to escalate.
[2025-07-12 21:42] LABS: Glucose, Whole Blood 121 mg/dL (60-115)
[2025-07-13] VITALS (8 sets, daily range): BP systolic 123–146; BP diastolic 61–67; PULSE 71–104; RESP 16–18; TEMP 36.3–37; O2SAT 92–98; BMI 37.8
[2025-07-13 07:18] LABS: Glucose, Whole Blood 109 mg/dL (60-115)
[2025-07-13 10:02] LABS: Anion Gap 12 (12-20); Blood Urea Nitrogen 12 mg/dL (9-16); Calcium 8.5 mg/dL (8.4-10.2); Carbon Dioxide 27 mmol/L (22-29); Chloride 103 mmol/L (96-108); Creatinine Clr Calc Pharmacy 172.4; Estimated Glomerular Filt Rate > 60; Potassium 4.0 mmol/L (3.3-5.1); Sodium 138 mmol/L (135-145)
--- NOTE | 2025-07-13 10:40 | MHC.CM.PN ---
Per ROUNDS discussion, Patient is not yet medically cleared for dc (CDiff, still Delirious,Sitter); PT is recommending SR and CM will continue to follow.
[2025-07-13] MEDS: 0.9 % Sodium Chloride Flush 3 ML SYRINGE IVFLUSH ×2 (11:03→20:58)
[2025-07-13 12:13] LABS: Glucose, Whole Blood 138 mg/dL (60-115)
--- NOTE | 2025-07-13 13:51 | P.PNIM_ITS ---
Subjective Subjective Date of Service: 07/14/25 Interval History: cdiff diarrhae Review of Systems big amount of diarrhae last night no fevers Review of Systems: Yes all other systems are reviewed and are negative Physical Exam 2 Exam: Exam: Appearance : Less agitated, more calm cvs: rrr, [id number] , no murmur res: clear to auscultation ,no rhonchii or wheezing abd: no rebound or guarding ,nt, bs present. ext pulses present , no cyanosis. neuro: Moves all extremities bilateral lower extremity edema right greater than left, Multiple self-inflicted scabs on bilateral arms. Vital Signs: Vital Signs: Last Vital Signs Temp 97.8 F 07/13/25 11:37 Pulse 104 H 07/13/25 11:37 Resp 18 07/13/25 11:37 BP 146/67 H 07/13/25 11:37 Pulse Ox 92 07/13/25 11:37 O2 Del Method Room Air 07/13/25 11:37 O2 Flow Rate 2 07/13/25 07:17 FiO2 21 07/05/25 07:36 BMI result Body Mass Index 37.8 Objective Data Active Medications Dextrose (Dextrose 50 % 25 Gm/50 Ml Syringe) 25 gm IVPUSH Q15M PRN; Protocol PRN Reason: per Hypoglycemia Standing Ord. Divalproex Sodium (Divalproex Sodium 500 Mg Tablet.) 1,000 mg PO BEDTIME [facility] Last Admin: 07/12/25 20:49 Dose: 1,000 mg Documented By: VERNA Enoxaparin Sodium (Enoxaparin Sodium 40 Mg/0.4 Ml Syringe) 40 mg SUBCUT Q24H [facility] Last Admin: 07/12/25 22:57 Dose: 40 mg Documented By: VERNA Furosemide (Furosemide 40 Mg Tablet) 40 mg PO DAILY [facility]; Protocol On Hold: 07/11/25 13:13 Last Admin: 07/11/25 07:59 Dose: 40 mg Documented By: ARNIE Glucose (Glucose Gel 15 Gm Gel..Gram.) 15 gm PO Q15M PRN; Protocol PRN Reason: per Hypoglycemia Standing Ord. Hydroxyzine HCl (Hydroxyzine Hcl 10 Mg Tablet) 10 mg PO Q8H PRN PRN Reason: Itching Last Admin: 07/12/25 20:49 Dose: 10 mg Documented By: VERNA Insulin Human Lispro (Insulin Lispro 100 Unit/Ml 3 Ml Vial) 0 unit SUBCUT QIDACHS [facility]; Protocol Last Admin: 07/13/25 12:16 Dose: Not Given Documented By: GREG Non-Admin Reason: No Insulin Coverage Lorazepam (Lorazepam 1 Mg Tablet) 1 mg PO Q6H PRN PRN Reason: severe anxiety Last Admin: 07/12/25 20:52 Dose: 1 mg Documented By: VERNA Multivitamins/Vitamin C (Multivitamin Tablet) 1 tab PO DAILY [facility] Last Admin: 07/13/25 11:03 Dose: 1 tab Documented By: GREG Nystatin (Nystatin Powder 15 Gm Bottle) 1 appl TOPICAL BID [facility]; Protocol Last Admin: 07/13/25 11:04 Dose: 1 appl Documented By: GREG Olanzapine (Olanzapine 10 Mg Tablet) 10 mg PO BID [facility] Last Admin: 07/13/25 11:03 Dose: 10 mg Documented By: GREG Olanzapine (Olanzapine 5 Mg Tablet) 5 mg PO BID PRN PRN Reason: agitation Last Admin: 07/12/25 14:36 Dose: 5 mg Documented By: SIMI Sodium Chloride (0.9 % Sodium Chloride Flush 3 Ml Syringe) 3 ml IVFLUSH [facility] Last Admin: 07/13/25 11:03 Dose: 3 ml Documented By: GREG Spironolactone (Spironolactone 25 Mg Tablet) 50 mg PO BID [facility]; Protocol On Hold: 07/11/25 13:12 Last Admin: 07/11/25 08:00 Dose: 50 mg Documented By: ARNIE Valproic Acid (Valproic Acid 250 Mg Capsule) 500 mg PO DAILY [facility] Last Admin: 07/13/25 11:03 Dose: 500 mg Documented By: GREG Vancomycin HCl (Vancomycin Hcl 125 Mg Capsule) 125 mg PO Q6H [facility] Stop: 07/21/25 00:00 Last Admin: 07/13/25 05:06 Dose: 125 mg Documented By: VERNA Labs 07/12/25 12:50 07/13/25 09:21 Labs: Laboratory Results - last 24 hr 07/12/25 07/12/25 07/13/25 15:31 21:33 07:07 Hold Purple Top Anion Gap Estim Creat Clear Calc Estimated GFR POC Glucose 168 H 121 H 109 Random Glucose Calcium 07/13/25 07/13/25 07/13/25 09:21 09:44 11:49 Hold Purple Top SEE NOTE Anion Gap 12 Estim Creat Clear Calc 172.4 Estimated GFR > 60 POC Glucose 138 H Random Glucose 113 Calcium 8.5 Assessment and Plan (1) Mood disorder: Status: Acute Plan 55F PMH obesity, urinary incontinence, diabetes type 2, hyperlipidemia, cognitive delay presented 07/01/25 with altered mental status/agitation, required multiple doses of antipsychotics and benzos for patient safety, course was then complicated by acute metabolic encephalopathy due to acute hypercapneic respiratory failure and transferred to ICU on 07/03/25 for bipap. in ICU resp status and lethargy improved but became increasingly combative requiring precedex, behaviours improved and was downgraded to medical floor 07/06/25 Acute delirium due to urinary tract infection due to urinary retention Completed course ceftriaxone, cultures negative s/p suprapubic 07/03/25 Continued to be delirious Discussed with the ICU, psych: Zyprexa dosing adjusted to 10 b.i.d., valproic acid in addition to IV diazepam, will use soft restrain as needed psych follwoing c diff Diarrhae difficult to evaluate due to impulsivity has diarrhae added po vanco Acute metabolic encephalopathy due to acute hypercapnic respiratory failure Resolved Diabetes Insulin sliding scale Obesity Weight loss recommended DVT prophylaxis with Lovenox Full code reason for continued hospitalization: C diff diarrhea: Needs p.o. vanco, continuous delirious: Need psych medication to control delirium, soft restraints,sitter , still need p.r.n. IV medication to control agitation. Quality Stroke Does the patient have a stroke diagnosis?: No VTE Prior VTE?: No VTE Risk Level:: Medical - moderate - high VTE Device Contraindication: N/A - Device Ordered VTE Drug Contraindication: N/A - Med Ordered
[2025-07-13 15:46] LABS: Glucose, Whole Blood 125 mg/dL (60-115)
[2025-07-13 21:14] LABS: Glucose, Whole Blood 136 mg/dL (60-115)
[2025-07-14 03:46] VITALS: BP 165/74; PULSE 73; RESP 16; TEMP 36.6; O2SAT 95
[2025-07-14 04:25] VITALS: BP 146/63
[2025-07-14 06:00] VITALS: BMI 38.5
[2025-07-14 07:21] VITALS: BP 121/65; PULSE 92; RESP 20; TEMP 37; O2SAT 95
[2025-07-14 07:29] LABS: Glucose, Whole Blood 111 mg/dL (60-115)
[2025-07-14] MEDS: 0.9 % Sodium Chloride Flush 3 ML SYRINGE IVFLUSH ×2 (08:14→21:16)
[2025-07-14 11:06] LABS: Glucose, Whole Blood 143 mg/dL (60-115)
[2025-07-14 11:21] VITALS: BP 116/63; PULSE 91; RESP 18; TEMP 36.7; O2SAT 97
[2025-07-14 15:19] VITALS: BP 125/65; PULSE 87; RESP 18; TEMP 37; O2SAT 95
--- NOTE | 2025-07-14 15:33 | HO.PM.IMPN ---
Subjective Subjective Date of Service: 07/14/25 Interval History: cdiff diarrhae Review of Systems Diarrhea improving, seems more calm today no new events Review of Systems: Yes all other systems are reviewed and are negative Physical Exam Exam: Exam: Appearance : Less agitated, more calm cvs: rrr, [id number] , no murmur res: clear to auscultation ,no rhonchii or wheezing abd: no rebound or guarding ,nt, bs present. ext pulses present , no cyanosis. neuro: Moves all extremities bilateral lower extremity edema right greater than left, Multiple self-inflicted scabs on bilateral arms. Vital Signs: Vital Signs: Last Vital Signs Temp 98.6 F 07/14/25 15:19 Pulse 87 07/14/25 15:19 Resp 18 07/14/25 15:19 BP 125/65 07/14/25 15:19 Pulse Ox 95 07/14/25 15:19 O2 Del Method Room Air 07/14/25 15:19 O2 Flow Rate 2 07/13/25 07:17 FiO2 21 07/05/25 07:36 BMI result Body Mass Index 38.5 Objective Data Active Medications Dextrose (Dextrose 50 % 25 Gm/50 Ml Syringe) 25 gm IVPUSH Q15M PRN; Protocol PRN Reason: per Hypoglycemia Standing Ord. Divalproex Sodium (Divalproex Sodium 500 Mg Tablet.) 1,000 mg PO BEDTIME [facility] Last Admin: 07/13/25 20:57 Dose: 1,000 mg Documented By: JEET Enoxaparin Sodium (Enoxaparin Sodium 40 Mg/0.4 Ml Syringe) 40 mg SUBCUT Q24H [facility] Last Admin: 07/13/25 23:45 Dose: Not Given Documented By: JEET Non-Admin Reason: Patient Refused Furosemide (Furosemide 40 Mg Tablet) 40 mg PO DAILY [facility]; Protocol On Hold: 07/11/25 13:13 Last Admin: 07/11/25 07:59 Dose: 40 mg Documented By: ARNIE Glucose (Glucose Gel 15 Gm Gel..Gram.) 15 gm PO Q15M PRN; Protocol PRN Reason: per Hypoglycemia Standing Ord. Hydroxyzine HCl (Hydroxyzine Hcl 10 Mg Tablet) 10 mg PO Q8H PRN PRN Reason: Itching Last Admin: 07/12/25 20:49 Dose: 10 mg Documented By: VERNA Insulin Human Lispro (Insulin Lispro 100 Unit/Ml 3 Ml Vial) 0 unit SUBCUT QIDACHS [facility]; Protocol Last Admin: 07/14/25 11:08 Dose: Not Given Documented By: JARON Non-Admin Reason: No Insulin Coverage Lorazepam (Lorazepam 1 Mg Tablet) 1 mg PO Q6H PRN PRN Reason: severe anxiety Last Admin: 07/14/25 08:08 Dose: 1 mg Documented By: JARON Multivitamins/Vitamin C (Multivitamin Tablet) 1 tab PO DAILY [facility] Last Admin: 07/14/25 08:08 Dose: 1 tab Documented By: JARON Nystatin (Nystatin Powder 15 Gm Bottle) 1 appl TOPICAL BID [facility]; Protocol Last Admin: 07/14/25 08:11 Dose: 1 appl Documented By: JARON Olanzapine (Olanzapine 10 Mg Tablet) 10 mg PO BID [facility] Last Admin: 07/14/25 08:08 Dose: 10 mg Documented By: JARON Olanzapine (Olanzapine 5 Mg Tablet) 5 mg PO BID PRN PRN Reason: agitation Last Admin: 07/12/25 14:36 Dose: 5 mg Documented By: SIMI Sodium Chloride (0.9 % Sodium Chloride Flush 3 Ml Syringe) [facility] Last Admin: 07/14/25 08:14 Dose: 3 ml Documented By: JARON Spironolactone (Spironolactone 25 Mg Tablet) 50 mg PO BID [facility]; Protocol On Hold: 07/11/25 13:12 Last Admin: 07/11/25 08:00 Dose: 50 mg Documented By: ARNIE Valproic Acid (Valproic Acid 250 Mg Capsule) 500 mg PO DAILY [facility] Last Admin: 07/14/25 08:08 Dose: 500 mg Documented By: JARON Vancomycin HCl (Vancomycin Hcl 125 Mg Capsule) 125 mg PO Q6H [facility] Stop: 07/21/25 00:00 Last Admin: 07/14/25 11:56 Dose: 125 mg Documented By: JARON Labs 07/12/25 12:50 07/13/25 09:21 Labs: Laboratory Results - last 24 hr 07/13/25 07/13/2507/14/25 15:27 21:08 07:20 POC Glucose 125 H 136 H 111 07/14/25 11:01 POC Glucose 143 H Assessment and Plan (1) Mood disorder: Status: Acute Plan 55F PMH obesity, urinary incontinence, diabetes type 2, hyperlipidemia, cognitive delay presented 07/01/25 with altered mental status/agitation, required multiple doses of antipsychotics and benzos for patient safety, course was then complicated by acute metabolic encephalopathy due to acute hypercapneic respiratory failure and transferred to ICU on 07/03/25 for bipap. in ICU resp status and lethargy improved but became increasingly combative requiring precedex, behaviours improved and was downgraded to medical floor 07/06/25 Acute delirium due to urinary tract infection due to urinary retention Completed course ceftriaxone, cultures negative s/p suprapubic 07/03/25 delirious seems improving ,more calmer today Discussed with the ICU& psych: Zyprexa dosing adjusted to 10 b.i.d., valproic acid 500 mg tid will use soft restrain as needed psych following c diff Diarrhae difficult to evaluate due to impulsivity diarrhae improving added po vanco Acute metabolic encephalopathy due to acute hypercapnic respiratory failure Resolved Diabetes Insulin sliding scale Obesity Weight loss recommended DVT prophylaxis with Lovenox Full code reason for continued hospitalization: C diff diarrhea: Needs p.o. vanco, continuous delirious: Need psych medication to control delirium, soft restraints,sitter , still need p.r.n. IV medication to control agitation. Quality Stroke Does the patient have a stroke diagnosis?: No VTE Prior VTE?: No VTE Risk Level:: Medical - moderate - high VTE Device Contraindication: N/A - Device Ordered VTE Drug Contraindication: N/A - Med Ordered
[2025-07-14 16:14] LABS: Glucose, Whole Blood 138 mg/dL (60-115)
[2025-07-14 19:28] VITALS: BP 126/56; PULSE 97; RESP 18; TEMP 36.4; O2SAT 95
[2025-07-14 20:08] LABS: Glucose, Whole Blood 243 mg/dL (60-115)
[2025-07-15] VITALS (9 sets, daily range): BP systolic 115–147; BP diastolic 56–72; PULSE 68–99; RESP 14–20; TEMP 36.3–37.1; O2SAT 92–100; BMI 38.5
[2025-07-15 07:06] LABS: Glucose, Whole Blood 97 mg/dL (60-115)
[2025-07-15] MEDS: 0.9 % Sodium Chloride Flush 3 ML SYRINGE IVFLUSH ×2 (08:49→20:18)
--- NOTE | 2025-07-15 10:42 | P.PNIM_ITS ---
Subjective Subjective Date of Service: 07/15/25 Interval History: behaviors improved over last 24hrs Physical Exam 2 Exam: Exam: Appearance : Less agitated, more calm cvs: rrr, [id number] , no murmur res: clear to auscultation ,no rhonchii or wheezing abd: no rebound or guarding ,nt, bs present. ext pulses present , no cyanosis. neuro: Moves all extremities bilateral lower extremity edema right greater than left, Multiple self-inflicted scabs on bilateral arms. Vital Signs: Vital Signs: Last Vital Signs Temp 97.4 F 07/15/25 07:32 Pulse 93 07/15/25 07:32 Resp 20 07/15/25 07:32 BP 132/61 07/15/25 07:32 Pulse Ox 92 07/15/25 07:32 O2 Del Method Room Air 07/15/25 07:32 O2 Flow Rate 2 07/13/25 07:17 FiO2 21 07/05/25 07:36 BMI result Body Mass Index 38.5 Objective Data Active Medications Dextrose (Dextrose 50 % 25 Gm/50 Ml Syringe) 25 gm IVPUSH Q15M PRN; Protocol PRN Reason: per Hypoglycemia Standing Ord. Divalproex Sodium (Divalproex Sodium 500 Mg Tablet.) 1,000 mg PO BEDTIME [facility] Last Admin: 07/14/25 21:16 Dose: 1,000 mg Documented By: SAM Enoxaparin Sodium (Enoxaparin Sodium 40 Mg/0.4 Ml Syringe) 40 mg SUBCUT Q24H [facility] Last Admin: 07/14/25 23:20 Dose: 40 mg Documented By: JEET Furosemide (Furosemide 40 Mg Tablet) 40 mg PO DAILY [facility]; Protocol On Hold: 07/11/25 13:13 Last Admin: 07/11/25 07:59 Dose: 40 mg Documented By: ARNIE Glucose (Glucose Gel 15 Gm Gel..Gram.) 15 gm PO Q15M PRN; Protocol PRN Reason: per Hypoglycemia Standing Ord. Hydroxyzine HCl (Hydroxyzine Hcl 10 Mg Tablet) 10 mg PO Q8H PRN PRN Reason: Itching Last Admin: 07/12/25 20:49 Dose: 10 mg Documented By: VERNA Insulin Human Lispro (Insulin Lispro 100 Unit/Ml 3 Ml Vial) 0 unit SUBCUT QIDACHS [facility]; Protocol Last Admin: 07/15/25 07:33 Dose: Not Given Documented By: MILES Non-Admin Reason: No Insulin Coverage Lorazepam (Lorazepam 1 Mg Tablet) 1 mg PO Q6H PRN PRN Reason: severe anxiety Last Admin: 07/14/25 23:20 Dose: 1 mg Documented By: JEET Multivitamins/Vitamin C (Multivitamin Tablet) 1 tab PO DAILY [facility] Last Admin: 07/15/25 08:48 Dose: 1 tab Documented By: MILES Nystatin (Nystatin Powder 15 Gm Bottle) 1 appl TOPICAL BID [facility]; Protocol Last Admin: 07/15/25 08:56 Dose: 1 appl Documented By: MILES Olanzapine (Olanzapine 10 Mg Tablet) 10 mg PO BID [facility] Last Admin: 07/15/25 08:48 Dose: 10 mg Documented By: MILES Olanzapine (Olanzapine 5 Mg Tablet) 5 mg PO BID PRN PRN Reason: agitation Last Admin: 07/12/25 14:36 Dose: 5 mg Documented By: SIMI Sodium Chloride (0.9 % Sodium Chloride Flush 3 Ml Syringe) 3 ml IVFLUSH QSHIFT [facility] Last Admin: 07/15/25 08:49 Dose: 3 ml Documented By: MILES Spironolactone (Spironolactone 25 Mg Tablet) 50 mg PO BID [facility]; Protocol On Hold: 07/11/25 13:12 Last Admin: 07/11/25 08:00 Dose: 50 mg Documented By: ARNIE Valproic Acid (Valproic Acid 250 Mg Capsule) 500 mg PO DAILY [facility] Last Admin: 07/15/25 08:48 Dose: 500 mg Documented By: MILES Vancomycin HCl (Vancomycin Hcl 125 Mg Capsule) 125 mg PO Q6H [facility] Stop: 07/21/25 00:00 Last Admin: 07/15/25 06:28 Dose: Not Given Documented By: JEET Non-Admin Reason: Patient Refused Labs 07/12/25 12:50 07/13/25 09:21 Labs: Laboratory Results - last 24 hr 07/14/25 07/14/25 07/14/25 11:01 16:11 20:03 POC Glucose 143 H 138 H 243 H 07/15/25 06:59 POC Glucose 97 Assessment and Plan (1) Mood disorder: Status: Acute Plan 55F PMH obesity, urinary incontinence, diabetes type 2, hyperlipidemia, cognitive delay presented 07/01/25 with altered mental status/agitation, required multiple doses of antipsychotics and benzos for patient safety, course was then complicated by acute metabolic encephalopathy due to acute hypercapneic respiratory failure and transferred to ICU on 07/03/25 for bipap. in ICU resp status and lethargy improved but became increasingly combative requiring precedex, behaviours improved and was downgraded to medical floor 07/06/25 Acute delirium due to urinary tract infection due to urinary retention Completed course ceftriaxone, cultures negative s/p suprapubic 07/03/25 delirium seems to be improving Zyprexa dosing adjusted to 10 b.i.d., valproic acid psych following c diff Diarrhea diarrhae improving po vanco started 07/12/25 Acute metabolic encephalopathy due to acute hypercapnic respiratory failure Resolved cpap at night Diabetes Insulin sliding scale Obesity Weight loss recommended DVT prophylaxis with Lovenox Full code reason for continued hospitalization: monitor off sitter Quality Stroke Does the patient have a stroke diagnosis?: No VTE Prior VTE?: No VTE Risk Level:: Medical - moderate - high VTE Device Contraindication: N/A - Device Ordered VTE Drug Contraindication: N/A - Med Ordered
--- NOTE | 2025-07-15 10:53 | MHC.CM.PN ---
Per ROUNDS discussion, Patient is not yet medically cleared for dc(Sitter/Behavioral). PT is recommending STR & Patient has facilities that are following.
[2025-07-15 11:22] LABS: Glucose, Whole Blood 102 mg/dL (60-115)
--- NOTE | 2025-07-15 12:54 | HO.WOUND ---
Wound Consult: Follow up 55yr old admitted to [facility] on 07/01/25 - See progress notes and H&P for detailed history. Wound follow up for arms. Patient agreeable to assessment and photo documentation. Patient with sitter at bedside, patient is unrestrained and is actively picking at arms. Some areas have healed, while others area open with moist red bases. Recommend covering with hydrocolloid to promote healing and deter picking. left arm 07/03/25 Left arm 07/10/25 Left arm 07/15/25 right arm07/03/25 Right arm 07/10/25 Right arm 07/15/25 Etiology: Bilateral arms with multiple areas due to picking, patient removed dressing, areas now with with resurfaced scar tissue and dry red beds, would leave MATE FIRST. multiple intact dry stable scabs to bilateral legs, likely due to picking - stable and would leave KARSTEN. Wound Bed: dry scabs to legs, moist red to arms Drainage / Odor: scant serous to arms [place] wound: ? No Induration, Fluctuance or Warmth noted - mild localized redness Pain: none Goals of Treatment: ?leave areas open to air groin/abdominal folds with intertriginous dermatitis- antifungal in place- intact pink skin Recommendations: 1. Turn and Reposition every 2 hours and as needed for patient comfort. Use pillows or wedges to support off loading positions. 2. Off Load all bony prominences with use of pillows and heel boots if needed. Apply Preventative foams where needed. 3. Monitor for incontinence and moisture control, use barrier creams when needed for prevention and treatment. 4. Provide adequate and supplemental nutrition. 5. Order or Continue low air loss mattress. 6. When applicable maintain blood glucose levels per Providers order. Perineum/groin: Off Load Pressure with Q2 hr turns and use of pillows - Cleanse with PH balance spray or wipes, pat dry. ?Apply thin layer of barrier cream to affected area. Apply twice daily and Reapply thin layer PRN after each episode of incontinence. Bilateral arms/legs: routine hygeine and leave open to air - if tolerated, may apply hydrocolloid for moist healing Re-consult wound care Nurse for wound deterioration or wound changes.
--- NOTE | 2025-07-15 12:58 | HO.WOUND ---
Wound Consult: Follow up 55yr old admitted to [facility] [place] [facility] on 07/01/25 - See progress notes and H&P for detailed history. Wound follow up for arms. Patient agreeable to assessment and photo documentation. Patient without sitter at bedside, patient is unrestrained and is resting comfortablly. Some areas have healed, while others area open with dry red bases. Patient has removed dressings, would leave open to air unless patient able to tolerate hydrocolloid dressing. left arm 07/03/25 Left arm 07/10/25 Left arm 07/15/25 right arm07/03/25 Right arm 07/10/25 Right arm 07/15/25 Etiology: Bilateral arms with multiple areas due to picking, patient removed dressing, areas now with with resurfaced scar tissue and dry red beds, would leave KARSTEN. multiple intact dry stable scabs to bilateral legs, likely due to picking - stable and would leave KARSTEN. Wound Bed: dry scabs to legs, moist red to arms Drainage / Odor: scant serous to arms [place] wound: ? No Induration, Fluctuance or Warmth noted - mild localized redness Pain: none Goals of Treatment: ?leave areas open to air groin/abdominal folds with intertriginous dermatitis- antifungal in place- intact pink skin Recommendations: 1. Turn and Reposition every 2 hours and as needed for patient comfort. Use pillows or wedges to support off loading positions. 2. Off Load all bony prominences with use of pillows and heel boots if needed. Apply Preventative foams where needed. 3. Monitor for incontinence and moisture control, use barrier creams when needed for prevention and treatment. 4. Provide adequate and supplemental nutrition. 5. Order or Continue low air loss mattress. 6. When applicable maintain blood glucose levels per Providers order. Perineum/groin: Off Load Pressure with Q2 hr turns and use of pillows - Cleanse with PH balance spray or wipes, pat dry. ?Apply thin layer of barrier cream to affected area. Apply twice daily and Reapply thin layer PRN after each episode of incontinence. Bilateral arms/legs: routine hygeine and leave open to air - if tolerated, may apply hydrocolloid for moist healing Re-consult wound care Nurse for wound deterioration or wound changes.
[2025-07-15 16:32] LABS: Glucose, Whole Blood 137 mg/dL (60-115)
[2025-07-15 20:14] LABS: Glucose, Whole Blood 152 mg/dL (60-115)
[2025-07-16 03:15] VITALS: BP 128/58; PULSE 79; RESP 18; TEMP 36.2; O2SAT 100
[2025-07-16 04:24] VITALS: PULSE 79; RESP 18; O2SAT 99
[2025-07-16 05:38] LABS: Venous Blood Gas Refer to POC result
[2025-07-16 05:48] LABS: VBG HCO3 31 mmol/L (22-26); VBG O2 % Saturation 96.0 %
[2025-07-16 06:00] VITALS: BMI 34.8
[2025-07-16 06:59] LABS: Hematocrit 37.5 % (42.0-52.0); Hemoglobin 11.8 g/dl (14.0-18.0); Mean Corpuscular HGB Conc 31.5 g/dl (31.0-36.0); Mean Corpuscular Hemoglobin 29.3 pg (27.0-33.0); Mean Corpuscular Volume 93.1 fL (80.0-98.0); NRBC Abs Auto 0.000 X10*3/uL (0.0-0.012); NRBC Pct Auto 0.0 /100WBC (0.0-0.2); Platelet Count 283 X10*3/uL (160-400); Red Blood Count 4.03 X10*6/uL (4.60-5.80); White Blood Count 8.6 X10*3/uL (4.8-10.8)
[2025-07-16 07:30] LABS: Glucose, Whole Blood 97 mg/dL (60-115)
[2025-07-16 07:39] VITALS: BP 132/62; PULSE 80; RESP 18; TEMP 37.1; O2SAT 99
[2025-07-16 07:39] LABS: Anion Gap 13 (12-20); Blood Urea Nitrogen 13 mg/dL (9-16); Calcium 8.6 mg/dL (8.4-10.2); Carbon Dioxide 28 mmol/L (22-29); Chloride 104 mmol/L (96-108); Creatinine Clr Calc Pharmacy 177.2; Estimated Glomerular Filt Rate > 60; Magnesium 2.3 mg/dL (1.6-2.6); Potassium 4.3 mmol/L (3.3-5.1); Sodium 141 mmol/L (135-145)
[2025-07-16] MEDS: 0.9 % Sodium Chloride Flush 3 ML SYRINGE IVFLUSH (09:32)
--- NOTE | 2025-07-16 10:16 | P.DS_ITS ---
DS: Providers Provider Date of Service: 07/16/25 Date of admission: 07/01/25 23:24 Date of discharge: 07/16/25 Primary care physician: Sree Padilla MD Consults: 07/02/25 00:25 Consult to Case Management Routine Comment: 07/02/25 15:54 Consult to Urology Stat Consulting Provider: [facility] [place] Urology Services Reason for consultation: urinary retention, unable to cath 07/02/25 19:38 Consult to Wound Care Routine Reason for consultation: Picking at skin- scabs all over, sergio area and lower abd red 07/08/25 12:27 Consult to Psychiatry Routine Consulting Provider: [facility] [place] Psych Covering Reason for consultation: delirum Has provider been notified: No 07/11/25 12:23 Consult to Psychiatry Stat Consulting Provider: [facility] [place] Psych Covering Reason for consultation: delirum DS: Diagnosis Discharge Diagnosis (1) Mood disorder: Status: Acute DS: Summary Hospital Course Hospital Course: from initial hpi: 55-year-old male with a past medical history significant for class 3 obesity, urinary incontinence, type 2 diabetes, hyperlipidemia, bilateral lower extremity edema and cognitive delay, who presented to the ED due to multiple recent falls with weakness and altered mental status. The patient's caregiver noticed erratic behavior including skin picking and running in the road for the past 2-3 days. She reports 3 recent falls, unsure if head strike. His caregiver is 77 years old and states that she is having a very hard time helping him at home due to his size and behavior. She reports he has been urinating all over the house and she is afraid that he is going to get seriously hurt. Recently he was admitted for urinary tract infection last month. The patient is unable to provide history at this time due to medication sedation for acute delirium. UA positive again. Head CT negative. Patient to be admitted for acute delirium in the setting of UTI. hospital course: Patient had prolonged hospital stay, for details please see medical chart. In summary, patient presented on 07/01/2025 with acute delirium due to urinary tract infection due to urinary retention. He required multiple doses of antipsychotics and benzos for patient safety this was then complicated by acute metabolic encephalopathy due to acute hypercapnic respiratory failure requiring ICU transfer on 07/03/2025 for BiPAP. In ICU patient's respiratory status and lethargy slowly improved but became increasingly combative and required Precedex. Eventually behaviors improved enough inpatient was weaned off Precedex and downgraded to medical floor on 07/06/2025. For urinary tract infection due to urinary retention was seen by Urology who placed suprapubic on 07/03/2025 and completed course of ceftriaxone, cultures were negative. He will follow up with Urology as outpatient, he does appear to have fungal infection around site of catheter and is being treated with nystatin. Patient's behaviors continued to fluctuate and with assistance from Psychiatry medications were adjusted. He is currently on Zyprexa and valproic acid and Ativan and has significantly improved. He is no longer agitated or requiring 1-1 sitter. Course was then complicated by C diff diarrhea/colitis was started on p.o. vancomycin improved. He will complete 10 more days on discharge. For diabetes was continued on insulin sliding scale. For obesity weight loss recommended. Patient was seen by physical therapy recommended short-term rehab to which patient will be discharged he is expected to require less than 30 days. Time Attestation Discharge Coordination Time (in mins): 32 Quality: Safe Use of Opioids Does Pt have an Active Cancer Diagnosis on the Problem List?: No Quality: Stroke Does the patient have a stroke diagnosis?: No Physical Exam Exam: Exam: General: AO X 1, no acute distress Resp: CTA bilateral, no accessory muscles used CVS: S1,S2,RRR GI: soft, non tender, non distended Neuro: motor grossly intact, alert Vital Signs: Vital Signs: Last Vital Signs Temp 98.8 F 07/16/25 07:39 Pulse 80 07/16/25 07:39 Resp 18 07/16/25 07:39 BP 132/62 07/16/25 07:39 Pulse Ox 99 07/16/25 07:39 O2 Del Method Room Air 07/16/25 07:39 O2 Flow Rate 2 07/13/25 07:17 FiO2 21 07/05/25 07:36 BMI result Body Mass Index 34.8 DS: Data Data Completed and Pending Labs on day of discharge: Laboratory Results - last 24 hr 07/15/25 07/15/25 07/15/25 11:08 16:28 20:10 WBC RBC Hgb Hct MCV MCH MCHC RDW Plt Count MPV Absolute Nucleated RBC Nucleated RBC % (auto) VBG pH VBG pCO2 VBG pO2 VBG HCO3 VBG O2 Saturation VBG Base Excess Sodium Potassium Chloride Carbon Dioxide Anion Gap BUN Creatinine Estim Creat Clear Calc Estimated GFR POC Glucose 102 137 H 152 H Random Glucose Calcium Magnesium 07/16/25 07/16/25 07/16/25 05:17 05:37 07:22 WBC 8.6 RBC 4.03 L Hgb 11.8 L Hct 37.5 L MCV 93.1 MCH 29.3 MCHC 31.5 RDW 14.2 Plt Count 283 MPV 9.7 Absolute Nucleated RBC 0.000 Nucleated RBC % (auto) 0.0 VBG pH 7.41 VBG pCO2 49 VBG pO2 81 VBG HCO3 31 H VBG O2 Saturation 96.0 VBG Base Excess 6.1 Sodium 141 Potassium 4.3 Chloride 104 Carbon Dioxide 28 Anion Gap 13 BUN 13 Creatinine 0.55 Estim Creat Clear Calc 177.2 Estimated GFR > 60 POC Glucose 97 Random Glucose 94 Calcium 8.6 Magnesium 2.3 Discharge Plan Discharge Anticipated Discharge Date/Time: 07/16/25 10:10 Patient Disposition: Xfer [facility] Discharge Diagnosis: uti, delerium, keisha Referrals: Alejandra [place] [Outside] - 1 Week Sree Padilla MD [Primary Care Provider, Internal Medicine] - 1 Week Maurisio Mccormack MD [Physician, Urology] - 1 Week Referral Note: s/p suprapubic Discharge Medications: New olanzapine 5 mg Tablet 5 mg PO BID PRN (Reason: agitation) Qty: 0 0RF olanzapine 10 mg Tablet 10 mg PO BID Qty: 0 0RF valproic acid 250 mg Capsule 500 mg PO DAILY Qty: 0 0RF divalproex 500 mg Tablet,Delayed Release (Dr/Ec) 1,000 mg PO BEDTIME Qty: 0 0RF vancomycin 125 mg Capsule 125 mg PO Q6H 10 Days Qty: 0 0RF nystatin [Nyamyc] 100,000 unit/gram Powder 1 appl topical BID Qty: 0 0RF Protocol: Apply to: Apply to: Affected area lorazepam 1 mg Tablet 1 mg PO Q6H PRN (Reason: severe anxiety) 3 Days Qty: 9 0RF Continued glimepiride 2 mg tablet 2 mg PO QAM 30 Days Qty: 30 3RF Rx Instructions: administer with breakfast multivitamin Tablet 1 tab PO DAILY cholecalciferol (vitamin D3) 25 mcg (1,000 unit) tablet 25 mcg PO DAILY hydroxyzine HCl 10 mg tablet 10 mg PO BEDTIME PRN (Reason: itching) 30 Days Qty: 30 2RF Discontinued metolazone 5 mg tablet 5 mg PO Q2D 90 Days Qty: 45 1RF furosemide 40 mg tablet 40 mg PO DAILY Qty: 90 0RF spironolactone 50 mg tablet 50 mg PO BID Qty: 180 1RF potassium chloride 20 mEq tablet,ER particles/crystals 60 meq PO TID Qty: 810 1RF Discharge Orders: Discharge Order (Routine); Ordered 07/16/25 Ordered By: Ronnie Salas Diet: Advance to usual diet Activity on Discharge: As tolerated Stand Alone Forms: Patient Portal Discharge page Print Language: Portuguese Care Plan Goals: manage suprapubic, mood disorder, keisha Health Concerns: keisha, urinary retnetnion, cdif Plan of Treatment: med changes as above cpap at night complete cdif course nystatin to rash follow up with urology rehab Assessment: see above
--- NOTE | 2025-07-16 10:20 | P.PNIM_ITS ---
Subjective Subjective Date of Service: 07/16/25 Interval History: no aggressive behaviors Physical Exam 2 Exam: Exam: General: AO X 1, no acute distress Resp: CTA bilateral, no accessory muscles used CVS: S1,S2,RRR GI: soft, non tender, non distended Neuro: motor grossly intact, alert Vital Signs: Vital Signs: Last Vital Signs Temp 98.8 F 07/16/25 07:39 Pulse 80 07/16/25 07:39 Resp 18 07/16/25 07:39 BP 132/62 07/16/25 07:39 Pulse Ox 99 07/16/25 07:39 O2 Del Method Room Air 07/16/25 07:39 O2 Flow Rate 2 07/13/25 07:17 FiO2 21 07/05/25 07:36 BMI result Body Mass Index 34.8 Objective Data Active Medications Dextrose (Dextrose 50 % 25 Gm/50 Ml Syringe) 25 gm IVPUSH Q15M PRN; Protocol PRN Reason: per Hypoglycemia Standing Ord. Divalproex Sodium (Divalproex Sodium 500 Mg Tablet.) 1,000 mg PO BEDTIME [facility] Last Admin: 07/15/25 20:18 Dose: 1,000 mg Documented By: ELIAS Enoxaparin Sodium (Enoxaparin Sodium 40 Mg/0.4 Ml Syringe) 40 mg SUBCUT Q24H [facility] Last Admin: 07/16/25 00:18 Dose: 40 mg Documented By: ELIAS Fluconazole (Fluconazole 100 Mg Tablet) 100 mg PO DAILY [facility] Last Admin: 07/16/25 09:20 Dose: 100 mg Documented By: GIOVANI Furosemide (Furosemide 40 Mg Tablet) 40 mg PO DAILY [facility]; Protocol On Hold: 07/11/25 13:13 Last Admin: 07/11/25 07:59 Dose: 40 mg Documented By: ARNIE Glucose (Glucose Gel 15 Gm Gel..Gram.) 15 gm PO Q15M PRN; Protocol PRN Reason: per Hypoglycemia Standing Ord. Hydroxyzine HCl (Hydroxyzine Hcl 10 Mg Tablet) 10 mg PO Q8H PRN PRN Reason: Itching Last Admin: 07/12/25 20:49 Dose: 10 mg Documented By: VERNA Insulin Human Lispro (Insulin Lispro 100 Unit/Ml 3 Ml Vial) 0 unit SUBCUT QIDACHS [facility]; Protocol Last Admin: 07/16/25 09:33 Dose: Not Given Documented By: RENEA Non-Admin Reason: No Insulin Coverage Lorazepam (Lorazepam 1 Mg Tablet) 1 mg PO Q6H PRN PRN Reason: severe anxiety Last Admin: 07/16/25 09:19 Dose: 1 mg Documented By: GIOVANI Multivitamins/Vitamin C (Multivitamin Tablet) 1 tab PO DAILY [facility] Last Admin: 07/16/25 09:19 Dose: 1 tab Documented By: GIOVANI Nystatin (Nystatin Powder 15 Gm Bottle) 1 appl TOPICAL BID [facility]; Protocol Last Admin: 07/16/25 09:32 Dose: 1 appl Documented By: RENEA Olanzapine (Olanzapine 10 Mg Tablet) 10 mg PO BID [facility] Last Admin: 07/16/25 09:20 Dose: 10 mg Documented By: GIOVANI Olanzapine (Olanzapine 5 Mg Tablet) 5 mg PO BID PRN PRN Reason: agitation Last Admin: 07/12/25 14:36 Dose: 5 mg Documented By: SIMI Sodium Chloride (0.9 % Sodium Chloride Flush 3 Ml Syringe) 3 ml IVFLUSH QSHIFT [facility] Last Admin: 07/16/25 09:32 Dose: 3 ml Documented By: RENEA Spironolactone (Spironolactone 25 Mg Tablet) 50 mg PO BID [facility]; Protocol On Hold: 07/11/25 13:12 Last Admin: 07/11/25 08:00 Dose: 50 mg Documented By: ARNIE Valproic Acid (Valproic Acid 250 Mg Capsule) 500 mg PO DAILY [facility] Last Admin: 07/16/25 09:20 Dose: 500 mg Documented By: GIOVANI Vancomycin HCl (Vancomycin Hcl 125 Mg Capsule) 125 mg PO Q6H [facility] Stop: 07/21/25 00:00 Last Admin: 07/16/25 06:12 Dose: 125 mg Documented By: FOGARTB Labs 07/16/25 05:17 07/16/25 05:17 Labs: Laboratory Results - last 24 hr 07/15/25 07/15/25 07/15/25 11:08 16:28 20:10 MCV MCH MCHC RDW Plt Count MPV Absolute Nucleated RBC Nucleated RBC % (auto) VBG pH VBG pCO2 VBG pO2 VBG HCO3 VBG O2 Saturation VBG Base Excess Anion Gap Estim Creat Clear Calc Estimated GFR POC Glucose 102 137 H 152 H Random Glucose Calcium Magnesium 07/16/25 07/16/25 07/16/25 05:17 05:37 07:22 MCV 93.1 MCH 29.3 MCHC 31.5 RDW 14.2 Plt Count 283 MPV 9.7 Absolute Nucleated RBC 0.000 Nucleated RBC % (auto) 0.0 VBG pH 7.41 VBG pCO2 49 VBG pO2 81 VBG HCO3 31 H VBG O2 Saturation 96.0 VBG Base Excess 6.1 Anion Gap 13 Estim Creat Clear Calc 177.2 Estimated GFR > 60 POC Glucose 97 Random Glucose 94 Calcium 8.6 Magnesium 2.3 Assessment and Plan (1) Mood disorder: Status: Acute Plan 55F PMH obesity, urinary incontinence, diabetes type 2, hyperlipidemia, cognitive delay presented 07/01/25 with altered mental status/agitation, required multiple doses of antipsychotics and benzos for patient safety, course was then complicated by acute metabolic encephalopathy due to acute hypercapneic respiratory failure and transferred to ICU on 07/03/25 for bipap. in ICU resp status and lethargy improved but became increasingly combative requiring precedex, behaviours improved and was downgraded to medical floor 07/06/25 Acute delirium due to urinary tract infection due to urinary retention Completed course ceftriaxone, cultures negative s/p suprapubic 07/03/25 delirium seems to be improving Zyprexa dosing adjusted to 10 b.i.d., valproic acid psych following c diff Diarrhea diarrhae improving po vanco started 07/12/25 Acute metabolic encephalopathy due to acute hypercapnic respiratory failure Resolved cpap at night Diabetes Insulin sliding scale Obesity Weight loss recommended DVT prophylaxis with Lovenox Full code reason for continued hospitalization: dispo planning Quality Stroke Does the patient have a stroke diagnosis?: No VTE Prior VTE?: No VTE Risk Level:: Medical - moderate - high VTE Device Contraindication: N/A - Device Ordered VTE Drug Contraindication: N/A - Med Ordered
[2025-07-16 11:27] LABS: Glucose, Whole Blood 137 mg/dL (60-115)
--- NOTE | 2025-07-16 11:32 | MHC.CM.PN ---
Addendum entered by Ann Marie Dixon 07/16/25 12:11: CM met with Patient's Aunt/HCP/Brandi and gave her the IMM instead of mailing it; she is pleased with the dc plan. Original Note: Patient has been medically cleared for dc to SNF/[facility] today. Patient will dc to a private room at [facility] today at 3PM, via [facility]. CM has left a detailed message for Aunt/HCP/Brandi, on her cell @ [phone], addressing the IMM and informing her of the dc plan.
[2025-07-16 12:00] VITALS: BP 116/59; PULSE 91; RESP 20; TEMP 36.6; O2SAT 94
== END 2025-07-16 15:20 | disposition skilled nursing facility (03) | DRG 697 ==
LOC: HO.ED 22:37 → HO.EDOVER 07-02 00:02 → HO.IMC 07-02 13:42 → HO.ICU 07-03 01:34 → HO.IMC 07-06 10:28
PROVIDERS: Emergency Medicine Emergency Medical Services; Hospitalist; Internal Medicine; Internal Medicine Critical Care Medicine; Internal Medicine Pulmonary Disease; Nurse Practitioner Family; Nurse Practitioner Psychiatric/Mental Health; Registered Nurse Emergency; Urology; Admitting Provider Physician Assistant; Emergency Provider Emergency Medicine; PCP Internal Medicine; Visit Provider Internal Medicine
PROC: 0TJB8ZZ Inspection of Bladder, Via Natural or Artificial Opening Endoscopic (ICD-10-PCS; CPT 52000; principal; 2025-07-03 08:00)
DX: N35.911 Unspecified urethral stricture, male, meatal (principal); G92.8 Other toxic encephalopathy; J96.01 Acute respiratory failure with hypoxia; J96.02 Acute respiratory failure with hypercapnia; N39.0 Urinary tract infection, site not specified; F05 Delirium due to known physiological condition; A04.72 Enterocolitis due to Clostridium difficile, not specified as recurrent; E11.9 Type 2 diabetes mellitus without complications; G47.33 Obstructive sleep apnea (adult) (pediatric); E66.813 Obesity, class 3; F41.9 Anxiety disorder, unspecified; I95.2 Hypotension due to drugs; T43.505A Adverse effect of unspecified antipsychotics and neuroleptics, initial encounter; E78.5 Hyperlipidemia, unspecified; Z71.3 Dietary counseling and surveillance; Z68.34 Body mass index [BMI] 34.0-34.9, adult; Z20.822 Contact with and (suspected) exposure to COVID-19; Z79.899 Other long term (current) drug therapy
CPT/HCPCS: 36415; 36600; 70450; 71045; 76857; 80048; 80053; 80307; 81001; 82040; 82140; 82803; 82947; 83605; 83735; 83880; 84100; 84443; 84484; 85025; 85027; 85610; 87040; 87086; 87324; 87493; 87507; 87635; 93005; 93971; 94002; 94640; 94660; 97162; 97530; 99285; J0330; J0690; J0696; J1171; J1200; J1580; J1630; J1650; J1938; J2003; J2250; J2359; J2371; J2598; J2704; J2795; J3010; J3230; J3360; J7120

== ENCOUNTER → 2025-07-01 17:13 | Outpatient (BNV) | payer MEDICARE, MEDICAID, SELFPAY | PROVIDERS: Admitting Provider Physician Assistant; Emergency Provider Emergency Medicine; PCP Internal Medicine; Visit Provider Internal Medicine Cardiovascular Disease | DX: I45.2 Bifascicular block (principal) | CPT/HCPCS: 93010 ==

== ENCOUNTER → 2025-07-01 17:43 | Outpatient (BNV) | payer MEDICARE, MEDICAID, SELFPAY | PROVIDERS: Admitting Provider Physician Assistant; Emergency Provider Emergency Medicine; PCP Internal Medicine; Visit Provider Student in an Organized Health Care Education/Training Program | DX: R41.82 Altered mental status, unspecified (principal); R26.81 Unsteadiness on feet | CPT/HCPCS: 70450 ==

== ENCOUNTER 2025-07-01 23:24 | Outpatient (BNV) | payer MEDICARE, MEDICAID, SELFPAY | END 2025-07-04 12:19 | PROVIDERS: Admitting Provider Physician Assistant; Emergency Provider Emergency Medicine; PCP Internal Medicine; Visit Provider Internal Medicine Cardiovascular Disease | DX: I45.10 Unspecified right bundle-branch block (principal) | CPT/HCPCS: 93010 ==

== ENCOUNTER 2025-07-01 23:24 | Outpatient (BNV) | payer MEDICARE, MEDICAID, SELFPAY | END 2025-07-03 01:59 | PROVIDERS: Admitting Provider Physician Assistant; Emergency Provider Emergency Medicine; PCP Internal Medicine; Visit Provider Radiology Diagnostic Radiology | DX: R06.02 Shortness of breath (principal) | CPT/HCPCS: 71045 ==

== ENCOUNTER 2025-07-01 23:24 | Outpatient (BNV) | payer MEDICARE, MEDICAID, SELFPAY | END 2025-07-03 01:01 | PROVIDERS: Admitting Provider Physician Assistant; Emergency Provider Emergency Medicine; PCP Internal Medicine; Visit Provider Internal Medicine Cardiovascular Disease | DX: I45.2 Bifascicular block (principal) | CPT/HCPCS: 93010 ==

== ENCOUNTER 2025-07-01 23:24 | Outpatient (BNV) | payer MEDICARE, MEDICAID, SELFPAY | END 2025-07-11 13:23 | PROVIDERS: Admitting Provider Physician Assistant; Emergency Provider Emergency Medicine; PCP Internal Medicine; Visit Provider Internal Medicine Cardiovascular Disease | DX: I45.10 Unspecified right bundle-branch block (principal) | CPT/HCPCS: 93010 ==

== ENCOUNTER 2025-07-01 23:24 | Outpatient (BNV) | payer MEDICARE, MEDICAID, SELFPAY | END 2025-07-06 14:12 | PROVIDERS: Admitting Provider Physician Assistant; Emergency Provider Emergency Medicine; PCP Internal Medicine; Visit Provider Radiology Diagnostic Radiology | DX: R22.41 Localized swelling, mass and lump, right lower limb (principal) | CPT/HCPCS: 93971 ==

== ENCOUNTER → 2025-07-01 23:24 | Outpatient (BNV) | payer MEDICARE, MEDICAID, SELFPAY | PROVIDERS: Admitting Provider Physician Assistant; Emergency Provider Emergency Medicine; PCP Internal Medicine; Visit Provider Registered Nurse | DX: R41.82 Altered mental status, unspecified (principal) | CPT/HCPCS: 99222 ==

== ENCOUNTER → 2025-07-01 23:24 | Outpatient (BNV) | payer MEDICARE, MEDICAID, SELFPAY | PROVIDERS: Admitting Provider Physician Assistant; Emergency Provider Emergency Medicine; PCP Internal Medicine; Visit Provider Internal Medicine | DX: F39 Unspecified mood [affective] disorder (principal) | CPT/HCPCS: 99223; 99232; 99499 ==

== ENCOUNTER → 2025-07-01 23:24 | Outpatient (BNV) | payer MEDICARE, MEDICAID, SELFPAY | PROVIDERS: Admitting Provider Physician Assistant; Emergency Provider Emergency Medicine; PCP Internal Medicine; Visit Provider Urology | DX: N39.0 Urinary tract infection, site not specified (principal); N35.919 Unspecified urethral stricture, male, unspecified site | CPT/HCPCS: 51102; 76942 ==

== ENCOUNTER → 2025-07-01 23:24 | Outpatient (BNV) | payer MEDICARE, MEDICAID, SELFPAY | PROVIDERS: Admitting Provider Physician Assistant; Emergency Provider Emergency Medicine; PCP Internal Medicine; Visit Provider Internal Medicine Pulmonary Disease | DX: E66.01 Morbid (severe) obesity due to excess calories (principal); Z68.41 Body mass index [BMI] 40.0-44.9, adult; N39.0 Urinary tract infection, site not specified; G93.40 Encephalopathy, unspecified; G47.33 Obstructive sleep apnea (adult) (pediatric) | CPT/HCPCS: 99232 ==

== ENCOUNTER → 2025-07-01 23:24 | Outpatient (BNV) | payer MEDICARE, MEDICAID, SELFPAY | PROVIDERS: Admitting Provider Physician Assistant; Emergency Provider Emergency Medicine; PCP Internal Medicine; Visit Provider Nurse Practitioner Family | DX: J96.02 Acute respiratory failure with hypercapnia (principal); G93.40 Encephalopathy, unspecified; N39.0 Urinary tract infection, site not specified; R33.9 Retention of urine, unspecified | CPT/HCPCS: 99291; 99499 ==

== ENCOUNTER 2025-07-22 21:16 | Emergency (ER) | payer MEDICARE, MEDICAID, SELFPAY ==
[2025-07-22] VITALS (14 sets, daily range): BP systolic 80–165; BP diastolic 35–98; PULSE 131–152; RESP 23–36; TEMP 38.6–41.2; O2SAT 62–100; BMI 43.0
--- NOTE | ~2025-07-22 | XR_ITS ---
CLINICAL HISTORY: ETT and OG placement 1 view chest x-ray Comparison: CR - XR CHEST 1V - 07/23/25 00:27 EDT Findings: Mild diffuse interstitial prominence without significant changes, [id number]. No focal airspace consolidation, effusions or pneumothorax. Endotracheal tube tip nearly 4-5 cm proximal to the jessie. New NGT reaches the stomach with the tip below the level of the hemidiaphragms. Heart size is normal. Unchanged position of right IJ single lumen central venous catheter. No acute fracture. IMPRESSION: Mild diffuse interstitial vascular congestion. Support lines as above. This document has been electronically signed by: Zhao Dominguez MD on 07/23/2025 03:07:05
--- NOTE | ~2025-07-22 | XR_ITS ---
CLINICAL HISTORY: central line placement 1 view chest x-ray. Comparison: CR - XR CHEST 1V - 07/22/25 22:46 EDT Findings: This examination is mildly limited by suboptimal patient positioning and leftward patient rotation. A right internal jugular central venous catheter is in place with visualization of the distal tip to the level of the lower SVC. Mild ill-defined opacities are identified within the left lung with probable subtle right perihilar opacities. No pneumothorax or significant pleural effusion visualized. The left costophrenic angle has been excluded from this examination. Impression: 1. Mildly limited examination related to suboptimal patient positioning. A right internal jugular central venous catheter is in place with visualization of the tip to the lower SVC. No pneumothorax. 2. Ill-defined bilateral pulmonary opacities redemonstrated, more prominent on the left. This document has been electronically signed by: George Rodarte MD on 07/23/2025 01:07:53
--- NOTE | ~2025-07-22 | XR_ITS ---
CLINICAL HISTORY: fever 1 view chest x-ray. Comparison: CR - XR CHEST 1V - 07/03/25 01:59 EDT Findings: Ill-defined opacities are identified throughout the bilateral lungs, slightly more prominent on the left. No pneumothorax or pleural effusion identified. Heart size is at the upper limits of normal. Impression: 1. Ill-defined densities are identified throughout the bilateral lungs, more prominent on the left. These findings are nonspecific, possibly related to pulmonary edema or multifocal infection. Clinical correlation is advised. This document has been electronically signed by: George Rodarte MD on 07/22/2025 23:15:57
--- NOTE | 2025-07-22 21:28 | ECG_ITS ---
Test Reason : SEPTIC, FEBRILE Blood Pressure : */* mmHG Vent. Rate : 142 BPM Atrial Rate : 144 BPM P-R Int : 158 ms QRS Dur : 108 ms QT Int : 288 ms P-R-T Axes : * 147 20 degrees QTcB Int : 443 ms Undetermined rhythm Pulmonary disease pattern Right bundle branch block Abnormal ECG When compared with ECG of 11-Jul-2025 13:23, Vent. rate has increased by 50 bpm QRS axis Shifted right ST now depressed in Inferior leads ST now depressed in Anterolateral leads Referred By: Wendy Meza Electronically Signed By: CRISTAL WHEATLEY
--- NOTE | 2025-07-22 21:30 | ED_ITS ---
HPI - General Adult General Chief complaint: Altered Mental Status Stated complaint: AMS HYPOTENSIVE Time Seen by Provider: 07/22/25 21:25 Source: EMS Mode of arrival: EMS Limitations: altered mental status History of Present Illness ED Provider: Dr. Wendy Meza HPI narrative: Patient comes to the emergency room via EMS. Patient comes from [facility]. Patient is coming today for fever. According to EMS, the patient was recently discharged from the hospital for a UTI. Patient is unable to give any significant history. In route to the hospital, patient was started on IV fluids. According to EMS, patient's initial blood pressure was 80/40. On arrival to the ED, patient's blood pressure was 1 20s systolic. Heart rate in the 150s. Related Data Home Medications ?Medication ?Instructions ?Recorded ?Confirmed cholecalciferol (vitamin D3) 25 25 mcg PO DAILY 07/02/25 mcg (1,000 unit) tablet multivitamin 1 tab PO DAILY 09/21/2006/18 Previous Rx's ?Medication ?Instructions ?Recorded hydroxyzine HCl 10 mg tablet 10 mg PO BEDTIME PRN itch ing 30 06/11/25 days #30 tabs glimepiride 2 mg tablet 2 mg PO QAM 30 days #30 tabs 06/22/25 divalproex 500 mg tablet,delayed 1,000 mg (2 x 500 mg) PO BEDTIME 07/16/25 release #0 tabs lorazepam 1 mg tablet 1 mg PO Q6H PRN severe anxie ty 3 07/16/25 days #9 tabs nystatin 100,000 unit/gram topical 1 appl topical BID #0 grams 07/16/25 powder ([facility]) olanzapine 10 mg tablet 10 mg PO BID #0 tabs 5 olanzapine 5 mg tablet 5 mg PO BID PRN agitation #0 tabs 07/16/25 valproic acid 250 mg capsule 500 mg (2 x 250 mg) PO DA DERIC #0 07/16/25 caps vancomycin 125 mg capsule 125 mg PO Q6H 10 days #0 cap s 07/16/25 Allergies Allergy/AdvReac Type Severity Reaction Status Date / Time No Known Allergies Allergy Verified 07/22/25 21:45 Review of Systems 2 Review of Systems: Yes Unobtainable due to mental status [facility] Past Medical History Medical History Urinary incontinence Morbid obesity with BMI of 40.0-44.9, adult Morbid obesity with BMI of 45.0-49.9, adult Mood disorder Obstructive sleep apnea Type 2 diabetes mellitus without complication, without long-term current use of insulin Hypertriglyceridemia Lymphedema of both lower extremities Lymphedema Surgical History History of myringotomy History of tonsillectomy Family History Family History Father Medical history unknown Mother Diabetes Other Mental health problem Social History Social History Household Members: Family and Caregiver Household Members Other:: aunt/uncle Housing: House Do you presently have visiting nurse or other home services: No Unable to assess alcohol history related to: Unable to respond Alcohol intake: never Comment: 1:1 sitter Patient Tobacco Use Status: Never used Tobacco e-Cigarette/Vaping Use: Never Used Second Hand Smoke Exposure: No Use of substances other than those prescribed or required for medical reasons: Unable to respond Advance Directives: No Advance Directives Information Provided: No Do you have a plan to hurt others: No Plan service: No Current occupational status: disabled Cognitive needs: No Hearing needs: No Vision needs: Yes (Glasses) Physical Exam ED Exam Exam: Appearance: Alert. Seems uncomfortable, unable to answer questions, seems confused Eyes: Pupils equal, round and reactive to light. ENT: Pharynx normal. Neck: Normal inspection. Neck supple. No lymph nodes noted. No crepitus CVS: Tachycardic, heart rate in the 150s Respiratory: No respiratory distress. Breath sounds normal. No Wheezing. No rales Abdomen: Soft and nontender. No rigidity. No distention. Skin: Very warm to touch Normal skin color. Normal skin turgor. Extremities: No lower extremity edema. No Lacerations. No Rash Neuro: Moving all extremities, unable to follow commands, cranial nerve assessment could not be evaluated Psych: calm, seems a bit anxious Vital Signs: Vital Signs - 24 hr 07/22/25 21:35 07/22/25 22:10 07/22/25 22:18 Temperature 106.2 F H 105.1 F H 104.2 F H Pulse Rate 140 H 151 H 149 H Respiratory Rate 26 H 28 H 29 H Blood Pressure 128/79 128/79 92/42 L Pulse Oximetry 91 L 94 97 Oxygen Delivery Method Room Air Room Air Room Air Oxygen Flow Rate Fraction of Inspired Oxygen 07/22/25 22:27 07/22/25 22:40 07/22/25 22:45 Temperature Pulse Rate 143 H 147 H Respiratory Rate 30 H Blood Pressure 111/35 L 96/48 L Pulse Oximetry 62 L 86 L Oxygen Delivery Method Room Air Non-Rebreather Mask Oxygen Flow Rate Fraction of Inspired Oxygen 07/22/25 22:50 07/22/25 22:55 07/22/25 23:00 Temperature 102.2 F H Pulse Rate 147 H 150 H Respiratory Rate 33 H 28 H Blood Pressure 116/57 L Pulse Oximetry 98 90 L 100 Oxygen Delivery Method Non-Rebreather Mask Oxymask CPAP Oxygen Flow Rate 10 Fraction of Inspired Oxygen 30 07/22/25 23:20 07/22/25 23:25 07/22/25 23:29 Temperature 102.0 F H 101.9 F H Pulse Rate 152 H 150 H Respiratory Rate 36 H 24 H 32 H Blood Pressure 92/42 L 80/40 L Pulse Oximetry 100 100 Oxygen Delivery Method CPAP CPAP Oxygen Flow Rate Fraction of Inspired Oxygen 07/22/25 23:53 07/22/25 23:58 07/23/25 00:00 Temperature 101.4 F H 101.4 F H Pulse Rate 131 H 147 H 150 H Respiratory Rate 23 H 29 H Blood Pressure 165/62 H 125/98 H 82/32 L Pulse Oximetry 100 98 Oxygen Delivery Method CPAP CPAP Oxygen Flow Rate Fraction of Inspired Oxygen 07/23/25 00:12 07/23/25 00:16 07/23/25 00:19 Temperature 101.4 F H 101.4 F H 101.4 F H Pulse Rate 147 H 149 H 148 H Respiratory Rate 32 H 34 H 30 H Blood Pressure 112/38 L 87/32 L 93/42 L Pulse Oximetry 100 100 100 Oxygen Delivery Method CPAP CPAP CPAP Oxygen Flow Rate Fraction of Inspired Oxygen 07/23/25 00:23 07/23/25 00:27 07/23/25 00:37 Temperature Pulse Rate 149 H 139 H 117 H Respiratory Rate Blood Pressure 93/42 L 86/32 L 65/32 L Pulse Oximetry Oxygen Delivery Method Oxygen Flow Rate Fraction of Inspired Oxygen 07/23/25 00:42 07/23/25 00:45 07/23/25 00:50 Temperature Pulse Rate 105 H 99 95 Respiratory Rate Blood Pressure 64/37 L 61/39 L 67/40 L Pulse Oximetry Oxygen Delivery Method Oxygen Flow Rate Fraction of Inspired Oxygen 07/23/25 00:54 07/23/25 00:59 07/23/25 01:05 Temperature Pulse Rate 103 H 96 111 H Respiratory Rate Blood Pressure 78/34 L 85/40 L 95/44 L Pulse Oximetry Oxygen Delivery Method Oxygen Flow Rate Fraction of Inspired Oxygen 07/23/25 01:08 07/23/25 01:12 07/23/25 01:18 Temperature 100.8 F H Pulse Rate 109 H 109 H 95 Respiratory Rate 21 H Blood Pressure 86/44 L 91/44 L 96/53 L Pulse Oximetry 100 Oxygen Delivery Method CPAP Oxygen Flow Rate Fraction of Inspired Oxygen 07/23/25 01:23 07/23/25 01:28 07/23/25 01:33 Temperature 98.4 F Pulse Rate 85 91 71 Respiratory Rate 26 H Blood Pressure 88/52 L 88/57 L 103/39 L Pulse Oximetry 100 Oxygen Delivery Method CPAP Oxygen Flow Rate Fraction of Inspired Oxygen 07/23/25 01:45 07/23/25 01:47 07/23/25 01:53 Temperature 99.1 F Pulse Rate 127 H 134 H 130 H Respiratory Rate 18 Blood Pressure 79/40 L 90/53 L 80/46 L Pulse Oximetry 100 Oxygen Delivery Method Mechanical Ventilation Oxygen Flow Rate Fraction of Inspired Oxygen 07/23/25 01:56 07/23/25 02:00 07/23/25 02:08 Temperature Pulse Rate 90 108 H Respiratory Rate Blood Pressure 140/78 H 112/62 Pulse Oximetry Oxygen Delivery Method Oxygen Flow Rate Fraction of Inspired Oxygen 100 07/23/25 02:12 07/23/25 02:18 Temperature 99.0 F Pulse Rate 95 91 Respiratory Rate 18 Blood Pressure 104/55 L 101/51 L Pulse Oximetry 96 Oxygen Delivery Method Mechanical Ventilation Oxygen Flow Rate Fraction of Inspired Oxygen BMI result Body Mass Index 43.0 Course Course Course Narrative: Patient was discharged from the hospital 6 days ago. Patient was treated for a urinary tract infection. Patient had encephalopathy. Patient had significant agitation and he was in the hospital requiring multiple doses of antipsychotics, benzodiazepines and ICU stay for hypercapnic chronic lung disease exacerbation. Patient is very warm to touch. Empirically, patient is being treated with IV fluids based on ideal weight of 59 kg, patient is obese. Also, receiving IV antibiotics. All of patient's labs imaging and vitals pending Medications Administered Generic Name Dose Route Start Last Admin Trade Name Freq PRN Reason Stop Dose Admin Norepinephrine Bitartrate 8 mg in 250 mls @ 0 mls/hr 07/22/25 23:45 07/23/25 02:18 Levophed IVCONT 0.46 mcg/kg/min .Q0M EMILEE 101.17 mls/hr Protocol Titration Per Protocol Dexmedetomidine HCl 400 mcg in 100 mls @ 0 mls/hr 07/23/25 00:15 07/23/25 00:39 Precedex IVCONT 1 mcg/kg/hr .Q0M EMILEE 29.33 mls/hr Protocol Titration Per Protocol Propofol 1,000 mg in 100 mls @ 0 mls/hr 07/23/25 01:30 07/23/25 02:10 Diprivan IVCONT 30 mcg/kg/min .Q0M EMILEE 21.11 mls/hr Protocol Titration Per Protocol Discontinued Medications Generic Name Dose Route Start Last Admin Trade Name Freq PRN Reason Stop Dose Admin Diazepam 5 mg 07/22/25 22:01 07/22/25 22:06 Diazepam 10 Mg/2 Ml Cartridge IVPUSH 07/22/25 22:02 5 mg STAT STA Administration Diazepam 5 mg 07/22/25 22:29 07/22/25 22:40 Diazepam 10 Mg/2 Ml Cartridge IVPUSH 07/22/25 22:30 5 mg STAT STA Administration Diazepam 5 mg 07/22/25 23:47 07/22/25 23:52 Diazepam 10 Mg/2 Ml Cartridge IVPUSH 07/22/25 23:48 5 mg STAT STA Administration Diazepam 10 mg 07/23/25 00:26 07/23/25 00:26 Diazepam 10 Mg/2 Ml Cartridge IVPUSH 07/23/25 00:27 10 mg STAT STA Administration Diphenhydramine HCl 50 mg 07/22/25 22:01 07/22/25 22:23 Diphenhydramine Hcl 50 Mg/Ml Vial IVPUSH 07/22/25 22:02 50 mg ONCE ONE Administration Etomidate 20 mg 07/23/25 01:22 07/23/25 01:36 Etomidate 20 Mg/10 Ml Vial IVPUSH 07/23/25 01:23 20 mg NOW STA Administration Sodium Chloride 2,000 mls @ 999 mls/hr 07/22/25 21:25 07/23/25 00:40 Ns IVCONT 07/22/25 23:25 Infused .Q2H1M ONE Infusion Levofloxacin 500 mg in 100 mls @ 100 mls/hr 07/22/25 21:25 07/22/25 23:39 Levaquin IV 07/22/25 22:24 Infused ONCE ONE Infusion Acetaminophen 1,000 mg in 100 mls @ 400 mls/hr 07/22/25 21:27 07/22/25 21:57 Ofirmev IV 07/22/25 21:41 Infused ONCE ONE Infusion Piperacillin Sod/Tazobactam 50 mls @ 100 mls/hr 07/22/25 23:38 07/23/25 01:39 Sod 3.375 gm/ Sodium Chloride IV 07/23/25 00:07 Infused ONCE ONE Infusion Rocuronium Firth 100 mg 07/23/25 01:22 07/23/25 01:36 Rocuronium Firth 50 Mg/5 Ml Vial IVPUSH 07/23/25 01:23 50 mg ONCE ONE Administration Procedures Central Line Placement Right IJ: Time Out Performed: Yes Patient Placed on Monitor/Pulse Ox: Yes MD Prep: mask, gown and gloves Central Line Prep: Chlorhexidine scrub Local Anesthetic: lidocaine 1% Amount of anesthesia used (mL): 5 Ultrasound Used for Placement: Yes Central Line Lumen Inserted: triple Post Procedure: sutured in place, good blood return, all ports aspirated, flushed, capped and sterile dressing applied Post Procedure X-Ray: tip of catheter in good position and no pneumothorax seen Patient Tolerated Procedure: well and no complications Complications: none and pneumothorax Intubation Intubation Type:: Endotracheal Tube Insertion Intubation Date:: 07/23/25 Time out performed: Yes sedative: Etomidate Mg Given: 20 paralytic: Rocuronium Mg Given: 50 Laryngoscope: other (GlideScope) ET Tube Size: 8 ET Tube Uncuffed: No Tube Secured Depth (cm): 24 Tube Secured Location: lips Tube Placement Confirmation: visualized tube passing through cords, equal breath sounds bilaterally, no breath sounds over epigastrium and confirmation by capnometry Patient Tolerated Procedure: well and no complications Intubation Complications: none Medical Decision Making Medical Decision Making [facility] Narrative: I was informed by the patient's nurse that patient has a rectal temperature of 106.2 degrees. Patient is on a cooling blanket, patient has several packs of eyes, IV Ofirmev has been given. 22:10: All of patient's labs pending. Patient is gradually becoming more agitated. As mentioned above, last time the patient was here, patient needed ICU/Precedex due to severe agitation. At this time, patient was given IV diazepam and Benadryl. Patient is also in soft restraints, patient is trying to pull his IV lines out Patient's blood pressure remained stable, 128/79. Heart rate between 130 and 140. At 23:30 patient has had 2 consecutive low blood pressures. At this time, sepsis is suspected As mentioned above, patient already received IV fluids and antibiotics. Initially, patient was given IV levofloxacin. However, as labs and imaging starting to return in the patient started deteriorating, patient received a dose of Zosyn and vancomycin My interpretation of labs: Patient's white blood cell count 16.7, hemoglobin 10.7, patient is chronically anemic, hematocrit 33.4, platelets 256. Patient's blood gases show a venous pH of 7.27, pCO2 of 54, bicarb 25 Chemistry: Sodium 139, potassium 4.2, chloride 107, bicarb 23, BUN 13, creatinine 0.80, anion gap 13. Glucose 124, lactic acid 3.8 . No significant abnormalities in LFTs, troponin normal at 18.4, pro BNP 1453. Patient does not have any previous BNP is. Patient does not have prior history of congestive heart failure Urinalysis positive for large amount of blood in the urine, negative for nitrites, positive for leukocyte esterase and RBCs, WBC greater than 50, +4 bacteria. Of note, patient has a chronic Mirza catheter Serology is negative for influenza A/B, RSV, COVID Chest x-ray: Ill-defined densities bilaterally, pulmonary edema versus multifocal infection. Patient was already given levofloxacin. However, now where adding vancomycin and Zosyn. Of note, when patient was here in the hospital, he had diarrhea and his serology was positive for C diff. Today, patient has not had any episodes of diarrhea in the emergency room Patient's blood pressure decreased to the 70s. A central line right IJ was inserted. Before the procedure started, patient received did not additional mg of diazepam. Patient was still combative. Patient was started on Precedex The central line was inserted, chest x-ray confirms that the central line is in place, no pneumothorax. Patient was started on Levophed. After the central line placement, patient was very somnolent, did not wake up. For airway protection, the patient was intubated. Patient was started on propofol Suprapubic catheter was changed We do not have an ICU bed available here at [facility]. Family is agreeable to have the patient transferred to any hospital that may have an ICU available. Patient requesting to try to have the patient transfer within [facility], because they have transportation issues. I discussed the patient with Dr. Joslyn Padilla from [facility], patient was admitted to their ICU. At this time, 02:20, patient is on Levophed at 0.44 mcg/kg per minute. Current blood pressure is 110/55 with a map of 67 Differential Diagnosis Differential Diagnoses: The differential diagnosis associated with the presentation includes (Sepsis, UTI, pneumonia, CHF) Admission/Observation Consideration of admission/observation: Escalation of care including admission/observation considered Consult Healthcare Provider Management of the patient was discussed with: Escrow Clerk Lab Data MDM Lab Attestation statement: I reviewed the patient's lab results. 07/22/25 22:05 07/22/25 22:05 Labs: Lab Results 07/22/25 07/22/25 07/22/25 Range/Units 22:04 22:05 22:44 WBC 16.7 H (4.8-10.8) X10*3/uL RBC 3.63 L (4.60-5.80) X10*6/uL Hgb 10.7 L (14.0-18.0) g/dl Hct 33.4 L (42.0-52.0) % MCV 92.0 (80.0-98.0) fL MCH 29.5 (27.0-33.0) pg MCHC 32.0 (31.0-36.0) g/dl RDW 14.2 (11.0-16.0) % Plt Count 256 (160-400) X10*3/uL MPV 9.9 (9.4-12.4) fL Immature Gran % (Auto) 0.5 H (0.0-0.4) % Neut % (Auto) 89.0 H (45-73) % Lymph % (Auto) 4.6 L (20-40) % [place] % (Auto) 5.5 (2-11) % Eos % (Auto) 0.1 (0-4) % Baso % (Auto) 0.3 (0-2) % Lymph # (Auto) 0.8 L (1.2-4.9) X10*3/uL [place] # (Auto) 0.9 (0.1-1.2) X10*3/uL Eos # (Auto) 0.0 (0.0-0.4) X10*3/uL Baso # (Auto) 0.1 (0.0-0.2) X10*3/uL Abs Immat Gran (auto) 0.09 H (0.00-0.03) X10*3/uL Absolute Neuts (auto) 14.9 H (2.0-8.3) x10*3/uL Absolute Nucleated RBC 0.000 (0.0-0.012) X10*3/uL Nucleated RBC % (auto) 0.0 (0.0-0.2) /100WBC VBG pH (7.32-7.43) VBG pCO2 mmHg VBG pO2 mmHg VBG HCO3 (22-26) mmol/L VBG O2 Saturation % VBG Base Excess mmol/L Sodium 139 (135-145) mmol/L Potassium 4.2 (3.3-5.1) mmol/L Chloride 107 (96-108) mmol/L Carbon Dioxide 23 (22-29) mmol/L Anion Gap 13 (12-20) BUN 13 (9-16) mg/dL Creatinine 0.80 (0.5-1.4) mg/dL Estim Creat Clear Calc 123.6 Estimated GFR > 60 Random Glucose 124 H (60-115) mg/dL Lactic Acid 3.8 H* (0.5-2.0) mmol/L Calcium 8.3 L (8.4-10.2) mg/dL Magnesium 1.9 (1.6-2.6) mg/dL Total Bilirubin 0.3 (0.0-1.0) mg/dL Direct Bilirubin 0.1 (0.0-0.5) mg/dL AST 23 (5-37) U/L ALT 17 (0-40) U/L Alkaline Phosphatase 42 (39-117) U/L Troponin I High Sens 18.4 (<3.5-35.0) ng/L NT-Pro-B Natriuret Pep 1453.3 H (<300) pg/mL Total Protein 6.0 L (6.5-8.0) g/dL Albumin 3.2 L (3.5-5.0) g/dL Urine Color Yellow Urine Appearance Turbid Urine pH 6.0 (5.0-9.0) Ur Specific Chrisman 1.020 (1.005-1.025) Urine Protein 100 (2+) H (Neg-Trace) mg/dL Urine Glucose (UA) Negative (Negative) mg/dL Urine Ketones Negative (Negative) mg/dL Urine Blood Large (3+) H (Negative) Urine Nitrite Negative (Negative) Ur Leukocyte Esterase Large (3+) H (Negative) Urine RBC 11-20 H (0-2) /HPF Urine WBC >50 (0-5) /HPF Ur Squamous Epith Cells 0-2 (0-2) /HPF Urine Bacteria 4+ (None Seen) Hyaline Casts 3-5 (0-2) /LPF Influenza Type A (PCR) NEGATIVE (Negative) Influenza Type B (PCR) NEGATIVE (Negative) RSV RNA Qual (PCR) NEGATIVE (Negative) SARS-CoV-2 RNA (RT-PCR) NEGATIVE (Negative) 07/22/25 Range/Units 23:09 WBC (4.8-10.8) X10*3/uL RBC (4.60-5.80) X10*6/uL Hgb (14.0-18.0) g/dl Hct (42.0-52.0) % MCV (80.0-98.0) fL MCH (27.0-33.0) pg MCHC (31.0-36.0) g/dl RDW (11.0-16.0) % Plt Count (160-400) X10*3/uL MPV (9.4-12.4) fL Immature Gran % (Auto) (0.0-0.4) % Neut % (Auto) (45-73) % Lymph % (Auto) (20-40) % [place] % (Auto) (2-11) % Eos % (Auto) (0-4) % Baso % (Auto) (0-2) % Lymph # (Auto) (1.2-4.9) X10*3/uL [place] # (Auto) (0.1-1.2) X10*3/uL Eos # (Auto) (0.0-0.4) X10*3/uL Baso # (Auto) (0.0-0.2) X10*3/uL Abs Immat Gran (auto) (0.00-0.03) X10*3/uL Absolute Neuts (auto) (2.0-8.3) x10*3/uL Absolute Nucleated RBC (0.0-0.012) X10*3/uL Nucleated RBC % (auto) (0.0-0.2) /100WBC VBG pH 7.27 L (7.32-7.43) VBG pCO2 54 mmHg VBG pO2 103 mmHg VBG HCO3 25 (22-26) mmol/L VBG O2 Saturation 98.0 % VBG Base Excess -1.8 mmol/L Sodium (135-145) mmol/L Potassium (3.3-5.1) mmol/L Chloride (96-108) mmol/L Carbon Dioxide (22-29) mmol/L Anion Gap (12-20) BUN (9-16) mg/dL Creatinine (0.5-1.4) mg/dL Estim Creat Clear Calc Estimated GFR Random Glucose (60-115) mg/dL Lactic Acid (0.5-2.0) mmol/L Calcium (8.4-10.2) mg/dL Magnesium (1.6-2.6) mg/dL Total Bilirubin (0.0-1.0) mg/dL Direct Bilirubin (0.0-0.5) mg/dL AST (5-37) U/L ALT (0-40) U/L Alkaline Phosphatase (39-117) U/L Troponin I High Sens (<3.5-35.0) ng/L NT-Pro-B Natriuret Pep (<300) pg/mL Total Protein (6.5-8.0) g/dL Albumin (3.5-5.0) g/dL Urine Color Urine Appearance Urine pH (5.0-9.0) Ur Specific Chrisman (1.005-1.025) Urine Protein (Neg-Trace) mg/dL Urine Glucose (UA) (Negative) mg/dL Urine Ketones (Negative) mg/dL Urine Blood (Negative) Urine Nitrite (Negative) Ur Leukocyte Esterase (Negative) Urine RBC (0-2) /HPF Urine WBC (0-5) /HPF Ur Squamous Epith Cells (0-2) /HPF Urine Bacteria (None Seen) Hyaline Casts (0-2) /LPF Influenza Type A (PCR) (Negative) Influenza Type B (PCR) (Negative) RSV RNA Qual (PCR) (Negative) SARS-CoV-2 RNA (RT-PCR) (Negative) Independent Interpretation I performed an independent interpretation of an: Plain X-Ray Radiology Impression Discussion of test interpretation with radiology: I have reviewed the radiologist's reading. Radiologist Impression: 1. Ill-defined densities are identified throughout the bilateral lungs, more prominent on the left. These findings are nonspecific, possibly related to pulmonary edema or multifocal infection. Clinical correlation is advised. 1. Mildly limited examination related to suboptimal patient positioning. A right internal jugular central venous catheter is in place with visualization of the tip to the lower SVC. No pneumothorax. 2. Ill-defined bilateral pulmonary opacities redemonstrated, more prominent on the left. Independent Historian Clinical information obtained from an independent historian. History obtained from or confirmed by: EMS and Other (Patient's aunt) Critical Care Time Critical Care Time Critical Care Time: Yes Total Critical Care Time: 120 Attestation: I have personally provided critical care time. Time includes review of lab data, radiology results, discussion with consultants, and monitoring for potential decompensation. Intervention performed as documented. Discharge Plan Discharge Clinical Impression: Sepsis, Acute UTI, Pneumonia, CHF (congestive heart failure), Acute hypotension, Acute hypercapnic respiratory failure Patient Disposition: [facility] Transfer Details: [facility] ICU, Dr. Joslyn Padilla Prescriptions: No Action glimepiride 2 mg tablet 2 mg PO QAM 30 Days Qty: 30 3RF Rx Instructions: administer with breakfast olanzapine 5 mg Tablet 5 mg PO BID PRN (Reason: agitation) Qty: 0 0RF olanzapine 10 mg Tablet 10 mg PO BID Qty: 0 0RF valproic acid 250 mg Capsule 500 mg PO DAILY Qty: 0 0RF divalproex 500 mg Tablet,Delayed Release (Dr/Ec) 1,000 mg PO BEDTIME Qty: 0 0RF vancomycin 125 mg Capsule 125 mg PO Q6H 10 Days Qty: 0 0RF nystatin [Nyamyc] 100,000 unit/gram Powder 1 appl topical BID Qty: 0 0RF Protocol: Apply to: Apply to: Affected area lorazepam 1 mg Tablet 1 mg PO Q6H PRN (Reason: severe anxiety) 3 Days Qty: 9 0RF multivitamin Tablet 1 tab PO DAILY cholecalciferol (vitamin D3) 25 mcg (1,000 unit) tablet 25 mcg PO DAILY hydroxyzine HCl 10 mg tablet 10 mg PO BEDTIME PRN (Reason: itching) 30 Days Qty: 30 2RF Print Language: Chinese
[2025-07-22] MEDS: diazePAM 10 MG/2 ML CARTRIDGE 5 MG IVPUSH ×3 (22:06→23:52)
--- NOTE | 2025-07-22 22:10 | PC.NURSE ---
Pt becoming increasingly agitated, attempting to pull out IVs/pull off monitor, confused and not redirectable at this time. Security @ bedside, Dr. Meza @ bedside. Soft non-violent restraints applied to b/l wrists.
[2025-07-22 22:15] LABS: MANUAL DIFF FLAG NO
[2025-07-22 22:16] LABS: Hematocrit 33.4 % (42.0-52.0); Hemoglobin 10.7 g/dl (14.0-18.0); Imm Gran Abs Auto 0.09 X10*3/uL (0.00-0.03); Imm Gran Pct Auto 0.5 % (0.0-0.4); Lymphocytes Absolute Auto 0.8 X10*3/uL (1.2-4.9); Mean Corpuscular HGB Conc 32.0 g/dl (31.0-36.0); Mean Corpuscular Hemoglobin 29.5 pg (27.0-33.0); Mean Corpuscular Volume 92.0 fL (80.0-98.0); NRBC Abs Auto 0.000 X10*3/uL (0.0-0.012); NRBC Pct Auto 0.0 /100WBC (0.0-0.2); Platelet Count 256 X10*3/uL (160-400); Red Blood Count 3.63 X10*6/uL (4.60-5.80); White Blood Count 16.7 X10*3/uL (4.8-10.8)
[2025-07-22 22:36] LABS: Alanine Aminotransferase 17 U/L (0-40); Albumin Level 3.2 g/dL (3.5-5.0); Alkaline Phosphatase 42 U/L (39-117); Anion Gap 13 (12-20); Aspartate Amino Transferase 23 U/L (5-37); Blood Urea Nitrogen 13 mg/dL (9-16); Calcium 8.3 mg/dL (8.4-10.2); Carbon Dioxide 23 mmol/L (22-29); Chloride 107 mmol/L (96-108); Creatinine Clr Calc Pharmacy 123.6; Estimated Glomerular Filt Rate > 60; Magnesium 1.9 mg/dL (1.6-2.6); Potassium 4.2 mmol/L (3.3-5.1); Sodium 139 mmol/L (135-145); Total Protein 6.0 g/dL (6.5-8.0)
[2025-07-22 22:43] LABS: Troponin-I High Sensitivity 18.4 ng/L (<3.5-35.0)
[2025-07-22 22:53] LABS: Resp Syncy Virus RNA Qual PCR NEGATIVE (Negative); SARS COV2 PCR INHOUSE NEGATIVE (Negative)
[2025-07-22 23:10] LABS: Appearance Urine Turbid; Glucose Urine UA Negative (Negative); PH 6.0 (5.0-9.0); Specific Gravity - Urine 1.020 (1.005-1.025); UMIC TRIGGER UACC YES
[2025-07-22 23:13] LABS: VBG HCO3 25 mmol/L (22-26); VBG O2 % Saturation 98.0 %
[2025-07-22 23:15] LABS: Venous Blood Gas Refer to POC result
--- NOTE | 2025-07-22 23:20 | PC.NURSE ---
this RN assumed care of this pt @2300, pt noted to be placed on CPAP, sitter at the bedside, soft restraints, on cooling blanket d/t being febrile current temp noted to be 102 rectally. Pt eyes closed, laying semi crockett's SPO2 100%
--- NOTE | 2025-07-22 23:30 | PC.NURSE ---
pt BP noted to be 82/34 on the monitor, manual BP obtained to be 80/40 MD Anuradha Meza made aware, provider at the bedside speaking w/ family
[2025-07-22 23:40] LABS: UACC Culture Trigger YES
--- NOTE | 2025-07-22 23:42 | PC.NURSE ---
per provider Anuradha Meza, hold ABX until after pt sedated and central line placed
[2025-07-23] VITALS (38 sets, daily range): BP systolic 61–140; BP diastolic 32–82; PULSE 71–150; RESP 18–34; TEMP 32–38.6; O2SAT 96–100
[2025-07-23 00:02] LABS: NT Pro B Type Natriuretic Pept 1453.3 pg/mL (<300)
[2025-07-23 00:13] LABS: Reflex Lactate? Lactic Acid Added
[2025-07-23] MEDS: dexmedeTOMIDine HCL/NS 400 MCG/100 ML PLAST..BAG 29.33 MCG IVCONT (00:15)
--- NOTE | 2025-07-23 00:20 | PC.NURSE ---
provider Anuradha Meaz at the bedside, 16 triple lumen central line placed to the right side of neck
[2025-07-23] MEDS: diazePAM 10 MG/2 ML CARTRIDGE IVPUSH (00:26)
--- NOTE | 2025-07-23 01:02 | PC.NURSE ---
Addendum entered by Ian Parada RN 07/23/25 03:33: per provider Chi, will be switching from Precedex to Propofol post intrubation Original Note: per provider Anuradha Meza Precedex paused
[2025-07-23] MEDS: Etomidate 20 MG/10 ML VIAL IVPUSH (01:36)
--- NOTE | 2025-07-23 01:45 | PC.NURSE ---
pt intubated approximately this time, provider Anuradha Meza, and respiratory at the bedside
[2025-07-23 02:27] LABS: ~Lactic Acid-LAB USE ONLY 2.0 mmol/L (0.5-2.0)
--- NOTE | 2025-07-23 02:29 | PC.NURSE ---
pt family contacted at this time w/ no answer, message left that pt was accepted to [facility] ICU
[2025-07-23] MEDS: vancomycin/NS 2,000 MG/500 ML PLAST..BAG 250 MG IV (02:38)
--- NOTE | 2025-07-23 02:40 | PC.NURSE ---
new 16fr suprapubic catheter placed by provider Anuradha Meza at this time, pt put out very minimal approximately 5mL cloudy sediment yellow urine
--- NOTE | 2025-07-23 03:20 | PC.NURSE ---
pt being transported to [facility] ICU, pt has Propofol w/ approximately 140mL infused, vanco w/ approximately 150mL infused, and Levophed approximately 220 mL infused at this time, EMS at the bedside to transport pt
== END 2025-07-23 04:01 | disposition short-term general hospital (02) ==
PROVIDERS: Emergency Provider Emergency Medicine
DX: A41.9 Sepsis, unspecified organism (principal); N39.0 Urinary tract infection, site not specified; J96.02 Acute respiratory failure with hypercapnia; I95.9 Hypotension, unspecified; I50.9 Heart failure, unspecified; R50.9 Fever, unspecified
CPT/HCPCS: 36415; 36556; 71045; 80048; 80076; 81001; 82803; 83605; 83735; 83880; 84484; 85025; 87040; 87086; 87147; 87205; 87637; 93005; 94002; 96365; 96366; 96367; 96368; 96375; 96376; 99285; 99291; 99292; J0131; J1200; J1956; J2543; J2704; J3360; J3373

== ENCOUNTER → 2025-07-22 21:28 | Outpatient (BNV) | payer MEDICARE, MEDICAID, SELFPAY | PROVIDERS: Emergency Provider Emergency Medicine; Visit Provider Internal Medicine | DX: I45.10 Unspecified right bundle-branch block (principal) | CPT/HCPCS: 93010 ==

== ENCOUNTER → 2025-07-22 21:28 | Outpatient (BNV) | payer MEDICARE, MEDICAID, SELFPAY | PROVIDERS: Emergency Provider Emergency Medicine; Visit Provider Radiology Diagnostic Radiology | DX: R50.9 Fever, unspecified (principal) | CPT/HCPCS: 71045 ==

== ENCOUNTER → 2025-07-23 00:27 | Outpatient (BNV) | payer MEDICARE, MEDICAID, SELFPAY | PROVIDERS: Emergency Provider Emergency Medicine; Visit Provider Radiology Diagnostic Radiology | DX: Z95.9 Presence of cardiac and vascular implant and graft, unspecified (principal); Z97.8 Presence of other specified devices | CPT/HCPCS: 71045 ==

== ENCOUNTER 2025-08-17 07:52 | Outpatient (AMB) | payer MEDICARE, MEDICAID, SELFPAY ==
--- OUTSIDE RECORDS SUMMARY | 2025-08-17 07:54 | XMS_ITS | Clinical Summary ---
Author Organization [facility] Address [address] [place] [address] Phone Care Team Providers Care Jewel Hole Cornerer Name Role Phone Vahe Jacob MD Primary Care Provider Allergies No known active allergies Medications glimepiride (AMARYL) 2 mg tablet Take 1 tablet (2 mg total) by mouth 1 (one) time each day before breakfast. 07/19/2025 Active hydrOXYzine HCL (ATARAX) 10 mg tablet Take 1 tablet (10 mg total) by mouth at bedtime as needed for itching. 06/11/2025 Active spironolactone (ALDACTONE) 50 mg tablet Take 1 tablet (50 mg total) by mouth 2 (two) times a day. 06/12/2025 Active apixaban (ELIQUIS) 5 mg tablet Take 1 tablet (5 mg total) by mouth 2 (two) times a day. 08/02/2025 09/01/20 Active OLANZapine (ZyPREXA) 5 mg tablet Take 1 tablet (5 mg total) by mouth 2 (two) times a day. 08/02/2025 09/01/20 Active lactulose (CHRONULAC) solution Take 15 mL (10 g total) by mouth 3 (three) times a day for 10 days. 08/02/2025 08/12/20 25 Active Problems Problem Noted Date Diagnosed Date Septic shock ([facility] V24, [facility] V28) 07/23/20 25 Encounters Date Type Department Care Team Description 07/23/2025 4:43 AM EDT - 08/02/2025 3:00 PM EST Hospital Encounter [facility]rology [address] [place] [address] Joslyn Padilla MD Loiacono, Laurie, MD Levrault, Richard, DO Rasul, Yar M, MD Septic shock ([facility] V24, [facility] V28) (Primary Dx); Lower extremity edema Discharge Disposition: Long Term Facility from Last 3 Months Social History Tobacco Use Types Packs/Day Years Used Date Smoking Tobacco: Unknown Tobacco Cessation:Counseling Given: Not Answered Food Risk Answer Date Recorded Within the past 12 months we worried whether our food would run out before we got money to buy more. Unable to respond 025 Within the past 12 months th e food we bought just didn't last and we didn't have money to get more. Unable to respond 06/26 Interpersonal Safety Answer Date Record ed Physical Abuse Unrecognized value 08/02/2025 Verbal Abuse Unrecognized value 08/02/2025 Sex and Gender Information Value Date Recorded Sex Assigned at Male 07/24/2025 10:26 AM EDT Legal Sex Male 2:36 AM EDT Gender Identity Male 07/24/2025 10:26 AM EDT Sexual Orientation Straight 07/24/2025 10 :26 AM EDT Obstetrics History Last Filed Vital Signs Vital Sign Reading Time Taken Comments Blood Pressure 106/60 08/02/2025 7:56 AM EST Pulse 78 08/02/2025 7:56 AM EST Temperature 36.8 C (98.3 F) 08/02/2025 7:56 AM EST Respiratory Rate 18 08/02/2025 7:56 AM EST Oxygen Saturation 98% 08/02/2025 7:56 AM EST Inhaled Oxygen Concentration - - Weight 116 kg (255 lb) 07/23/2025 9:59 AM EDT Height 177.8 cm (5' 10 ) 07/23/2025 3:00 PM EDT Body Mass Index 36.59 07/23/2025 9:59 AM EDT Plan of Treatment Health Maintenance Due Date Last Done Comments Colorectal Cancer Screening: Colonoscopy 1970 DTaP,Tdap,and Td Vaccines (1 - Tdap) 1989 Hepatitis B Vaccines (1 of 3 - 19+ 3-dose series) 1989 Pneumococcal Vaccine: 50+ Years (1 of 1 - PCV) 2020 Zoster Vaccines (1 of 2) 2020 Depression Screening 09/24/2024 COVID-19 Vaccine (1 - 2024- season) 2025 Influenza Vaccine (#1) 2025 3, 08/08/2022, 10/18/2021, Additional history exists Cholesterol Screening (Lipid Panel) 07/23/2025 HIV Screening 07/23/2025 Hepatitis C Screening 07/23/2025 Medicare Annual Wellness Visit 07/23/2025 Social Influencers of Health Screening 07/24/2026 07/24/2025 RSV Immunization Adult Patients (1 - 1-dose 75+ series) 2045 HIB Vaccines Aged Out No longer eligi ble based on patient's age to complete this topic HPV Vaccines Aged Out No longer eligi ble based on patient's age to complete this topic Hepatitis A Vaccines Aged Out No long er eligible based on patient's age to complete this topic IPV Vaccines Aged Out No longer eligi ble based on patient's age to complete this topic MMR Vaccines Aged Out No longer eligi ble based on patient's age to complete this topic Meningococcal ACWY Vaccine Aged Out N o longer eligible based on patient's age to complete this topic Meningococcal B Vaccine Aged Out No l onger eligible based on patient's age to complete this topic RSV Immunization Patients Under 20 months Aged Out No longer eligible based on patient's age to complete this topic Varicella Vaccines Aged Out No longer eligible based on patient's age to complete this topic Procedures Procedure Name Priority Date/Time Associated Diagnosis Comments POCT GLUCOSE BLOOD Routine 08/02/2025 11 :26 AM EST POCT GLUCOSE BLOOD Routine 08/02/2025 7: 57 AM EST CBC WITH AUTO DIFFERENTIAL Timed 08/02/2025 6:09 AM EST BASIC METABOLIC PANEL Timed 08/02/2025 6:09 AM EST CBC AND DIFFERENTIAL Timed 08/02/2025 6:09 AM EST POCT GLUCOSE BLOOD Routine 08/02/2025 4: 14 AM EST POCT GLUCOSE BLOOD Routine 08/02/2025 12 :19 AM EST POCT GLUCOSE BLOOD Routine 08/02/2025 12 :11 AM EST POCT GLUCOSE BLOOD Routine 08/01/2025 8: 05 PM EST POCT GLUCOSE BLOOD Routine 08/01/2025 4: 16 PM EST POCT GLUCOSE BLOOD Routine 08/01/2025 12 :[address] CHEST WO CONTRAST STAT 08/01/2025 12:07 PM EST POCT GLUCOSE BLOOD Routine 08/01/2025 8: 09 AM EST OXYGEN THERAPY, ADULT Routine 08/01/2025 8:00 AM EST CBC WITH AUTO DIFFERENTIAL Timed 08/01/2025 6:47 AM EST BASIC METABOLIC PANEL Timed 08/01/2025 6:47 AM EST CBC AND DIFFERENTIAL Timed 08/01/2025 6:47 AM EST POCT GLUCOSE BLOOD Routine 08/01/2025 4: 47 AM EST POCT GLUCOSE BLOOD Routine 08/01/2025 12 :35 AM EST POCT GLUCOSE BLOOD Routine 07/31/2025 8: 42 PM EST OXYGEN THERAPY, ADULT Routine 07/31/2025 8:00 PM EST POCT GLUCOSE BLOOD Routine 07/31/2025 4: 20 PM EST POCT GLUCOSE BLOOD Routine 07/31/2025 12 :39 PM EST OXYGEN THERAPY, ADULT Routine 07/31/2025 8:00 AM EST POCT GLUCOSE BLOOD Routine 07/31/2025 7: 27 AM EST CBC WITH AUTO DIFFERENTIAL Timed 07/31/2025 6:14 AM EST BASIC METABOLIC PANEL Timed 07/31/2025 6:14 AM EST CBC AND DIFFERENTIAL Timed 07/31/2025 6:14 AM EST POCT GLUCOSE BLOOD Routine 07/31/2025 4: 13 AM EST POCT GLUCOSE BLOOD Routine 07/31/2025 12 :21 AM EST OXYGEN THERAPY, ADULT Routine 07/30/2025 8:00 PM EST POCT GLUCOSE BLOOD Routine 07/30/2025 7: 58 PM EST POCT GLUCOSE BLOOD Routine 07/30/2025 4: 18 PM EST POCT GLUCOSE BLOOD Routine 07/30/2025 11 :25 AM EST HEMOGLOBIN A1C Add-On 07/30/2025 9:37 AM EST CBC WITH AUTO DIFFERENTIAL Timed 07/30/2025 9:37 AM EST BASIC METABOLIC PANEL Timed 07/30/2025 9:37 AM EST CBC AND DIFFERENTIAL Timed 07/30/2025 9:37 AM EST POCT GLUCOSE BLOOD Routine 07/30/2025 8: 09 AM EST OXYGEN THERAPY, ADULT Routine 07/30/2025 8:00 AM EST POCT GLUCOSE BLOOD Routine 07/30/2025 5: 25 AM EST POCT GLUCOSE BLOOD Routine 07/30/2025 12 :34 AM EST POCT GLUCOSE BLOOD Routine 07/29/2025 9: 01 PM EST OXYGEN THERAPY, ADULT Routine 07/29/2025 8:00 PM EST POCT GLUCOSE BLOOD Routine 07/29/2025 4 :29 PM EST POCT GLUCOSE BLOOD Routine 07/29/2025 12 :03 PM EST POCT GLUCOSE BLOOD Routine 07/29/2025 8: 54 AM EST OXYGEN THERAPY, ADULT Routine 07/29/2025 8:00 AM EST MANUAL DIFFERENTIAL - SYSMEX WAM Routine 07/29/2025 4:25 AM EST SST - GOLD Routine 07/29/2025 4:25 AM EST LT BLUE - NA CITRATE Routine 07/29/2025 4:25 AM EST EXTRA TUBES Routine 07/29/2025 4:25 AM EST CBC WITH AUTO DIFFERENTIAL Routine 07/29/2025 4:25 AM EST CBC AND DIFFERENTIAL Routine 07/29/2025 4:25 AM EST PHOSPHORUS Routine 07/29/2025 4:25 AM EST MAGNESIUM Routine 07/29/2025 4:25 AM EST CALCIUM, IONIZED Routine 07/29/2025 4:25 AM EST BASIC METABOLIC PANEL Routine 07/29/2025 4:25 AM EST POCT GLUCOSE BLOOD Routine 07/29/2025 3: 59 AM EST POCT GLUCOSE BLOOD Routine 07/29/2025 12 :12 AM EST POCT GLUCOSE BLOOD Routine 07/28/2025 8: 30 PM EST OXYGEN THERAPY, ADULT Routine 07/28/2025 8:00 PM EST POCT GLUCOSE BLOOD Routine 07/28/2025 3: 46 PM EST POCT GLUCOSE BLOOD Routine 07/28/2025 11 :26 AM EST VAS US DUPLEX LOWER EXT VENOUS BILAT Routine 07/28/2025 9:28 AM EST Lower extremity edema ACTIVATED PARTIAL THROMBOPLASTIN TIME STAT 07/28/2025 8:26 AM EST PROTHROMBIN TIME WITH INR STAT 07/28/2025 8:26 AM EST PHOSPHORUS Routine 07/28/2025 8:26 AM EST MAGNESIUM Routine 07/28/2025 8:26 AM EST BASIC METABOLIC PANEL Routine 07/28/2025 8:26 AM EST OXYGEN THERAPY, ADULT Routine 07/28/2025 8:00 AM EST POCT GLUCOSE BLOOD Routine 07/28/2025 7: 40 AM EST AMMONIA Routine 07/28/2025 6:22 AM EST XR CHEST 1 VIEW STAT 07/28/2025 6:20 AM EST POCT GLUCOSE BLOOD Routine 07/28/2025 4: 34 AM EST MANUAL DIFFERENTIAL - SYSMEX WAM Routine 07/28/2025 4:29 AM EST PROCALCITONIN Routine 07/28/2025 4:29 AM EST HEPARIN AND LOW MOLECULAR WEIGHT ANTI XA LEVEL Routine 07/28/2025 4:29 AM EST CBC WITH AUTO DIFFERENTIAL Routine 07/28/2025 4:29 AM EST PHOSPHORUS Routine 07/28/2025 4:29 AM EST MAGNESIUM Routine 07/28/2025 4:29 AM EST LACTATE Routine 07/28/2025 4:29 AM EST HEPATIC FUNCTION PANEL Routine 4:29 AM EST CBC AND DIFFERENTIAL Routine 07/28/2025 4:29 AM EST CALCIUM, IONIZED Routine 07/28/2025 4:29 AM EST BASIC METABOLIC PANEL Routine 07/28/2025 4:29 AM EST ARTERIAL BLOOD GAS Routine 07/28/2025 4: 29 AM EST HEPARIN AND LOW MOLECULAR WEIGHT ANTI XA LEVEL Routine 07/27/2025 11:45 PM EST POCT GLUCOSE BLOOD Routine 07/27/2025 11 :39 PM EST POCT GLUCOSE BLOOD Routine 07/27/2025 8: 55 PM EST OXYGEN THERAPY, ADULT Routine 07/27/2025 8:00 PM EST OXYGEN THERAPY, ADULT Routine 07/27/2025 6:40 PM EST OXYGEN THERAPY, ADULT Routine 07/27/2025 6:40 PM EST EXTUBATION Routine 07/27/2025 6:40 PM EST HEPARIN AND LOW MOLECULAR WEIGHT ANTI XA LEVEL Routine 07/27/2025 5:02 PM EST POCT GLUCOSE BLOOD Routine 07/27/2025 4: 07 PM EST POCT GLUCOSE BLOOD Routine 07/27/2025 11 :46 AM EST HEPARIN AND LOW MOLECULAR WEIGHT ANTI XA LEVEL Routine 07/27/2025 10:47 AM EST POCT GLUCOSE BLOOD Routine 07/27/2025 9: 56 AM EST NM HEPATOBILIARY SYSTEM IMAGING Routine 07/27/2025 9:49 AM EST XR CHEST 1 VIEW STAT 07/27/2025 5:15 AM EST MANUAL DIFFERENTIAL - SYSMEX WAM Routine 07/27/2025 3:51 AM EST AMMONIA Routine 07/27/2025 3:51 AM EST HEPARIN AND LOW MOLECULAR WEIGHT ANTI XA LEVEL Routine 07/27/2025 3:51 AM EST CBC WITH AUTO DIFFERENTIAL Routine 07/27/2025 3:51 AM EST PROCALCITONIN Routine 07/27/2025 3:51 AM EST BASIC METABOLIC PANEL Routine 07/27/2025 3:51 AM EST PHOSPHORUS Routine 07/27/2025 3:51 AM EST MAGNESIUM Routine 07/27/2025 3:51 AM EST CALCIUM, IONIZED Routine 07/27/2025 3:51 AM EST CBC AND DIFFERENTIAL Routine 07/27/2025 3:51 AM EST ARTERIAL BLOOD GAS Routine 07/27/2025 3: 51 AM EST HEPATIC FUNCTION PANEL Routine 3:51 AM EST POCT GLUCOSE BLOOD Routine 07/26/2025 11 :36 PM EST POCT GLUCOSE BLOOD Routine 07/26/2025 7: 56 PM EST POCT GLUCOSE BLOOD Routine 07/26/2025 4: 01 PM EST VANCOMYCIN, TROUGH Timed 07/26/2025 1: 20 PM EST POCT GLUCOSE BLOOD Routine 07/26/2025 11 :30 AM EST ECG 12-LEAD Routine 07/26/2025 8:02 AM EST VENTILATOR, ADULT Routine 07/26/2025 8:0 0 AM EST HEPARIN AND LOW MOLECULAR WEIGHT ANTI XA LEVEL Routine 07/26/2025 7:35 AM EST POCT GLUCOSE BLOOD Routine 07/26/2025 7: 31 AM EST XR CHEST 1 VIEW Routine 07/26/2025 5:30 AM EST COMPLETE BLOOD COUNT Timed 07/26/2025 3:59 AM EST CBC WITH AUTO DIFFERENTIAL Routine 07/26/2025 3:59 AM EST AMMONIA Routine 07/26/2025 3:59 AM EST PROCALCITONIN Routine 07/26/2025 3:59 AM EST BASIC METABOLIC PANEL Routine 07/26/2025 3:59 AM EST PHOSPHORUS Routine 07/26/2025 3:59 AM EST MAGNESIUM Routine 07/26/2025 3:59 AM EST CALCIUM, IONIZED Routine 07/26/2025 3:59 AM EST CBC AND DIFFERENTIAL Routine 07/26/2025 3:59 AM EST ARTERIAL BLOOD GAS Routine 07/26/2025 3: 59 AM EST LACTATE Routine 07/26/2025 3:59 AM EST HEPATIC FUNCTION PANEL Routine 3:59 AM EST POCT GLUCOSE BLOOD Routine 07/26/2025 3: 07 AM EST HEPARIN AND LOW MOLECULAR WEIGHT ANTI XA LEVEL Routine 07/26/2025 1:47 AM EDT POCT GLUCOSE BLOOD Routine 07/25/2025 11 :25 PM EDT CALCIUM, IONIZED Routine 07/25/2025 9:58 PM EDT PHOSPHORUS Routine 07/25/2025 9:58 PM EDT MAGNESIUM Routine 07/25/2025 9:58 PM EDT BASIC METABOLIC PANEL Routine 07/25/2025 9:58 PM EDT POCT GLUCOSE BLOOD Routine 07/25/2025 8: 41 PM EDT VENTILATOR, ADULT Routine 07/25/2025 8:0 0 PM EDT HEPARIN AND LOW MOLECULAR WEIGHT ANTI XA LEVEL Routine 07/25/2025 7:57 PM EDT ACTIVATED PARTIAL THROMBOPLASTIN TIME Routine 07/25/2025 7:57 PM EDT HEPARIN AND LOW MOLECULAR WEIGHT ANTI XA LEVEL Timed 07/25/2025 6:44 PM EDT ACTIVATED PARTIAL THROMBOPLASTIN TIME Routine 07/25/2025 6:44 PM EDT HEPARIN AND LOW MOLECULAR WEIGHT ANTI XA LEVEL Routine 07/25/2025 5:39 PM EDT ACTIVATED PARTIAL THROMBOPLASTIN TIME STAT 07/25/2025 5:32 PM EDT POCT GLUCOSE BLOOD Routine 07/25/2025 4: 16 PM EDT HEPARIN AND LOW MOLECULAR WEIGHT ANTI XA LEVEL Routine 07/25/2025 3:47 PM EDT HEPARIN AND LOW MOLECULAR WEIGHT ANTI XA LEVEL Routine 07/25/2025 2:02 PM EDT CALCIUM, IONIZED Routine 07/25/2025 2:02 PM EDT MAGNESIUM Routine 07/25/2025 2:02 PM EDT PHOSPHORUS Routine 07/25/2025 2:02 PM EDT BASIC METABOLIC PANEL Routine 07/25/2025 2:02 PM EDT POCT GLUCOSE BLOOD Routine 07/25/2025 12 :14 PM EDT POCT GLUCOSE BLOOD Routine 07/25/2025 8: 03 AM EDT VENTILATOR, ADULT Routine 07/25/2025 8:0 0 AM EDT HEPARIN AND LOW MOLECULAR WEIGHT ANTI XA LEVEL Routine 07/25/2025 6:51 AM EDT POCT GLUCOSE BLOOD Routine 07/25/2025 5: 42 AM EDT XR CHEST 1 VIEW Routine 07/25/2025 5:39 AM EDT ARTERIAL BLOOD GAS Routine 07/25/2025 4: 19 AM EDT MANUAL DIFFERENTIAL - SYSMEX WAM Routine 07/25/2025 4:10 AM EDT HEPATIC FUNCTION PANEL Add-On 4:10 AM EDT HEPARIN AND LOW MOLECULAR WEIGHT ANTI XA LEVEL Routine 07/25/2025 4:10 AM EDT CBC WITH AUTO DIFFERENTIAL Routine 07/25/2025 4:10 AM EDT LACTATE Routine 07/25/2025 4:10 AM EDT AMMONIA Routine 07/25/2025 4:10 AM EDT PROCALCITONIN Routine 07/25/2025 4:10 AM EDT CALCIUM, IONIZED Routine 07/25/2025 4:10 AM EDT PHOSPHORUS Routine 07/25/2025 4:10 AM EDT MAGNESIUM Routine 07/25/2025 4:10 AM EDT BASIC METABOLIC PANEL Routine 07/25/2025 4:10 AM EDT CBC AND DIFFERENTIAL Routine 07/25/2025 4:10 AM EDT POCT GLUCOSE BLOOD Routine 07/25/2025 2: 14 AM EDT HEPARIN AND LOW MOLECULAR WEIGHT ANTI XA LEVEL Routine 07/24/2025 11:50 PM EDT POCT GLUCOSE BLOOD Routine 07/24/2025 10 :06 PM EDT VENTILATOR, ADULT Routine 07/24/2025 8: 00 PM EDT ECG 12-LEAD Routine 07/24/2025 7:37 PM EDT MAGNESIUM Add-On 07/24/2025 6:04 PM EDT PHOSPHORUS Routine 07/24/2025 6:04 PM EDT COMPREHENSIVE METABOLIC PANEL Routine 07/24/2025 6:04 PM EDT POCT GLUCOSE BLOOD Routine 07/24/2025 6: 01 PM EDT HEPARIN AND LOW MOLECULAR WEIGHT ANTI XA LEVEL Routine 07/24/2025 4:19 PM EDT POCT GLUCOSE BLOOD Routine 07/24/2025 2: 16 PM EDT VANCOMYCIN, TROUGH Timed 07/24/2025 2: 16 PM EDT HEPARIN AND LOW MOLECULAR WEIGHT ANTI XA LEVEL Routine 07/24/2025 9:23 AM EDT VENTILATOR, ADULT Routine 07/24/2025 8:0 0 AM EDT POCT GLUCOSE BLOOD Routine 07/24/2025 7: 58 AM EDT POCT GLUCOSE BLOOD Routine 07/24/2025 5: 55 AM EDT XR CHEST 1 VIEW STAT 07/24/2025 5:46 AM EDT ARTERIAL BLOOD GAS Routine 07/24/2025 3: 56 AM EDT CBC WITH AUTO DIFFERENTIAL Routine 07/24/2025 3:50 AM EDT CBC AND DIFFERENTIAL Routine 07/24/2025 3:50 AM EDT AMMONIA Routine 07/24/2025 3:50 AM EDT PROCALCITONIN Routine 07/24/2025 3:50 AM EDT HEPATIC FUNCTION PANEL Routine 3:50 AM EDT CALCIUM, IONIZED Routine 07/24/2025 3:50 AM EDT BASIC METABOLIC PANEL Routine 07/24/2025 3:50 AM EDT PROTHROMBIN TIME WITH INR Routine 07/24/2025 3:50 AM EDT PHOSPHORUS Routine 07/24/2025 3:50 AM EDT MAGNESIUM Routine 07/24/2025 3:50 AM EDT POCT GLUCOSE BLOOD Routine 07/24/2025 2: 18 AM EDT HEPARIN AND LOW MOLECULAR WEIGHT ANTI XA LEVEL Routine 07/24/2025 1:43 AM EDT POCT GLUCOSE BLOOD Routine 07/23/2025 9: 58 PM EDT VENTILATOR, ADULT Routine 07/23/2025 8:0 1 PM EDT HEPARIN AND LOW MOLECULAR WEIGHT ANTI XA LEVEL Timed 07/23/2025 6:33 PM EDT RBC MORPHOLOGY REVIEW Routine 07/23/2025 6:31 PM EDT POCT GLUCOSE BLOOD Routine 07/23/2025 6: 09 PM EDT POCT GLUCOSE BLOOD Routine 07/23/2025 3: 40 PM EDT HEPARIN AND LOW MOLECULAR WEIGHT ANTI XA LEVEL STAT 07/23/2025 1:15 PM EDT MCGOVERN URINE CULTURE TUBE Routine 07/23/20 25 1:15 PM EDT URINALYSIS WITH REFLEX MICROSCOPIC AND CULTURE Routine 07/23/2025 1:15 PM EDT URINALYSIS WITH REFLEX MICROSCOPIC AND CULTURE Routine 07/23/2025 1:15 PM EDT CULTURE URINE Routine 07/23/2025 1:15 PM EDT POCT GLUCOSE BLOOD Routine 07/23/2025 11 :[address] HEAD WO CONTRAST STAT 07/23/2025 1 0:[address] CHEST/ABDOMEN/PELVIS W CONTRAST STAT 07/23/2025 10:34 AM EDT TRANSTHORACIC ECHOCARDIOGRAM (TTE) COMPLETE W/ CONTRAST STAT 07/23/2025 10:00 AM EDT Septic shock (CMS/HCC V24, CMS/HCC V28) CULTURE SPUTUM STAT 07/23/2025 10:00 AM EDT ECG 12-LEAD Routine 07/23/2025 9:58 AM EDT LACTATE Routine 07/23/2025 9:30 AM EDT VALPROIC ACID LEVEL, TOTAL AND FREE Timed 07/23/2025 9:30 AM EDT FIBRINOGEN Routine 07/23/2025 9:30 AM EDT ACTIVATED PARTIAL THROMBOPLASTIN TIME Routine 07/23/2025 9:30 AM EDT TROPONIN I HIGH SENSITIVITY Routine 07/23/2025 9:30 AM EDT VENTILATOR, ADULT Routine 07/23/2025 8:0 1 AM EDT CULTURE BLOOD STAT 07/23/2025 8:01 AM EDT CULTURE BLOOD STAT 07/23/2025 7:29 AM EDT RESPIRATORY VIRUS PANEL MOLECULAR STUDY STAT 07/23/2025 6:15 AM EDT MRSA PCR STAT 07/23/2025 6:15 AM EDT [place] CATHETERIZATION/CANNULA TION ARTERIAL SAMPLE/MONITORING/TRANS FUSION PERC Routine 07/23/2025 6:14 AM EDT Septic shock (CMS/HCC V24, CMS/HCC V28) MANUAL DIFFERENTIAL - SYSMEX WAM STAT 07/23/2025 6:14 AM EDT THYROID STIMULATING HORMONE WITH REFLEX TO FREE T4 AND FREE T3 Add-On 07/23/2025 6:14 AM EDT TREPONEMA PALLIDUM ANTIBODY WITH REFLEX TO RPR AND PARTICLE AGGLUTINATION Add-On 07/23/2025 6:14 AM EDT VITAMIN B12 Add-On 07/23/2025 6:14 AM EDT FOLATE Add-On 07/23/2025 6:14 AM EDT PATHOLOGIST REVIEW BLOOD SMEAR Routine 07/23/2025 6:14 AM EDT TROPONIN I HIGH SENSITIVITY STAT 07/23/2025 6:14 AM EDT B-TYPE NATRIURETIC PEPTIDE STAT 07/23/2025 6:14 AM EDT MCGOVERN URINE CULTURE TUBE STAT 07/23/20 6:14 AM EDT URINALYSIS WITH REFLEX MICROSCOPIC AND CULTURE STAT 07/23/2025 6:14 AM EDT CBC WITH AUTO DIFFERENTIAL STAT 07/23/2025 6:14 AM EDT PROCALCITONIN STAT 07/23/2025 6:14 AM EDT URINALYSIS WITH REFLEX MICROSCOPIC AND CULTURE STAT 07/23/2025 6:14 AM EDT LACTATE STAT 07/23/2025 6:14 AM EDT PHOSPHORUS STAT 07/23/2025 6:14 AM EDT MAGNESIUM STAT 07/23/2025 6:14 AM EDT CALCIUM, IONIZED STAT 07/23/2025 6:14 AM EDT COMPREHENSIVE METABOLIC PANEL STAT 07/23/2025 6:14 AM EDT CBC AND DIFFERENTIAL STAT 07/23/2025 6:14 AM EDT CULTURE URINE STAT 07/23/2025 6:14 AM EDT LEGIONELLA ANTIGEN URINE, EIA STAT 07/23/2025 6:14 AM EDT ARTERIAL BLOOD GAS STAT 07/23/2025 5: 40 AM EDT ECG 12-LEAD STAT 07/23/2025 5:31 AM EDT VENTILATOR, ADULT Routine 07/23/2025 5:2 8 AM EDT VENTILATOR, ADULT Routine 07/23/2025 5:2 8 AM EDT POCT GLUCOSE BLOOD Routine 07/23/2025 5: 20 AM EDT XR CHEST 1 VIEW STAT 07/23/2025 5:15 AM EDT from Last 3 Months Results * (ABNORMAL) POCT Glucose, blood (08/02/2025 11:26 AM EST) Only the most recent of63 resultswithin the time period is included. [facility] Glucose POCT 187(H) 70 - 100 mg/dL 08/02/2025 11:[address] [facility] Blood Capillary blood specimen / Unknown 08/02/2025 11:26 AM EST 08/02/2025 11:28 AM EST us Bismark Grullon MD LAB POINT OF CARE TE ST DOCKED DEVICE UNSOLICITED RESULTS Final Result [facility] [address] [place] [address], * (ABNORMAL) CBC auto differential (08/02/2025 6:09 AM EST) Only the most recent of11 resultswithin the time period is included. [facility] WBC 9.8 4.8 - 10.8 K/mcL LAB HEMETOLOGY METHOD 08/02/2025 6:[address] [facility] RBC 3.40(L) 4.50 - 5.50 M/mcL LAB HEMETOLOGY METHOD 08/02/2025 6:[address] [facility] Hemoglobin 9.9(L) 13.5 - 17.5 g/dL LAB HEMETOLOGY METHOD 08/02/2025 6:[address] [facility] Hematocrit 31.4(L) 42.0 - 54.0 % LAB HEMETOLOGY METHOD 08/02/2025 6:[address] [facility] MCV 93.2 79.0 - 98.0 FL LAB HEMETOLOGY METHOD 08/02/2025 6:[address] [facility] MCH 29.4 27.0 - 32.0 pcg LAB HEMETOLOGY METHOD 08/02/2025 6:[address] [facility] MCHC 31.5(L) 32.0 - 37.0 g/dL LAB HEMETOLOGY METHOD 08/02/2025 6:[address] [facility] RDW 14.8 11.0 - 15.0 % LAB HEMETOLOGY METHOD 08/02/2025 6:[address] [facility] Platelets 179 130 - 400 K/mcL LAB HEMETOLOGY METHOD 08/02/2025 6:[address] [facility] MPV 9.9 7.0 - 11.0 FL LAB HEMETOLOGY METHOD 08/02/2025 6:[address] [facility] NRBC 0.0 <1.0 % LAB HEMETOLOGY METHOD 08/02/2025 6:[address] [facility] NRBC Absolute 0.00 <0.10 K/mcL LAB HEMETOLOGY METHOD 08/02/2025 6:[address] [facility] Neutrophils Relative 50.5 % LAB HEMETOLOGY METHOD 08/02/2025 6:[address] [facility] Lymphocytes Relative 37.2 % LAB HEMETOLOGY METHOD 08/02/2025 6:[address] [facility] Monocytes Relative 5.6 % LAB HEMETOLOGY METHOD 08/02/2025 6:[address] [facility] Eosinophils Relative 5.4 % LAB HEMETOLOGY METHOD 08/02/2025 6:[address] [facility] Basophils Relative 0.6 % LAB HEMETOLOGY METHOD 08/02/2025 6:50 AM EST [facility] Immature Granulocytes Relative 0.7 % LAB HEMETOLOGY METHOD 08/02/2025 6:50 AM EST [facility] Neutrophils Absolute 4.97 1.50 - 7.00 K/mcL LAB HEMETOLOGY METHOD 08/02/2025 6:50 AM EST [facility] Lymphocytes Absolute 3.66 1.00 - 5.00 K/mcL LAB HEMETOLOGY METHOD 08/02/2025 6:50 AM EST [facility] Monocytes Absolute 0.55 0.20 - 1.00 K/mcL LAB HEMETOLOGY METHOD 08/02/2025 6:50 AM EST [facility] Eosinophils Absolute 0.53(H) 0.00 - 0.50 K/mcL LAB HEMETOLOGY METHOD 08/02/2025 6:50 AM EST [facility] Basophils Absolute 0.06 0.00 - 0.20 K/mcL LAB HEMETOLOGY METHOD 08/02/2025 6:50 AM EST [facility] Immature Granulocytes Absolute 0.07(H) 0.00 - 0.03 K/mcL LAB HEMETOLOGY METHOD 08/02/2025 6:50 AM EST [facility] Blood Venous blood specimen / Unknown Venipuncture / Unknown 08/02/2025 6:09 AM EST 08/02/2025 6:38 AM EST us Bismark Grullon MD LAB BLOOD ORDERABLES Final Resul t [facility] [address] [place] [address], * (ABNORMAL) Basic metabolic panel (08/02/2025 6:09 AM EST) Only the most recent of13 resultswithin the time period is included. Sodium 141 133 - 145 mmol/L LAB CHEMISTRY METHOD 08/02/2025 7:[address] [facility] Potassium 3.8 3.5 - 5.5 mmol/L LAB CHEMISTRY METHOD 08/02/2025 7:[address] [facility] Chloride 107 96 - 110 mmol/L LAB CHEMISTRY METHOD 08/02/2025 7:[address] [facility] CO2 29 21 - 32 mmol/L LAB CHEMISTRY METHOD 08/02/2025 7:[address] [facility] Anion Gap 5 3 - 11 LAB CHEMISTRY METHOD 08/02/2025 7:[address] [facility] Glucose 115(H) 70 - 100 mg/dL LAB CHEMISTRY METHOD 08/02/2025 7:[address] [facility] BUN 10 5 - 25 mg/dL LAB CHEMISTRY METHOD 08/02/2025 7:[address] [facility] Creatinine 0.46(L) 0.70 - 1.30 mg/dL LAB CHEMISTRY METHOD 08/02/2025 7:[address] [facility] eGFR 124 >=60 mL/min/1. 73m2 LAB CHEMISTRY METHOD 08/02/2025 7:[address] [facility] Comment:Calculation based on the Chronic Kidney Disease Epidemiology Collaboration (CKD-EPI) equation refit without adjustment for race. BUN/Creatinine Ratio 21.7 LAB CHEMISTRY METHOD 08/02/2025 7:[address] [facility] Calcium 8.3(L) 8.5 - 10.5 mg/dL LAB CHEMISTRY METHOD 08/02/2025 7:[address] [facility] Blood Venous blood specimen / Unknown Venipuncture / Unknown 08/02/2025 6:09 AM EST 08/02/2025 6:38 AM EST us Bismark Grullon MD LAB BLOOD ORDERABLES Final Resul t [facility] [address] [place] [address], * CT Chest wo Contrast (08/01/2025 12:07 PM EST) Anatomical Region Laterality Modality Body Computed Tomogra phy 08/01/2025 12:3 7 PM EST Impressions 08/01/2025 12:39 PM EST There is smooth intralobular septal thickening with moderate right and small left pleural effusion suggesting pulmonary vascular congestion. There are parenchymal opacities at the right greater than left lung bases which could represent atelectasis or pneumonia. -------- FINAL REPORT -------- Dictated By: Candice Beavers Dictated Date: 08/01/2025 12:37 ET Assigned Physician: Candice Beavers Reviewed and Electronically Signed By: Candice Beavers Signed Date: 08/01/2025 12:39 ET Workstation ID: [id number] Transcribed By: Self Edit Transcribed Date: 08/01/2025 12:37 ET Narrative 08/01/2025 12:39 PM EST PROCEDURE: CT CHEST WITHOUT CONTRAST INDICATION: pneumonia TECHNIQUE: Chest CT without contrast. Multi planar reformats were created and interpreted. The examination was performed utilizing dose reduction techniques.Total DLP 943 mGy/cm COMPARISON: No priors available. FINDINGS: LUNGS/PLEURA: There is smooth interlobular septal thickening with moderate right and small left pleural effusion suggesting cardiovascular pulmonary vascular congestion. There are parenchymal opacities at the right greater than left lung bases which could represent atelectasis or pneumonia. MEDIASTINUM: Coronary artery calcifications. CHEST WALL: Chronic mass 2. UPPER ABDOMEN:Nonobstructing calculus right kidney. BONES: No acute fracture. Scattered degenerative changes seen throughout the bones. Procedure Note Candice Beavers MD - 08/01/2025 PROCEDURE: CT CHEST WITHOUT CONTRAST INDICATION: pneumonia TECHNIQUE: Chest CT without contrast. Multi planar reformats were createdand interpreted. The examination was performed utilizing dose reductiontechniques.Total DLP 943 mGy/cm COMPARISON: No priors available. FINDINGS: LUNGS/PLEURA: There is smooth interlobular septal thickening with moderateright and small left pleural effusion suggesting cardiovascular pulmonaryvascular congestion. There are parenchymal opacities at the right greaterthan left lung bases which could represent atelectasis or pneumonia. MEDIASTINUM: Coronary artery calcifications. CHEST WALL: Chronic mass 2. UPPER ABDOMEN:Nonobstructing calculus right kidney. BONES: No acute fracture. Scattered degenerative changes seen throughoutthe bones. IMPRESSION: There is smooth intralobular septal thickening with moderate right andsmall left pleural effusion suggesting pulmonary vascular congestion.There are parenchymal opacities at the right greater than left lung baseswhich could represent atelectasis or pneumonia. -------- FINAL REPORT -------- Dictated By: Candice Beavers Dictated Date: 08/01/2025 12:37 ET Assigned Physician: Candice Beavers Reviewed and Electronically Signed By: Candice Beavers Signed Date: 08/01/2025 12:39 ET Workstation ID: [id number] Transcribed By: Self Edit Transcribed Date: 08/01/2025 12:37 ET Bismark Grullon MD IMG CT PROCEDURES Final Result * Hemoglobin A1c (07/30/2025 9:37 AM EST) [facility] Hemoglobin A1C 5.6 <6.5 % LAB CHEMISTRY METHOD 07/30/2025 6:33 PM EST [facility] Mean Bld Glu Estim. 114 mg/dL LAB CHEMISTRY METHOD 07/30/2025 6:33 PM EST [facility] Blood Venous blood specimen / Unknown Venipuncture / Unknown 07/30/2025 9:37 AM EST 07/30/2025 9:45 AM EST us Bismark Grullon MD LAB BLOOD ORDERABLES Final Resul t [facility] [address] [place] [address], [place] [phone] * SST tube (07/29/2025 4:25 AM EST) Pathologist [facility] Extra Tube Hold for add-ons. 07/29/2025 6:01 AM EST [facility] Comment:Auto resulted. Blood Venous blood specimen / Unknown Venipuncture / Unknown 07/29/2025 4:25 AM EST 07/29/2025 4:32 AM EST us Shawn Lawrence DO LAB BLOOD ORDERABLES Final R esult [facility] [address] [place] [address], * (ABNORMAL) Manual differential (07/29/2025 4:25 AM EST) Only the most recent of5 resultswithin the time period is included. Neutrophils % 68.0 % LAB HEMETOLOGY METHOD 07/29/2025 5:[address] [facility] Lymphocytes % 15.0 % LAB HEMETOLOGY METHOD 07/29/2025 5:[address] [facility] Monocytes % 16.0 % LAB HEMETOLOGY METHOD 07/29/2025 5:[address] [facility] Eosinophils % 1.0 % LAB HEMETOLOGY METHOD 07/29/2025 5:[address] [facility] Basophils % 0.0 % LAB HEMETOLOGY METHOD 07/29/2025 5:[address] [facility] Neutrophils Absolute Manual 9.18(H) 1.50 - 7.00 K/mcL LAB HEMETOLOGY METHOD 07/29/2025 5:[address] [facility] Lymphocytes Absolute 2.03 1.00 - 5.00 K/mcL LAB HEMETOLOGY METHOD 07/29/2025 5:[address] [facility] Monocytes Absolute Manual 2.16(H) 0.20 - 1.00 K/mcL LAB HEMETOLOGY METHOD 07/29/2025 5:[address] [facility] Eosinophils Absolute Manual 0.14 0.00 - 0.50 K/mcL LAB HEMETOLOGY METHOD 07/29/2025 5:45 AM EST [facility] Basophils Absolute Manual 0.00 0.00 - 0.20 K/mcL LAB HEMETOLOGY METHOD 07/29/2025 5:[address] [facility] Rbc Morphology Consistent with indices Consistent with indices, Normal for LAB HEMETOLOGY METHOD 07/29/2025 5:[address] [facility] Platelet Morphology - WAM Normal Normal LAB HEMETOLOGY METHOD 07/29/2025 5:[address] [facility] Blood Venous blood specimen / Unknown Venipuncture / Unknown 07/29/2025 4:25 AM EST 07/29/2025 4:31 AM EST Sarah Sharp MD LAB BLOOD ORDERABLES Final Res ult Performing Organization Address [facility]/ZIP Co de Phone Number [facility] [address] [place] [address], * Light blue tube (07/29/2025 4:25 AM EST) Extra Tube Hold for add-ons. 07/29/2025 6:[address] [facility] Comment:Auto resulted. Blood Venous blood specimen / Unknown Venipuncture / Unknown 07/29/2025 4:25 AM EST 07/29/2025 4:32 AM EST Shawn Lawrence DO LAB BLOOD ORDERABLES Final R esult Performing Organization Address City/[facility]/ZIP Co de Phone Number [facility] [address] [place] [address], [place] [phone] * Phosphorus (07/29/2025 4:25 AM EST) Only the most recent of11 resultswithin the time period is included. Phosphorus 3.1 2.5 - 4.5 mg/dL LAB CHEMISTRY METHOD 07/29/2025 5:[address] [facility] Blood Venous blood specimen / Unknown Venipuncture / Unknown 07/29/2025 4:25 AM EST 07/29/2025 4:31 AM EST us Sarah Sharp MD LAB BLOOD ORDERABLES Final Res ult Performing Organization Address City/[facility]/ZIP Co de Phone Number [facility] [address] [place] [address], [place] [phone] * Magnesium (07/29/2025 4:25 AM EST) Only the most recent of11 resultswithin the time period is included. Magnesium 2.3 1.9 - 2.6 mg/dL LAB CHEMISTRY METHOD 07/29/2025 5:00 AM EST [facility] Blood Venous blood specimen / Unknown Venipuncture / Unknown 07/29/2025 4:25 AM EST 07/29/2025 4:31 AM EST us Sarah Sharp MD LAB BLOOD ORDERABLES Final Res ult Performing Organization Address [facility] Co de Phone Number [facility] [address] [place] [address], [place] [phone] * Calcium, ionized (07/29/2025 4:25 AM EST) Only the most recent of9 resultswithin the time period is included. Calcium Ionized 4.60 4.50 - 5.30 mg/dL 07/29/2025 4:44 AM EST [facility] Blood Venous blood specimen / Unknown Venipuncture / Unknown 07/29/2025 4:25 AM EST 07/29/2025 4:31 AM EST us Sarah Sharp MD LAB BLOOD ORDERABLES Final Res ult Performing Organization Address City/[facility]/ZIP Co de Phone Number [facility] [address] [place] [address], [place] [phone] * Vascular US duplex lower extremity venous bilateral (07/28/2025 9:28 AM EST) Anatomical Region Laterality Modality Vascular, Abdomen Ultrasound 07/28/2025 9:34 AM EST Impressions 07/28/2025 9:38 AM EST No deep venous thrombosis demonstrated. Mildly limited exam -------- FINAL REPORT -------- Dictated By: Ady Sanabria Dictated Date: 07/28/2025 09:34 ET Assigned Physician: Ady Sanabria Reviewed and Electronically Signed By: Ady Sanabria Signed Date: 07/28/2025 09:38 ET Workstation ID: [id number] Transcribed By: Self Edit Transcribed Date: 07/28/2025 09:34 ET Narrative 07/28/2025 9:38 AM EST EXAM: DUPLEX ULTRASOUND LOWER, BILATERAL HISTORY: Bilateral lower extremities swelling. Clinical concern regarding deep venous thrombosis. TECHNIQUE: Real-time ultrasonography of the venous system from the groin to the proximal calf is performed. Compression and augmentation were used as needed. Color mapping was performed. Doppler spectral analysis was performed. The study is limited. The study was performed portably in the intensive care unit. FINDINGS: The grayscale evaluation is slightly limited due to habitus. The venous system from the groin into the proximal calf was reasonably well visualized and compressible. The caliber appears within normal limits. The visualized venous system is compressible. There is appropriate color saturation of the lumen. Appropriate spectral waveforms were obtained during augmentation and compression. There are linear hypoechoic reticular abnormalities in the superficial soft tissues consistent with edema. Procedure Note Ady Sanabria MD - 07/28/2025 EXAM: DUPLEX ULTRASOUND LOWER, BILATERAL HISTORY: Bilateral lower extremities swelling. Clinical concern regardingdeep venous thrombosis. TECHNIQUE: Real-time ultrasonography of the venous system from the grointo the proximal calf is performed. Compression and augmentation were usedas needed. Color mapping was performed. Doppler spectral analysis wasperformed. The study is limited. The study was performed portably in the intensivecare unit. FINDINGS: The grayscale evaluation is slightly limited due to habitus. The venous system from the groin into the proximal calf was reasonablywell visualized and compressible. The caliber appears within normallimits. The visualized venous system is compressible. There is appropriate colorsaturation of the lumen. Appropriate spectral waveforms were obtained during augmentation andcompression. There are linear hypoechoic reticular abnormalities in the superficialsoft tissues consistent with edema. IMPRESSION: No deep venous thrombosis demonstrated. Mildly limited exam -------- FINAL REPORT -------- Dictated By: Ady Sanabria Dictated Date: 07/28/2025 09:34 ET Assigned Physician: Ady Sanabria Reviewed and Electronically Signed By: Ady Sanabria Signed Date: 07/28/2025 09:38 ET Workstation ID: [id number] Transcribed By: Self Edit Transcribed Date: 07/28/2025 09:34 ET us Sarah Sharp MD CV VASCULAR PROCEDURES Final R esult * (ABNORMAL) Activated Partial Thromboplastin Time - STAT (07/28/2025 8:26 AM EST) Only the most recent of5 resultswithin the time period is included. aPTT 41.7(H) 24.1 - 39.3 sec LAB COAGULATION METHOD 07/28/2025 9:01 AM EST [facility] Blood Venous blood specimen / Unknown Venipuncture / Unknown 07/28/2025 8:26 AM EST 07/28/2025 8:40 AM EST us Shawn Lawrence DO LAB BLOOD ORDERABLES Final R esult [facility] [address] [place] [address], [place] [phone] * (ABNORMAL) Prothrombin Time with INR - STAT (07/28/2025 8:26 AM EST) Only the most recent of2 resultswithin the time period is included. Protime 14.2(H) 10.6 - 13.9 sec LAB COAGULATION METHOD 07/28/2025 9:01 AM EST [facility] INR 1.1 LAB COAGULATION METHOD 07/28/2025 9:01 AM EST [facility] Blood Venous blood specimen / Unknown Venipuncture / Unknown 07/28/2025 8:26 AM EST 07/28/2025 8:40 AM EST Shawn Lawrence DO LAB BLOOD ORDERABLES Final R esult Performing Organization Address [facility] de Phone Number [facility] [address] [place] [address], [place] [phone] * (ABNORMAL) Ammonia (07/28/2025 6:22 AM EST) Only the most recent of5 resultswithin the time period is included. Ammonia 43(H) 11 - 35 mcmol/L LAB CHEMISTRY METHOD 07/28/2025 7:31 AM EST [facility] Blood Arterial blood specimen / Unknown Arterial Puncture / Unknown 07/28/2025 6:22 AM EST 07/28/2025 6:32 AM EST Ava Mcbride [employer] LAB BLOOD ORDERABLES Final Resul t Performing Organization Address [facility] de Phone Number [facility] [address] [place] [address], [place] [phone] * XR Chest 1 View (07/28/2025 6:20 AM EST) Only the most recent of6 resultswithin the time period is included. Anatomical Region Laterality Modality Body Radiographic Vandana ging 07/28/2025 6:46 AM EST Impressions 07/28/2025 6:48 AM EST Interval extubation and removal of nasogastric tube. Moderate bibasilar pleural and parenchymal opacities accentuated by hypoinflation. There may be minimal interval improvement. -------- FINAL REPORT -------- Dictated By: Ady Sanabria Dictated Date: 07/28/2025 06:46 ET Assigned Physician: Ady Sanabria Reviewed and Electronically Signed By: Ady Sanabria Signed Date: 07/28/2025 06:48 ET Workstation ID: [id number] Transcribed By: Self Edit Transcribed Date: 07/28/2025 06:46 ET Narrative 07/28/2025 6:48 AM EST EXAMINATION: CHEST CLINICAL INFORMATION: Evaluate lines and tubes COMPARISON: Frontal view 07/27/25 TECHNIQUE: Portable supine frontal view of the chest FINDINGS: Interval extubation and removal of the enteric tube. Right-sided vascular catheter tip projects in expected region of upper SVC. Cardiac silhouette is somewhat globular. The central vessels are prominent. No definite alveolar edema. Moderate pleural and parenchymal opacities in the lower chest which obscures the diaphragm and blunts the lateral costal chronic sulci. No consolidation in the upper lung zones. No pneumothorax. Procedure Note Ady Sanabria MD - 07/28/2025 EXAMINATION: CHEST CLINICAL INFORMATION: Evaluate lines and tubes COMPARISON: Frontal view 07/27/25 TECHNIQUE: Portable supine frontal view of the chest FINDINGS: Interval extubation and removal of the enteric tube. Right-sided vascularcatheter tip projects in expected region of upper SVC. Cardiac silhouette is somewhat globular. The central vessels areprominent. No definite alveolar edema. Moderate pleural and parenchymal opacities in the lower chest whichobscures the diaphragm and blunts the lateral costal chronic sulci. No consolidation in the upper lung zones. No pneumothorax. IMPRESSION: Interval extubation and removal of nasogastric tube. Moderate bibasilar pleural and parenchymal opacities accentuated byhypoinflation. There may be minimal interval improvement. -------- FINAL REPORT -------- Dictated By: Ady Sanabria Dictated Date: 07/28/2025 06:46 ET Assigned Physician: Ady Sanabria Reviewed and Electronically Signed By: Ady Saanbria Signed Date: 07/28/2025 06:48 ET Workstation ID: [id number] Transcribed By: Self Edit Transcribed Date: 07/28/2025 06:46 ET us Joslyn Padilla MD IMG XR PROCEDURES Final Resul t * (ABNORMAL) Procalcitonin (07/28/2025 4:29 AM EST) Only the most recent of6 resultswithin the time period is included. Procalcitonin 1.14(H) <=0.16 ng/mL LAB CHEMISTRY METHOD 07/28/2025 9:30 AM EST [facility] Blood Arterial blood specimen / Unknown Arterial Puncture / Unknown 07/28/2025 4:29 AM EST 07/28/2025 4:39 AM EST Narrative [facility] - 07/28/2025 9:30 AM EST Procalcitonin > 2.00 ng/ml: Procalcitonin Levels above 2.00 ng/ml, on the first day of ICU admission represent a high risk for progression to severe sepsis and/or septic shock. Procalcitonin < 0.50 ng/ml: Procalcitonin levels below 0.50 ng/ml on the first day of ICU admission represent a low risk for progression to severe sepsis and/or septic shock. Concentrations <0.5 ng/mL do not exclude an infection, on account of local ized infections (without systemic signs) which can be associated with such low concentrations, or a systemic infection in its initial stages (<6 hours). Furthermore, increased procalcitonin can occur without infection. PCT concentrations between 0.5 and 2.0 ng/mL should be interpreted taking into account the patient's history. It is recommended to retest PCT within 6-24 hours if any concentrations <2.0 ng/mL are obtained. us Ava Mcbride NP LAB BLOOD ORDERABLES Final Resul t [facility] [address] [place] [address], * Heparin and low molecular weight anti Xa level (07/28/2025 4:29 AM EST) Only the most recent of20 resultswithin the time period is included. Heparin Anti-Xa 0.31 0.30 - 0.70 I Unit/mL LAB COAGULATION METHOD 07/28/2025 4:52 AM EST [facility] Blood Arterial blood specimen / Unknown Venipuncture / Unknown 07/28/2025 4:29 AM EST 07/28/2025 4:39 AM EST Narrative [facility] - 07/28/2025 4:52 AM EST Therapeutic range listed is for Unfractionated Heparin. LMW Heparin therapeutic range: 0.50-1.20 IU/mL us Joslyn Padilla MD LAB BLOOD ORDERABLES Final Re sult Performing Organization Address City/[facility]/ZIP Co de Phone Number [facility] [address] [place] [address], [place] [phone] * Lactate (07/28/2025 4:29 AM EST) Only the most recent of5 resultswithin the time period is included. Lactate 0.9 0.4 - 2.0 mmol/L LAB CHEMISTRY METHOD 07/28/2025 5:15 AM EST [facility] Blood Arterial blood specimen / Unknown Venipuncture / Unknown 07/28/2025 4:29 AM EST 07/28/2025 5:15 AM EST Ava Mcbride NP LAB BLOOD ORDERABLES Final Resul t Performing Organization Address [facility]/ZIP Co de Phone Number [facility] [address] [place] [address], [place] [phone] * (ABNORMAL) Arterial blood gas (07/28/2025 4:29 AM EST) Only the most recent of6 resultswithin the time period is included. pH, Arterial 7.44 7.35 - 7.45 pH 07/28/2025 4:50 AM EST [facility] pCO2, Arterial 37 35 - 45 mmHg 07/28/2025 4:50 AM EST [facility] pO2, Arterial 82 80 - 100 mmHg 07/28/2025 4:50 AM EST [facility] HCO3, Arterial 25.7 22.0 - 26.0 mmol/L 07/28/2025 4:[address] [facility] O2 Sat, Arterial 98.7(H) 95.0 - 98.0 % 07/28/2025 4:[address] [facility] Base Excess, Arterial 1.0 -2.0 - 2.0 mmol/L 07/28/2025 4:[address] [facility] Blood Arterial blood specimen / Unknown Arterial Puncture / Unknown 07/28/2025 4:29 AM EST 07/28/2025 4:38 AM EST us Joslyn Padilla MD LAB BLOOD ORDERABLES Final Re sult [facility] [address] [place] [address], [place] [phone] * (ABNORMAL) Hepatic function panel (07/28/2025 4:29 AM EST) Only the most recent of5 resultswithin the time period is included. Total Protein 5.5(L) 6.0 - 8.0 g/dL LAB CHEMISTRY METHOD 07/28/2025 5:[address] [facility] Albumin 2.8(L) 3.2 - 5.0 g/dL LAB CHEMISTRY METHOD 07/28/2025 5:[address] [facility] Total Bilirubin 0.5 0.0 - 1.4 mg/dL LAB CHEMISTRY METHOD 07/28/2025 5:[address] [facility] Bilirubin, Direct 0.1 0.0 - 0.3 mg/dL LAB CHEMISTRY METHOD 07/28/2025 5:[address] [facility] Bilirubin, Indirect 0.4 0.0 - 1.1 mg/dL LAB CHEMISTRY METHOD 07/28/2025 5:[address] [facility] ALT (SGPT) 30 10 - 60 unit/L LAB CHEMISTRY METHOD 07/28/2025 5:11 AM EST [facility] AST (SGOT) 20 10 - 42 unit/L LAB CHEMISTRY METHOD 07/28/2025 5:11 AM EST [facility] Alkaline Phosphatase 43 42 - 121 unit/L LAB CHEMISTRY METHOD 07/28/2025 5:11 AM EST [facility] Blood Arterial blood specimen / Unknown Venipuncture / Unknown 07/28/2025 4:29 AM EST 07/28/2025 4:39 AM EST us Ava Mcbride NP LAB BLOOD ORDERABLES Final Resul t [facility] [address] [place] [address], [place] [phone] * NM Hepatobiliary System Imaging (07/27/2025 9:49 AM EST) Anatomical Region Laterality Modality Body Nuclear Medicine 07/27/2025 1:28 PM EST Impressions 07/27/2025 1:31 PM EST No evidence of cystic duct obstruction. Patent common bile duct. -------- FINAL REPORT -------- Dictated By: Jace Eisenberg Dictated Date: 07/27/2025 13:28 ET Assigned Physician: Jace Eisenberg Reviewed and Electronically Signed By: Jace Eisenberg Signed Date: 07/27/2025 13:31 ET Workstation ID: [id number] Transcribed By: Self Edit Transcribed Date: 07/27/2025 13:28 ET Narrative 07/27/2025 1:31 PM EST HISTORY: Right upper quadrant pain FINDINGS: Routine hepatobiliary scintigraphy examination was performed following 4.6 mCi of Tc-99m Choletec IV. Prior relevant studies: CT scan of the abdomen and pelvis from July 23, 2025 There is prompt accumulation of radiopharmaceutical by the hepatic parenchyma. There is normal uptake within the common bile duct, gallbladder, and small bowel. There is no biliary obstruction. Procedure Note Jace Eisenberg MD - 07/27/2025 HISTORY: Right upper quadrant pain FINDINGS: Routine hepatobiliary scintigraphy examination was performedfollowing 4.6 mCi of Tc-99m Choletec IV. Prior relevant studies: CT scan of the abdomen and pelvis from June There is prompt accumulation of radiopharmaceutical by the hepaticparenchyma. There is normal uptake within the common bile duct,gallbladder, and small bowel. There is no biliary obstruction. IMPRESSION: No evidence of cystic duct obstruction. Patent common bile duct. -------- FINAL REPORT -------- Dictated By: Jace Eisenberg Dictated Date: 07/27/2025 13:28 ET Assigned Physician: Jace Eisenberg Reviewed and Electronically Signed By: Jace Eisenberg Signed Date: 07/27/2025 13:31 ET Workstation ID: [id number] Transcribed By: Self Edit Transcribed Date: 07/27/2025 13:28 ET us Fadumo Eason MD IMG NM PROCEDURES Final Resul t * (ABNORMAL) Vancomycin, trough Please draw prior to 2:30 pm dose. (07/26/2025 1:20 PM EST) Only the most recent of2 resultswithin the time period is included. Vancomycin Trough 21.4(H) 10.0 - 20.0 mcg/mL LAB CHEMISTRY METHOD 07/26/2025 2:17 PM EST [facility] Blood Venous blood specimen / Unknown Venipuncture / Unknown 07/26/2025 1:20 PM EST 07/26/2025 1:43 PM EST us Fadumo Eason MD LAB BLOOD ORDERABLES Final Re sult [facility]) [facility] [address] [place] [address], [place] [phone] * ECG 12 lead (07/26/2025 8:02 AM EST) Only the most recent of4 resultswithin the time period is included. Pathologist [facility] Ventricular Rate ECG 73 BPM GEMUSE Atrial Rate 49 BPM GEMUSE QRS Duration 116 ms GEMUSE Q-T Interval 408 ms GEMUSE QTc 449 ms GEMUSE R Manning 94 degrees GEMUSE T Manning 32 degrees GEMUSE ECG Interpretation Accelerated Junctional rhythm Low voltage QRS Right bundle branch block Abnormal ECG When compared with ECG of 24-JUL-2025 19:37, (unconfirmed) Junctional rhythm has replaced Atrial flutter T wave inversion now evident in Anterior leads Confirmed by Frederic RUIZ JOHN ([id number]) on 07/26/2025 4:49:19 PM GEMUSE 07/26/2025 8:02 AM EST 07/26/2025 4:49 PM EST us Fadumo Eason MD ECG ORDERABLES Final Result GEMUSE * (ABNORMAL) CBC - Every 3 Days (07/26/2025 3:59 AM EST) [facility] WBC 22.7(H) 4.8 - 10.8 K/mcL LAB HEMETOLOGY METHOD 07/26/2025 4:[address] [facility] RBC 3.10(L) 4.50 - 5.50 M/mcL LAB HEMETOLOGY METHOD 07/26/2025 4:[address] [facility] Hemoglobin 9.0(L) 13.5 - 17.5 g/dL LAB HEMETOLOGY METHOD 07/26/2025 4:[address] [facility] Hematocrit 28.4(L) 42.0 - 54.0 % LAB HEMETOLOGY METHOD 07/26/2025 4:[address] [facility] MCV 92.8 79.0 - 98.0 FL LAB HEMETOLOGY METHOD 07/26/2025 4:[address] [facility] MCH 29.4 27.0 - 32.0 pcg LAB HEMETOLOGY METHOD 07/26/2025 4:24 AM EST [facility] MCHC 31.7(L) 32.0 - 37.0 g/dL LAB HEMETOLOGY METHOD 07/26/2025 4:[address] [facility] RDW 14.6 11.0 - 15.0 % LAB HEMETOLOGY METHOD 07/26/2025 4:[address] [facility] Platelets 327 130 - 400 K/mcL LAB HEMETOLOGY METHOD 07/26/2025 4:[address] [facility] MPV 10.2 7.0 - 11.0 FL LAB HEMETOLOGY METHOD 07/26/2025 4:[address] [facility] NRBC 0.2 <1.0 % LAB HEMETOLOGY METHOD 07/26/2025 4:[address] [facility] NRBC Absolute 0.04 <0.10 K/mcL LAB HEMETOLOGY METHOD 07/26/2025 4:[address] [facility] Blood Arterial blood specimen / Unknown Existing Catheter / Unknown 07/26/2025 3:59 AM EST 07/26/2025 4:19 AM EST us Fadumo Eason MD LAB BLOOD ORDERABLES Final Re sult [facility] [address] [place] [address], * (ABNORMAL) Comprehensive metabolic panel (07/24/2025 6:04 PM EDT) Only the most recent of2 resultswithin the time period is included. Sodium 141 133 - 145 mmol/L LAB CHEMISTRY METHOD 07/24/2025 7:03 PM EDT [facility] Potassium 4.0 3.5 - 5.5 mmol/L LAB CHEMISTRY METHOD 07/24/2025 7:03 PM EDT [facility] Chloride 109 96 - 110 mmol/L LAB CHEMISTRY METHOD 07/24/2025 7:[address] [facility] CO2 26 21 - 32 mmol/L LAB CHEMISTRY METHOD 07/24/2025 7:[address] [facility] Anion Gap 6 3 - 11 LAB CHEMISTRY METHOD 07/24/2025 7:[address] [facility] Glucose 218(H) 70 - 100 mg/dL LAB CHEMISTRY METHOD 07/24/2025 7:[address] [facility] BUN 11 5 - 25 mg/dL LAB CHEMISTRY METHOD 07/24/2025 7:[address] [facility] Creatinine 0.49(L) 0.70 - 1.30 mg/dL LAB CHEMISTRY METHOD 07/24/2025 7:[address] [facility] eGFR 121 >=60 mL/min/1. 73m2 LAB CHEMISTRY METHOD 07/24/2025 7:[address] [facility] Comment:Calculation based on the Chronic Kidney Disease Epidemiology Collaboration (CKD-EPI) equation refit without adjustment for race. BUN/Creatinine Ratio 22.4 LAB CHEMISTRY METHOD 07/24/2025 7:[address] [facility] Calcium 8.0(L) 8.5 - 10.5 mg/dL LAB CHEMISTRY METHOD 07/24/2025 7:[address] [facility] AST (SGOT) 12 10 - 42 unit/L LAB CHEMISTRY METHOD 07/24/2025 7:[address] [facility] ALT (SGPT) 27 10 - 60 unit/L LAB CHEMISTRY METHOD 07/24/2025 7:[address] [facility] Alkaline Phosphatase 62 42 - 121 unit/L LAB CHEMISTRY METHOD 07/24/2025 7:[address] [facility] Total Protein 5.3(L) 6.0 - 8.0 g/dL LAB CHEMISTRY METHOD 07/24/2025 7:[address] [facility] Albumin 2.0(L) 3.2 - 5.0 g/dL LAB CHEMISTRY METHOD 07/24/2025 7:03 PM EDT [facility] Total Bilirubin 0.3 0.0 - 1.4 mg/dL LAB CHEMISTRY METHOD 07/24/2025 7:03 PM EDT [facility] Blood Venous blood specimen / Unknown Venipuncture / Unknown 07/24/2025 6:04 PM EDT 07/24/2025 6:33 PM EDT Fadumo Eason MD LAB BLOOD ORDERABLES Final Re sult Performing Organization Address City/[facility]/ZIP Co de Phone Number [facility] [address] [place] [address], [place] [phone] * RBC morphology review (07/23/2025 6:31 PM EDT) [facility] Rbc Morphology Consistent with indices Consistent with indices, Normal for [place] LAB HEMETOLOGY METHOD 07/23/2025 8:03 PM EDT [facility] Platelet Morphology - WAM Normal Normal LAB HEMETOLOGY METHOD 07/23/2025 8:03 PM EDT [facility] Blood Venous blood specimen / Unknown Venipuncture / Unknown 07/23/2025 6:31 PM EDT 07/23/2025 7:10 PM EDT Joslyn Padilla MD LAB BLOOD ORDERABLES Final Re sult Performing Organization Address City/[facility]/ZIP Co de Phone Number [facility] [address] [place] [address], [place] [phone] * (ABNORMAL) Urinalysis with reflex microscopic and culture (07/23/2025 1:15 PM EDT) Only the most recent of2 resultswithin the time period is included. Specific [place] Urine LAB URINALYSIS - AUTOMATED METHOD 07/23/2025 2:[address] [facility] Comment:Unable to interpret due to color interference. pH, Urine LAB URINALYSIS - AUTOMATED METHOD 07/23/2025 2:[address] [facility] Comment:Unable to interpret due to color interference. Leukocytes, Urine LAB URINALYSIS - AUTOMATED METHOD 07/23/2025 2:[address] [facility] Comment:Unable to interpret due to color interference. Nitrite, Urine LAB URINALYSIS - AUTOMATED METHOD 07/23/2025 2:[address] [facility] Comment:Unable to interpret due to color interference. Protein, Urine LAB URINALYSIS - AUTOMATED METHOD 07/23/2025 2:[address] [facility] Comment:Unable to interpret due to color interference. Glucose, Urine LAB URINALYSIS - AUTOMATED METHOD 07/23/2025 2:[address] [facility] Comment:Unable to interpret due to color interference. Ketones, Urine LAB URINALYSIS - AUTOMATED METHOD 07/23/2025 2:[address] [facility] Comment:Unable to interpret due to color interference. Urobilinogen, Urine LAB URINALYSIS - AUTOMATED METHOD 07/23/2025 2:[address] [facility] Comment:Unable to interpret due to color interference. Bilirubin, Urine LAB URINALYSIS - AUTOMATED METHOD 07/23/2025 2:[address] [facility] Comment:Unable to interpret due to color interference. Blood, Urine LAB URINALYSIS - AUTOMATED METHOD 07/23/2025 2:[address] [facility] Comment:Unable to interpret due to color interference. RBC, Urine 3 0 - 4 /HPF LAB URINALYSIS - AUTOMATED METHOD 07/23/2025 2:[address] [facility] WBC, Urine >100(H) 0 - 4 /HPF LAB URINALYSIS - AUTOMATED METHOD 07/23/2025 2:[address] [facility] Squamous Epithelial, Urine 10 0 - 60 /LPF LAB URINALYSIS - AUTOMATED METHOD 07/23/2025 2:12 PM EDT [facility] Bacteria, Urine Negative Negative /HPF LAB URINALYSIS - AUTOMATED METHOD 07/23/2025 2:12 PM EDT [facility] Urine Urine specimen obtained by clean catch procedure / Unknown Non-blood Collection / Unknown 07/23/2025 1:15 PM EDT 07/23/2025 2:01 PM EDT Shawn [facility] LAB URINE ORDERABLES Final R esult [facility] [address] [place] [address], [place] [phone] * [place] urine culture tube (07/23/2025 1:15 PM EDT) Only the most recent of2 resultswithin the time period is included. Extra Tube Hold for add-ons. 07/23/2025 4:01 PM EDT [facility] Comment:Auto resulted. Urine Urine specimen obtained by clean catch procedure / Unknown Non-blood Collection / Unknown 07/23/2025 1:15 PM EDT 07/23/2025 2:01 PM EDT [facility] URINE ORDERABLES Final R esult [facility] [address] [place] [address], [place] [phone] * Culture urine (07/23/2025 1:15 PM EDT) Only the most recent of2 resultswithin the time period is included. Culture, Urine No growth 07/24/2025 10:23 AM EDT [facility] Urine Urine specimen obtained by clean catch procedure / Unknown Non-blood Collection / Unknown 07/23/2025 1:15 PM EDT 07/23/2025 2:12 PM EDT us Shawn Lawrence DO LAB MICROBIOLOGY - GENERAL O RDERABLES Final Result [facility] [address] [place] [address], [place] [phone] * CT Chest/Abdomen/Pelvis w Contrast (07/23/2025 10:34 AM EDT) Anatomical Region Laterality Modality Body Computed Tomogra phy 07/23/2025 11:2 2 AM EDT Impressions 07/23/2025 11:[address]: Mild dependent atelectatic with trace effusions. Well-positioned lines and tubes. Abdomen/pelvic CT: Significant urinary bladder wall thickening with well- positioned suprapubic tube. Significant gallbladder wall thickening with small dependent stones and/or sludge without significant distention. Liver demonstrates periportal edema with small amount of perihepatic ascites therefore thickening may be secondary to liver disease. -------- FINAL REPORT -------- Dictated By: Jace Eisenberg Dictated Date: 07/23/2025 11:22 ET Assigned Physician: Jace Eisenberg Reviewed and Electronically Signed By: Jace Eisenberg Signed Date: 07/23/2025 11:34 ET Workstation ID: [id number] Transcribed By: Self Edit Transcribed Date: 07/23/2025 11:22 ET Narrative 07/23/2025 11:34 AM EDT INDICATION: Significant dependent sludge and/or small stones. Technique: CT scan of the chest, abdomen and pelvis obtained with a total of 95 cc of Isovue 370 intravenously without incident. No oral contrast administered. Scanner: Saaspointer 128 slice VCT Dose reduction technique: ASIR (Adaptive statistical iterative reconstruction) and/or AEC (automated exposure control) Dose: total exam DLP 2437 mGY per cm Comparison: No prior studies available for comparison. FINDINGS: Chest CT: Lung fernandez are well aerated without infiltrates or effusions. No suspicious nodules or masses. Mild bibasilar atelectasis with trace effusions. No pneumothorax or pneumomediastinum. No thoracic lymphadenopathy. Heart mildly enlarged. No pericardial effusion. Well-positioned tracheostomy tube 4.5 cm above the jessie. Enteric tube extends into the gastric lumen. Right-sided central line within the internal jugular vein with the tip terminating within the upper SVC. Vascular structures are normal in course and caliber for the patient's age. Bony structures demonstrate degenerative changes. Bilateral gynecomastia Abdomen/pelvic CT: Liver grossly normal in size and shape. Small amount of perihepatic free fluid. Spleen unremarkable. Pancreas within normal limits. Adrenal glands are normal. 7 mm right lower pole renal stone without obstructive uropathy. Kidneys are normal in size and shape without hydronephrosis. Mild left greater than right perinephric stranding. Gallbladder wall thickening up to 13 mm with dependent attenuation possibly small stones and/or sludge. No significant gallbladder luminal distention. Periportal edema suspected. No intrahepatic or extrahepatic biliary duct dilatation. Stomach decompressed with well-positioned enteric tube proximally. Small bowel loops are decompressed. No wall thickening or dilatation. Terminal unremarkable. Normal appendix in the right lower quadrant. Colon within normal limits. Urinary bladder contains a suprapubic tube which is well-positioned with insufflated retention balloon. Small amount of urine noted intraluminally with air-fluid level. Significant bladder wall thickening up to 2 cm may represent cystitis. Abdominal aorta demonstrates mild atherosclerotic changes. No retroperitoneal lymphadenopathy. Bony structures demonstrate degenerative changes. Mild diffuse soft tissue anasarca. Procedure Note Jace Eisenberg MD - 07/23/2025 INDICATION: Significant dependent sludge and/or small stones. Technique: CT scan of the chest, abdomen and pelvis obtained with a totalof 95 cc of Isovue 370 intravenously without incident. No oral contrastadministered. Scanner: Saaspointer 128 slice VCT Dose reduction technique: ASIR (Adaptive statistical iterativereconstruction) and/or AEC (automated exposure control) Dose: total exam DLP 2437 mGY per cm Comparison: No prior studies available for comparison. FINDINGS: Chest CT: Lung fernandez are well aerated without infiltrates or effusions. Nosuspicious nodules or masses. Mild bibasilar atelectasis with traceeffusions. No pneumothorax or pneumomediastinum. No thoracic lymphadenopathy. Heart mildly enlarged. No pericardialeffusion. Well-positioned tracheostomy tube 4.5 cm above the jessie. Enteric tubeextends into the gastric lumen. Right-sided central line within theinternal jugular vein with the tip terminating within the upper SVC. Vascular structures are normal in course and caliber for the patient'stanley. Bony structures demonstrate degenerative changes. Bilateral gynecomastia Abdomen/pelvic CT: Liver grossly normal in size and shape. Small amount of perihepatic freefluid. Spleen unremarkable. Pancreas within normal limits. Adrenal glandsare normal. 7 mm right lower pole renal stone without obstructiveuropathy. Kidneys are normal in size and shape without hydronephrosis.Mild left greater than right perinephric stranding. Gallbladder wall thickening up to 13 mm with dependent attenuationpossibly small stones and/or sludge. No significant gallbladder luminaldistention. Periportal edema suspected. No intrahepatic or extrahepaticbiliary duct dilatation. Stomach decompressed with well-positioned enteric tube proximally. Smallbowel loops are decompressed. No wall thickening or dilatation. Terminalunremarkable. Normal appendix in the right lower quadrant. Colon withinnormal limits. Urinary bladder contains a suprapubic tube which is well-positioned withinsufflated retention balloon. Small amount of urine noted intraluminallywith air-fluid level. Significant bladder wall thickening up to 2 cm mayrepresent cystitis. Abdominal aorta demonstrates mild atherosclerotic changes. Noretroperitoneal lymphadenopathy. Bony structures demonstrate degenerative changes. Mild diffuse soft tissue anasarca. IMPRESSION: Chest CT: Mild dependent atelectatic with trace effusions. Well-positioned lines and tubes. Abdomen/pelvic CT: Significant urinary bladder wall thickening withwell- positioned suprapubic tube. Significant gallbladder wall thickening with small dependent stones and/orsludge without significant distention. Liver demonstrates periportal edemawith small amount of perihepatic ascites therefore thickening may besecondary to liver disease. -------- FINAL REPORT -------- Dictated By: Jace Eisenberg Dictated Date: 07/23/2025 11:22 ET Assigned Physician: Jace Eisenberg Reviewed and Electronically Signed By: Jace Eisenberg Signed Date: 07/23/2025 11:34 ET Workstation ID: [id number] Transcribed By: Self Edit Transcribed Date: 07/23/2025 11:22 ET Shawn Lawrence DO IM CT PROCEDURES Final Resu lt * CT Head wo Contrast (07/23/2025 10:34 AM EDT) Anatomical Region Laterality Modality Head and Neck Computed Tomogra phy 07/23/2025 10:4 8 AM EDT Impressions 07/23/2025 10:52 AM EDT No evidence of acute intracranial process on noncontrast head CT. -------- FINAL REPORT -------- Dictated By: Jace Eisenberg Dictated Date: 07/23/2025 10:48 ET Assigned Physician: Jace Eisenberg Reviewed and Electronically Signed By: Jace Eisenbreg Signed Date: 07/23/2025 10:52 ET Workstation ID: [id number] Transcribed By: Self Edit Transcribed Date: 07/23/2025 10:48 ET Narrative 07/23/2025 10:52 AM EDT INDICATION: Altered mental status Technique: Axial images were obtained from the skull base to the vertex without contrast enhancement. Scanner: Cellectis revolution frontier 128 slice VCT Dose reduction technique: ASIR (Adaptive statistical iterative reconstruction) Dose: total exam DLP 1337.9 mGY per cm Comparison: No prior studies available for comparison. FINDINGS: Intracranial contents: No acute intracranial hemorrhage, midline shift or mass-effect. The ventricles, sulci, sylvian fissures and basilar cisterns are symmetric and normal in size and shape for the patients age. No abnormal intra or extra-axial fluid collections. Bony structures/soft tissues: Within normal limits. Sinuses: Paranasal sinuses are clear. Mastoid air cells are well aerated. Procedure Note Jace Eisenberg MD - 07/23/2025 INDICATION: Altered mental status Technique: Axial images were obtained from the skull base to the vertexwithout contrast enhancement. Scanner: Cellectis revolution frontier 128 slice VCT Dose reduction technique: ASIR (Adaptive statistical iterativereconstruction) Dose: total exam DLP 1337.9 mGY per cm Comparison: No prior studies available for comparison. FINDINGS: Intracranial contents: No acute intracranial hemorrhage, midline shift ormass- effect. The ventricles, sulci, sylvian fissures and basilar cisternsare symmetric and normal in size and shape for the patients age. Noabnormal intra or extra-axial fluid collections. Bony structures/soft tissues: Within normal limits. Sinuses: Paranasal sinuses are clear. Mastoid air cells are wellaerated. IMPRESSION: No evidence of acute intracranial process on noncontrast head CT. -------- FINAL REPORT -------- Dictated By: Jace Eisenberg Dictated Date: 07/23/2025 10:48 ET Assigned Physician: Jace Eisenberg Reviewed and Electronically Signed By: Jace Eisenberg Signed Date: 07/23/2025 10:52 ET Workstation ID: [id number] Transcribed By: Self Edit Transcribed Date: 07/23/2025 10:48 ET Shawn Lawrence DO IMG CT PROCEDURES Final Resu lt * (ABNORMAL) Culture sputum (07/23/2025 10:00 AM EDT) [facility] Culture, Sputum Very Light Growth Methicillin-Sensiti ve Staphylococcus aureus(A) KYE 07/27/2025 8:[address] [facility] Comment: Beta-lactamase negative The organism value for this result has been updated. These results have been appended to the previously preliminary verified report. Edited result: Previously reported as Staphylococcus aureus on 07/25/2025 at 0844 EDT. Gram Stain Result Moderate Polymorphonuclear leukocytes 07/27/2025 8:[address] [facility] Gram Stain Result Few Epithelial cells 07/27/2025 8:[address] [facility] Gram Stain Result No organisms seen 07/27/2025 8:[address] [facility] Sputum, aspirated Lung structure / Unknown Non-blood Collection / Unknown 07/23/2025 10:00 AM EDT 07/23/2025 10:22 AM EDT Narrative Organism Antibiotic Method Susceptibility Methicillin-Sensitive Staphylococcus aureus Benzylpenicillin KYE Susceptible Comment:This is an a ppended report. These results have been appended to a previously preliminary verified report. Methicillin-Sensitive Staphylococcus aureus Oxacillin KYE <=0.25 ug/ml: Susceptible Methicillin-Sensitive Staphylococcus aureus Gentamicin KYE <=0.5 ug/ml: Susceptible Methicillin-Sensitive Staphylococcus aureus Ciprofloxacin KYE <=0.5 ug/ml: Susceptible Methicillin-Sensitive Staphylococcus aureus Levofloxacin KYE 0.5 ug/ml: Susceptible Methicillin-Sensitive Staphylococcus aureus Moxifloxacin KYE <=0.25 ug/ml: Susceptible Methicillin-Sensitive Staphylococcus aureus Erythromycin KYE >=8 ug/ml: Resistant Methicillin-Sensitive Staphylococcus aureus Clindamycin KYE <=0.25 ug/ml: Resistant Methicillin-Sensitive Staphylococcus aureus Quinupristin/Dalfopristin KYE <=0.25 ug/ml: Susceptible Methicillin-Sensitive Staphylococcus aureus Linezolid KYE 2 ug/ml: Susceptible Methicillin-Sensitive Staphylococcus aureus Vancomycin KYE <=0.5 ug/ml: Susceptible Methicillin-Sensitive Staphylococcus aureus Tetracycline KYE <=1 ug/ml: Susceptible Methicillin-Sensitive Staphylococcus aureus Rifampin KYE <=0.5 ug/ml: Susceptible Methicillin-Sensitive Staphylococcus aureus Trimethoprim/Sulfamethoxazo le KYE <=10 ug/ml: Susceptible us Kirill Susy PA LAB MICROBIOLOGY - GENERAL ORDER MANUELA Final Result [facility] ([facility]) [facility] [address] [place] [address], [place] [phone] * (ABNORMAL) TRANSTHORACIC ECHOCARDIOGRAM (TTE) COMPLETE W/ CONTRAST (07/23/2025 10:00 AM EDT) Left Atrium Minor Manning 4.9 cm CV PACS Left Atrium Major Manning 5.0 cm CV PACS LA Area Sys (A2C) 16 cm2 CV PACS LA Area Sys (A4C) 14 cm2 CV PACS LA Volume (BP) 37 mL CV PACS RA Area 19.3 cm2 CV PACS RA 2D Volume 56 mL CV PACS AV Mean Gradient 3 mmHg CV PACS Ao VTI 19.8 cm CV PACS AV Peak Bam 1.1 m/s CV PACS AV Peak Gradient 5 mmHg CV PACS AV Area Continuity Equation 3.9 cm2 CV PACS AV Area Peak Velocity 3.9 cm2 CV PACS Aortic Sinus Valsalva 3.5 cm CV PACS Ascending Aorta 3.4 cm CV PACS IVC Proximal 2.7 cm CV PACS IVSD 1.0 0.6 - 1.0 cm CV PACS LVIDD 4.3 4.2 - 5.8 cm CV PACS LVIDS 2.3(A) 2.5 - 4.0 cm CV PACS LVOT Diameter 2.4 cm CV PACS LVOT Mean Bam 0.8 m/s CV PACS LVOT Mean Grad 2 mmHg CV PACS LVOT Peak VTI 17.1 cm CV PACS LVOT Peak Bam 1.0 m/s CV PACS LVOT Peak Gradient 4 mmHg CV PACS LVPWD 0.9 0.6 - 1.0 cm CV PACS MV E' Tissue Velocity Lateral 15 cm/s CV PACS MV E' Tissue Velocity Septal 16 cm/s CV PACS LVOT Area 4.5 cm2 CV PACS LVOT Stroke Volume 77 mL CV PACS MV Deceleration [place] 7.8 m/s2 CV PACS E Wave Deceleration Time 161 119 - 242 ms CV PACS MV PHT 47 ms CV PACS MV Peak A Bam 0.50 m/s CV PACS MV Peak E Bam 1.30 m/s CV PACS MV Area PHT 4.7 cm2 CV PACS PV Acceleration Time 81 ms CV PACS PV Acceleration Time 81 ms CV PACS RV Diastolic Basal Dimension 4.1 2.5 - 4.1 cm CV PACS RV S' 16 cm/s CV PACS TAPSE 18 mm CV PACS TR Peak Velocity 1.40 m/s CV PACS TR Peak Gradient 8 mmHg CV PACS E/E' Ratio Septal 8 CV PACS E/E' Ratio Averaged 8 CV PACS Relative Wall Thickness ratio 0.42 0.24 - 0.42 CV PACS LVOT:AV VTI Index 0.86 CV PACS FS 47 % CV PACS LV Mass 2D 133 96 - 200 g CV PACS LVOT flow 362 mL/s CV PACS AV Velocity Ratio 0.91 CV PACS E/A Ratio 2.6(A) 0.8 - 2.0 CV PACS E/E' Ratio Lateral 9 CV PACS RV Free Wall Peak S' 16 cm/s CV PACS RA Major Manning 5.5 cm CV PACS AV Area 2D 3.9 cm2 CV PACS Inferior Vena Cava Diameter At Expiration 2.7 cm CV PACS Right Ventricular Peak Systolic Pressure 23 mmHg CV PACS Est. RA Pressure 15 mmHg CV PACS Anatomical Region Laterality Modality Ultrasound Narrative 07/23/2025 12:02 PM EDT Left ventricle cavity size is normal. Wall thickness is normal. Systolic function is normal with an ejection fraction of 60-65%. There are no regional LV wall motion abnormalities. There is no diastolic dysfunction. Right ventricle cavity is normal. Right ventricular systolic function is normal. No hemodynamic significant valvular disease Right ventricular systolic pressure cannot be obtained. IVC is dilated. Left Ventricle Left ventricle cavity size is normal. Wall thickness is normal. Systolic function is normal with an ejection fraction of 60-65%. There are no regional LV wall motion abnormalities. There is no diastolic dysfunction. Right Ventricle Right ventricle cavity appears normal. Systolic function is normal. Normal TAPSE (> 17 mm). Normal systolic excursion velocity by TDI (>9.5 cm/s). Left Atrium Left atrium cavity is mildly dilated. Left atrium volume index is mildly increased. Right Atrium Right atrium cavity is dilated. IVC/SVC Inferior vena cava is dilated. RA pressures is estimated to be 15 mmHg (IVC diameter >21 mm and decreases <50% during inspiration). Mitral Valve Mitral valve structure is normal. There is trace regurgitation. There is no evidence of mitral valve stenosis. Tricuspid Valve Tricuspid valve structure is normal. There is trace regurgitation. There is no evidence of tricuspid valve stenosis. Cannot assess RVSP. Aortic Valve The aortic valve is trileaflet. The leaflets are mildly thickened. There is no regurgitation or stenosis. Pulmonic Valve The pulmonic valve was not well visualized. There is no regurgitation or stenosis. Ascending Aorta The aorta appears normal in size. Pericardium Pericardium appears normal. There is no pericardial effusion. Study Details Overall the study quality was technically difficult. Definity contrast was given to enhance imaging. Study was difficult due to: poor endocardial visualization, patient body habitus, procedure performed with the patient in a supine position, mechanically ventilated and poor acoustic windows. Wall Scoring Baseline Score Index: 1.00 The left ventricular wall motion is normal. Kirill [place] DIETER CV ECHO PROCEDURES Final Result * (ABNORMAL) Troponin I high sensitivity (07/23/2025 9:30 AM EDT) Only the most recent of2 resultswithin the time period is included. Pathologist [facility] High Sensitivity Troponin I 242(HH) <=79 ng/L LAB CHEMISTRY METHOD 07/23/2025 11:07 AM EDT [facility] Blood Venous blood specimen / Unknown Venipuncture / Unknown 07/23/2025 9:30 AM EDT 07/23/2025 10:13 AM EDT Narrative [facility] - 07/23/2025 11:07 AM EDT High levels of biotin in samples may falsely decrease hsTroponin values. Use caution when interpreting hsTroponin results in patients taking biotin who exhibit renal impairment (eGFR <60) or in patients taking more than 20 mg/day of biotin. [facility] BLOOD ORDERABLES Final R esult Performing Organization Address [facility]/ZIP Co de Phone Number [facility] [address] [place] [address], [place] [phone] * (ABNORMAL) Fibrinogen (07/23/2025 9:30 AM EDT) [facility] Fibrinogen 894(H) 200 - 393 mg/dL LAB COAGULATION METHOD 07/23/2025 11:51 AM EDT [facility] Blood Venous blood specimen / Unknown Venipuncture / Unknown 07/23/2025 9:30 AM EDT 07/23/2025 10:13 AM EDT Shawn CohenMarket [facility] LAB BLOOD ORDERABLES Final R esult Performing Organization Address City/[facility]/ZIP Co de Phone Number [facility] [address] [place] [address], [place] [phone] * (ABNORMAL) Valproic acid level, total and free (07/23/2025 9:30 AM EDT) [facility] Valproic Acid, Free 6.1 4.8 - 17.3 mg/L 07/28/2025 3:48 AM EST [facility] Comment: Note: Non-linear drug binding properties result in the fraction of Free Valproic Acid increasing as total drug increases. The free fraction may range from 5% to 25% for the total drug range of 30-160 mg/L. Valproic Acid 22.0(L) 50.0 - 100.0 mg/L 07/28/2025 3:48 AM EST [facility] Comment: Test Performed by [facility], [facility], [address] [place] [address] Ancelmo Soliman M.D., Ph.D., Director of Laboratories , [place] [id number] Blood Venous blood specimen / Unknown Venipuncture / Unknown 07/23/2025 9:30 AM EDT 07/23/2025 10:13 AM EDT Shawn Lawrence DO LAB BLOOD ORDERABLES Final R esult [facility] [address] [place] [address] * Blood Culture, Peripheral Draw #2 (07/23/2025 8:01 AM EDT) Only the most recent of2 resultswithin the time period is included. [facility] Culture, Blood No growth at 5 days 07/28/2025 8:01 AM EST [facility] Blood Venous blood specimen / Unknown Venipuncture / Unknown 07/23/2025 8:01 AM EDT 07/23/2025 8:20 AM EDT Kirill GARCIAS LAB MICROBIOLOGY - GENERAL ORDER MANUELA Final Result [facility] [address] [place] [address], * Respiratory virus panel molecular study (07/23/2025 6:15 AM EDT) [facility] Adenovirus Detection by PCR Not Detected Not Detected LAB MICROBIOLOGY METHOD 07/23/2025 9:15 AM EDT [facility] Influenza A PCR Not Detected Not Detected LAB MICROBIOLOGY METHOD 07/23/2025 9:15 AM EDT [facility] Influenza B PCR Not Detected Not Detected LAB MICROBIOLOGY METHOD 07/23/2025 9:15 AM EDT [facility] Coronavirus 229E Not Detected Not Detected LAB MICROBIOLOGY METHOD 07/23/2025 9:15 AM EDT [facility] Coronavirus HKU1 Not Detected Not Detected LAB MICROBIOLOGY METHOD 07/23/2025 9:15 AM EDT [facility] Coronavirus OC43 Not Detected Not Detected LAB MICROBIOLOGY METHOD 07/23/2025 9:15 AM EDT [facility] Coronavirus NL63 Not Detected Not Detected LAB MICROBIOLOGY METHOD 07/23/2025 9:15 AM EDT [facility] Parainfluenza Virus 1 Not Detected Not Detected LAB MICROBIOLOGY METHOD 07/23/2025 9:15 AM EDT [facility] Parainfluenza Virus 2 Not Detected Not Detected LAB MICROBIOLOGY METHOD 07/23/2025 9:15 AM EDT [facility] Parainfluenza Virus 3 Not Detected Not Detected LAB MICROBIOLOGY METHOD 07/23/2025 9:15 AM EDT [facility] Parainfluenza Virus 4 Not Detected Not Detected LAB MICROBIOLOGY METHOD 07/23/2025 9:15 AM EDT [facility] RSV PCR Not Detected Not Detected LAB MICROBIOLOGY METHOD 07/23/2025 9:15 AM EDT [facility] Human Metapneumovirus A and B Not Detected Not Detected LAB MICROBIOLOGY METHOD 07/23/2025 9:15 AM EDT [facility] Rhinovirus/Entero virus Not Detected Not Detected LAB MICROBIOLOGY METHOD 07/23/2025 9:15 AM EDT [facility] Bordetella pertussis Not Detected Not Detected LAB MICROBIOLOGY METHOD 07/23/2025 9:15 AM EDT [facility] Bordetella parapertussis Not Detected Not Detected LAB MICROBIOLOGY METHOD 07/23/2025 9:15 AM EDT [facility] Mycoplasma pneumo by PCR Not Detected Not Detected LAB MICROBIOLOGY METHOD 07/23/2025 9:15 AM EDT [facility] Chlamydia pneumoniae Not Detected Not Detected LAB MICROBIOLOGY METHOD 07/23/2025 9:15 AM EDT [facility] SARS COV-2 Not Detected Not Detected LAB MICROBIOLOGY METHOD 07/23/2025 9:15 AM EDT [facility] Swab Both anterior nares / Unknown Non-blood Collection / Unknown 07/23/2025 6:15 AM EDT 07/23/2025 6:21 AM EDT Narrative [facility] - 07/23/2025 9:15 AM EDT Testing was performed using the Nexant Respiratory Pathogen PCR Assay. All results must be correlated with the clinical findings. Results should not be used as the sole basis for diagnosis. False Negative results may occur from the presence of sequence variants in the region targeted by the assay or the presence of inhibitors. Results may be affected by concurrent antiviral/antimicrobial therapy or levels of organisms that are below the limit of detection. us Kirill GARCIAS LAB MICROBIOLOGY - GENERAL ORDER MANUELA Final Result [facility] [address] [place] [address], * MRSA molecular study (07/23/2025 6:15 AM EDT) Pathologist [facility] MRSA Screen PCR Not Detected Not Detected LAB MICROBIOLOGY METHOD 07/23/2025 9:37 AM EDT [facility] Swab Both anterior nares / Unknown Non-blood Collection / Unknown 07/23/2025 6:15 AM EDT 07/23/2025 6:22 AM EDT us Kirill GARCIAS LAB MICROBIOLOGY - GENERAL ORDER MANUELA Final Result Performing Organization Address [facility]/ZIP Co de Phone Number [facility] [address] [place] [address], * [place] CATHETERIZATION/CANNULATION ARTERIAL SAMPLE/MONITORING/TRANSFUSION PERC (07/23/2025 6:14 AM EDT) Narrative Joslyn Padilla MD - 07/23/2025 6:14 AM EDT Joslyn Padilla MD 07/27/2025 8:15 AM Arterial Line Insertion Date/Time: 07/23/2025 6:14 AM Performed by: DIETER Tom Authorized by: DIETER Tom Consent: Consent obtained: Verbal and emergent situation Consent given by: Healthcare agent Risks, benefits, and alternatives were discussed: yes Mellen protocol: Patient identity confirmed: Arm band Indications: Indications: hemodynamic monitoring and multiple ABGs Pre-procedure details: Skin preparation: Chlorhexidine Preparation: Patient was prepped and draped in sterile fashion Sedation: Sedation type: Deep Anesthesia: Anesthesia method: None Procedure details: Location: L radial Arcenio's test performed: yes Arcenio's test abnormal: no Placement technique: Ultrasound guided Number of attempts: 1 Transducer: waveform confirmed Post-procedure details: Post-procedure: Sterile dressing applied and sutured Procedure completion: Tolerated well, no immediate complications Kirill GARCIAS IV THERAPY ORDERABLES Final Resu lt * Treponema pallidum antibody with reflex to RPR and particle agglutination (07/23/2025 6:14 AM EDT) T. Pallidum Antibodies Negative Negative LAB CHEMISTRY METHOD 07/23/2025 11:02 AM EDT [facility] Blood Arterial blood specimen / Unknown Venipuncture / Unknown 07/23/2025 6:14 AM EDT 07/23/2025 6:27 AM EDT Shawn Lawrence DO LAB BLOOD ORDERABLES Final R esult Performing Organization Address [facility]/ZIP Co de Phone Number [facility] [address] [place] [address], [place] [phone] * Thyroid stimulating hormone with reflex to free t4 and free t3 (07/23/2025 6:14 AM EDT) Pathologist [facility] TSH 1.15 0.40 - 4.00 mcIU/mL LAB CHEMISTRY METHOD 07/23/2025 10:52 AM EDT [facility] Blood Arterial blood specimen / Unknown Venipuncture / Unknown 07/23/2025 6:14 AM EDT 07/23/2025 6:27 AM EDT Shawn Lawrence DO LAB BLOOD ORDERABLES Final R esult Performing Organization Address [facility]/ZIP Co de Phone Number [facility] [address] [place] [address], [place] [phone] * Pathology review, blood smear (07/23/2025 6:14 AM EDT) [facility] Pathologist Review Blood Smear Granulocytosis : consider infection or other reactive process. Normocytic anemia: smear not diagnostic of etiology. Scattered platelet clumps are present. 07/23/2025 9:17 AM EDT [facility] Blood Arterial blood specimen / Unknown Venipuncture / Unknown 07/23/2025 6:14 AM EDT 07/23/2025 6:27 AM EDT Kirill GARCIAS LAB BLOOD ORDERABLES Final Resul t [facility] [address] [place] [address], [place] [phone] * Legionella antigen urine, EIA (07/23/2025 6:14 AM EDT) Pathologist [facility] Legionella Antigen, Ur Negative Negative 07/23/2025 10:36 AM EDT [facility] Urine Urine specimen from urinary conduit / Unknown Non-blood Collection / Unknown 07/23/2025 6:14 AM EDT 07/23/2025 6:21 AM EDT Narrative [facility] - 07/23/2025 10:36 AM EDT Negative for Legionella pneumophilia serogroup 1 antigen. This presumptive result suggests no current or recent infection due to L. pneumophilia serogroup 1. Culture is recommended if Legionella infection is till suspected, as other serogroups and species of Legionella are not detected by this test. us Kirill GARCIAS LAB URINE ORDERABLES Final Resul t Performing Organization Address [facility] Co de Phone Number [facility] [address] [place] [address], * (ABNORMAL) B-type natriuretic peptide (07/23/2025 6:14 AM EDT) BNP 260(H) <=100 pcg/mL LAB CHEMISTRY METHOD 07/23/2025 9:44 AM EDT [facility] Blood Arterial blood specimen / Unknown Venipuncture / Unknown 07/23/2025 6:14 AM EDT 07/23/2025 6:27 AM EDT us Kirill GARCIAS LAB BLOOD ORDERABLES Final Resul t Performing Organization Address [facility] Co de Phone Number [facility] [address] [place] [address], [place] [phone] * (ABNORMAL) Folate (07/23/2025 6:14 AM EDT) Folate >20.0(H) 2.8 - 17.0 ng/ml LAB CHEMISTRY METHOD 07/23/2025 9:13 AM EDT [facility] Blood Arterial blood specimen / Unknown Venipuncture / Unknown 07/23/2025 6:14 AM EDT 07/23/2025 6:27 AM EDT us Shawn Lawrence DO LAB BLOOD ORDERABLES Final R esult Performing Organization Address City/[facility]/ZIP Co de Phone Number [facility] [address] [place] [address], [place] [phone] * Vitamin B12 (07/23/2025 6:14 AM EDT) Vitamin B-12 871 250 - 900 pcg/mL LAB CHEMISTRY METHOD 07/23/2025 9:59 AM EDT [facility] Blood Arterial blood specimen / Unknown Venipuncture / Unknown 07/23/2025 6:14 AM EDT 07/23/2025 6:27 AM EDT Shawn Lawrence LAB BLOOD ORDERABLES Final R esult Performing Organization Address [facility]/ZIP Co de Phone Number [facility] [address] [place] [address], [place] [phone] from [place] [address] [place] [address] MEDICAID - [place] MEDICARE Advance Directives Documents on File Type Date Recorded Patient Program Management Analyst Expl anation Advance Directives and Living Will 08/04/2025 9:28 AM MOLST Advance Directives and Living Will 07/30/2025 11:48 AM Brandi Akins Health Care Proxy * Full Code - Default (Latest Code Status on File) Date Activated Date Inactivated Comments 07/23/2025 4:57 AM 08/02/2025 5:25 PM This is ord er is used when code status has not been discussed with the patient, or code status is otherwise unknown/unconfirmed To update the patient's code status, place a code status order. Do not modify or discontinue any currently active code status orders. Healthcare Agents on File Name Relationship Healthcare Agent Relationshi p Communication Brandi Akins Other Health Care Agent Care Teams Jewel Hole Cornerer Relationship Specialty Start Date End Date Vahe Jacob MD [address] [place] [address] [address], [phone] PCP - General Family Medicine 07/24/25
--- NOTE | 2025-08-17 08:32 | A.OFFVIS_ITS ---
Intake Visit Reasons: SPT change (1st one) Intake Note: New patient presents today for initial visit for SPT change (1st one) Urology Medication:None Blood Thinner:None Antibiotic Allergies:None Allergies No Known Allergies Allergy (Verified 08/17/25 08:32) Medication List - Last Reconciled 08/17/25 by Maurisio Mccomrack MD cholecalciferol (vitamin D3) 25 mcg PO DAILY divalproex 1,000 mg (2 x 500 mg) PO BEDTIME glimepiride 2 mg PO QAM 30 days hydroxyzine HCl 10 mg PO BEDTIME PRN 30 days lorazepam 1 mg PO Q6H PRN 3 days multivitamin 1 tab PO DAILY nystatin (Nyamyc) 1 appl See Protocol topical BID olanzapine 10 mg PO BID olanzapine 5 mg PO BID PRN valproic acid 500 mg (2 x 250 mg) PO DAILY vancomycin 125 mg PO Q6H 10 days HPI Comments Details: 08/17/25--The patient is a 55-year-old individual presenting with a need for suprapubic tube change. The patient has a history of type 2 diabetes mellitus and bilateral lower extremity lymphedema, which have been managed over time. Additionally, the patient has cognitive delay, which impacts daily functioning. The patient was previously hospitalized on July 02, 2025, for urinary retention and acute delirium, which occurred in the context of a urinary tract infection. A dense urethral stricture was identified, necessitating the placement of a suprapubic tube. The patient has been undergoing regular suprapubic tube changes every four weeks with the urology nursing staff. For the management of urethral stricture, the patient has been prescribed Proscar 5 mg daily. Plan 1. Urethral Stricture 2. BPH - Continue suprapubic tube changes every four weeks with urology nursing staff. - Initiate Proscar 5 mg daily for management. 07/02/25--Urology Consult: 55-year-old male with history of urinary incontinence, type 2 diabetes, hyperlipidemia, bilateral lower extremity edema and cognitive delay, who presented to the ED due to multiple recent falls with weakness and altered mental status. Patient to be admitted for acute delirium in the setting of UTI. ON LICENSE OF [facility] Medical History Urinary incontinence Morbid obesity with BMI of 40.0-44.9, adult Morbid obesity with BMI of 45.0-49.9, adult Mood disorder Obstructive sleep apnea Type 2 diabetes mellitus without complication, without long-term current use of insulin Hypertriglyceridemia Lymphedema of both lower extremities Lymphedema Surgical History History of myringotomy History of tonsillectomy Family History Father Medical history unknown Mother Diabetes Other Mental health problem Social History Household Members: Family and Caregiver Household Members Other:: aunt/uncle Housing: House Do you presently have visiting nurse or other home services: No Alcohol intake: never Comment: 1:1 sitter Patient Tobacco Use Status: Never used Tobacco e-Cigarette/Vaping Use: Never Used Second Hand Smoke Exposure: No service: No Current occupational status: disabled Cognitive needs: No Hearing needs: No Vision needs: Yes (Glasses) Review of Systems Const All systems reviewed & are unremarkable except as noted in HPI and below Reports no additional complaints Eyes Reports no additional complaints ENT Reports no additional complaints Card Reports no additional complaints Resp Reports no additional complaints GI Reports no additional complaints Reports as per HPI Musc Reports no additional complaints Skin/Breast Reports system reviewed and no additional complaints, except as documented Neuro Reports no additional complaints Psych Reports no additional complaints Endo Reports no additional complaints Geraldo/Lymph Reports no additional complaints Aller/Immun Reports no additional complaints Assessment & Plan Assessment & Plan (1) BPH (benign prostatic hyperplasia): Code(s): N40.0 - Benign prostatic hyperplasia without lower urinary tract symptoms Category: Medical Plan SP tube change q 4 weeks with Urology Nurse proscar Medications: New finasteride (Proscar) 5 mg PO DAILY 90 tabs 3RF N40.0 - Benign prostatic hyperplasia without lower urinary tract symptoms Patient Instructions: The patient had an opportunity to ask questions regarding treatment plan. The patient expressed understanding and agreement with the above treatment plan. The patient is aware they should contact our office by phone for worsening of their current condition or the appearance of new symptoms. Compliance is encouraged with any medications and followup testing that is ordered. It is a privilege to be allowed the opportunity to participate in the urologic care of your patient. If you have any questions or concerns regarding treatment for the above conditions please do not hesitate to contact me. The office telephone contact is [phone]. This note is constructed in part using voice recognition software. While every effort has been made to ensure accuracy radiotelephone technical operator errors may have been included. Yours sincerely, Maurisio Mccormack MD Coding Level of Care Code Est Pt Level 4 (55560) Diagnoses BPH (benign prostatic hyperplasia) N40.0
== END 2025-08-17 09:16 | disposition home or self-care (01) ==
LOC: HO.HUSH 07:52
PROVIDERS: Visit Provider Urology
DX: N40.0 Benign prostatic hyperplasia without lower urinary tract symptoms (principal)
CPT/HCPCS: 99214

== ENCOUNTER → 2025-08-17 07:52 | Outpatient (BNVA) | payer MEDICARE, MEDICAID, SELFPAY | PROVIDERS: Visit Provider Urology | DX: N40.0 Benign prostatic hyperplasia without lower urinary tract symptoms (principal) | CPT/HCPCS: 99212 ==

== ENCOUNTER → 2025-09-14 13:01 | Outpatient (BNVA) | payer MEDICARE, MEDICAID, SELFPAY | PROVIDERS: Visit Provider Urology | DX: N40.0 Benign prostatic hyperplasia without lower urinary tract symptoms (principal); R33.9 Retention of urine, unspecified | CPT/HCPCS: 51705 ==